=== PATIENT | female | born 1940 | race Caucasian/White ===

== ENCOUNTER 2016-11-12 08:25 | Inpatient (IN) | payer MEDICARE ==
[2016-11-12] MEDS ORDERED: metroNIDAZOLE IV 500 MG/100ML* 500 MG/100 ML BAG IVPB ONE (09:01)
[2016-11-12] MEDS ORDERED: NS 0.9% 1000 ML* 2,000 ML IV ONE (09:01)
[2016-11-12] MEDS ORDERED: Ciprofloxacin 400MG IVPREMIX(* 400 MG/200 ML BAG IVPB ONE (09:02)
--- NOTE | 2016-11-12 10:04 | RAD ---
HISTORY: Abdominal pain, syncope COMPARISONS: December 02, 2009 VIEWS:1: Single frontal portable view of the chest at 9:20 AM FINDINGS: LINES AND TUBES: None. CARDIOMEDIASTINAL SILHOUETTE: The cardiomediastinal silhouette is normal for portable technique. PLEURA: The costophrenic angles are sharp. No pleural abnormalities are noted. LUNG PARENCHYMA: The lungs are clear. ABDOMEN: The upper abdomen is clear. There is no subphrenic gas. BONES AND SOFT TISSUES: No bone or soft tissue abnormalities are noted. IMPRESSION: NO ACTIVE CARDIOPULMONARY DISEASE.
[2016-11-12 10:30] LABS: Hematocrit 41 % (35-47); Hemoglobin 13.9 g/dl (12.0-16.0); Mean Corpuscular HGB Conc 34 g/dl (31-36); Mean Corpuscular Hemoglobin 29 pg (27-31); Mean Corpuscular Volume 87 fL (80-97); Mean Platelet Volume 9 um3 (7.4-10.4); Red Blood Count 4.77 10^6/ul (4.0-5.4); Red Cell Distribution Width 14 % (10.5-15); White Blood Count 15.6 10^3/ul (3.5-10.8)
[2016-11-12 10:44] LABS: ALT 14 U/L (7-52); AST 18 U/L (13-39); Alkaline Phosphatase 61 U/L (34-104); Anion Gap 7 mmol/L (2-11); BUN/Creatinine Ratio 11.1 (8-20); Blood Urea Nitrogen 8 mg/dL (6-24); C Reactive Protein 99.41 mg/L (< 5.00); CO2 Carbon Dioxide 28 mmol/L (22-32); Calcium 9.3 mg/dL (8.6-10.3); Chloride 98 mmol/L (101-111); Creatine Kinase 57 U/L (10-223); EGFR African American 101.3 (>60); EGFR Non-African American 78.8 (>60); Globulin 2.8 g/dL (2-4); Glucose 119 mg/dL (70-100); Lipase < 10 U/L (11.0-82.0); Magnesium 2.1 mg/dL (1.9-2.7); Potassium 3.2 mmol/L (3.5-5.0); Sodium 133 mmol/L (133-145); Total Protein 6.8 g/dL (6.4-8.9)
[2016-11-12 10:44] LABS: Urine Bacteria Absent (Absent); Urine Bilirubin Negative (Negative); Urine Glucose Negative (Negative); Urine Nitrite Negative (Negative)
[2016-11-12 10:45] LABS: Troponin I 0.01 ng/mL (<0.04)
[2016-11-12] MEDS ORDERED: Ondansetron INJ* 2 MG/ML VIAL IV ONE (10:55)
[2016-11-12] MEDS ORDERED: Morphine INJ* 4 MG/ML 1 ML CARPUJECT IV ONE (10:55)
[2016-11-12] MEDS ORDERED: Iohexol 300* (CONTRAST) 10 ML SDV IV ONE (11:05)
--- NOTE | 2016-11-12 12:16 | RAD ---
CLINICAL HISTORY: Left lower quadrant pain, history of diverticulitis COMPARISON: February 23, 2016 TECHNIQUE: Multiple contiguous axial CT scans were obtained of the abdomen and pelvis after the administration of intravenous contrast. Coronal and sagittal multiplanar reformations are submitted for review. Oral contrast was administered. Delayed images were obtained through the abdomen FINDINGS: LUNG BASES: The lung bases are clear. LIVER: The liver is normal in shape, size, contour, and attenuation. BILE DUCTS: There is no intrahepatic or extrahepatic biliary dilatation. GALLBLADDER: Multiple gallstones are noted. There is no pericholecystic inflammatory change. . PANCREAS: The pancreas is normal, without mass or ductal dilatation. SPLEEN: Normal in size and appearance. UPPER GI TRACT: Evaluation of the gastrointestinal tract is limited by incomplete gastric distention. There is a moderate-sized hilar hernia. SMALL BOWEL AND MESENTERY: The small bowel is normal in contour, course, and caliber. There is no obstruction or dilatation. COLON: There is extensive diverticulosis of the sigmoid colon. There is mucosal thickening of the sigmoid colon with stranding of the pericolonic fat.. There is no loculated fluid collection to suggest abscess ADRENALS: Normal bilaterally. KIDNEYS: There are renal cysts bilaterally. There is moderate pelvocaliectasis on the left. This is similar to the previous examination BLADDER: The bladder is incompletely distended but is grossly normal. PELVIC ORGANS: Again noted is a cystic lesion of the right hemipelvis measuring simple fluid in attenuation. This is stable from 2016 examination. AORTA: The aorta is normal. IVC: Unremarkable LYMPH NODES: There is no lymphadenopathy by size criteria. ABDOMINAL WALL: There is no evidence for abdominal wall hernia. BONES AND SOFT TISSUES: Unremarkable OTHER: None IMPRESSION: 1. DIVERTICULITIS, WITHOUT LOCULATED FLUID COLLECTION TO SUGGEST ABSCESS. 2. STABLE LEFT-SIDED HYDRONEPHROSIS WITH MULTIPLE RENAL CYSTS. 3. CHOLELITHIASIS. 4. AGAIN NOTED IS A CYSTIC LESION OF THE RIGHT HEMIPELVIS. THIS IS STABLE FROM FEBRUARY 23, 2016. GIVEN THE SIZE AND PERSISTENCE, RECOMMEND CONSIDERATION OF GYNECOLOGIC CONSULTATION
[2016-11-12 12:19] LABS: TSH (Thyroid Stimulating Horm) 2.37 mcIU/mL (0.34-5.60)
--- NOTE | 2016-11-12 12:26 | ED ---
[facility], scribed for Manav Quiñonez MD on 11/12/16 at 0929 . Abdominal Pain/Female - HPI Summary HPI Summary: Patient is a 76 y/o female who presents to [facility] with sharp abd pain in the lower quadrants since 2 days. She rates her pain as a 7/10. She reports a subjective fever and loss of appetite, but denies CP, palpitations, hematochezia , or dysuria. She also reports pain is worsened by movement and that she has experienced decreased BM. She had two near syncope episodes and one syncope episode that lasted seconds this morning. Pt is on blood thinners and has a Hx of heart murmurs. PMHx is significant for diverticulitis and PSHx for tubal ligation. - History of Current Complaint Chief Complaint: EDAbdPain Stated Complaint: ABD PAIN Time Seen by Provider: 11/12/16 08:44 Hx Obtained From: Patient Onset/Duration: Gradual Onset, Lasting Days Pain Intensity: 6 Pain Scale Used: 0-10 Numeric Location: Discrete At: RLQ, Discrete At: LLQ Character: Sharp Aggravating Factor(s): Movement Alleviating Factor(s): Nothing Associated Signs and Symptoms: Positive: Fever, Decreased Appetite, Other: - No palpitations. No hematochezia. Syncope.. Negative: Chest Pain, Blood in Stool, Urinary Symptoms Allergies/Adverse Reactions: Allergies Allergy/AdvReac Type Severity Reaction Status Date / Time Amoxicillin Allergy Severe Shakes Verified 11/12/16 08:37 Clavulanic Acid Allergy Severe Headache Verified 11/12/16 08:37 [From Augmentin] Gentamicin Allergy Severe Eyes Verified 11/12/16 08:37 [From Gentamicin Ophthalmic] Itchy/Swollen/Red/Watery Sulfa Antibiotics Allergy Severe Rash Verified 11/12/16 08:37 PMH/Surg Hx/FS Hx/Imm Hx Endocrine/Hematology History: Denies: Hx Diabetes Cardiovascular History: Reports: Hx Hypertension - medication controlled Denies: Hx Pacemaker/ICD Respiratory History: Reports: Hx Asthma GI History: Reports: Hx Diverticulosis History: Denies: Hx Renal Disease Sensory History: Denies: Hx Hearing Aid Psychiatric History: Denies: Hx Panic Disorder - Surgical History Surgery Procedure, Year, and Place: TUBAL LIGATION 1970; Tonsillectomy age 6. CATARACTS, DENTAL Infectious Disease History: No Infectious Disease History: Denies: Traveled Outside the [place] in Last 30 Days - Family History Known Family History: Positive: Cardiac Disease - Father at 76 from cardiac dz. , Diabetes, Other - Father had PD. Family History: NON CONTRIBUTORY - Social History Alcohol Use: None Substance Use Type: Reports: None Smoking Status (MU): Never Smoked Tobacco Review of Systems Positive: Fever - Subjective. Cardiovascular: Other - No Palpitations. Negative: Chest Pain Gastrointestinal: Other - No hematochezia or dysuria. Positive: Other - Loss of appetite. Positive: Syncope - A few seconds. All Other Systems Reviewed And Are Negative: Yes Physical Exam Triage Information Reviewed: Yes Vital Signs On Initial Exam: Initial Vitals Temp Pulse Resp BP Pulse Ox 97.5 F 77 16 126/68 98 11/12/16 08:33 11/12/16 08:33 11/12/16 08:33 11/12/16 08:33 11/12/16 08:33 Vital Signs Reviewed: Yes Appearance: Positive: Well-Appearing, No Pain Distress - NAD. Skin: Positive: Warm, Skin Color Reflects Adequate Perfusion, Dry Head/Face: Positive: Normal Head/Face Inspection Eyes: Positive: EOMI, WIL ENT: Positive: Normal ENT inspection Neck: Positive: Supple, Nontender Respiratory/Lung Sounds: Positive: Clear to Auscultation, Breath Sounds Present Cardiovascular: Positive: RRR Abdomen Description: Positive: Soft, Other: - LLQ mild tenderness.. Negative: Nontender Bowel Sounds: Positive: Present, Hypoactive Musculoskeletal: Positive: Normal, Strength/ROM Intact Neurological: Positive: Normal, Sensory/Motor Intact, Alert, Oriented to Person Place, Time Psychiatric: Positive: Affect/Mood Appropriate - Tram Coma Scale Coma Scale Total: 15 Diagnostics - Vital Signs Vital Signs Temp Pulse Resp BP Pulse Ox 11/12/16 08:54 73 18 95 11/12/16 08:33 97.5 F 77 16 126/68 98 - Laboratory Lab Results: Lab Results 11/12/16 11/12/16 11/12/16 Range/Units 10:15 10:15 10:15 WBC 15.6 H (3.5-10.8) 10^3/ul RBC 4.77 (4.0-5.4) 10^6/ul Hgb 13.9 (12.0-16.0) g/dl Hct 41 (35-47) % MCV 87 (80-97) fL MCH 29 (27-31) pg MCHC 34 (31-36) g/dl RDW 14 (10.5-15) % Plt Count 245 (150-450) 10^3/ul MPV 9 (7.4-10.4) um3 Neut % (Auto) 81.7 (38-83) % Lymph % (Auto) 9.2 L (25-47) % [place] % (Auto) 8.2 (1-9) % Eos % (Auto) 0.1 (0-6) % Baso % (Auto) 0.8 (0-2) % Absolute Neuts (auto) 12.8 H (1.5-7.7) 10^3/ul Absolute Lymphs (auto) 1.4 (1.0-4.8) 10^3/ul Absolute Monos (auto) 1.3 H (0-0.8) 10^3/ul Absolute Eos (auto) 0 (0-0.6) 10^3/ul Absolute Basos (auto) 0.1 (0-0.2) 10^3/ul Absolute Nucleated RBC 0 10^3/ul Nucleated RBC % 0 INR (Anticoag Therapy) 0.91 (0.89-1.11) APTT 26.7 (26.0-36.3) seconds Sodium 133 (133-145) mmol/L Potassium 3.2 L (3.5-5.0) mmol/L Chloride 98 L (101-111) mmol/L Carbon Dioxide 28 (22-32) mmol/L Anion Gap 7 (2-11) mmol/L BUN 8 (6-24) mg/dL Creatinine 0.72 (0.51-0.95) mg/dL Est GFR ( Amer) 101.3 (>60) Est GFR (Non-Af Amer) 78.8 (>60) BUN/Creatinine Ratio 11.1 (8-20) Glucose 119 H (70-100) mg/dL Lactic Acid (0.5-2.0) mmol/L Calcium 9.3 (8.6-10.3) mg/dL Magnesium 2.1 (1.9-2.7) mg/dL Total Bilirubin 1.00 (0.2-1.0) mg/dL AST 18 (13-39) U/L ALT 14 (7-52) U/L Alkaline Phosphatase 61 (34-104) U/L Total Creatine Kinase 57 (10-223) U/L CK-MB (CK-2) 1.2 (0.6-6.3) ng/mL Troponin I 0.01 (<0.04) ng/mL C-Reactive Protein 99.41 H (< 5.00) mg/L Total Protein 6.8 (6.4-8.9) g/dL Albumin 4.0 (3.2-5.2) g/dL Globulin 2.8 (2-4) g/dL Albumin/Globulin Ratio 1.4 (1-3) Lipase < 10 L (11.0-82.0) U/L TSH 2.37 (0.34-5.60) mcIU/mL Urine Color Urine Appearance Urine pH (5-9) Ur Specific River (1.010-1.030) Urine Protein (Negative) Urine Ketones (Negative) Urine Blood (Negative) Urine Nitrate (Negative) Urine Bilirubin (Negative) Urine Urobilinogen (Negative) Ur Leukocyte Esterase (Negative) Urine WBC (Auto) (Absent) Urine RBC (Auto) (Absent) Ur Squamous Epith Cells (Absent) Urine Bacteria (Absent) Urine Glucose (Negative) 11/12/16 11/12/16 Range/Units 10:15 10:20 WBC (3.5-10.8) 10^3/ul RBC (4.0-5.4) 10^6/ul Hgb (12.0-16.0) g/dl Hct (35-47) % MCV (80-97) fL MCH (27-31) pg MCHC (31-36) g/dl RDW (10.5-15) % Plt Count (150-450) 10^3/ul MPV (7.4-10.4) um3 Neut % (Auto) (38-83) % Lymph % (Auto) (25-47) % [place] % (Auto) (1-9) % Eos % (Auto) (0-6) % Baso % (Auto) (0-2) % Absolute Neuts (auto) (1.5-7.7) 10^3/ul Absolute Lymphs (auto) (1.0-4.8) 10^3/ul Absolute Monos (auto) (0-0.8) 10^3/ul Absolute Eos (auto) (0-0.6) 10^3/ul Absolute Basos (auto) (0-0.2) 10^3/ul Absolute Nucleated RBC 10^3/ul Nucleated RBC % INR (Anticoag Therapy) (0.89-1.11) APTT (26.0-36.3) seconds Sodium (133-145) mmol/L Potassium (3.5-5.0) mmol/L Chloride (101-111) mmol/L Carbon Dioxide (22-32) mmol/L Anion Gap (2-11) mmol/L BUN (6-24) mg/dL Creatinine (0.51-0.95) mg/dL Est GFR ( Amer) (>60) Est GFR (Non-Af Amer) (>60) BUN/Creatinine Ratio (8-20) Glucose (70-100) mg/dL Lactic Acid 0.9 (0.5-2.0) mmol/L Calcium (8.6-10.3) mg/dL Magnesium (1.9-2.7) mg/dL Total Bilirubin (0.2-1.0) mg/dL AST (13-39) U/L ALT (7-52) U/L Alkaline Phosphatase (34-104) U/L Total Creatine Kinase (10-223) U/L CK-MB (CK-2) (0.6-6.3) ng/mL Troponin I (<0.04) ng/mL C-Reactive Protein (< 5.00) mg/L Total Protein (6.4-8.9) g/dL Albumin (3.2-5.2) g/dL Globulin (2-4) g/dL Albumin/Globulin Ratio (1-3) Lipase (11.0-82.0) U/L TSH (0.34-5.60) mcIU/mL Urine Color Yellow Urine Appearance Clear Urine pH 7.0 (5-9) Ur Specific River 1.006 L (1.010-1.030) Urine Protein Negative (Negative) Urine Ketones Trace H (Negative) Urine Blood 1+ H (Negative) Urine Nitrate Negative (Negative) Urine Bilirubin Negative (Negative) Urine Urobilinogen Negative (Negative) Ur Leukocyte Esterase Negative (Negative) Urine WBC (Auto) Absent (Absent) Urine RBC (Auto) 1+(3-5/hpf) H (Absent) Ur Squamous Epith Cells Present H (Absent) Urine Bacteria Absent (Absent) Urine Glucose Negative (Negative) Result Diagrams: 11/12/16 10:15 11/12/16 10:15 Lab Statement: Any lab studies that have been ordered have been reviewed, and results considered in the medical decision making process. - Radiology CXR Radiology Interpretation Completed By: Radiologist - IMPRESSION: NO ACTIVE CARDIOPULMONARY DISEASE. Abdominal Pain Fem Course/Dx - Course Course Of Treatment: ADMIT HOSPITALIST STABLE. - Diagnoses Provider Diagnoses: Diverticulitis, Syncope Discharge - Discharge Plan Condition: Stable Disposition: ADMITTED TO [facility] The documentation as recorded by the [facility] accurately reflects the service I personally performed and the decisions made by Khang modi William, MD.
[2016-11-12] MEDS ORDERED: Morphine INJ* 4 MG/ML 1 ML CARPUJECT IV PRN (13:31)
[2016-11-12] MEDS: metroNIDAZOLE IV 500 MG/100ML* 500 MG/100 ML BAG IVPB SCH ×2 (13:35→21:42)
--- NOTE | 2016-11-12 13:52 | ED ---
[facility], scribed for Manav Quiñonez MD on 11/12/16 at 1334 . Progress - Results/Orders Results/Orders: CT ABD/PELVIS IMPRESSION: 1. DIVERTICULITIS, WITHOUT LOCULATED FLUID COLLECTION TO SUGGEST ABSCESS. 2. STABLE LEFT-SIDED HYDRONEPHROSIS WITH MULTIPLE RENAL CYSTS. 3. CHOLELITHIASIS. 4. AGAIN NOTED IS A CYSTIC LESION OF THE RIGHT HEMIPELVIS. THIS IS STABLE FROM FEBRUARY 23, 2016. GIVEN THE SIZE AND PERSISTENCE, RECOMMEND CONSIDERATION OF GYNECOLOGIC CONSULTATION Course/Dx - Course Course Of Treatment: ADMIT HOSPITALIST STABLE. - Diagnoses Provider Diagnoses: Diverticulitis, Syncope The documentation as recorded by the [facility] accurately reflects the service I personally performed and the decisions made by , Manav Quiñonez MD.
[2016-11-12] MEDS ORDERED: Ciprofloxacin 400MG IVPREMIX(* 400 MG/200 ML BAG IVPB SCH (14:00)
[2016-11-12] MEDS: Heparin VIAL(*) 5000 UNITS/ML VIAL (FIVE THOUSAND) SUBCUT SCH ×2 (14:11→20:54)
[2016-11-12] MEDS: NS 0.9% 1000 ML* 1,000 ML IV SCH (14:12)
--- NOTE | 2016-11-12 16:57 | HP ---
HISTORY AND PHYSICAL: DATE OF ADMISSION: 11/12/16 PRIMARY CARE PHYSICIAN: Ilana Chaney MD THREAD SINGER: Mustapha Bain MD ATTENDING PHYSICIAN: DO Ayush Enamorado (dictation provided by Sugey Crump NP ) CHIEF COMPLAINT: Lower abdominal pain with fainting x2. HISTORY OF PRESENT ILLNESS: Ms. Garcias is a 76-year-old female with a past medical history of diverticulitis, asthma, and a fainting spell early last year who presents today at the hospital with concern for lower abdominal pain and fainting. Ms. Garcias states that she has been in her normal status of health with no acute health complaints up until . At that time, she felt some pain in her lower abdomen that she attributed to gas; however, by Monday at about noon, she "knew it was diverticulitis" based on her 4 previous episodes of diverticulitis. She took 3 Bentyl pills and rested; however, she slept very poorly and by approximately 5 a.m., she had decided that she would come to the emergency room for evaluation and called her friend to bring her. She rested for a couple of more hours and while up getting up and getting ready, she felt very faint and at one point, while sitting on her stool, putting on her socks, she did faint. She reported waking up on the floor. She denies any loss of bowel or bladder. She states she felt warm, but she had no fever. The pain is primarily in her lower abdomen and is consistent with her previous attacks of diverticulitis and does not radiate. She has had firm bowel movements. She has had no nausea, but very poor appetite. Ms. Garcias states that her last fainting spell was in January 2016. She reported that it was at a large alliance party at her home during which time it was very warm outside and there was some drinking of cocktails. The patient was seen by Neurology and Cardiology and no abnormalities were found to explain the syncopal episode. In the emergency room, Ms. Garcias had a white blood cell count, which was 15.6. She has a CRP of 99.41. CT of the abdomen and pelvis does confirm diverticulitis. She is afebrile. She shows the sinus rhythm on the art educator. Based on Ms. Garcias's presentation with concern for diverticulitis and fainting , hospital medicine was called regarding admission. PAST MEDICAL HISTORY: 1. Diverticulitis. 2. History of fainting, January 2016. 3. Hypertension. 4. Hematuria, being followed by Dr. Clarke with plan for CT urogram. 5. Overactive bladder. 6. Genital prolapse. 7. Atrophic vaginitis. 8. Irritable bowel syndrome. 9. Right ovarian cyst, followed by Gynecology. 10. Asthma. MEDICATIONS: 1. Probiotic daily. 2. Ammonium lactate to legs p.r.n. 3. Calcium carbonate plus cholecalciferol 1 tab p.o. daily. 4. Cholecalciferol 1000 units p.o. daily. 5. Clindamycin topically p.r.n. 6. Dicyclomine p.r.n. 7. Lomotil p.r.n. 8. Dulera 200/5 mcg 2 puffs inhaled b.i.d. 9. Fluconazole p.r.n. 10. Flonase 1 spray inhaled daily. 11. Gaviscon p.r.n. 12. Glucosamine/chondroitin 1 cap p.o. daily. 13. Levocetirizine 5 mg p.o. daily. 14. Multivitamin and mineral 1 cap p.o. daily. 15. Nitrofurantoin p.r.n. 16. Nystatin cream p.r.n. 17. Ondansetron 4 mg p.o. q.6 hours p.r.n. 18. Premarin vaginal cream 1 application topically p.r.n. 19. Probiotic product 1 cap p.o. daily. 20. Propylene glycol 1 drop both eyes p.r.n. 21. Amlodipine 5 mg p.o. daily. 22. Prednisone 20 mg p.o. daily p.r.n. 23. Aspirin 81 mg p.o. daily p.r.n. ALLERGIES: AMOXICILLIN, CLAVULANIC ACID, GENTAMICIN, and SULFA ANTIBIOTICS. FAMILY HISTORY: The patient reports that her mother of "old age" at the age of 86 and father had Parkinson's and heart disease and at age 76. REVIEW OF SYSTEMS: A 14-point review of systems was completed with Ms. Garcias and all those not mentioned above were negative. PHYSICAL EXAMINATION GENERAL: Ms. Garcias is sitting up in the bed. She is in no acute distress. She is calm and cooperative with my examination. VITAL SIGNS: Temperature 97.5, heart rate 75, respiratory rate 20, O2 saturations 98% on room air, and blood pressure 131/60. HEART: S1 and S2. No murmur, rubs, or gallop. Regular. LUNGS: Clear to auscultation bilaterally with no accessory muscle use and good aeration. ABDOMEN: Soft and nontender with bowel sounds positive x4. The patient has recently had morphine and does state she is resting comfortably. EXTREMITIES: No cyanosis or edema. SKIN: Intact. NEUROLOGIC: She is alert and oriented x3. She moves all extremities equally. There is no facial asymmetry or focal weakness. Extraocular movements are intact. DIAGNOSTIC STUDIES/LAB DATA: Sodium 133, potassium 3.2, chloride 98, serum bicarbonate 8, creatinine 0.72, glucose 119, lactic acid 0.9, and magnesium 2.1. Troponin 0.01. CRP 99.41. WBC 15.6, hemoglobin 13.9, hematocrit 41, and platelet count 245. INR 0.91. Urine shows 1+ blood, but no leukocyte esterase or nitrite. Abdomen and pelvis CT is as follows: "Diverticulitis without loculated fluid collection to suggest abscess. Stable left-sided hydronephrosis with multiple renal cysts. Cholelithiasis. Again noticed is a cystic lesion at the right hemipelvis, this is stable from 02/23/16 given the size and persistence. Recommend consideration of Gynecologic consultation." ASSESSMENT: Ms. Garcias is a 76-year-old female with past medical history of hypertension, asthma, diverticulitis, and fainting spell early last year without clear identified etiology who presents today to the hospital with concern for abdominal pain and fainting spell this morning, found to have diverticulitis. Our plans are for inpatient admission as I expect her length of stay to be greater than 2 days for the followin. Diverticulitis: Plan for metronidazole and ciprofloxacin intravenously until the patient can consistently take oral. She has a clear liquid diet. She will have pain medications p.r.n. She will have IV fluids and normal saline 100 mL per hour through the night until she is able to tolerate oral intake consistently. Plan to recheck CBC in the morning. 2. Syncope: The patient had a complete workup early last year when she had a syncopal episode. Plan to have the patient monitored on telemetry while here and to have a transthoracic echocardiogram tomorrow. Dr. Bain plans for her to have Holter monitoring placed and I think she will benefit from following up on that, nothing is identified during this hospitalization. Also plan to hold her amlodipine as I worry that perhaps her blood pressure is falling when she is still as both of her episodes have occurred while under stress. 3. Hypertension: Plan to hold amlodipine. We will monitor blood pressure. 4. Asthma: No evidence of exacerbation. She will have albuterol as needed. 5. DVT prophylaxis: Heparin subcu. 6. Disposition: To telemetry floor. TIME SPENT: Approximately 60 minutes was spent in the admission of this patient , more than half of the time was spent with her at the bedside reviewing the events leading up to and during this hospitalization, performing the physical examination, and reviewing my plan of care. SUGEY CRUMP NP CC: Dr. Chaney; Dr. Bain * [id number]/CPS #: [id number]
[2016-11-12] MEDS ORDERED: CMCS: Melatonin (NF) 3 MG TAB PO SCH (21:00)
[2016-11-12] MEDS: Ciprofloxacin 400MG IVPREMIX(* 400 MG/200 ML BAG IVPB SCH (22:42)
[2016-11-13] MEDS: NS 0.9% 1000 ML* 1,000 ML IV SCH (01:45)
[2016-11-13] MEDS: metroNIDAZOLE IV 500 MG/100ML* 500 MG/100 ML BAG IVPB SCH (05:19)
[2016-11-13] MEDS: Heparin VIAL(*) 5000 UNITS/ML VIAL (FIVE THOUSAND) SUBCUT SCH (05:19)
[2016-11-13 05:39] LABS: Hematocrit 34 % (35-47); Hemoglobin 11.7 g/dl (12.0-16.0); Mean Corpuscular HGB Conc 34 g/dl (31-36); Mean Corpuscular Hemoglobin 30 pg (27-31); Mean Corpuscular Volume 87 fL (80-97); Mean Platelet Volume 9 um3 (7.4-10.4); Red Blood Count 3.94 10^6/ul (4.0-5.4); Red Cell Distribution Width 14 % (10.5-15); White Blood Count 7.7 10^3/ul (3.5-10.8)
[2016-11-13 05:54] LABS: BUN/Creatinine Ratio 6.9 (8-20); Calcium 8.2 mg/dL (8.6-10.3); EGFR Non-African American 101.1 (>60); Potassium 3.2 mmol/L (3.5-5.0)
[2016-11-13] MEDS ORDERED: NS 0.9% 1000 ML* 1,000 ML IV SCH (08:28)
--- NOTE | 2016-11-13 08:34 | PN ---
Subjective Date of Service: 11/13/16 Interval History: . Patient reports she feels better and would like to go home. She has had no BM today, last BM was last evening. Abdominal pain is much better she continues to have some lower abdominal cramping and tenderness. No fevers or chills. Tolerated clear liquid diet. Objective Active Medications: Aspirin (Aspirin Ec Low Dose*) 81 mg PO DAILY [facility] Heparin Sodium (Porcine) (Heparin Vial(*)) 5,000 units SUBCUT Q8HR [facility] Last Admin: 11/13/16 05:19 Dose: 5,000 units Metronidazole/Sodium Chloride (Flagyl 500 Mg Ivpb*) 500 mg in 100 mls @ 100 mls /hr IVPB Q8H [facility] Last Admin: 11/13/16 05:19 Dose: 100 mls/hr Ciprofloxacin/Dextrose (Cipro 400 Mg Ivpremix(*)) 400 mg in 200 mls @ 200 mls/ hr IVPB 1100,2300 [facility] Last Admin: 11/12/16 22:42 Dose: 200 mls/hr Potassium Chloride (Potassium Chloride 20 Meq/100 Ml Ivpremix*) 20 meq in 100 mls @ 50 mls/hr IV Q2H [facility] Stop: 11/13/16 12:59 Sodium Chloride (Ns 0.9% 1000 Ml*) 1,000 mls @ 100 mls/hr IV PER RATE [facility] Melatonin (Melatonin (Nf)) 3 mg PO BEDTIME [facility] Last Admin: 11/12/16 20:54 Dose: 3 mg Morphine Sulfate (Morphine Inj (Syringe)*) 4 mg IV Q4H PRN PRN Reason: PAIN Vital Signs 11/12/16 11/12/16 11/12/16 11:41 13:15 13:37 Temperature 98 F 98.5 F Pulse Rate 91 74 Respiratory 20 16 20 Rate Blood Pressure 146/52 137/58 (mmHg) O2 Sat by Pulse 99 Oximetry 11/12/16 11/12/16 11/12/16 15:33 16:02 19:42 Temperature 98.0 F 98.9 F Pulse Rate 75 72 Respiratory 18 18 17 Rate Blood Pressure 145/66 123/53 (mmHg) O2 Sat by Pulse 98 97 Oximetry 11/12/16 11/12/16 11/13/16 20:00 23:44 00:29 Temperature 98.3 F 98.2 F Pulse Rate 65 70 Respiratory 16 16 16 Rate Blood Pressure 122/36 124/58 (mmHg) O2 Sat by Pulse 94 96 Oximetry 11/13/16 03:39 Temperature 97.8 F Pulse Rate 56 Respiratory 20 Rate Blood Pressure 104/68 (mmHg) O2 Sat by Pulse 94 Oximetry Oxygen Devices in Use Now: None Appearance: 76 yo female laying in bed in NAD. A+O x3 Eyes: No Scleral Icterus, PERRLA Ears/Nose/Mouth/Throat: NL Teeth, Lips, Gums, Mucous Membranes Moist Neck: NL Appearance and Movements; NL JVP Respiratory: Symmetrical Chest Expansion and Respiratory Effort, Clear to Auscultation Cardiovascular: NL Sounds; No Murmurs; No JVD, RRR, No Edema Abdominal: - - soft, nondistended, NL BS - mild tenderness to loer quad - no gaurding Lymphatic: No Cervical Adenopathy Extremities: No Edema, No Clubbing, Cyanosis Skin: No Rash or Ulcers, No Nodules or Sclerosis Neurological: Alert and Oriented x 3, NL Sensation, NL Gait, NL Muscle Strength and Tone Lines/Tubes/Other Access: Clean, Dry and Intact Peripheral IV Nutrition: Taking PO's Result Diagrams: 11/13/16 05:03 11/13/16 05:03 Additional Lab and Data: Lab Results 11/12/16 11/12/16 11/12/16 Range/Units 10:15 10:15 10:15 WBC 15.6 H (3.5-10.8) 10^3/ul RBC 4.77 (4.0-5.4) 10^6/ul Hgb 13.9 (12.0-16.0) g/dl Hct 41 (35-47) % MCV 87 (80-97) fL MCH 29 (27-31) pg MCHC 34 (31-36) g/dl RDW 14 (10.5-15) % Plt Count 245 (150-450) 10^3/ul MPV 9 (7.4-10.4) um3 Neut % (Auto) 81.7 (38-83) % Lymph % (Auto) 9.2 L (25-47) % Reagan % (Auto) 8.2 (1-9) % Eos % (Auto) 0.1 (0-6) % Baso % (Auto) 0.8 (0-2) % Absolute Neuts (auto) 12.8 H (1.5-7.7) 10^3/ul Absolute Lymphs (auto) 1.4 (1.0-4.8) 10^3/ul Absolute Monos (auto) 1.3 H (0-0.8) 10^3/ul Absolute Eos (auto) 0 (0-0.6) 10^3/ul Absolute Basos (auto) 0.1 (0-0.2) 10^3/ul Absolute Nucleated RBC 0 10^3/ul Nucleated RBC % 0 INR (Anticoag Therapy) 0.91 (0.89-1.11) APTT 26.7 (26.0-36.3) seconds Sodium 133 (133-145) mmol/L Potassium 3.2 L (3.5-5.0) mmol/L Chloride 98 L (101-111) mmol/L Carbon Dioxide 28 (22-32) mmol/L Anion Gap 7 (2-11) mmol/L BUN 8 (6-24) mg/dL Creatinine 0.72 (0.51-0.95) mg/dL Est GFR ( Amer) 101.3 (>60) Est GFR (Non-Af Amer) 78.8 (>60) BUN/Creatinine Ratio 11.1 (8-20) Glucose 119 H (70-100) mg/dL Lactic Acid (0.5-2.0) mmol/L Calcium 9.3 (8.6-10.3) mg/dL Magnesium 2.1 (1.9-2.7) mg/dL Total Bilirubin 1.00 (0.2-1.0) mg/dL AST 18 (13-39) U/L ALT 14 (7-52) U/L Alkaline Phosphatase 61 (34-104) U/L Total Creatine Kinase 57 (10-223) U/L CK-MB (CK-2) 1.2 (0.6-6.3) ng/mL Troponin I 0.01 (<0.04) ng/mL C-Reactive Protein 99.41 H (< 5.00) mg/L Total Protein 6.8 (6.4-8.9) g/dL Albumin 4.0 (3.2-5.2) g/dL Globulin 2.8 (2-4) g/dL Albumin/Globulin Ratio 1.4 (1-3) Lipase < 10 L (11.0-82.0) U/L TSH 2.37 (0.34-5.60) mcIU/mL Urine Color Urine Appearance Urine pH (5-9) Ur Specific [place] (1.010-1.030) Urine Protein (Negative) Urine Ketones (Negative) Urine Blood (Negative) Urine Nitrate (Negative) Urine Bilirubin (Negative) Urine Urobilinogen (Negative) Ur Leukocyte Esterase (Negative) Urine WBC (Auto) (Absent) Urine RBC (Auto) (Absent) Ur Squamous Epith Cells (Absent) Urine Bacteria (Absent) Urine Glucose (Negative) 11/12/16 11/12/16 Range/Units 10:15 10:20 WBC (3.5-10.8) 10^3/ul RBC (4.0-5.4) 10^6/ul Hgb (12.0-16.0) g/dl Hct (35-47) % MCV (80-97) fL MCH (27-31) pg MCHC (31-36) g/dl RDW (10.5-15) % Plt Count (150-450) 10^3/ul MPV (7.4-10.4) um3 Neut % (Auto) (38-83) % Lymph % (Auto) (25-47) % Reagan % (Auto) (1-9) % Eos % (Auto) (0-6) % Baso % (Auto) (0-2) % Absolute Neuts (auto) (1.5-7.7) 10^3/ul Absolute Lymphs (auto) (1.0-4.8) 10^3/ul Absolute Monos (auto) (0-0.8) 10^3/ul Absolute Eos (auto) (0-0.6) 10^3/ul Absolute Basos (auto) (0-0.2) 10^3/ul Absolute Nucleated RBC 10^3/ul Nucleated RBC % INR (Anticoag Therapy) (0.89-1.11) APTT (26.0-36.3) seconds Sodium (133-145) mmol/L Potassium (3.5-5.0) mmol/L Chloride (101-111) mmol/L Carbon Dioxide (22-32) mmol/L Anion Gap (2-11) mmol/L BUN (6-24) mg/dL Creatinine (0.51-0.95) mg/dL Est GFR ( Amer) (>60) Est GFR (Non-Af Amer) (>60) BUN/Creatinine Ratio (8-20) Glucose (70-100) mg/dL Lactic Acid 0.9 (0.5-2.0) mmol/L Calcium (8.6-10.3) mg/dL Magnesium (1.9-2.7) mg/dL Total Bilirubin (0.2-1.0) mg/dL AST (13-39) U/L ALT (7-52) U/L Alkaline Phosphatase (34-104) U/L Total Creatine Kinase (10-223) U/L CK-MB (CK-2) (0.6-6.3) ng/mL Troponin I (<0.04) ng/mL C-Reactive Protein (< 5.00) mg/L Total Protein (6.4-8.9) g/dL Albumin (3.2-5.2) g/dL Globulin (2-4) g/dL Albumin/Globulin Ratio (1-3) Lipase (11.0-82.0) U/L TSH (0.34-5.60) mcIU/mL Urine Color Yellow Urine Appearance Clear Urine pH 7.0 (5-9) Ur Specific [place] 1.006 L (1.010-1.030) Urine Protein Negative (Negative) Urine Ketones Trace H (Negative) Urine Blood 1+ H (Negative) Urine Nitrate Negative (Negative) Urine Bilirubin Negative (Negative) Urine Urobilinogen Negative (Negative) Ur Leukocyte Esterase Negative (Negative) Urine WBC (Auto) Absent (Absent) Urine RBC (Auto) 1+(3-5/hpf) H (Absent) Ur Squamous Epith Cells Present H (Absent) Urine Bacteria Absent (Absent) Urine Glucose Negative (Negative) Assess/Plan/Problems-Billing Assessment: 76 yo female with a PMH of HTN, asthma, diverticulitis and hx of syncope who presents to the emergency department on 11/12 with c/o of abdominal pain and "fainting spell" foun dto have diverticulitis on CT abd/pelvis - Patient Problems (1) Acute diverticulitis Comment: - Resolving on abx - CT abd/pelvis shoing diverticulitis in the sigmoid colon w/o abscess - continue cipro/falgyl - clear liquid diet, advancing as tolerates. (2) Electrolyte abnormality Comment: - hypokalemia - give replacement, check magnesium. (3) Syncope Comment: - no further episodes. No arryhtmias noted on tele. Pt has been worked up for syncope in the past. Plan for Holter monitor as outpatient (2nd time) 11/[address] Bain. Sounds like orthostasis or vasovagal episodes. - orthostatic VS negative (4) HTN (hypertension) (5) DVT prophylaxis Comment: HSQ (6) Full code status Status and Disposition: OBV. Plan for DC to home.
[2016-11-13 08:58] LABS: Magnesium 1.9 mg/dL (1.9-2.7)
[2016-11-13] MEDS ORDERED: Aspirin EC Low Dose* 81 MG TAB.EC PO SCH (09:00)
[2016-11-13] MEDS ORDERED: KCL 20 MEQ/100 ML IVPREMIX* 20 MEQ/100 ML BAG IV SCH (09:00)
--- NOTE | 2016-11-13 10:51 | ECHO ---
Patient: KAREEN SNELL [facility] Rec#: [id number] : 1940 Date: 11/13/2016 Age: 76y Height: 160 cm / 63.0 in Weight: 73 kg / 160.9 lbs Sex: F BSA: 1.76 Room#: [facility] Admit Date#: 11/12/2016 Type: Inpatient Referring: Sugey Crump NP Reading: Mirza Barry MD Buttonhole Maker: Keaton Richter RDCS Transthoracic Echocardiogram BP: 104/68 Rhythm: NSR Findings History: HTN,SYNCOPE Technical Comments: The study quality is good. Completed 1035 Left Ventricle: The left ventricular chamber size is normal. Global left ventricular wall motion and contractility are within normal limits. There is normal left ventricular systolic function. The estimated ejection fraction is 55-60%. Abnormal left ventricular diastolic filling is observed, consistent with impaired relaxation. Left Atrium: The left atrium is mildly dilated. Right Ventricle: The right ventricular cavity size is normal. The right ventricular global systolic function is normal. Right Atrium: The right atrium is mildly dilated. Aortic Valve: The aortic valve is trileaflet. There is no evidence of aortic regurgitation. There is no evidence of aortic stenosis. Mitral Valve: The mitral valve leaflets appear normal. There is a trace of mitral regurgitation. Tricuspid Valve: There is mild tricuspid regurgitation. The right ventricular systolic pressure is estimated at 28 mmHg. Pulmonic Valve: The pulmonic valve appears normal. There is no evidence of pulmonic regurgitation. There is no pulmonic stenosis. Pericardium: There is no pericardial effusion. Aorta: There is no dilatation of the ascending aorta. There is no dilatation of the aortic arch. There is no dilation of the aortic root. Pulmonary Artery: The main pulmonary artery is not well visualized. Venous: The inferior vena cava appears normal in size. There is a greater than 50% respiratory change in the inferior vena cava dimension. Conclusions Global left ventricular wall motion and contractility are within normal limits. There is normal left ventricular systolic function. The estimated ejection fraction is 55-60%. There is no evidence of aortic regurgitation. There is a trace of mitral regurgitation. There is mild tricuspid regurgitation. The right ventricular systolic pressure is estimated at 28 mmHg. There is no pericardial effusion. Measurements Name Value Normal Range RVIDd (AP) 2D 2.5 cm (0.9 - 2.6) RVDdMajor (2D) 2.8 cm (2.2 - 4.4) RAd ISD 4CH 4.8 cm (3.4 - 4.9) RA (A4C)W 3.4 cm (2.9 - 4.6) IVSd (2D) 0.7 cm (0.6 - 1) LVPWd (2D) 0.8 cm (0.6 - 1) LVIDd (2D) 3.7 cm (3.6 - 5.4) LVIDs (2D) 2.7 cm - LV FS (2D) 27 % (25 - 45) Aortic Annulus 2.2 cm (1.4 - 2.6) Ao root diameter (2D) 1.5 cm (2.1 - 3.5) Ascending Ao 2.3 cm (2.1 - 3.4) Aortic arch 3.1 cm (1.8 - 3.4) LA dimension (AP) 2D 3.4 cm (2.3 - 3.8) LAd ISD 4CH 4.8 cm (2.9 - 5.3) LA ISD 4CH W 3 cm (2.5 - 4.5) Name Value Normal Range LA ESV SP 4CH (A/L) 71 ml - LA ESV SP 2CH (A/L) 75 ml - LA ESV BP (A/L) 74 ml - LA ESV BP (A/L) index 42.36 ml/m2 - LA ESV SP 4CH (MOD) 65 ml - LA ESV SP 2CH (MOD) 68 ml - Name Value Normal Range MV E-wave Vmax 0.67 m/sec - MV deceleration time 245.34 msec - MV A-wave Vmax 0.89 m/sec - MV E:A ratio 0.76 ratio - Name Value Normal Range LVOT diameter 1.7 cm - LVOT Vmax 0.9 m/sec - Name Value Normal Range TR Vmax 2.5 m/sec - TR peak gradient 25 mmHg - RAP 3 mmHg - RVSP 28 mmHg - IVC diameter 1.8 cm - Name Value Normal Range PV Vmax 0.8 m/sec -
[2016-11-13 11:18] VITALS: BP 124/53
[2016-11-13] MEDS: Ciprofloxacin 400MG IVPREMIX(* 400 MG/200 ML BAG IVPB SCH (12:32)
[2016-11-13] MEDS ORDERED: Potassium Chlor TAB* 20 MEQ TAB.ER PO ONE (13:15)
--- NOTE | 2016-12-20 15:24 | DS ---
DATE OF ADMISSION: 11/12/2016. DATE OF DISCHARGE: 11/13/2016. PROVIDER: Cipriano Yip NP. ATTENDING PHYSICIAN: Dr. Brunner *(report dictated by Cipriano Yip NP). PRIMARY CARE PROVIDER: Dr. Chaney. PEDIATRIC DIETICIAN: Dr. Bain. PRIMARY DIAGNOSES: 1. Acute diverticulitis. 2. Electrolyte abnormality. 3. Syncope. SECONDARY DIAGNOSES: 1. Irritable bowel syndrome. 2. Asthma. 3. Right ovarian cyst followed by Gynecology. 4. Diverticulitis. 5. History of fainting January 2016. 6. Hypertension. 7. Hematuria being followed by Dr. Clarke with plan for CT urogram. 8. Overactive bladder. 9. Genital prolapse. 10. Atrophic vaginitis. DISCHARGE MEDICATIONS: 1. Probiotic daily. 2. Ammonium Lactate to legs prn. 3. Calcium carbonate plus vitamin D one tab p.o. daily. 4. Vitamin D 1000 units p.o. daily. 5. Clindamycin topical prn. 6. Dicyclomine prn. 7. Lomotil prn. 8. Dulera 200/5 mcg two puffs INH b.i.d. 9. Fluconazole prn. 10. Flonase one spray inhalation daily. 11. Gaviscon prn. 12. Glucosamine-Chondroitin one cap p.o. daily. 13. Levocetirizine 5 mg p.o. daily. 14. Multiple vitamin with mineral one cap p.o. daily. 15. Nitrofurantoin prn. 16. Nystatin cream prn. 17. Zofran 4 mg p.o. q.6 hours prn. 18. Premarin vaginal cream one application topical prn. 19. Probiotic one cap p.o. daily. 20. Propylene Glycol one drop both eyes prn. 21. Amlodipine 5 mg p.o. daily. 22. Prednisone 20 mg p.o. daily prn. 23. Aspirin 81 mg p.o. daily prn. HISTORY OF PRESENT ILLNESS AND HOSPITAL COURSE: Please see history and physical by Sugey Crump NP for full admission details. In summary, this is a 76 -year-old female with a past medical history of diverticulitis, asthma, and one prior history of fainting spell early last year who presents to the hospital on 11/12/2016 with concern for lower abdominal pain and fainting. The patient reports several days of lower abdominal pain that she initially attributed to gas; however, she "knew it was diverticulitis" based on four previous episodes of diverticulitis. She took three Bentyl pills and rested; however, she slept very poorly and this morning around 5:00 a.m. she decided she would come to the emergency department for further evaluation. Prior to coming in, she reports she had been intermittently awake throughout the night and decided to rest a couple more hours before getting up and coming to the emergency department. When she got up, she felt faint and while sitting on her stool and putting her socks on, she did faint and reported waking up on the floor. She denied any loss of bowel or bladder. She denied any trauma to her head. She denied any shortness of breath or chest pain. She did report she felt slightly dizzy prior to passing out. In the emergency department, the patient underwent an abdomen/pelvis CT which showed: "1. Diverticulitis, without loculated fluid collection to suggest abscess.2. Stable left-sided hydronephrosis with multiple renal cysts.3. Cholelithiasis. 4.Again noted is a cystic lesion of the right hemipelvis. This is stable from February 23, 2016. Given the size and persistence, recommend consideration of gynecologic consultation." The patient was started on Ciprofloxacin and Flagyl. The next morning, the patient reports she felt better and would like to go home. Her bowel movements had decreased in frequency and reported no bowel movement on the day of discharge. She reports her abdominal pain is much better, but she does continue to have some intermittent lower abdominal cramping and tenderness. She denies any fevers or chills. She has been tolerating a clear liquid diet. The patient was also noted to have electrolyte abnormality on admission with hypokalemia in which she was given replacement. In regards to the patient's syncopal episode, she was monitored on Telemetry in which no arrhythmias were noted and she had no further episodes. The patient has been worked up for syncope in the past. She reports that there is a plan for a Holter monitor as an outpatient which will be the second time she has worn a Holter monitor. This is scheduled for November [address] Bain. This sounds like orthostasis or a vasovagal episode secondary to acute diverticulitis. Orthostatic vital signs were negative. The patient did undergo a transthoracic echocardiogram on this admission which showed: "Global left ventricular wall motion contractility within normal limits. Normal left ventricular systolic function with an estimated ejection fraction of 55 to 60 percent. No evidence of aortic regurgitation. Trace mitral regurgitation. Mild tricuspid regurgitation. No pericardial effusion." On admission, the patient did present with a leukocytosis of 15.6 which normalized the next morning. Her CRP is noted to be 99 on admission. The patient's vital signs have remained hemodynamically stable throughout the hospitalization and she has remained afebrile. The patient is stable for discharge to home to continue p.o. antibiotics. DISCHARGE PLAN: The patient was instructed to follow-up with Dr. Chaney this week. The patient was instructed to advance her diet as tolerated. She was instructed if she has any worsening concerns or symptoms to return to the emergency department. She was instructed to check her potassium level this week with results sent to her PCP. TIME SPENT: Approximately 60 minutes were spent on this discharge. CIPRIANO YIP NP CC: Dr. Chaney* [id number]/[facility] #: [id number] ELSY
== END 2016-11-13 15:06 | disposition home or self-care (01) | DRG 392 ==
LOC: ED 08:25 → MEDTELE 11:30
PROVIDERS: ADMIT Hospitalist; ATTEND Hospitalist
DX: K57.32 Diverticulitis of large intestine without perforation or abscess without bleeding (principal); I10 Essential (primary) hypertension; R55 Syncope and collapse; J45.909 Unspecified asthma, uncomplicated; Z79.82 Long term (current) use of aspirin; Z79.52 Long term (current) use of systemic steroids; Z79.899 Other long term (current) drug therapy; Z88.1 Allergy status to other antibiotic agents; Z88.8 Allergy status to other drugs, medicaments and biological substances
CPT/HCPCS: 36415; 71010; 74177; 80048; 80053; 81003; 81015; 82550; 82553; 83605; 83690; 83735; 84443; 84484; 85025; 85610; 85730; 86140; 93005; 93306; A9270-GY; J0744; J1644; J2270; J2405; J3480; J3490; Q9967

== ENCOUNTER 2017-04-04 16:42 | Inpatient (IN) | payer MEDICARE ==
[2017-04-04] MEDS ORDERED: NS 0.9% 1000 ML* 1,000 ML IV ONE (17:50)
[2017-04-04] MEDS ORDERED: Potassium Chloride LIQUID* 20 MEQ PACKET PO ONE (17:50)
--- NOTE | 2017-04-04 18:22 | RAD ---
INDICATION: Chest pain COMPARISON: Most recent comparison chest x-rays dated November 12, 2016. TECHNIQUE: Single AP portable view of the chest was obtained. FINDINGS: Image quality is compromised due to the relative inferiority of a portable chest x-ray. There is been interval placement of a right subclavian vein Mediport with the tip terminating at the superior vena cava. The heart and mediastinum exhibit normal size and contour. The lungs are grossly clear. There is no evidence of a large pleural effusion. Visualized bones are normal for the patient's age. IMPRESSION: No radiographic evidence for acute cardiopulmonary abnormality on this portable chest x-ray.
[2017-04-04 18:53] LABS: Hematocrit 32 % (35-47); Hemoglobin 10.7 g/dl (12.0-16.0); Mean Corpuscular HGB Conc 34 g/dl (31-36); Mean Corpuscular Hemoglobin 30 pg (27-31); Mean Corpuscular Volume 90 fL (80-97); Mean Platelet Volume 8 um3 (7.4-10.4); Red Blood Count 3.56 10^6/ul (4.0-5.4); Red Cell Distribution Width 14 % (10.5-15); White Blood Count 42.1 10^3/ul (3.5-10.8)
[2017-04-04 18:59] LABS: Add Diff/Slide Review? Slide Review Added; Comments Flag Yes
[2017-04-04 19:08] LABS: Albumin 3.3 g/dL (3.2-5.2); BUN/Creatinine Ratio 18.3 (8-20); Calcium 8.6 mg/dL (8.6-10.3); EGFR African American 102.9 (>60); Globulin 2.2 g/dL (2-4); Magnesium 1.6 mg/dL (1.9-2.7); Total Bilirubin 0.4 mg/dL (0.2-1.0); Total Protein 5.5 g/dL (6.4-8.9)
[2017-04-04 19:09] LABS: Potassium 2.6 mmol/L (3.5-5.0)
[2017-04-04 19:22] LABS: Urine Bilirubin Negative (Negative); Urine Glucose Negative (Negative); Urine Nitrite Negative (Negative)
[2017-04-04 19:28] LABS: TSH (Thyroid Stimulating Horm) 3.06 mcIU/mL (0.34-5.60)
[2017-04-04 19:31] LABS: Troponin I 0.13 ng/mL (<0.04)
[2017-04-04 19:34] LABS: Urine Bacteria 1+ (Absent)
[2017-04-04] MEDS ORDERED: Ondansetron ODT TAB* 4 MG PO PRN (20:35)
[2017-04-04] MEDS ORDERED: Gaviscon CHEW TAB* 1 TAB PO PRN (20:44)
[2017-04-04] MEDS ORDERED: Diphenoxylat/Atrop 2.5-0.025M* 1 TAB PO PRN (20:45)
[2017-04-04] MEDS ORDERED: NS 0.9% 1000 ML* 1,000 ML IV SCH (20:45)
[2017-04-04] MEDS ORDERED: Acetaminophen TAB* 325 MG PO PRN (20:46)
[2017-04-04] MEDS ORDERED: Magnesium Sulf 4 GM/100 ML IV* 4,000 MG/100 ML BAG IVPB ONE (20:46)
[2017-04-04] MEDS: Heparin VIAL(*) 5000 UNITS/ML VIAL (FIVE THOUSAND) SUBCUT SCH (21:58)
[2017-04-05] MEDS: Ciprofloxacin 400MG IVPREMIX(* 400 MG/200 ML BAG IVPB SCH ×3 (00:18→22:19)
--- NOTE | 2017-04-05 00:19 | PN ---
Progress Note - Progress Note Date of Service: 04/05/17 Note: Called for elevated troponin. Patients EKG showed slight ST depression in inferior leads. Remains asymptomatic with no CP. Will continue to trend and follow up echo in am.
--- NOTE | 2017-04-05 00:57 | HP ---
CC: Dr. Chaney * [facility] MEDICINE HISTORY AND PHYSICAL: DATE OF ADMISSION: 04/04/17 PRIMARY CARE PHYSICIAN: Dr. Chaney. ATTENDING PHYSICIAN: Yamini Rivero MD* (dictation provided by Sugey Crump NP) CHIEF COMPLAINT: Weakness. HISTORY OF PRESENT ILLNESS: Ms. Garcias is a 76-year-old female with past medical history of recent diagnosis of breast cancer in November 2016, currently undergoing chemotherapy under the direction of [facility] and Dr. Rodriguez in [place] who presents today to the hospital with weakness. This candidate states that she discovered a lump in her breast back in November. She was immediately diagnosed with breast cancer and has started chemotherapy under the direction of Dr. Rodriguez at [facility] as mentioned above. Ms. Garcias states she has been on her second dose of cocktail of chemotherapy agents referred to as HERPC. With her chemotherapy, she has had initially constipation and then significant diarrhea. She also had poor oral intake as she has tender oral mucosa. She went to see Dr. Bain this morning for routine appointment. She follows with him with a history of murmur in the past and at the office she was noted to be weak and he tracey labs, which showed that her potassium was low at 2.6 as well as the fact that she had a troponin of 0.8 and therefore, he had her come to the emergency room for further evaluation. In the emergency room, Ms. Garcias had a second troponin which was 0.13. Her potassium level was 2.6. Her white blood cell count is quite elevated at 42.1. It is unclear whether or not this is related to her chemotherapy treatment, but is suspected to be so. The patient's family reports that they had been told recently that her white count was up and "this was a good thing." On further questioning, Ms. Gracias states that she has had symptoms of urinary tract infection on Monday with strong foul-smelling urine and dysuria. She started a course independently of nitrofurantoin capsules, which she had at home from her previous UTI. With this, she states that her symptoms had improved; however, when she left the urine samples today in the emergency room she noted that the urine again was foul smelling. She denies any abdominal pain , no nausea. Again, she has had the diarrhea as mentioned above. She initially denies chest pain or shortness of breath history. However, on further questioning, she states that she has had episodes where she felt some tightness across her right side underneath her ribs radiating around to her belly, only associated with eating. She denies fever. PAST MEDICAL HISTORY: 1. Diverticulitis. 2. Hypertension. 3. Overactive bladder. 4. History of genital prolapse. 5. Atrophic vaginitis. 6. History of asthma. 7. Allergies. 8. 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 MEDICATIONS: 1. Calcium carbonate with cholecalciferol 1 tab p.o. daily. 2. Cholecalciferol/vitamin D 1000 units p.o. daily. 3. Dicyclomine 10 mg as needed. 4. Lomotil as needed. 5. Gaviscon as needed. 6. Glucosamine/chondroitin 1 cap p.o. daily. 7. Levocetirizine 5 mg p.o. daily. 8. Multivitamin with mineral 1 tab p.o. daily. 9. Nitrofurantoin 100 mg p.o. b.i.d., started on Monday for her symptoms of UTI. 10. Nystatin/triamcinolone as needed. 11. Premarin vaginal cream as needed. 12. Probiotic product p.o. daily. 13. Propylene glycol both eyes as needed. 14. Zovirax ointment 5% as needed. 15. Aspirin 81 mg p.o. daily. 16. Ondansetron 4 mg p.o. q.6 h. p.r.n. nausea. ALLERGIES: AMOXICILLIN, CLAVULANIC ACID, GENTAMICIN, and SULFA ANTIBIOTICS. FAMILY HISTORY: The patient reports her mother of "old age" at the age of 86 and father had Parkinson's and heart disease and at age 76. REVIEW OF SYSTEMS: A 14-point review of systems was completed with Ms. Garcias and all those not mentioned above were negative. PHYSICAL EXAMINATION GENERAL: Ms. Garcias is sitting up in the bed. She is in the no acute distress. VITAL SIGNS: Temperature 98.6, heart rate 97, respiratory rate 20, O2 saturation 99% on room air, blood pressure 129/64. LUNGS: Clear to auscultation bilaterally with no accessory muscle use and good aeration. HEART: S1 and S2. No murmur, rub, or gallop and regular. ABDOMEN: Soft and nontender with bowel sounds positive x4. EXTREMITIES: No cyanosis or edema. SKIN: Intact. NEUROLOGIC: She is alert. She is oriented x3. She moves all extremities equally. There is no facial asymmetry or focal weakness. Extraocular movements are intact. DIAGNOSTIC STUDIES/LAB DATA: Sodium 128, potassium 2.6, chloride 92, serum bicarbonate 28, BUN 13, creatinine 0.71, glucose 105, lactic acid 0.8, magnesium 1.6. Troponin 0.13, BNP 335. WBC 42.1, hemoglobin 10.7, hematocrit 32, platelet count 283,000. Urine shows 2+ leukocyte esterase, 1+ bacteria. Chest x-ray shows no acute process. EKG shows sinus rhythm with the heart rate of 80s with no evidence of ischemia. ASSESSMENT: Ms. Garcias is a 76-year-old female with recent diagnosis of HER-2 positive breast cancer, currently on her second dose of chemotherapy with associated diarrhea and poor oral intake who presents to the hospital today from Dr. Bain's office out of concern for lab abnormalities, where she was found to have hypokalemia and an elevated troponin. Our plans are for observation in the hospital for the followin. Weakness: I questioned whether or not her weakness is related just generally to her feeling poorly after chemotherapy with diarrhea, etc. Plan to treat her hypokalemia and her urinary tract infection as per below. 2. Hypokalemia: The patient has had potassium repletion in the emergency room. We will recheck her labs tomorrow. 3. Hypomagnesemia: Again, the patient will be repleted with magnesium and we will check labs tomorrow. 4. Urinary tract infection: The patient states that she has been treating urinary tract infection with nitrofurantoin. Plan to start treatment for urinary tract infection with Cipro as her UA remains positive and will await urine cultures. 5. Elevated troponin. The patient reports some discomfort along her chest, but it only seems to be associated with eating and relieved with Gaviscon tabs. Our plan will be to monitor on telemetry unit and to have repeat troponins. Her EKG does not show any evidence of ischemia. I did question whether or not her chemotherapeutic agents perhaps cause cardiac toxicity. However, I am not exactly clear what she is taking from [facility]. I do plan to obtain those records tomorrow. I do note that echo from October 2016, shows no acute abnormality with intact ejection fraction. She states she had a stress test with Dr. Bain just this year and per her report, it was normal. 6. Leukocytosis: I questioned whether or not this was related to her chemotherapy. Plan to obtain records from [facility] tomorrow to verify that. 7. Hypertension: The patient reports that Dr. Bain told her to hold amlodipine going forward at the visit today and we will be holding that and monitoring blood pressure during this admission. 8. DVT prophylaxis with heparin subcu. 9. Code status: Full code. This was reviewed with the patient at the bedside where I did go over the MOLST form and the patient will be reviewing that to complete that with her family in the coming weeks. 10. Disposition to telemetry floor. TIME SPENT: Approximately 60 minutes were spent on the admission of this patient, more than half the time was spent with the patient at the bedside reviewing the events leading up to this hospitalization, performing the physical examination, and reviewing my plan of care. SUGEY CRUMP, LIZETH [id number]/CPS #: [id number] ELSY
[2017-04-05] MEDS: Heparin VIAL(*) 5000 UNITS/ML VIAL (FIVE THOUSAND) SUBCUT SCH ×3 (04:55→22:19)
[2017-04-05 05:05] LABS: Hematocrit 29 % (35-47); Hemoglobin 9.9 g/dl (12.0-16.0); Mean Corpuscular HGB Conc 34 g/dl (31-36); Mean Corpuscular Hemoglobin 30 pg (27-31); Mean Corpuscular Volume 88 fL (80-97); Mean Platelet Volume 8 um3 (7.4-10.4); Red Blood Count 3.31 10^6/ul (4.0-5.4); Red Cell Distribution Width 14 % (10.5-15); White Blood Count 36.5 10^3/ul (3.5-10.8)
[2017-04-05 05:07] LABS: Add Diff/Slide Review? Slide Review Added; Comments Flag Yes
[2017-04-05 05:20] LABS: BUN/Creatinine Ratio 15.2 (8-20); EGFR African American 169.9 (>60); EGFR Non-African American 132.1 (>60); Magnesium 2.2 mg/dL (1.9-2.7); Potassium 2.9 mmol/L (3.5-5.0)
[2017-04-05 05:24] LABS: Troponin I 0.36 ng/mL (<0.04)
--- NOTE | 2017-04-05 07:21 | ED ---
Rakel River Auryana, scribed for Arpit Webber MD on 04/04/17 at 1858 . Complex/Multi-Sys Presentation - HPI Summary HPI Summary: 76 year old female presents to the ED for weakness s/p chemotherapy on March 27 . She reports chest pain only while eating dinner. She denies any fever, diarrhea, edema, abdominal pain, or cough presently. PMHx is significant for diverticulitis, hypokalemia, and HER2 breast cancer, followed by Dr. Rodriguez in [place]. - History Of Current Complaint Chief Complaint: EDGeneral Time Seen by Provider: 04/04/17 17:39 Hx Obtained From: Patient Onset/Duration: Gradual Onset, Lasting Weeks Timing: Constant, Days Severity Currently: Moderate Severity Initially: Moderate Associated Signs And Symptoms: Positive: Weakness, Chest Pain - only while eating dinner. Negative: Cough, Edema, Diarrhea, Abdominal Pain, Fever Related History: Recent Illness - HER2 Breast Cancer- chemotherapy treatment - Allergies/Home Medications Allergies/Adverse Reactions: Allergies Allergy/AdvReac Type Severity Reaction Status Date / Time Amoxicillin Allergy Severe Shakes Verified 02/23/17 13:41 Clavulanic Acid Allergy Severe Headache Verified 02/23/17 13:41 [From Augmentin] Gentamicin Allergy Severe Eyes Verified 02/23/17 13:41 [From Gentamicin Ophthalmic] Itchy/Swollen/Red/Watery Sulfa Antibiotics Allergy Severe Rash Verified 02/23/17 13:41 PMH/Surg Hx/FS Hx/Imm Hx Endocrine/Hematology History: Reports: Hx Anemia Denies: Hx Diabetes Cardiovascular History: Reports: Hx Hypertension - medication controlled Denies: Hx Pacemaker/ICD Respiratory History: Reports: Hx Asthma, Hx Chronic Bronchitis, Hx Chronic Obstructive Pulmonary Disease (COPD) GI History: Reports: Hx Diverticulosis History: Denies: Hx Renal Disease Comment Only: Other Problems/Disorders - renal cysts Sensory History: Reports: Hx Cataracts - removed Denies: Hx Hearing Aid Opthamlomology History: Reports: Hx Cataracts - removed Psychiatric History: Denies: Hx Panic Disorder - Cancer History Cancer Type, Location and Year: HER2 Breast Cancer Date and Location of Last Treatment: Last Treatment March 27, 2017 - Surgical History Surgery Procedure, Year, and Place: TUBAL LIGATION 1970; Tonsillectomy age 6. CATARACTS, DENTAL Infectious Disease History: No Infectious Disease History: Denies: Traveled Outside the [place] in Last 30 Days - Family History Known Family History: Positive: Cardiac Disease - Father at 76 from cardiac dz. , Diabetes, Other - Father had PD. Family History: NON CONTRIBUTORY - Social History Alcohol Use: Rare Substance Use Type: Reports: None Smoking Status (MU): Former Smoker Type: Cigarettes Have You Smoked in the Last Year: No Review of Systems Positive: Fatigue. Negative: Fever Eyes: Negative ENT: Negative Positive: Chest Pain - Only while eating dinner Respiratory: Negative Negative: Cough Gastrointestinal: Negative Negative: Abdominal Pain, Diarrhea Genitourinary: Negative Musculoskeletal: Negative Negative: Edema Skin: Negative Neurological: Negative Psychological: Normal All Other Systems Reviewed And Are Negative: Yes Physical Exam - Summary Physical Exam Summary: VITAL SIGNS: Reviewed. GENERAL: Patient is a well-developed and nourished FEMALE who is lying comfortable in the stretcher. Patient is not in any acute respiratory distress. HEAD AND FACE: No signs of trauma. No ecchymosis, hematomas or skull depressions. No sinus tenderness. EYES: PERRLA, EOMI x 2, No injected conjunctiva, no nystagmus. EARS: Hearing grossly intact. Ear canals and tympanic membranes are within normal limits. MOUTH: Oropharynx within normal limits. NECK: Supple, trachea is midline, no adenopathy, no JVD, no carotid bruit, no c- spine tenderness, neck with full ROM. CHEST: Symmetric, no tenderness at palpation LUNGS: Clear to auscultation bilaterally. No wheezing or crackles. CVS: Regular rate and rhythm, S1 and S2 present, no murmurs or gallops appreciated. ABDOMEN: Soft, non-tender. No signs of distention. No rebound no guarding, and no masses palpated. Bowel sounds are normal. EXTREMITIES: FROM in all major joints, no edema, no cyanosis or clubbing. NEURO: Alert and oriented x 3. No acute neurological deficits. Speech is normal and follows commands. SKIN: Dry and warm. Triage Information Reviewed: Yes Vital Signs On Initial Exam: Initial Vitals Temp Pulse Resp BP Pulse Ox 98.6 F 110 19 125/65 97 04/04/17 16:50 04/04/17 16:50 04/04/17 16:50 04/04/17 16:50 04/04/17 16:50 Vital Signs Reviewed: Yes - [place] Coma Scale Coma Scale Total: 15 Diagnostics - Vital Signs Vital Signs Temp Pulse Resp BP Pulse Ox 04/04/17 17:30 92 18 126/55 93 04/04/17 17:22 98 16 93 04/04/17 17:19 130/64 04/04/17 16:53 98.6 F 110 19 125/65 97 04/04/17 16:50 98.6 F 110 19 125/65 97 - Laboratory Lab Results: Lab Results 04/04/17 04/04/17 04/04/17 Range/Units 18:32 18:32 18:32 WBC 42.1 H (3.5-10.8) 10^3/ul RBC 3.56 L (4.0-5.4) 10^6/ul Hgb 10.7 L (12.0-16.0) g/dl Hct 32 L (35-47) % MCV 90 (80-97) fL MCH 30 (27-31) pg MCHC 34 (31-36) g/dl RDW 14 (10.5-15) % Plt Count 283 (150-450) 10^3/ul MPV 8 (7.4-10.4) um3 Neut % (Auto) 82.3 (38-83) % Lymph % (Auto) 11.2 L (25-47) % Colbert % (Auto) 6.1 (1-9) % Eos % (Auto) 0.2 (0-6) % Baso % (Auto) 0.2 (0-2) % Absolute Neuts (auto) 34.6 H (1.5-7.7) 10^3/ul Absolute Lymphs (auto) 4.7 (1.0-4.8) 10^3/ul Absolute Monos (auto) 2.6 H (0-0.8) 10^3/ul Absolute Eos (auto) 0.1 (0-0.6) 10^3/ul Absolute Basos (auto) 0.1 (0-0.2) 10^3/ul Absolute Nucleated RBC 0.02 10^3/ul Nucleated RBC % 0 Sodium 128 L (133-145) mmol/L Potassium 2.6 L* (3.5-5.0) mmol/L Chloride 92 L (101-111) mmol/L Carbon Dioxide 28 (22-32) mmol/L Anion Gap 8 (2-11) mmol/L BUN 13 (6-24) mg/dL Creatinine 0.71 (0.51-0.95) mg/dL Est GFR ( Amer) 102.9 (>60) Est GFR (Non-Af Amer) 80.0 (>60) BUN/Creatinine Ratio 18.3 (8-20) Glucose 105 H (70-100) mg/dL Lactic Acid 0.8 (0.5-2.0) mmol/L Calcium 8.6 (8.6-10.3) mg/dL Magnesium 1.6 L (1.9-2.7) mg/dL Total Bilirubin 0.40 (0.2-1.0) mg/dL AST 24 (13-39) U/L ALT 15 (7-52) U/L Alkaline Phosphatase 128 H (34-104) U/L CK-MB (CK-2) 11.3 H (0.6-6.3) ng/mL Troponin I 0.13 H* (<0.04) ng/mL B-Natriuretic Peptide ( - 100) pg/mL Total Protein 5.5 L (6.4-8.9) g/dL Albumin 3.3 (3.2-5.2) g/dL Globulin 2.2 (2-4) g/dL Albumin/Globulin Ratio 1.5 (1-3) TSH 3.06 (0.34-5.60) mcIU/mL Urine Color Urine Appearance Urine pH (5-9) Ur Specific [place] (1.010-1.030) Urine Protein (Negative) Urine Ketones (Negative) Urine Blood (Negative) Urine Nitrate (Negative) Urine Bilirubin (Negative) Urine Urobilinogen (Negative) Ur Leukocyte Esterase (Negative) Urine WBC (Auto) (Absent) Urine RBC (Auto) (Absent) Ur Squamous Epith Cells (Absent) Urine Bacteria (Absent) Urine Glucose (Negative) 04/04/17 04/04/17 Range/Units 18:32 19:11 WBC (3.5-10.8) 10^3/ul RBC (4.0-5.4) 10^6/ul Hgb (12.0-16.0) g/dl Hct (35-47) % MCV (80-97) fL MCH (27-31) pg MCHC (31-36) g/dl RDW (10.5-15) % Plt Count (150-450) 10^3/ul MPV (7.4-10.4) um3 Neut % (Auto) (38-83) % Lymph % (Auto) (25-47) % Colbert % (Auto) (1-9) % Eos % (Auto) (0-6) % Baso % (Auto) (0-2) % Absolute Neuts (auto) (1.5-7.7) 10^3/ul Absolute Lymphs (auto) (1.0-4.8) 10^3/ul Absolute Monos (auto) (0-0.8) 10^3/ul Absolute Eos (auto) (0-0.6) 10^3/ul Absolute Basos (auto) (0-0.2) 10^3/ul Absolute Nucleated RBC 10^3/ul Nucleated RBC % Sodium (133-145) mmol/L Potassium (3.5-5.0) mmol/L Chloride (101-111) mmol/L Carbon Dioxide (22-32) mmol/L Anion Gap (2-11) mmol/L BUN (6-24) mg/dL Creatinine (0.51-0.95) mg/dL Est GFR ( Amer) (>60) Est GFR (Non-Af Amer) (>60) BUN/Creatinine Ratio (8-20) Glucose (70-100) mg/dL Lactic Acid (0.5-2.0) mmol/L Calcium (8.6-10.3) mg/dL Magnesium (1.9-2.7) mg/dL Total Bilirubin (0.2-1.0) mg/dL AST (13-39) U/L ALT (7-52) U/L Alkaline Phosphatase (34-104) U/L CK-MB (CK-2) (0.6-6.3) ng/mL Troponin I (<0.04) ng/mL B-Natriuretic Peptide 335 H ( - 100) pg/mL Total Protein (6.4-8.9) g/dL Albumin (3.2-5.2) g/dL Globulin (2-4) g/dL Albumin/Globulin Ratio (1-3) TSH (0.34-5.60) mcIU/mL Urine Color Yellow Urine Appearance Cloudy Urine pH 6.0 (5-9) Ur Specific [place] 1.010 (1.010-1.030) Urine Protein Negative (Negative) Urine Ketones 1+ H (Negative) Urine Blood 2+ H (Negative) Urine Nitrate Negative (Negative) Urine Bilirubin Negative (Negative) Urine Urobilinogen Negative (Negative) Ur Leukocyte Esterase 2+ H (Negative) Urine WBC (Auto) 1+(6-10/hpf) H (Absent) Urine RBC (Auto) 3+(>10/hpf) H (Absent) Ur Squamous Epith Cells Present H (Absent) Urine Bacteria 1+ H (Absent) Urine Glucose Negative (Negative) Result Diagrams: 04/05/17 04:56 04/05/17 04:56 Lab Statement: Any lab studies that have been ordered have been reviewed, and results considered in the medical decision making process. - Radiology CXR Xray Interpretation: No Acute Changes Radiology Interpretation Completed By: Radiologist - IMPRESSION: No radiographic evidence for acute cardiopulmonary abnormality on this portable chest x-ray. - EKG 17:36 EKG Interpretation: NSR at 87 bpm, T wave flattening compared to EKG 10/26/16, no ST elevation Complex Multi-Symp Course/Dx Assessment/Plan: 76 year old female presents to the ED for weakness s/p chemotherapy on March 27. She reports chest pain only while eating dinner. She denies any fever, diarrhea, edema, abdominal pain, or cough presently. PMHx is significant for diverticulitis, hypokalemia, and HER2 breast cancer, followed by Dr. Rodriguez in [place]. The patient was seen by Dr. Weller from cardiology in his office today. He noticed that her blood pressure was only 102 systolic. The patient was complaining of chest discomfort. He did blood work, and her troponin was 0.05. EKG was similar to his old EKG. Therefore, he did not think that the patient has acute coronary syndrome. The patient was having diarrhea after chemotherapy. Her potassium and magnesium were decreased and she was dehydrated so he decided to send the patient to the ED for further workup. At this point, she is waiting for blood test results. The patient is hemodynamically stable and will be signed out to Dr. Lance to follow with workup of the patient. She wa initially given IV fluids and Potasium PO. She is stable and has no complaits in the ED. - Diagnoses Differential Diagnoses/HQI/PQRI: Cardiac Ischemia, Urinary Tract Infection Provider Diagnoses: Dehydration, Hypokalemia, Chest pain r/o ACS Discharge - Discharge Plan Condition: Stable Disposition: OTHER Discharge Disposition Comment: signout from Dr. Webber to Dr. Lance at 19:00 pending further work up The documentation as recorded by the Rakel pool Auryana accurately reflects the service I personally performed and the decisions made by , Arpit Webber MD.
[2017-04-05] MEDS ORDERED: Potassium Chloride LIQUID* 20 MEQ PACKET PO SCH (09:00)
[2017-04-05] MEDS: Aspirin EC Low Dose* 81 MG TAB.EC PO SCH (09:24)
[2017-04-05] MEDS: KCL 20 MEQ/100 ML IVPREMIX* 20 MEQ/100 ML BAG IV SCH ×2 (10:41→15:11)
--- NOTE | 2017-04-05 11:22 | PN ---
Subjective Date of Service: 04/05/17 Interval History: Ms. Garcias states that she is feeling much better than yesterday. She denies any current complaint including chest pain, SOB, nausea, or abdominal pain. Objective Active Medications: Acetaminophen (Tylenol Tab*) 650 mg PO Q6H PRN Al Hydroxide/Mg Trisilicate (Gaviscon Chew Tab*) 1 tab.chew PO Q72H PRN Aspirin (Aspirin Ec Low Dose*) 81 mg PO DAILY LACY Diphenoxylate HCl/Atropine (Lomotil Tab*) 1 tab PO .SEE COMMENTS PRN Heparin Sodium (Porcine) (Heparin Vial(*)) 5,000 units SUBCUT Q8HR LACY Ciprofloxacin/Dextrose (Cipro 400 Mg Ivpremix(*)) 400 mg in 200 mls @ 200 mls/ hr IVPB Q12H LACY Sodium Chloride (Ns 0.9% 1000 Ml*) 1,000 mls @ 100 mls/hr IV PER RATE LACY Potassium Chloride (Potassium Chloride 20 Meq/100 Ml Ivpremix*) 20 meq in 100 mls @ 50 mls/hr IV Q2H LACY Ondansetron HCl (Zofran Odt Tab*) 4 mg PO Q6H PRN Vital Signs 04/04/17 04/04/17 04/04/17 21:00 21:03 21:04 Temperature 97.7 F Pulse Rate 97 98 102 Respiratory 23 18 17 Rate Blood Pressure 130/56 124/52 (mmHg) O2 Sat by Pulse 95 98 94 Oximetry 04/04/17 04/04/17 04/04/17 21:28 21:30 21:32 Temperature Pulse Rate 90 94 Respiratory 18 21 Rate Blood Pressure 142/60 142/60 (mmHg) O2 Sat by Pulse 95 Oximetry 04/04/17 04/04/17 04/05/17 23:41 23:49 04:34 Temperature 98.0 F 98.0 F Pulse Rate 85 76 Respiratory 20 20 Rate Blood Pressure 175/50 140/50 139/48 (mmHg) O2 Sat by Pulse 96 91 Oximetry 04/05/17 04/05/17 07:14 08:00 Temperature 97.6 F Pulse Rate 84 Respiratory 18 16 Rate Blood Pressure 124/42 (mmHg) O2 Sat by Pulse 96 Oximetry Oxygen Devices in Use Now: None Appearance: Female lying in bed in NAD Eyes: No Scleral Icterus Ears/Nose/Mouth/Throat: Mucous Membranes Moist Neck: Trachea Midline Respiratory: Symmetrical Chest Expansion and Respiratory Effort, Clear to Auscultation Cardiovascular: NL Sounds; No Murmurs; No JVD, No Edema Abdominal: NL Sounds; No Tenderness; No Distention Lymphatic: No Cervical Adenopathy Extremities: No Edema Skin: No Rash or Ulcers Neurological: Alert and Oriented x 3, NL Muscle Strength and Tone Nutrition: Taking PO's Result Diagrams: 04/05/17 04:56 04/05/17 04:56 Additional Lab and Data: Lab Results 04/04/17 04/04/17 04/04/17 Range/Units 18:32 18:32 18:32 WBC 42.1 H (3.5-10.8) 10^3/ul RBC 3.56 L (4.0-5.4) 10^6/ul Hgb 10.7 L (12.0-16.0) g/dl Hct 32 L (35-47) % MCV 90 (80-97) fL MCH 30 (27-31) pg MCHC 34 (31-36) g/dl RDW 14 (10.5-15) % Plt Count 283 (150-450) 10^3/ul MPV 8 (7.4-10.4) um3 Neut % (Auto) 82.3 (38-83) % Lymph % (Auto) 11.2 L (25-47) % [place] % (Auto) 6.1 (1-9) % Eos % (Auto) 0.2 (0-6) % Baso % (Auto) 0.2 (0-2) % Absolute Neuts (auto) 34.6 H (1.5-7.7) 10^3/ul Absolute Lymphs (auto) 4.7 (1.0-4.8) 10^3/ul Absolute Monos (auto) 2.6 H (0-0.8) 10^3/ul Absolute Eos (auto) 0.1 (0-0.6) 10^3/ul Absolute Basos (auto) 0.1 (0-0.2) 10^3/ul Absolute Nucleated RBC 0.02 10^3/ul Nucleated RBC % 0 Sodium 128 L (133-145) mmol/L Potassium 2.6 L* (3.5-5.0) mmol/L Chloride 92 L (101-111) mmol/L Carbon Dioxide 28 (22-32) mmol/L Anion Gap 8 (2-11) mmol/L BUN 13 (6-24) mg/dL Creatinine 0.71 (0.51-0.95) mg/dL Est GFR ( Amer) 102.9 (>60) Est GFR (Non-Af Amer) 80.0 (>60) BUN/Creatinine Ratio 18.3 (8-20) Glucose 105 H (70-100) mg/dL Lactic Acid 0.8 (0.5-2.0) mmol/L Calcium 8.6 (8.6-10.3) mg/dL Magnesium 1.6 L (1.9-2.7) mg/dL Total Bilirubin 0.40 (0.2-1.0) mg/dL AST 24 (13-39) U/L ALT 15 (7-52) U/L Alkaline Phosphatase 128 H (34-104) U/L CK-MB (CK-2) 11.3 H (0.6-6.3) ng/mL Troponin I 0.13 H* (<0.04) ng/mL B-Natriuretic Peptide ( - 100) pg/mL Total Protein 5.5 L (6.4-8.9) g/dL Albumin 3.3 (3.2-5.2) g/dL Globulin 2.2 (2-4) g/dL Albumin/Globulin Ratio 1.5 (1-3) TSH 3.06 (0.34-5.60) mcIU/mL Urine Color Urine Appearance Urine pH (5-9) Ur Specific [place] (1.010-1.030) Urine Protein (Negative) Urine Ketones (Negative) Urine Blood (Negative) Urine Nitrate (Negative) Urine Bilirubin (Negative) Urine Urobilinogen (Negative) Ur Leukocyte Esterase (Negative) Urine WBC (Auto) (Absent) Urine RBC (Auto) (Absent) Ur Squamous Epith Cells (Absent) Urine Bacteria (Absent) Urine Glucose (Negative) 04/04/17 04/04/17 Range/Units 18:32 19:11 WBC (3.5-10.8) 10^3/ul RBC (4.0-5.4) 10^6/ul Hgb (12.0-16.0) g/dl Hct (35-47) % MCV (80-97) fL MCH (27-31) pg MCHC (31-36) g/dl RDW (10.5-15) % Plt Count (150-450) 10^3/ul MPV (7.4-10.4) um3 Neut % (Auto) (38-83) % Lymph % (Auto) (25-47) % [place] % (Auto) (1-9) % Eos % (Auto) (0-6) % Baso % (Auto) (0-2) % Absolute Neuts (auto) (1.5-7.7) 10^3/ul Absolute Lymphs (auto) (1.0-4.8) 10^3/ul Absolute Monos (auto) (0-0.8) 10^3/ul Absolute Eos (auto) (0-0.6) 10^3/ul Absolute Basos (auto) (0-0.2) 10^3/ul Absolute Nucleated RBC 10^3/ul Nucleated RBC % Sodium (133-145) mmol/L Potassium (3.5-5.0) mmol/L Chloride (101-111) mmol/L Carbon Dioxide (22-32) mmol/L Anion Gap (2-11) mmol/L BUN (6-24) mg/dL Creatinine (0.51-0.95) mg/dL Est GFR ( Amer) (>60) Est GFR (Non-Af Amer) (>60) BUN/Creatinine Ratio (8-20) Glucose (70-100) mg/dL Lactic Acid (0.5-2.0) mmol/L Calcium (8.6-10.3) mg/dL Magnesium (1.9-2.7) mg/dL Total Bilirubin (0.2-1.0) mg/dL AST (13-39) U/L ALT (7-52) U/L Alkaline Phosphatase (34-104) U/L CK-MB (CK-2) (0.6-6.3) ng/mL Troponin I (<0.04) ng/mL B-Natriuretic Peptide 335 H ( - 100) pg/mL Total Protein (6.4-8.9) g/dL Albumin (3.2-5.2) g/dL Globulin (2-4) g/dL Albumin/Globulin Ratio (1-3) TSH (0.34-5.60) mcIU/mL Urine Color Yellow Urine Appearance Cloudy Urine pH 6.0 (5-9) Ur Specific [place] 1.010 (1.010-1.030) Urine Protein Negative (Negative) Urine Ketones 1+ H (Negative) Urine Blood 2+ H (Negative) Urine Nitrate Negative (Negative) Urine Bilirubin Negative (Negative) Urine Urobilinogen Negative (Negative) Ur Leukocyte Esterase 2+ H (Negative) Urine WBC (Auto) 1+(6-10/hpf) H (Absent) Urine RBC (Auto) 3+(>10/hpf) H (Absent) Ur Squamous Epith Cells Present H (Absent) Urine Bacteria 1+ H (Absent) Urine Glucose Negative (Negative) Assess/Plan/Problems-Billing Assessment: Ms. Garcias is a 76 yo F with a PMH of breast cancer currently undergoing chemotherapy who was admitted on 04/04/17 with weakness, UTI, elevated troponin and low potassium. - Patient Problems (1) Elevated troponin Comment: - Trop continues to rise. Question if chemotherapy is cardiotoxic however am concerned about underlying ischemia. Dr. Bain (her outpatient MD) saw her today in passing and does recommend stress testing prior to discharge. - Patient asymptomatic. - Echo essentially unchanged from 02/23/17. (2) UTI (urinary tract infection) Comment: - Patient reports dysuria and foul smelling urine for which she started nitrofurantoin at home. - UA positive on admission. - Continue cipro, monitor cultures. (3) Electrolyte abnormality Comment: - Hypokalemia - replete. (4) Leukocytosis Comment: - WBC 36 this AM, patient afebrile. - Suspect related to chemotherapy, requesting records from [facility]. - Blood cultures pending. UA positive, treating with cipro. Cxray negative. (5) Full code status (6) DVT prophylaxis Comment: - HSQ Status and Disposition: Inpatient with expected LOS > 2 days. Anticipate discharge to home when medically stable.
--- NOTE | 2017-04-05 13:13 | ECHO ---
Patient: KAREEN SNELL [facility], [place] Rec#: [id number] : 1940 Date: 04/05/2017 Age: 76y Height: 162.6 cm / 64.0 in Weight: 64.4 kg / 141.9 lbs Sex: F BSA: 1.7 Room#: 440 Admit Date#: 04/04/2017 Type: Inpatient Referring: Sugey Crump NP Reading: Mustapha Bain MD [employer] Manager: mEily Hernadez RN RDCS CC: Ilana Chaney MD Transthoracic Echocardiogram Indication: Elevated troponin levels, weakness BP: 139/48 HR: 87 Rhythm: NSR with PACs Findings History: HTN, breast cancer, chemotherapy Technical Comments: The study quality is fair. Completed at 1230. Left Ventricle: The left ventricular chamber size is normal. There is increased basal septal hypertrophy noted without evidence of an increased gradient across the left ventricular outflow tract. The septal knuckle measures 1.1cm. Global left ventricular wall motion and contractility are within normal limits. The left ventricle appears hyperdynamic. The estimated ejection fraction is greater than 65%. Abnormal left ventricular diastolic function is observed. Abnormal left ventricular diastolic filling is observed, consistent with impaired relaxation. Left Atrium: The left atrial chamber size is normal. Right Ventricle: The right ventricular chamber size and systolic function are within normal limits. Right Atrium: The right atrium is mildly dilated. Aortic Valve: The aortic valve is trileaflet. The aortic valve leaflets are mildly thickened. There is a trace of aortic regurgitation. There is no evidence of aortic stenosis. Mitral Valve: The mitral valve leaflets are mildly thickened. There is trace to mild mitral regurgitation. There is no evidence of mitral stenosis. Tricuspid Valve: The tricuspid valve leaflets are normal. There is mild to moderate tricuspid regurgitation. No pulmonary hypertension is noted. Pulmonic Valve: The pulmonic valve appears normal. There is a trace pulmonic regurgitation. There is no pulmonic stenosis. Pericardium: There is no significant pericardial effusion. A pericardial fat pad is visualized. Aorta: There is no dilatation of the ascending aorta. There is no dilatation of the aortic arch. The aortic root is normal in size. Pulmonary Artery: The main pulmonary artery appears normal. Venous: The inferior vena cava appears normal in size. There is a greater than 50% respiratory change in the inferior vena cava dimension. Conclusions There is increased basal septal hypertrophy noted without evidence of an increased gradient across the left ventricular outflow tract. The septal knuckle measures 1.1cm. The left ventricle appears hyperdynamic. The estimated ejection fraction is greater than 65%. Abnormal left ventricular diastolic function is observed. The aortic valve leaflets are mildly thickened. There is trace to mild mitral regurgitation. There is mild to moderate tricuspid regurgitation. There is a trace pulmonic regurgitation. Similar to 6.1.17 Measurements Name Value Normal Range RVDdMajor (2D) 3.4 cm (2.2 - 4.4) RAd ISD 4CH 5.2 cm (3.4 - 4.9) RA (A4C)W 3.7 cm (2.9 - 4.6) IVSd (2D) 0.9 cm (0.6 - 1) LVPWd (2D) 1 cm (0.6 - 1) LVIDd (2D) 3.7 cm (3.6 - 5.4) LVIDs (2D) 2.3 cm - LV FS (2D) 38 % (25 - 45) Aortic Annulus 1.9 cm (1.4 - 2.6) Ao root diameter (2D) 2.9 cm (2.1 - 3.5) Ascending Ao 2.5 cm (2.1 - 3.4) Aortic arch 2.3 cm (1.8 - 3.4) LA dimension (AP) 2D 3.2 cm (2.3 - 3.8) LAd ISD 4CH 4.7 cm (2.9 - 5.3) LA ISD 4CH W 3.7 cm (2.5 - 4.5) Name Value Normal Range LA ESV SP 4CH (A/L) 36 ml - LA ESV SP 2CH (A/L) 31 ml - LA ESV BP (A/L) 34 ml - LA ESV BP (A/L) index 20.2 ml/m2 - LA ESV SP 4CH (MOD) 33 ml - LA ESV SP 2CH (MOD) 29 ml - Name Value Normal Range MV E-wave Vmax 0.8 m/sec - MV deceleration time 278 msec - MV A-wave Vmax 1 m/sec - MV E:A ratio 0.78 ratio - LV septal e' Vmax 0.09 m/sec - LV lateral e' Vmax 0.08 m/sec - LV E:e' septal ratio 8.9 ratio - LV E:e' lateral ratio 10 ratio - Name Value Normal Range AV Vmax 1.5 m/sec - AV VTI 30.5 cm - AV peak gradient 8.9 mmHg - AV mean gradient 5.3 mmHg - LVOT Vmax 1.2 m/sec - LVOT VTI 25.5 cm - LVOT peak gradient 5.8 mmHg - LVOT mean gradient 3.8 mmHg - [place] Vmax 0.62 m/sec - Name Value Normal Range TR Vmax 2.7 m/sec - TR peak gradient 29 mmHg - RAP 3 mmHg - RVSP 32 mmHg - IVC diameter 1.8 cm - Name Value Normal Range PV Vmax 1.1 m/sec -
[2017-04-05] MEDS: Magic M W2 Ben/Maal/Nyst/Lido* 240 ML MOUTHWASH (alt formulation) SWISH SPIT SCH ×3 (14:12→22:19)
[2017-04-05 16:53] LABS: C Reactive Protein 24.2 mg/L (< 5.00)
[2017-04-06 05:10] LABS: Hematocrit 28 % (35-47); Hemoglobin 9.6 g/dl (12.0-16.0); Mean Corpuscular HGB Conc 35 g/dl (31-36); Mean Corpuscular Hemoglobin 31 pg (27-31); Mean Corpuscular Volume 89 fL (80-97); Mean Platelet Volume 8 um3 (7.4-10.4); Red Blood Count 3.11 10^6/ul (4.0-5.4); Red Cell Distribution Width 15 % (10.5-15); White Blood Count 29.3 10^3/ul (3.5-10.8)
[2017-04-06 05:11] LABS: Add Diff/Slide Review? Slide Review Added; Comments Flag Yes
[2017-04-06 05:39] LABS: Immature Granulocytes 21 % (0-9); Macrocytosis 1+; Microcytosis 1+; Neutrophil % 64 % (38-83)
[2017-04-06 05:40] LABS: Polychromasia 1+
[2017-04-06] MEDS: Heparin VIAL(*) 5000 UNITS/ML VIAL (FIVE THOUSAND) SUBCUT SCH ×2 (06:40→14:00)
--- NOTE | 2017-04-06 08:10 | PN ---
Subjective Date of Service: 04/06/17 Interval History: Ms. Garcias states that she is feeling quite well today. She denies chest pain , SOB, nausea, or abdominal pain. She is eager for discharge to home. Objective Active Medications: Acetaminophen (Tylenol Tab*) 650 mg PO Q6H PRN Al Hydroxide/Mg Trisilicate (Gaviscon Chew Tab*) 1 tab.chew PO Q72H PRN Aspirin (Aspirin Ec Low Dose*) 81 mg PO DAILY LACY Diphenoxylate HCl/Atropine (Lomotil Tab*) 1 tab PO .SEE COMMENTS PRN Heparin Sodium (Porcine) (Heparin Vial(*)) 5,000 units SUBCUT Q8HR LACY Ciprofloxacin/Dextrose (Cipro 400 Mg Ivpremix(*)) 400 mg in 200 mls @ 200 mls/ hr IVPB Q12H LACY Multi-Ingredient Mouthwash/Gargle (Magic M W2 Gonzalo/Maal/Nyst/Lido*) 5 ml SWISH SPIT QID LACY Ondansetron HCl (Zofran Odt Tab*) 4 mg PO Q6H PRN Vital Signs 04/05/17 04/05/17 04/05/17 15:37 19:37 20:00 Temperature 98.1 F 98.5 F Pulse Rate 92 86 Respiratory 16 16 16 Rate Blood Pressure 136/49 134/50 (mmHg) O2 Sat by Pulse 97 97 Oximetry 04/05/17 04/06/17 04/06/17 23:50 04:23 06:48 Temperature 98.5 F 98.2 F Pulse Rate 85 85 Respiratory 16 16 16 Rate Blood Pressure 143/60 130/56 (mmHg) O2 Sat by Pulse 97 97 Oximetry Oxygen Devices in Use Now: None Appearance: Female sitting up in bed in NAD Eyes: No Scleral Icterus Ears/Nose/Mouth/Throat: Mucous Membranes Moist Neck: Trachea Midline Respiratory: Symmetrical Chest Expansion and Respiratory Effort, Clear to Auscultation Cardiovascular: NL Sounds; No Murmurs; No JVD, No Edema Abdominal: NL Sounds; No Tenderness; No Distention Lymphatic: No Cervical Adenopathy Extremities: No Edema Skin: No Rash or Ulcers Neurological: Alert and Oriented x 3, NL Muscle Strength and Tone Nutrition: Taking PO's Result Diagrams: 04/06/17 04:46 04/06/17 09:45 Additional Lab and Data: Lab Results 04/04/17 04/04/17 04/04/17 Range/Units 18:32 18:32 18:32 WBC 42.1 H (3.5-10.8) 10^3/ul RBC 3.56 L (4.0-5.4) 10^6/ul Hgb 10.7 L (12.0-16.0) g/dl Hct 32 L (35-47) % MCV 90 (80-97) fL MCH 30 (27-31) pg MCHC 34 (31-36) g/dl RDW 14 (10.5-15) % Plt Count 283 (150-450) 10^3/ul MPV 8 (7.4-10.4) um3 Neut % (Auto) 82.3 (38-83) % Lymph % (Auto) 11.2 L (25-47) % [place] % (Auto) 6.1 (1-9) % Eos % (Auto) 0.2 (0-6) % Baso % (Auto) 0.2 (0-2) % Absolute Neuts (auto) 34.6 H (1.5-7.7) 10^3/ul Absolute Lymphs (auto) 4.7 (1.0-4.8) 10^3/ul Absolute Monos (auto) 2.6 H (0-0.8) 10^3/ul Absolute Eos (auto) 0.1 (0-0.6) 10^3/ul Absolute Basos (auto) 0.1 (0-0.2) 10^3/ul Absolute Nucleated RBC 0.02 10^3/ul Nucleated RBC % 0 Sodium 128 L (133-145) mmol/L Potassium 2.6 L* (3.5-5.0) mmol/L Chloride 92 L (101-111) mmol/L Carbon Dioxide 28 (22-32) mmol/L Anion Gap 8 (2-11) mmol/L BUN 13 (6-24) mg/dL Creatinine 0.71 (0.51-0.95) mg/dL Est GFR ( Amer) 102.9 (>60) Est GFR (Non-Af Amer) 80.0 (>60) BUN/Creatinine Ratio 18.3 (8-20) Glucose 105 H (70-100) mg/dL Lactic Acid 0.8 (0.5-2.0) mmol/L Calcium 8.6 (8.6-10.3) mg/dL Magnesium 1.6 L (1.9-2.7) mg/dL Total Bilirubin 0.40 (0.2-1.0) mg/dL AST 24 (13-39) U/L ALT 15 (7-52) U/L Alkaline Phosphatase 128 H (34-104) U/L CK-MB (CK-2) 11.3 H (0.6-6.3) ng/mL Troponin I 0.13 H* (<0.04) ng/mL B-Natriuretic Peptide ( - 100) pg/mL Total Protein 5.5 L (6.4-8.9) g/dL Albumin 3.3 (3.2-5.2) g/dL Globulin 2.2 (2-4) g/dL Albumin/Globulin Ratio 1.5 (1-3) TSH 3.06 (0.34-5.60) mcIU/mL Urine Color Urine Appearance Urine pH (5-9) Ur Specific [place] (1.010-1.030) Urine Protein (Negative) Urine Ketones (Negative) Urine Blood (Negative) Urine Nitrate (Negative) Urine Bilirubin (Negative) Urine Urobilinogen (Negative) Ur Leukocyte Esterase (Negative) Urine WBC (Auto) (Absent) Urine RBC (Auto) (Absent) Ur Squamous Epith Cells (Absent) Urine Bacteria (Absent) Urine Glucose (Negative) 04/04/17 04/04/17 Range/Units 18:32 19:11 WBC (3.5-10.8) 10^3/ul RBC (4.0-5.4) 10^6/ul Hgb (12.0-16.0) g/dl Hct (35-47) % MCV (80-97) fL MCH (27-31) pg MCHC (31-36) g/dl RDW (10.5-15) % Plt Count (150-450) 10^3/ul MPV (7.4-10.4) um3 Neut % (Auto) (38-83) % Lymph % (Auto) (25-47) % [place] % (Auto) (1-9) % Eos % (Auto) (0-6) % Baso % (Auto) (0-2) % Absolute Neuts (auto) (1.5-7.7) 10^3/ul Absolute Lymphs (auto) (1.0-4.8) 10^3/ul Absolute Monos (auto) (0-0.8) 10^3/ul Absolute Eos (auto) (0-0.6) 10^3/ul Absolute Basos (auto) (0-0.2) 10^3/ul Absolute Nucleated RBC 10^3/ul Nucleated RBC % Sodium (133-145) mmol/L Potassium (3.5-5.0) mmol/L Chloride (101-111) mmol/L Carbon Dioxide (22-32) mmol/L Anion Gap (2-11) mmol/L BUN (6-24) mg/dL Creatinine (0.51-0.95) mg/dL Est GFR ( Amer) (>60) Est GFR (Non-Af Amer) (>60) BUN/Creatinine Ratio (8-20) Glucose (70-100) mg/dL Lactic Acid (0.5-2.0) mmol/L Calcium (8.6-10.3) mg/dL Magnesium (1.9-2.7) mg/dL Total Bilirubin (0.2-1.0) mg/dL AST (13-39) U/L ALT (7-52) U/L Alkaline Phosphatase (34-104) U/L CK-MB (CK-2) (0.6-6.3) ng/mL Troponin I (<0.04) ng/mL B-Natriuretic Peptide 335 H ( - 100) pg/mL Total Protein (6.4-8.9) g/dL Albumin (3.2-5.2) g/dL Globulin (2-4) g/dL Albumin/Globulin Ratio (1-3) TSH (0.34-5.60) mcIU/mL Urine Color Yellow Urine Appearance Cloudy Urine pH 6.0 (5-9) Ur Specific [place] 1.010 (1.010-1.030) Urine Protein Negative (Negative) Urine Ketones 1+ H (Negative) Urine Blood 2+ H (Negative) Urine Nitrate Negative (Negative) Urine Bilirubin Negative (Negative) Urine Urobilinogen Negative (Negative) Ur Leukocyte Esterase 2+ H (Negative) Urine WBC (Auto) 1+(6-10/hpf) H (Absent) Urine RBC (Auto) 3+(>10/hpf) H (Absent) Ur Squamous Epith Cells Present H (Absent) Urine Bacteria 1+ H (Absent) Urine Glucose Negative (Negative) Assess/Plan/Problems-Billing Assessment: Ms. Garcias is a 76 yo F with a PMH of breast cancer currently undergoing chemotherapy who was admitted on 04/04/17 with weakness, UTI, elevated troponin and low potassium. - Patient Problems (1) Elevated troponin Comment: - Trop peaked at 0.36. Patient asymptomatic. - Question if chemotherapy is cardiotoxic however am concerned about underlying ischemia. Echo essentially unchanged from 02/23/17. - Dr. Bain (her outpatient MD) saw her today in passing and does recommend stress testing prior to discharge. Chem Nuc Med stress test performed today without evidence of reversible ischemia (low risk). Suspect demand ischemia. Recommend patient continue to follow closely with Dr. Bain. (2) UTI (urinary tract infection) Comment: - Patient reports dysuria and foul smelling urine for which she started nitrofurantoin at home. - UA with strep. - Continue cipro. Recommend continue premarin cream (if approved per oncology) and perhaps vit c supplementation to prevent further UTIs. (3) Electrolyte abnormality Comment: - Hypokalemia - replete. (4) Leukocytosis Comment: - WBC 29 this AM, patient afebrile. - Related to chemotherapy based on records from [facility]. - Blood cultures negative. UA positive, treating with cipro. Cxray negative. (5) Full code status (6) DVT prophylaxis Comment: - HSQ Status and Disposition: Inpatient with expected LOS > 2 days. Discharge to home.
[2017-04-06 08:37] VITALS: BP 143/53
[2017-04-06] MEDS: Ciprofloxacin 400MG IVPREMIX(* 400 MG/200 ML BAG IVPB SCH (09:03)
[2017-04-06] MEDS: Magic M W2 Ben/Maal/Nyst/Lido* 240 ML MOUTHWASH (alt formulation) SWISH SPIT SCH ×2 (09:11→14:04)
[2017-04-06 10:14] LABS: EGFR African American 183.6 (>60); EGFR Non-African American 142.8 (>60); Potassium 2.8 mmol/L (3.5-5.0)
[2017-04-06] MEDS ORDERED: Regadenoson* 0.4 MG/5 ML SYRINGE ONE (12:20)
[2017-04-06] MEDS: Aspirin EC Low Dose* 81 MG TAB.EC PO SCH (13:59)
--- NOTE | 2017-04-06 14:36 | RAD ---
HISTORY: Elevated troponin, weakness COMPARISONS: None TECHNIQUE: A 1 day stress/rest myocardial perfusion study was performed, with pharmacologic stress. The stress portion was monitored by Dr. Hanson. Gated SPECT imaging was performed, with CT-based attenuation correction DOSE: Stress: Technetium 99m tetrofosmin, 23.92 millicuries, injected at 12:28 PM on April 06, 2017 Rest: Technetium 99m tetrofosmin, 10.2 millicuries, injected at 9:25 AM on April 06, 2017 Pharmacologic agent: Lexiscan FINDINGS: CARDIAC MONITORING: No EKG changes of ischemia with stress EF: 87 % TID: 0.76 MOTION: Normal motion, with normal wall thickening. PERFUSION: There is an inferolateral perfusion defect that resolves with attenuation consistent with artifact. There is no definite fixed or reversible perfusion defect OTHER: There are small bilateral pleural effusions IMPRESSION: NO DEFINITE FIXED OR REVERSIBLE PERFUSION DEFECTS. SMALL BILATERAL PLEURAL EFFUSION. ASSESSMENT: LOW RISK. Based on imaging criteria from ACC/AHA 2002. Guideline Update for the Management of Patient's with Chronic Stable Angina, table 23. Noninvasive Risk Stratification.
--- NOTE | 2017-04-07 00:08 | DS ---
CC: Dr. Chaney * DISCHARGE SUMMARY: DATE OF ADMISSION: 04/04/17 DATE OF DISCHARGE: 04/06/17 PRIMARY CARE PHYSICIAN: Dr. Chaney. ATTENDING PHYSICIAN: Jamar Anderson MD * (dictation provided by Sugey Crump NP ) PRIMARY DIAGNOSES: 1. Urinary tract infection. 2. Weakness. 3. Elevated troponin with suspected demand ischemia. 4. Leukocytosis. SECONDARY DIAGNOSES: 1. History of breast cancer, currently undergoing chemotherapy under direction of Dr. Rodriguez in [place]. 2. Diverticulitis. 3. Hypertension. 4. Overactive bladder. 5. History of genital prolapse. 6. Atrophic vaginitis. 7. History of asthma. 8. Allergies. MEDICATIONS AT THE TIME OF DISCHARGE: 1. Cipro 500 mg p.o. b.i.d. x5 days. 2. Miracle Mouthwash 5 mL p.o. p.r.n. 3. Calcium carbonate with cholecalciferol 1 tab p.o. daily. 4. Cholecalciferol/vitamin D 1000 units p.o. daily. 5. Dicyclomine 10 mg as needed. 6. Lomotil p.r.n. 7. Gaviscon p.r.n. 8. Glucosamine/chondroitin 1 cap p.o. daily. 9. Levocetirizine 5 mg p.o. daily. 10. Multivitamin with mineral 1 tab p.o. daily. 11. Nystatin/triamcinolone cream as needed. 12. Premarin vaginal cream as needed. 13. Probiotic product p.o. daily. 14. Propylene glycol both eyes as needed. 15. Zovirax ointment 5% as needed. 16. Aspirin 81 mg p.o. daily. 17. Ondansetron 4 mg p.o. q.6 hours p.r.n. nausea. HOSPITAL COURSE: Ms. Garcias is a 76-year-old female with a past medical history of recent diagnosis of breast cancer, currently undergoing chemotherapy , who presented to the hospital on 04/04/17 with concern for weakness. Please see the dictated H and P from myself for complete details. In brief, the patient had gone to see Dr. Bain for routine appointment. At that time, she complained of weakness. He checked her labs and noted that she had a low potassium at 2.6 and elevated troponin of 0.08 and therefore, he had her evaluated in the emergency room. Ms. Garcias's initial troponin here was 0.13. She had an EKG, which showed no evidence of ischemia. She had a low potassium at 2.6. She also had leukocytosis with white blood cell count of 42.1. The remainder of her workup was negative including a chest x-ray, which showed no acute intrathoracic process. UA did, however, show signs of urinary tract infection, the patient reported that she had started nitrofurantoin a couple of days earlier for symptoms of dysuria and foul smelling urine. Ms. Garcias was admitted to the hospital for her suspected undertreated UTI. She was started on Cipro, ultimately this grew strep B and she is continued on that without incident. In terms of her leukocytosis, her white blood cell count peaked at 42.1, today it is 29.3. I did obtain records from Dr. Rodriguez's office in [place] and it was confirmed that her chemotherapeutic agents did cause leukocytosis. In terms of her elevated troponin, it peaked at 0.36. She remained asymptomatic during the hospitalization without chest pain or other equivalent. She had a transthoracic echocardiogram, which showed ejection fraction of 65% with no significant change from her prior echo from 02/23/17. Dr. Bain did recommend stress testing and she went on for a clinical nuclear stress test, which was read as low risk with no evidence of reversible ischemia. Ms. Garcias is doing much better today. She is feeling strong. She is eating well. She denies any complaints. I suspect that her elevated troponin was secondary to demand ischemia in the setting of recent chemotherapy and urinary tract infection. She is to complete a course of Cipro for her UTI. I also encouraged her that she should resume her Premarin cream and perhaps vitamin C supplementation due to her history of atrophic vaginitis, which likely contributed to her UTI. DISPOSITION: To home. DIET: Regular. ACTIVITY: As tolerated. FOLLOWUP PLANS: 1. Please follow up with Dr. Rodriguez per routine with scheduled appointments have been arranged. 2. Please follow up with Dr. hCaney in the next 1 to 2 weeks regarding this acute hospitalization. 3. Consider followup with [facility] regarding management of atrophic vaginitis and prevention of further UTIs. TIME SPENT: Approximately 60 minutes were spent on discharge of this patient; more than half the time spent with her at the bedside, reviewing the events leading up to this hospitalization, performing the physical examination, and reviewing my plan of care. SUGEY CRUMP NP [id number]/[facility] #: [id number] ELSY
== END 2017-04-06 17:23 | disposition home health service (06) | DRG 690 ==
LOC: ED 16:42 → MEDTELE 20:24 → OBSVTOIN 04-05 11:38
PROVIDERS: ADMIT Pediatrics; ATTEND Hospitalist
DX: N39.0 Urinary tract infection, site not specified (principal); I24.8 Other forms of acute ischemic heart disease; C50.919 Malignant neoplasm of unspecified site of unspecified female breast; K57.92 Diverticulitis of intestine, part unspecified, without perforation or abscess without bleeding; E83.42 Hypomagnesemia; J44.9 Chronic obstructive pulmonary disease, unspecified; R74.8 Abnormal levels of other serum enzymes; I10 Essential (primary) hypertension; N32.81 Overactive bladder; N95.2 Postmenopausal atrophic vaginitis; R53.1 Weakness; E87.6 Hypokalemia; B95.1 Streptococcus, group B, as the cause of diseases classified elsewhere; D72.829 Elevated white blood cell count, unspecified; T45.1X5A Adverse effect of antineoplastic and immunosuppressive drugs, initial encounter; Z88.0 Allergy status to penicillin; Z88.1 Allergy status to other antibiotic agents; Z88.2 Allergy status to sulfonamides; Z82.49 Family history of ischemic heart disease and other diseases of the circulatory system; Z92.21 Personal history of antineoplastic chemotherapy; Z82.0 Family history of epilepsy and other diseases of the nervous system; Z79.82 Long term (current) use of aspirin; Z98.42 Cataract extraction status, left eye; Z98.41 Cataract extraction status, right eye; Z98.51 Tubal ligation status; Z87.891 Personal history of nicotine dependence
CPT/HCPCS: 36415; 71010; 78452; 80048; 80053; 81003; 81015; 82553; 83605; 83735; 83880; 84443; 84484; 85025; 85060; 86140; 87040; 87077; 87086; 93005; 93017; 93306; A9270-GY; A9502; G0378; J0744; J1642; J1644; J2785; J3480

== ENCOUNTER 2017-04-24 11:29 | Inpatient (IN) | payer MEDICARE ==
[2017-04-24] MEDS ORDERED: NS 0.9% 1000 ML* 1,000 ML IV ONE (11:59)
[2017-04-24 12:00] LABS: Add Diff/Slide Review? Slide Review Added; Comments Flag Yes; Hematocrit 32 % (35-47); Mean Corpuscular HGB Conc 35 g/dl (31-36); Mean Corpuscular Hemoglobin 31 pg (27-31); Mean Corpuscular Volume 91 fL (80-97); Mean Platelet Volume 8 um3 (7.4-10.4); Red Blood Count 3.51 10^6/ul (4.0-5.4); Red Cell Distribution Width 16 % (10.5-15); White Blood Count 22.6 10^3/ul (3.5-10.8)
--- NOTE | 2017-04-24 12:17 | RAD ---
Indication: Weakness. Single frontal view of the chest performed at 1155 hours was reviewed. Comparison is made with previous exam dated April 04, 2017. No mediastinal shift is noted. Heart is of normal size and configuration. Lung fair appear clear. IMPRESSION: NO ACTIVE CARDIOPULMONARY DISEASE IS NOTED.
[2017-04-24 12:18] LABS: Albumin 3.2 g/dL (3.2-5.2); BUN/Creatinine Ratio 17.6 (8-20); EGFR African American 108.2 (>60); EGFR Non-African American 84.1 (>60); Globulin 2.3 g/dL (2-4); Potassium 2.9 mmol/L (3.5-5.0); Total Bilirubin 0.6 mg/dL (0.2-1.0); Total Protein 5.5 g/dL (6.4-8.9)
[2017-04-24 12:23] LABS: Troponin I 0.04 ng/mL (<0.04)
[2017-04-24 12:28] LABS: Immature Granulocytes 10 % (0-9); Metamyelocytes % 2 % (0-2); Myelocytes % 5 % (0-1); Neutrophil % 68 % (38-83)
[2017-04-24 12:35] LABS: RBC Morphology Normal (Normal)
[2017-04-24 13:24] LABS: Magnesium 1.4 mg/dL (1.9-2.7)
[2017-04-24] MEDS ORDERED: Dicyclomine CAP* 10 MG PO PRN (13:28)
[2017-04-24] MEDS ORDERED: Ondansetron ODT TAB* 4 MG PO PRN (13:28)
[2017-04-24] MEDS ORDERED: Nitrofurantoin Macrocrystals* 100 MG CAP PO PRN (13:28)
[2017-04-24] MEDS ORDERED: Potassium Chlor TAB* 20 MEQ TAB.ER PO ONE (13:32)
[2017-04-24] MEDS ORDERED: Magnesium Sulfate 2 GM IV* 2 GM/50 ML BAG IVPB ONE ×2 (13:32→13:37)
--- NOTE | 2017-04-24 13:34 | ED ---
Antonia River Edward, scribed for Elise Burns MD on 04/24/17 at 1153 . Complex/Multi-Sys Presentation - HPI Summary HPI Summary: 76 y/o female presents to ED c/o sudden onset weakness this morning. Pt's BP was found to be low this morning as well. Associated sx: SOB, chest pain described as cramps, constipation and diarrhea (following chemo). Pt was in the ER a few weeks ago. PMHx breast CA (last chemo session one week ago), heart murmur. Non smoker, no drug use. - History Of Current Complaint Chief Complaint: EDChestPainROMI Time Seen by Provider: 04/24/17 11:36 Hx Obtained From: Patient Onset/Duration: Sudden Onset Associated Signs And Symptoms: Positive: Weakness, SOB, Chest Pain, Diarrhea, Other - Constipation - Allergies/Home Medications Allergies/Adverse Reactions: Allergies Allergy/AdvReac Type Severity Reaction Status Date / Time Amoxicillin Allergy Severe Shakes Verified 02/23/17 13:41 Clavulanic Acid Allergy Severe Headache Verified 02/23/17 13:41 [From Augmentin] Gentamicin Allergy Severe Eyes Verified 02/23/17 13:41 [From Gentamicin Ophthalmic] Itchy/Swollen/Red/Watery Sulfa Antibiotics Allergy Severe Rash Verified 02/23/17 13:41 Home Medications: Home Medications Ascorbic Acid TAB* [Vitamin C TAB*] 500 mg PO DAILY 04/24/17 [History Confirmed 04/24/17] Aspirin EC Low Dose* [Ecotrin EC Low Dose 81 MG*] 81 mg PO DAILY 04/24/17 [ History Confirmed 04/24/17] Cholecalciferol TAB* [Vitamin D TAB*] 1,000 unit PO DAILY 04/24/17 [History Confirmed 04/24/17] Cholecalciferol TAB* [Vitamin D TAB*] 400 unit PO DAILY 04/24/17 [History Confirmed 04/24/17] Ferrous Sulfate [Iron] 90 mg PO DAILY 04/24/17 [History Confirmed 04/24/17] Potassium Chlor TAB* [Klor Con ER TAB*] 10 meq PO BID 04/24/17 [History Confirmed 04/24/17] Senna TAB* [Senokot TAB*] 1 tab PO DAILY 04/24/17 [History Confirmed 04/24/17] PMH/Surg Hx/FS Hx/Imm Hx Previously Healthy: No Endocrine/Hematology History: Reports: Hx Anemia Denies: Hx Diabetes Cardiovascular History: Reports: Hx Hypertension - medication controlled Denies: Hx Pacemaker/ICD Respiratory History: Reports: Hx Asthma, Hx Chronic Bronchitis, Hx Chronic Obstructive Pulmonary Disease (COPD) GI History: Reports: Hx Diverticulosis History: Denies: Hx Renal Disease Comment Only: Other Problems/Disorders - renal cysts Musculoskeletal History: Reports: Hx Arthritis Sensory History: Reports: Hx Cataracts - removed, Hx Contacts or Glasses Denies: Hx Hearing Aid Opthamlomology History: Reports: Hx Cataracts - removed, Hx Contacts or Glasses Psychiatric History: Denies: Hx Panic Disorder - Cancer History Cancer Type, 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 CATARACTS, DENTAL Infectious Disease History: Denies: Traveled Outside the [place] in Last 30 Days - Family History Known Family History: Positive: Cardiac Disease - Father at 76 from cardiac dz. , Diabetes, Other - Father had PD. Family History: NON CONTRIBUTORY - Social History Alcohol Use: Rare Substance Use Type: Reports: None Smoking Status (MU): Former Smoker Type: Cigarettes Have You Smoked in the Last Year: No Review of Systems Constitutional: Negative Eyes: Negative ENT: Negative Positive: Chest Pain, Other - Hypotension Positive: Shortness Of Breath Positive: Diarrhea, Other - Constipation Genitourinary: Negative Musculoskeletal: Negative Skin: Negative Positive: Weakness Psychological: Normal All Other Systems Reviewed And Are Negative: Yes Physical Exam Triage Information Reviewed: Yes Vital Signs On Initial Exam: Initial Vitals Pulse Resp BP Pulse Ox 95 18 123/77 98 04/24/17 11:31 04/24/17 11:31 04/24/17 11:31 04/24/17 11:31 Vital Signs Reviewed: Yes Appearance: Positive: No Pain Distress, Ill-Appearing - Chronically Skin: Positive: Warm, Skin Color Reflects Adequate Perfusion, Dry Eyes: Positive: EOMI, WIL ENT: Positive: Pharynx normal, TMs normal Neck: Positive: Supple, Nontender Respiratory/Lung Sounds: Positive: Clear to Auscultation, Breath Sounds Present. Negative: Rales, Rhonchi, Wheezes Cardiovascular: Positive: RRR, Other - no gallop. Negative: Murmur, Rub Abdomen Description: Positive: Nontender, Soft, Other: - no rebound. Negative: Distended, Guarding Bowel Sounds: Positive: Present Musculoskeletal: Positive: Strength/ROM Intact. Negative: Edema Left, Edema Right Neurological: Positive: Sensory/Motor Intact, Alert, Oriented to Person Place, Time, CN Intact II-III Psychiatric: Positive: Affect/Mood Appropriate Diagnostics - Vital Signs Vital Signs Pulse Resp BP Pulse Ox 04/24/17 11:31 95 18 123/77 98 - Laboratory Lab Results: Lab Results 04/24/17 04/24/17 04/24/17 Range/Units 11:45 11:45 11:45 WBC 22.6 H (3.5-10.8) 10^3/ul RBC 3.51 L (4.0-5.4) 10^6/ul Hgb 11.0 L (12.0-16.0) g/dl Hct 32 L (35-47) % MCV 91 (80-97) fL MCH 31 (27-31) pg MCHC 35 (31-36) g/dl RDW 16 H (10.5-15) % Plt Count 325 (150-450) 10^3/ul MPV 8 (7.4-10.4) um3 Immature Gran % (Auto) 10 H (0-9) % Neut % (Auto) 82.4 (38-83) % Lymph % (Auto) 10.1 L (25-47) % [place] % (Auto) 6.9 (1-9) % Eos % (Auto) 0.2 (0-6) % Baso % (Auto) 0.4 (0-2) % Absolute Neuts (auto) 18.6 H (1.5-7.7) 10^3/ul Absolute Lymphs (auto) 2.3 (1.0-4.8) 10^3/ul Absolute Monos (auto) 1.5 H (0-0.8) 10^3/ul Absolute Eos (auto) 0 (0-0.6) 10^3/ul Absolute Basos (auto) 0.1 (0-0.2) 10^3/ul Absolute Nucleated RBC 0.01 10^3/ul Neutrophils % 68 (38-83) % Band Neutrophils % 3 (0-8) % Lymphocytes % 11 L (25-47) % Monocytes % 11 (0-13) % Metamyelocytes % 2 (0-2) % Myelocytes % 5 H (0-1) % Nucleated RBC % 0 Normal RBC Morphology Normal (Normal) INR (Anticoag Therapy) 0.96 (0.89-1.11) APTT 22.0 L (26.0-36.3) seconds Sodium 127 L (133-145) mmol/L Potassium 2.9 L (3.5-5.0) mmol/L Chloride 90 L (101-111) mmol/L Carbon Dioxide 28 (22-32) mmol/L Anion Gap 9 (2-11) mmol/L BUN 12 (6-24) mg/dL Creatinine 0.68 (0.51-0.95) mg/dL Est GFR ( Amer) 108.2 (>60) Est GFR (Non-Af Amer) 84.1 (>60) BUN/Creatinine Ratio 17.6 (8-20) Glucose 202 H (70-100) mg/dL Lactic Acid (0.5-2.0) mmol/L Calcium 9.0 (8.6-10.3) mg/dL Magnesium 1.4 L (1.9-2.7) mg/dL Total Bilirubin 0.60 (0.2-1.0) mg/dL AST 19 (13-39) U/L ALT 13 (7-52) U/L Alkaline Phosphatase 101 (34-104) U/L Troponin I 0.04 H* (<0.04) ng/mL Total Protein 5.5 L (6.4-8.9) g/dL Albumin 3.2 (3.2-5.2) g/dL Globulin 2.3 (2-4) g/dL Albumin/Globulin Ratio 1.4 (1-3) Blood Type Antibody Screen 04/24/17 04/24/17 Range/Units 11:45 11:45 WBC (3.5-10.8) 10^3/ul RBC (4.0-5.4) 10^6/ul Hgb (12.0-16.0) g/dl Hct (35-47) % MCV (80-97) fL MCH (27-31) pg MCHC (31-36) g/dl RDW (10.5-15) % Plt Count (150-450) 10^3/ul MPV (7.4-10.4) um3 Immature Gran % (Auto) (0-9) % Neut % (Auto) (38-83) % Lymph % (Auto) (25-47) % [place] % (Auto) (1-9) % Eos % (Auto) (0-6) % Baso % (Auto) (0-2) % Absolute Neuts (auto) (1.5-7.7) 10^3/ul Absolute Lymphs (auto) (1.0-4.8) 10^3/ul Absolute Monos (auto) (0-0.8) 10^3/ul Absolute Eos (auto) (0-0.6) 10^3/ul Absolute Basos (auto) (0-0.2) 10^3/ul Absolute Nucleated RBC 10^3/ul Neutrophils % (38-83) % Band Neutrophils % (0-8) % Lymphocytes % (25-47) % Monocytes % (0-13) % Metamyelocytes % (0-2) % Myelocytes % (0-1) % Nucleated RBC % Normal RBC Morphology (Normal) INR (Anticoag Therapy) (0.89-1.11) APTT (26.0-36.3) seconds Sodium (133-145) mmol/L Potassium (3.5-5.0) mmol/L Chloride (101-111) mmol/L Carbon Dioxide (22-32) mmol/L Anion Gap (2-11) mmol/L BUN (6-24) mg/dL Creatinine (0.51-0.95) mg/dL Est GFR ( Amer) (>60) Est GFR (Non-Af Amer) (>60) BUN/Creatinine Ratio (8-20) Glucose (70-100) mg/dL Lactic Acid 1.9 (0.5-2.0) mmol/L Calcium (8.6-10.3) mg/dL Magnesium (1.9-2.7) mg/dL Total Bilirubin (0.2-1.0) mg/dL AST (13-39) U/L ALT (7-52) U/L Alkaline Phosphatase (34-104) U/L Troponin I (<0.04) ng/mL Total Protein (6.4-8.9) g/dL Albumin (3.2-5.2) g/dL Globulin (2-4) g/dL Albumin/Globulin Ratio (1-3) Blood Type AB Negative Antibody Screen Negative Result Diagrams: 04/24/17 11:45 04/24/17 11:45 Lab Statement: Any lab studies that have been ordered have been reviewed, and results considered in the medical decision making process. - Radiology CXR Xray Interpretation: No Acute Changes - NO ACTIVE CARDIOPULMONARY DISEASE IS NOTED. Radiology Interpretation Completed By: Radiologist - EKG 1 Cardiac Rate: NL EKG Rhythm: Sinus Rhythm - @ 88 bpm EKG Interpretation: 12:44 EKG Comparison: No Significant Change - 04/04/17 Complex Multi-Symp Course/Dx Course Of Treatment: 76 yo female s/p 3 rounds of chemo for breast ca and a recent admission sent by her pmd Dr. Kirkpatrick with low bp and several days of diarrhea s/p chemo here potassium and mag are low she has a chronic leukocytosis. She has been accepted for admission by Dr. Brunner - Diagnoses Provider Diagnoses: Diarrhea, Weakness, Breast cancer - Physician Notifications Discussed Care Of Patient With: Lupe Brunner Time Discussed With Above Provider: 13:00 Instructed by Provider To: MD Will See In ED Discharge - Discharge Plan Condition: Stable Disposition: ADMITTED TO [facility] Referrals: Ilana Chaney MD [Primary Care Provider] - The documentation as recorded by the Antonia pool Edward accurately reflects the service I personally performed and the decisions made by , Elise Burns MD.
[2017-04-24 14:53] LABS: Urine Bacteria Absent (Absent); Urine Bilirubin Negative (Negative); Urine Glucose Negative (Negative); Urine Nitrite Negative (Negative)
[2017-04-24] MEDS: Heparin VIAL(*) 5000 UNITS/ML VIAL (FIVE THOUSAND) SUBCUT SCH ×2 (16:28→21:37)
[2017-04-24] MEDS: NS 0.9% 1000 ML* 1,000 ML IV SCH (21:38)
--- NOTE | 2017-04-25 00:59 | HP ---
CC: Dr. Chaney * [facility] MEDICINE HISTORY AND PHYSICAL: DATE OF ADMISSION: 04/24/17 PRIMARY CARE PHYSICIAN: Dr. Chaney. ATTENDING PHYSICIAN: Lefty Dumont MD * (dictation provided by Sugey Crump NP) CHIEF COMPLAINT: Weakness. HISTORY OF PRESENT ILLNESS: Ms. Garcias is a 76-year-old female with a past medical history of recent admission to our hospital with discharge on 04/06/17 after a treatment for weakness, UTI, during which time she did have an elevated troponin and a stress test, which was read as low risk. Ms. Garcias has a history of recent diagnosis of breast cancer and is currently undergoing chemotherapy under the direction of Dr. Rodriguez in [place]. The patient states that she was feeling relatively well since her return home, but did go on for her 4th dose of chemotherapy last Monday. After chemotherapy, she had her typical constipation, which was followed by 3 days of diarrhea. She also had foul-smelling urine again and with suspicion for urinary tract infection. She did not have a urine sample sent to the lab, but was started on nitrofurantoin per Dr. Salazar. The patient states that she was feeling weak this morning when she woke up and went in to see Dr. Chaney for routine followup after her last hospitalization. While at the office there, she had a blood pressure running systolically in the high 80s and she appeared very weak and pale, and therefore she was sent to the emergency room for evaluation. When EMS assessed her, her blood pressure was over 100 and she was feeling somewhat better, but she was transported here for eval. In the emergency room, labs confirmed a persistent leukocytosis with a white blood cell count of 22.6 consistent with her recent chemotherapy. She has a slight anemia with a hemoglobin of 11, which is actually better than her previous admission. She has hyponatremia with a sodium of 127, which is consistent with a previous admission. Potassium is again low at 2.9. Magnesium is low at 1.4 and her troponin is mildly elevated at 0.04. Urinalysis is pending. PAST MEDICAL HISTORY: 1. Breast cancer, currently undergoing chemotherapy under the direction of Dr. Rodriguez in [place]. 2. Frequent urinary tract infections. 3. Hypertension. 4. Diverticulitis. 5. History of overactive bladder. 6. History of atrophic vaginitis with genital prolapse. 7. History of asthma. MEDICATIONS: 1. Calcium carbonate with cholecalciferol 1000 units 1 tab p.o. daily. 2. Lomotil 2.5/0.025 mg 1 tab p.o. b.i.d. p.r.n. 3. Ferrous sulfate 90 mg p.o. daily. 4. Glucosamine/chondroitin 1 cap p.o. daily. 5. Multivitamin with mineral 1 tab p.o. daily. 6. Potassium chloride 10 mEq p.o. b.i.d. 7. Probiotic product 1 tab p.o. daily. 8. Propylene glycol 1 drop both eyes daily p.r.n. 9. Ascorbic acid 500 mg p.o. daily. 10. Aspirin 81 mg p.o. daily. 11. Bentyl 10 mg p.o. t.i.d. p.r.n. 12. Nitrofurantoin 100 mg p.o. b.i.d. 13. Ondansetron 4 mg p.o. q.6 hours. 14. Senna 1 tab p.o. daily. FAMILY HISTORY: The patient reports her mother of old age at the age of 86. Father had Parkinson's and heart disease and at age 76. SOCIAL HISTORY: No prior alcohol, tobacco, or drug use. The patient lives with her . She states he will be the healthcare proxy. REVIEW OF SYSTEMS: A 14-point review of systems is completed with Ms. Garcias and all those not mentioned above were negative. PHYSICAL EXAMINATION GENERAL: Ms. Garcias is lying in bed. She is in no acute distress. VITAL SIGNS: Temperature 98.2, pulse rate 96, respiratory rate 18, O2 saturation 94% on room air, blood pressure 130/45. LUNGS: Clear to auscultation bilaterally with no accessory muscle use and good aeration. HEART: S1, S2. No murmur, rub, or gallop and regular. ABDOMEN: Soft, nontender with bowel sounds positive x4. EXTREMITIES: No cyanosis or edema. NEURO: She is alert, she is oriented x3. She moves all extremities equally. There is no facial asymmetry or focal weakness. Extraocular movements are intact. SKIN: Intact. LABORATORY DATA/DIAGNOSTIC STUDIES: Sodium 127, potassium 2.9, chloride 90, serum bicarbonate 28, BUN 12, creatinine 0.68, glucose 202. Lactic acid 1.9. Magnesium 1.4. Troponin 0.04. WBC 22.6, hemoglobin 11.0, hematocrit 32, platelet count 325. INR 0.96. Chest x-ray shows no active cardiopulmonary disease. EKG shows sinus rhythm with heart rate of about 85. No evidence of ischemia in comparison to previous EKG from 04/04/17. ASSESSMENT AND PLAN: Ms. Garcias is a 76-year-old female with a past medical history of recent diagnosis of breast cancer, currently undergoing chemotherapy as well as hypertension, diverticulitis, and frequent UTIs, who presents to the hospital today again after chemotherapy with concern for weakness, hypokalemia, hypomagnesemia, and suspected UTI. Our plans are for observation in the hospital for the followin. Weakness: I suspect this is related to her recent chemotherapy and significant diarrhea with electrolyte abnormalities. Plan to continue IV hydration. She can have Lomotil if her diarrhea returns. 2. UTI. The patient started nitrofurantoin at home. Based on her symptoms without positive urinalysis or culture, our plan is to check UA now and to adjust antibiotics as needed. 3. Electrolyte abnormalities. Plan to continue potassium and magnesium repletion and recheck all of her labs in the morning. 4. Hypertension. The patient is not currently on any outpatient medications. We will monitor her BP. 5. DVT prophylaxis, heparin subcu. 6. Code status is full code. TIME SPENT: Approximately 60 minutes were spent on the admission of this patient, more than half the time was spent with the patient at the bedside reviewing the events leading up to this hospitalization, performing the physical examination and reviewing the plan of care. SUGEY CRUMP, LIZETH [id number]/[facility] #: [id number] ELSY
[2017-04-25 05:05] LABS: BUN/Creatinine Ratio 59.5 (8-20); Calcium 7.5 mg/dL (8.6-10.3); EGFR African American 218.4 (>60); EGFR Non-African American 169.8 (>60); Magnesium 1.8 mg/dL (1.9-2.7); Potassium 3.2 mmol/L (3.5-5.0)
[2017-04-25] MEDS: Heparin VIAL(*) 5000 UNITS/ML VIAL (FIVE THOUSAND) SUBCUT SCH ×3 (05:17→22:34)
[2017-04-25] MEDS: NS 0.9% 1000 ML* 1,000 ML IV SCH ×3 (06:06→22:44)
[2017-04-25] MEDS: Cholecalciferol TAB* 1000 UNITS PO SCH (08:21)
[2017-04-25] MEDS: Ascorbic Acid TAB* 500 MG PO SCH (08:21)
[2017-04-25] MEDS: Senna TAB PO SCH ×2 (08:21→08:22)
[2017-04-25] MEDS ORDERED: Aspirin EC Low Dose* 81 MG TAB.EC PO SCH (09:00)
--- NOTE | 2017-04-25 14:22 | PN ---
Subjective Date of Service: 04/25/17 Interval History: Ms. Garcias states that she was feeling much better this morning but then had the return of diarrhea this afternoon and feels weaker. He denies chest pain, SOB, nausea, or abdominal pain. Objective Active Medications: Ascorbic Acid (Vitamin C Tab*) 500 mg PO DAILY [facility] Aspirin (Aspirin Ec Low Dose*) 81 mg PO DAILY [facility] Cholecalciferol (Vitamin D Tab*) 1,000 units PO DAILY [facility] Dicyclomine HCl (Bentyl Cap*) 10 mg PO TID PRN Heparin Sodium (Porcine) (Heparin Vial(*)) 5,000 units SUBCUT Q8HR [facility] Sodium Chloride (Ns 0.9% 1000 Ml*) 1,000 mls @ 125 mls/hr IV PER RATE [facility] Nitrofurantoin Macrocrystals (Macrodantin*) 100 mg PO BID PRN Ondansetron HCl (Zofran Odt Tab*) 4 mg PO Q6H PRN Senna (Senokot Tab*) 1 tab PO DAILY [facility] Vital Signs 04/24/17 04/24/17 04/24/17 14:25 14:30 15:09 Temperature 97.6 F Pulse Rate 119 112 Respiratory 18 25 14 Rate Blood Pressure 116/63 84/45 120/46 (mmHg) O2 Sat by Pulse 99 98 Oximetry 04/24/17 04/24/17 04/24/17 15:15 16:00 17:00 Temperature Pulse Rate Respiratory 16 18 17 Rate Blood Pressure (mmHg) O2 Sat by Pulse Oximetry 04/24/17 04/24/17 04/25/17 20:00 20:06 00:04 Temperature 98.0 F 98.1 F Pulse Rate 89 92 Respiratory 24 16 Rate Blood Pressure 123/39 136/47 (mmHg) O2 Sat by Pulse 98 99 97 Oximetry 04/25/17 04/25/17 04/25/17 03:57 07:37 08:00 Temperature 98.2 F 98.3 F Pulse Rate 90 100 Respiratory 16 20 16 Rate Blood Pressure 126/40 134/46 (mmHg) O2 Sat by Pulse 96 95 96 Oximetry Oxygen Devices in Use Now: None Appearance: Female lying in bed in NAD Eyes: No Scleral Icterus Ears/Nose/Mouth/Throat: Mucous Membranes Moist Neck: Trachea Midline Respiratory: Symmetrical Chest Expansion and Respiratory Effort, Clear to Auscultation Cardiovascular: NL Sounds; No Murmurs; No JVD, No Edema Abdominal: NL Sounds; No Tenderness; No Distention Lymphatic: No Cervical Adenopathy Extremities: No Edema Skin: No Rash or Ulcers Neurological: Alert and Oriented x 3, NL Muscle Strength and Tone Nutrition: Taking PO's Result Diagrams: 04/24/17 11:45 04/25/17 04:35 Additional Lab and Data: Lab Results 04/24/17 04/24/17 04/24/17 Range/Units 11:45 11:45 11:45 WBC 22.6 H (3.5-10.8) 10^3/ul RBC 3.51 L (4.0-5.4) 10^6/ul Hgb 11.0 L (12.0-16.0) g/dl Hct 32 L (35-47) % MCV 91 (80-97) fL MCH 31 (27-31) pg MCHC 35 (31-36) g/dl RDW 16 H (10.5-15) % Plt Count 325 (150-450) 10^3/ul MPV 8 (7.4-10.4) um3 Immature Gran % (Auto) 10 H (0-9) % Neut % (Auto) 82.4 (38-83) % Lymph % (Auto) 10.1 L (25-47) % [place] % (Auto) 6.9 (1-9) % Eos % (Auto) 0.2 (0-6) % Baso % (Auto) 0.4 (0-2) % Absolute Neuts (auto) 18.6 H (1.5-7.7) 10^3/ul Absolute Lymphs (auto) 2.3 (1.0-4.8) 10^3/ul Absolute Monos (auto) 1.5 H (0-0.8) 10^3/ul Absolute Eos (auto) 0 (0-0.6) 10^3/ul Absolute Basos (auto) 0.1 (0-0.2) 10^3/ul Absolute Nucleated RBC 0.01 10^3/ul Neutrophils % 68 (38-83) % Band Neutrophils % 3 (0-8) % Lymphocytes % 11 L (25-47) % Monocytes % 11 (0-13) % Metamyelocytes % 2 (0-2) % Myelocytes % 5 H (0-1) % Nucleated RBC % 0 Normal RBC Morphology Normal (Normal) INR (Anticoag Therapy) 0.96 (0.89-1.11) APTT 22.0 L (26.0-36.3) seconds Sodium 127 L (133-145) mmol/L Potassium 2.9 L (3.5-5.0) mmol/L Chloride 90 L (101-111) mmol/L Carbon Dioxide 28 (22-32) mmol/L Anion Gap 9 (2-11) mmol/L BUN 12 (6-24) mg/dL Creatinine 0.68 (0.51-0.95) mg/dL Est GFR ( Amer) 108.2 (>60) Est GFR (Non-Af Amer) 84.1 (>60) BUN/Creatinine Ratio 17.6 (8-20) Glucose 202 H (70-100) mg/dL Lactic Acid (0.5-2.0) mmol/L Calcium 9.0 (8.6-10.3) mg/dL Magnesium 1.4 L (1.9-2.7) mg/dL Total Bilirubin 0.60 (0.2-1.0) mg/dL AST 19 (13-39) U/L ALT 13 (7-52) U/L Alkaline Phosphatase 101 (34-104) U/L Troponin I 0.04 H* (<0.04) ng/mL Total Protein 5.5 L (6.4-8.9) g/dL Albumin 3.2 (3.2-5.2) g/dL Globulin 2.3 (2-4) g/dL Albumin/Globulin Ratio 1.4 (1-3) Blood Type Antibody Screen 04/24/17 04/24/17 Range/Units 11:45 11:45 WBC (3.5-10.8) 10^3/ul RBC (4.0-5.4) 10^6/ul Hgb (12.0-16.0) g/dl Hct (35-47) % MCV (80-97) fL MCH (27-31) pg MCHC (31-36) g/dl RDW (10.5-15) % Plt Count (150-450) 10^3/ul MPV (7.4-10.4) um3 Immature Gran % (Auto) (0-9) % Neut % (Auto) (38-83) % Lymph % (Auto) (25-47) % [place] % (Auto) (1-9) % Eos % (Auto) (0-6) % Baso % (Auto) (0-2) % Absolute Neuts (auto) (1.5-7.7) 10^3/ul Absolute Lymphs (auto) (1.0-4.8) 10^3/ul Absolute Monos (auto) (0-0.8) 10^3/ul Absolute Eos (auto) (0-0.6) 10^3/ul Absolute Basos (auto) (0-0.2) 10^3/ul Absolute Nucleated RBC 10^3/ul Neutrophils % (38-83) % Band Neutrophils % (0-8) % Lymphocytes % (25-47) % Monocytes % (0-13) % Metamyelocytes % (0-2) % Myelocytes % (0-1) % Nucleated RBC % Normal RBC Morphology (Normal) INR (Anticoag Therapy) (0.89-1.11) APTT (26.0-36.3) seconds Sodium (133-145) mmol/L Potassium (3.5-5.0) mmol/L Chloride (101-111) mmol/L Carbon Dioxide (22-32) mmol/L Anion Gap (2-11) mmol/L BUN (6-24) mg/dL Creatinine (0.51-0.95) mg/dL Est GFR ( Amer) (>60) Est GFR (Non-Af Amer) (>60) BUN/Creatinine Ratio (8-20) Glucose (70-100) mg/dL Lactic Acid 1.9 (0.5-2.0) mmol/L Calcium (8.6-10.3) mg/dL Magnesium (1.9-2.7) mg/dL Total Bilirubin (0.2-1.0) mg/dL AST (13-39) U/L ALT (7-52) U/L Alkaline Phosphatase (34-104) U/L Troponin I (<0.04) ng/mL Total Protein (6.4-8.9) g/dL Albumin (3.2-5.2) g/dL Globulin (2-4) g/dL Albumin/Globulin Ratio (1-3) Blood Type AB Negative Antibody Screen Negative Microbiology and Other Data: Microbiology 04/24/17 14:40 Urine Culture - Final Urine Strep Group B Normal [facility] Assess/Plan/Problems-Billing Assessment: Mr. Garcias is a 76 yo female with a PMH of breast cancer currently on chemotherapy who was admitted on 04/24/17 with weakness and electrolyte abnormalities in the setting of diarrhea after chemotherapy. - Patient Problems (1) Diarrhea Comment: - Diarrhea x 1 today. - Start immodium and continue IVF. (2) Electrolyte abnormality Comment: - Continue potassium supplementation. (3) UTI (urinary tract infection) Comment: - Patient again reports dysuria, incontinence and foul smelling urine for which she started nitrofurantoin at home. - UA with strep. - Complete course of nitrofurantoin. - Recommend continue premarin cream (if approved per oncology) and perhaps vit c supplementation to prevent further UTIs. (4) DVT prophylaxis Comment: - HSQ (5) Full code status Status and Disposition: Switch from OBV to inpatient with need for additional night in the hospital. Anticipate discharge to home when medically stable.
[2017-04-25] MEDS ORDERED: Potassium Chlor TAB* 20 MEQ TAB.ER PO ONE (14:23)
[2017-04-25] MEDS: Loperamide LIQ* 2 MG/10 ML UDC PO PRN (15:14)
[2017-04-26 05:26] LABS: BUN/Creatinine Ratio 47.2 (8-20); Calcium 6.9 mg/dL (8.6-10.3); EGFR African American 225.4 (>60); EGFR Non-African American 175.3 (>60); Potassium 2.8 mmol/L (3.5-5.0)
[2017-04-26] MEDS: Heparin VIAL(*) 5000 UNITS/ML VIAL (FIVE THOUSAND) SUBCUT SCH (05:40)
[2017-04-26] MEDS: Loperamide LIQ* 2 MG/10 ML UDC PO PRN (05:48)
[2017-04-26] MEDS: NS 0.9% 1000 ML* 1,000 ML IV SCH ×2 (05:48→20:33)
[2017-04-26 06:30] LABS: Hematocrit 16 % (35-47)
[2017-04-26 06:35] LABS: Comments Flag Yes
[2017-04-26 07:00] LABS: Hemoglobin 5.6 g/dl (12.0-16.0)
[2017-04-26 07:19] LABS: Hematocrit 16 % (35-47)
[2017-04-26 07:23] LABS: Comments Flag Yes
[2017-04-26 07:24] LABS: Hemoglobin 5.4 g/dl (12.0-16.0)
[2017-04-26] MEDS ORDERED: Pantoprazole IV* 40 MG IV ONE (07:43)
--- NOTE | 2017-04-26 07:43 | PN ---
Subjective Date of Service: 04/26/17 Interval History: Pt is feeling ok currently. This AM she vomited up some brown clumpy vomitus but it was red tinged, this episode of vomiting was followed by vomiting up a large blood clot. She denies any pain. She denies SOB or lightheadedness. Objective Active Medications: Ascorbic Acid (Vitamin C Tab*) 500 mg PO DAILY [facility] Last Admin: 04/25/17 08:21 Dose: 500 mg Cholecalciferol (Vitamin D Tab*) 1,000 units PO DAILY [facility] Last Admin: 04/25/17 08:21 Dose: 1,000 units Dicyclomine HCl (Bentyl Cap*) 10 mg PO TID PRN PRN Reason: PAIN - ABDOMINAL Sodium Chloride (Ns 0.9% 1000 Ml*) 1,000 mls @ 125 mls/hr IV PER RATE [facility] Last Admin: 04/26/17 05:48 Dose: 125 mls/hr Potassium Chloride (Potassium Chloride 20 Meq/100 Ml Ivpremix*) 20 meq in 100 mls @ 50 mls/hr IV Q2H [facility] Stop: 04/26/17 11:59 Loperamide HCl (Imodium Liq*) 2 mg PO .SEE ORDER PRN PRN Reason: DIARRHEA Last Admin: 04/26/17 05:48 Dose: 2 mg Nitrofurantoin Macrocrystals (Macrodantin*) 100 mg PO BID PRN PRN Reason: urine infections Ondansetron HCl (Zofran Odt Tab*) 4 mg PO Q6H PRN PRN Reason: NAUSEA/VOMITING Last Admin: 04/26/17 05:54 Dose: 4 mg Senna (Senokot Tab*) 1 tab PO DAILY [facility] Last Admin: 04/25/17 08:22 Dose: Not Given Vital Signs 04/25/17 04/25/17 04/25/17 07:37 08:00 14:22 Temperature 98.3 F 97.8 F Pulse Rate 100 100 Respiratory 20 16 18 Rate Blood Pressure 134/46 124/43 (mmHg) O2 Sat by Pulse 95 96 100 Oximetry 04/25/17 04/25/17 04/25/17 15:14 15:23 18:57 Temperature 98.3 F Pulse Rate 92 Respiratory 18 15 Rate Blood Pressure 132/57 (mmHg) O2 Sat by Pulse 99 96 Oximetry 04/25/17 04/26/17 04/26/17 23:36 03:46 05:48 Temperature 98.3 F 98.3 F Pulse Rate 93 91 Respiratory 20 16 16 Rate Blood Pressure 135/44 134/35 (mmHg) O2 Sat by Pulse 99 97 Oximetry 04/26/17 04/26/17 07:05 07:22 Temperature 97.7 F Pulse Rate 94 Respiratory 16 15 Rate Blood Pressure 129/37 (mmHg) O2 Sat by Pulse 97 98 Oximetry Oxygen Devices in Use Now: None Appearance: Elderly female sitting up in bed, NAD Eyes: No Scleral Icterus Ears/Nose/Mouth/Throat: Mucous Membranes Moist Respiratory: Symmetrical Chest Expansion and Respiratory Effort, Clear to Auscultation Cardiovascular: NL Sounds; No Murmurs; No JVD, RRR, No Edema Abdominal: NL Sounds; No Tenderness; No Distention Extremities: No Clubbing, Cyanosis Skin: No Rash or Ulcers, No Nodules or Sclerosis, - - pale Neurological: Alert and Oriented x 3 Result Diagrams: 04/26/17 07:02 04/26/17 04:51 Additional Lab and Data: Lab Results 04/24/17 04/24/17 04/24/17 Range/Units 11:45 11:45 11:45 WBC 22.6 H (3.5-10.8) 10^3/ul RBC 3.51 L (4.0-5.4) 10^6/ul Hgb 11.0 L (12.0-16.0) g/dl Hct 32 L (35-47) % MCV 91 (80-97) fL MCH 31 (27-31) pg MCHC 35 (31-36) g/dl RDW 16 H (10.5-15) % Plt Count 325 (150-450) 10^3/ul MPV 8 (7.4-10.4) um3 Immature Gran % (Auto) 10 H (0-9) % Neut % (Auto) 82.4 (38-83) % Lymph % (Auto) 10.1 L (25-47) % [place] % (Auto) 6.9 (1-9) % Eos % (Auto) 0.2 (0-6) % Baso % (Auto) 0.4 (0-2) % Absolute Neuts (auto) 18.6 H (1.5-7.7) 10^3/ul Absolute Lymphs (auto) 2.3 (1.0-4.8) 10^3/ul Absolute Monos (auto) 1.5 H (0-0.8) 10^3/ul Absolute Eos (auto) 0 (0-0.6) 10^3/ul Absolute Basos (auto) 0.1 (0-0.2) 10^3/ul Absolute Nucleated RBC 0.01 10^3/ul Neutrophils % 68 (38-83) % Band Neutrophils % 3 (0-8) % Lymphocytes % 11 L (25-47) % Monocytes % 11 (0-13) % Metamyelocytes % 2 (0-2) % Myelocytes % 5 H (0-1) % Nucleated RBC % 0 Normal RBC Morphology Normal (Normal) INR (Anticoag Therapy) 0.96 (0.89-1.11) APTT 22.0 L (26.0-36.3) seconds Sodium 127 L (133-145) mmol/L Potassium 2.9 L (3.5-5.0) mmol/L Chloride 90 L (101-111) mmol/L Carbon Dioxide 28 (22-32) mmol/L Anion Gap 9 (2-11) mmol/L BUN 12 (6-24) mg/dL Creatinine 0.68 (0.51-0.95) mg/dL Est GFR ( Amer) 108.2 (>60) Est GFR (Non-Af Amer) 84.1 (>60) BUN/Creatinine Ratio 17.6 (8-20) Glucose 202 H (70-100) mg/dL Lactic Acid (0.5-2.0) mmol/L Calcium 9.0 (8.6-10.3) mg/dL Magnesium 1.4 L (1.9-2.7) mg/dL Total Bilirubin 0.60 (0.2-1.0) mg/dL AST 19 (13-39) U/L ALT 13 (7-52) U/L Alkaline Phosphatase 101 (34-104) U/L Troponin I 0.04 H* (<0.04) ng/mL Total Protein 5.5 L (6.4-8.9) g/dL Albumin 3.2 (3.2-5.2) g/dL Globulin 2.3 (2-4) g/dL Albumin/Globulin Ratio 1.4 (1-3) Blood Type Antibody Screen 04/24/17 04/24/17 Range/Units 11:45 11:45 WBC (3.5-10.8) 10^3/ul RBC (4.0-5.4) 10^6/ul Hgb (12.0-16.0) g/dl Hct (35-47) % MCV (80-97) fL MCH (27-31) pg MCHC (31-36) g/dl RDW (10.5-15) % Plt Count (150-450) 10^3/ul MPV (7.4-10.4) um3 Immature Gran % (Auto) (0-9) % Neut % (Auto) (38-83) % Lymph % (Auto) (25-47) % [place] % (Auto) (1-9) % Eos % (Auto) (0-6) % Baso % (Auto) (0-2) % Absolute Neuts (auto) (1.5-7.7) 10^3/ul Absolute Lymphs (auto) (1.0-4.8) 10^3/ul Absolute Monos (auto) (0-0.8) 10^3/ul Absolute Eos (auto) (0-0.6) 10^3/ul Absolute Basos (auto) (0-0.2) 10^3/ul Absolute Nucleated RBC 10^3/ul Neutrophils % (38-83) % Band Neutrophils % (0-8) % Lymphocytes % (25-47) % Monocytes % (0-13) % Metamyelocytes % (0-2) % Myelocytes % (0-1) % Nucleated RBC % Normal RBC Morphology (Normal) INR (Anticoag Therapy) (0.89-1.11) APTT (26.0-36.3) seconds Sodium (133-145) mmol/L Potassium (3.5-5.0) mmol/L Chloride (101-111) mmol/L Carbon Dioxide (22-32) mmol/L Anion Gap (2-11) mmol/L BUN (6-24) mg/dL Creatinine (0.51-0.95) mg/dL Est GFR ( Amer) (>60) Est GFR (Non-Af Amer) (>60) BUN/Creatinine Ratio (8-20) Glucose (70-100) mg/dL Lactic Acid 1.9 (0.5-2.0) mmol/L Calcium (8.6-10.3) mg/dL Magnesium (1.9-2.7) mg/dL Total Bilirubin (0.2-1.0) mg/dL AST (13-39) U/L ALT (7-52) U/L Alkaline Phosphatase (34-104) U/L Troponin I (<0.04) ng/mL Total Protein (6.4-8.9) g/dL Albumin (3.2-5.2) g/dL Globulin (2-4) g/dL Albumin/Globulin Ratio (1-3) Blood Type AB Negative Antibody Screen Negative Microbiology and Other Data: Microbiology 04/24/17 14:40 Urine Culture - Final Urine Strep Group B Normal [facility] Assess/Plan/Problems-Billing Mr. Garcias is a 76 yo female with a PMHx of breast cancer currently on chemotherapy who was admitted on 04/24/17 with weakness and electrolyte abnormalities in the setting of diarrhea after chemotherapy. - Patient Problems (1) Upper GI bleed Current Visit: Yes Status: Acute Code(s): K92.2 - GASTROINTESTINAL HEMORRHAGE, UNSPECIFIED SNOMED Code(s): 06340420 Comment: THe patient appears to be having an upper GI bleed. She vomited up a large blood clot this AM and dropped her Hb to 5.4 from 11 on admission. The patient will be transfered to ICU and receive 2 units PRBC. I have called for GI consult. Start a protonix drip. The patient takes a baby ASA daily and states she takes aleve from time to time at home (she denies daily use). The patient told me that she was having black stools at home prior to her admission but she attributed this to eating 3 plums a day. (2) Acute blood loss anemia Current Visit: Yes Status: Acute Code(s): D62 - ACUTE POSTHEMORRHAGIC ANEMIA SNOMED Code(s): 037733301 Comment: H/H dropped significantly from admission secondary to presumed UGIB. Follow H/H and transfuse as needed. (3) Electrolyte abnormality Current Visit: Yes Status: Acute Code(s): E87.8 - OTH DISORDERS OF ELECTROLYTE AND FLUID BALANCE, NEC SNOMED Code(s): 595298679 Comment: Electrolytes remain out of range. Her electrolyte abnormalities were felt to be due to her diarrhea. Replace K and Mg as needed. (4) HTN (hypertension) Current Visit: Yes Status: Acute Code(s): I10 - ESSENTIAL (PRIMARY) HYPERTENSION SNOMED Code(s): 37410914 Comment: BP is holding despite the UGIB. Continue to monitor. She is not on any antihypertensives. (5) DVT prophylaxis Current Visit: Yes Status: Acute Code(s): VKC3035 - SNOMED Code(s): 488514570 Comment: SCDs only secondary to UGIB (6) Full code status Current Visit: Yes Status: Acute Code(s): Z78.9 - OTHER SPECIFIED HEALTH STATUS SNOMED Code(s): 151183767 Status and Disposition: Switch from OBV to inpatient with need for additional night in the hospital. Anticipate discharge to home when medically stable.
[2017-04-26] MEDS: KCL 20 MEQ/100 ML IVPREMIX* 20 MEQ/100 ML BAG IV SCH ×4 (09:15→23:20)
[2017-04-26] MEDS: Pantoprazole IV* 80 MG in NS 0.9% 250 ML* 250 ML IVPB SCH ×2 (09:23→20:33)
[2017-04-26] MEDS: Ascorbic Acid TAB* 500 MG PO SCH (10:50)
[2017-04-26] MEDS: Cholecalciferol TAB* 1000 UNITS PO SCH (10:50)
[2017-04-26] MEDS ORDERED: fentaNYL* 50 MCG/ML 2 ML VIAL (100 MCG VIAL) ONE (14:26)
[2017-04-26] MEDS ORDERED: Midazolam* 1 MG/ML 10 ML VIAL (10 MG) ONE (14:26)
[2017-04-26 19:49] LABS: Hematocrit 26 % (35-47); Hemoglobin 8.6 g/dl (12.0-16.0)
[2017-04-27] MEDS: NS 0.9% 1000 ML* 1,000 ML IV SCH (04:06)
[2017-04-27 05:47] LABS: Hematocrit 25 % (35-47); Hemoglobin 8.7 g/dl (12.0-16.0); Mean Corpuscular HGB Conc 35 g/dl (31-36); Mean Corpuscular Hemoglobin 31 pg (27-31); Mean Corpuscular Volume 89 fL (80-97); Mean Platelet Volume 7 um3 (7.4-10.4); Red Blood Count 2.79 10^6/ul (4.0-5.4); Red Cell Distribution Width 15 % (10.5-15); White Blood Count 21.2 10^3/ul (3.5-10.8)
[2017-04-27 06:04] LABS: BUN/Creatinine Ratio 14.6 (8-20); EGFR Non-African American 150.8 (>60); Potassium 3.2 mmol/L (3.5-5.0)
[2017-04-27] MEDS ORDERED: Magnesium Sulfate 2 GM IV* 2 GM/50 ML BAG IVPB ONE (07:02)
[2017-04-27] MEDS ORDERED: Potassium Chloride LIQUID* 20 MEQ PACKET PO ONE (07:02)
[2017-04-27] MEDS: Pantoprazole IV* 80 MG in NS 0.9% 250 ML* 250 ML IVPB SCH ×2 (07:32→18:21)
--- NOTE | 2017-04-27 07:36 | PN ---
Subjective Date of Service: 04/27/17 Interval History: Pt is feeling well. She denies any lightheadedness and SOB. She has no pain. Objective Active Medications: Ascorbic Acid (Vitamin C Tab*) 500 mg PO DAILY [facility] Last Admin: 04/26/17 10:50 Dose: 500 mg Cholecalciferol (Vitamin D Tab*) 1,000 units PO DAILY [facility] Last Admin: 04/26/17 10:50 Dose: 1,000 units Dicyclomine HCl (Bentyl Cap*) 10 mg PO TID PRN PRN Reason: PAIN - ABDOMINAL Sodium Chloride (Ns 0.9% 1000 Ml*) 1,000 mls @ 125 mls/hr IV PER RATE [facility] Last Admin: 04/27/17 04:06 Dose: 125 mls/hr Pantoprazole Sodium 80 mg/ (Sodium Chloride) 250 mls @ 25 mls/hr IVPB Q10H [facility] Last Admin: 04/26/17 20:33 Dose: 25 mls/hr Potassium Chloride (Potassium Chloride 20 Meq/100 Ml Ivpremix*) 20 meq in 100 mls @ 50 mls/hr IV Q2H [facility] Stop: 04/27/17 11:59 Magnesium Sulfate (Magnesium Sulfate 2 Gm Iv*) 2 gm in 50 mls @ 50 mls/hr IVPB ONCE ONE Stop: 04/27/17 08:01 Loperamide HCl (Imodium Liq*) 2 mg PO .SEE ORDER PRN PRN Reason: DIARRHEA Last Admin: 04/26/17 05:48 Dose: 2 mg Nitrofurantoin Macrocrystals (Macrodantin*) 100 mg PO BID PRN PRN Reason: urine infections Ondansetron HCl (Zofran Odt Tab*) 4 mg PO Q6H PRN PRN Reason: NAUSEA/VOMITING Last Admin: 04/26/17 05:54 Dose: 4 mg Vital Signs 04/26/17 04/26/17 04/26/17 08:03 08:06 08:15 Temperature 98.7 F Pulse Rate 94 94 Respiratory 23 21 Rate Blood Pressure 125/45 114/42 (mmHg) O2 Sat by Pulse 93 93 Oximetry 04/26/17 04/26/17 04/26/17 08:30 09:00 09:30 Temperature Pulse Rate 89 91 88 Respiratory 15 20 21 Rate Blood Pressure 114/42 118/43 104/54 (mmHg) O2 Sat by Pulse 96 98 97 Oximetry 04/26/17 04/26/17 04/26/17 10:00 10:28 10:30 Temperature Pulse Rate 93 92 93 Respiratory 19 20 23 Rate Blood Pressure 116/50 133/45 (mmHg) O2 Sat by Pulse 100 98 99 Oximetry 04/26/17 04/26/17 04/26/17 10:59 11:00 11:30 Temperature Pulse Rate 91 91 89 Respiratory 20 19 23 Rate Blood Pressure 119/41 116/44 125/39 (mmHg) O2 Sat by Pulse 99 100 99 Oximetry 04/26/17 04/26/17 04/26/17 12:00 12:30 13:00 Temperature Pulse Rate 89 90 Respiratory 21 23 25 Rate Blood Pressure 121/33 129/50 113/42 (mmHg) O2 Sat by Pulse 98 100 Oximetry 04/26/17 04/26/17 04/26/17 13:30 14:00 14:09 Temperature Pulse Rate 89 88 87 Respiratory 23 23 23 Rate Blood Pressure 129/39 126/46 126/46 (mmHg) O2 Sat by Pulse 98 99 100 Oximetry 04/26/17 04/26/17 04/26/17 14:30 14:46 14:50 Temperature Pulse Rate 90 89 94 Respiratory 20 26 20 Rate Blood Pressure 112/69 125/49 121/47 (mmHg) O2 Sat by Pulse 99 98 96 Oximetry 04/26/17 04/26/17 04/26/17 14:55 15:00 15:05 Temperature Pulse Rate 90 89 103 Respiratory 24 27 33 Rate Blood Pressure 116/48 154/75 171/43 (mmHg) O2 Sat by Pulse 98 95 97 Oximetry 04/26/17 04/26/17 04/26/17 15:07 15:10 15:13 Temperature Pulse Rate 102 93 90 Respiratory 22 24 25 Rate Blood Pressure 134/45 115/44 123/91 (mmHg) O2 Sat by Pulse 97 96 93 Oximetry 04/26/17 04/26/17 04/26/17 15:15 15:20 15:25 Temperature Pulse Rate 87 87 88 Respiratory 25 22 26 Rate Blood Pressure 123/48 89/71 (mmHg) O2 Sat by Pulse 93 94 96 Oximetry 04/26/17 04/26/17 04/26/17 15:27 15:30 15:35 Temperature Pulse Rate 88 88 84 Respiratory 23 24 19 Rate Blood Pressure 108/35 107/46 108/47 (mmHg) O2 Sat by Pulse 95 96 96 Oximetry 04/26/17 04/26/17 04/26/17 15:40 15:45 15:50 Temperature Pulse Rate 85 85 94 Respiratory 18 18 27 Rate Blood Pressure 103/47 104/34 107/36 (mmHg) O2 Sat by Pulse 95 95 97 Oximetry 04/26/17 04/26/17 04/26/17 15:55 16:00 16:02 Temperature Pulse Rate 88 89 92 Respiratory 20 27 21 Rate Blood Pressure 102/40 74/58 (mmHg) O2 Sat by Pulse 97 99 100 Oximetry 04/26/17 04/26/17 04/26/17 16:03 17:00 18:00 Temperature Pulse Rate 90 93 88 Respiratory 23 27 25 Rate Blood Pressure 122/46 134/39 (mmHg) O2 Sat by Pulse 99 98 97 Oximetry 04/26/17 04/26/17 04/26/17 18:04 18:39 19:00 Temperature Pulse Rate 88 89 84 Respiratory 23 25 25 Rate Blood Pressure 131/41 120/35 117/42 (mmHg) O2 Sat by Pulse 98 99 97 Oximetry 04/26/17 04/26/17 04/26/17 19:43 20:00 21:00 Temperature 99.1 F Pulse Rate 80 84 Respiratory 20 23 Rate Blood Pressure 89/67 (mmHg) O2 Sat by Pulse 99 97 Oximetry 04/26/17 04/26/17 04/26/17 21:51 22:00 23:00 Temperature Pulse Rate 80 81 83 Respiratory 22 21 21 Rate Blood Pressure 121/53 124/52 139/56 (mmHg) O2 Sat by Pulse 97 98 99 Oximetry 04/26/17 04/27/17 04/27/17 23:25 00:00 00:01 Temperature Pulse Rate 82 83 82 Respiratory 25 20 22 Rate Blood Pressure 123/51 (mmHg) O2 Sat by Pulse 97 98 99 Oximetry 04/27/17 04/27/17 04/27/17 00:28 00:52 01:00 Temperature 99.5 F Pulse Rate 74 74 Respiratory 16 16 Rate Blood Pressure 123/51 105/46 (mmHg) O2 Sat by Pulse 96 95 Oximetry 04/27/17 04/27/17 04/27/17 02:00 03:00 04:00 Temperature 98.5 F Pulse Rate 80 74 74 Respiratory 25 19 16 Rate Blood Pressure 109/52 118/53 107/42 (mmHg) O2 Sat by Pulse 97 96 94 Oximetry 04/27/17 04/27/17 05:00 06:00 Temperature Pulse Rate 73 80 Respiratory 17 17 Rate Blood Pressure 107/46 129/50 (mmHg) O2 Sat by Pulse 95 98 Oximetry Oxygen Devices in Use Now: None Appearance: Elderly female sitting up in bed, NAD Eyes: No Scleral Icterus Ears/Nose/Mouth/Throat: Mucous Membranes Moist Respiratory: Symmetrical Chest Expansion and Respiratory Effort, Clear to Auscultation Cardiovascular: NL Sounds; No Murmurs; No JVD, RRR, No Edema Abdominal: NL Sounds; No Tenderness; No Distention Extremities: No Clubbing, Cyanosis Skin: No Rash or Ulcers, No Nodules or Sclerosis Neurological: Alert and Oriented x 3 Result Diagrams: 04/27/17 05:30 04/27/17 05:30 Additional Lab and Data: Lab Results 04/24/17 04/24/17 04/24/17 Range/Units 11:45 11:45 11:45 WBC 22.6 H (3.5-10.8) 10^3/ul RBC 3.51 L (4.0-5.4) 10^6/ul Hgb 11.0 L (12.0-16.0) g/dl Hct 32 L (35-47) % MCV 91 (80-97) fL MCH 31 (27-31) pg MCHC 35 (31-36) g/dl RDW 16 H (10.5-15) % Plt Count 325 (150-450) 10^3/ul MPV 8 (7.4-10.4) um3 Immature Gran % (Auto) 10 H (0-9) % Neut % (Auto) 82.4 (38-83) % Lymph % (Auto) 10.1 L (25-47) % [place] % (Auto) 6.9 (1-9) % Eos % (Auto) 0.2 (0-6) % Baso % (Auto) 0.4 (0-2) % Absolute Neuts (auto) 18.6 H (1.5-7.7) 10^3/ul Absolute Lymphs (auto) 2.3 (1.0-4.8) 10^3/ul Absolute Monos (auto) 1.5 H (0-0.8) 10^3/ul Absolute Eos (auto) 0 (0-0.6) 10^3/ul Absolute Basos (auto) 0.1 (0-0.2) 10^3/ul Absolute Nucleated RBC 0.01 10^3/ul Neutrophils % 68 (38-83) % Band Neutrophils % 3 (0-8) % Lymphocytes % 11 L (25-47) % Monocytes % 11 (0-13) % Metamyelocytes % 2 (0-2) % Myelocytes % 5 H (0-1) % Nucleated RBC % 0 Normal RBC Morphology Normal (Normal) INR (Anticoag Therapy) 0.96 (0.89-1.11) APTT 22.0 L (26.0-36.3) seconds Sodium 127 L (133-145) mmol/L Potassium 2.9 L (3.5-5.0) mmol/L Chloride 90 L (101-111) mmol/L Carbon Dioxide 28 (22-32) mmol/L Anion Gap 9 (2-11) mmol/L BUN 12 (6-24) mg/dL Creatinine 0.68 (0.51-0.95) mg/dL Est GFR ( Amer) 108.2 (>60) Est GFR (Non-Af Amer) 84.1 (>60) BUN/Creatinine Ratio 17.6 (8-20) Glucose 202 H (70-100) mg/dL Lactic Acid (0.5-2.0) mmol/L Calcium 9.0 (8.6-10.3) mg/dL Magnesium 1.4 L (1.9-2.7) mg/dL Total Bilirubin 0.60 (0.2-1.0) mg/dL AST 19 (13-39) U/L ALT 13 (7-52) U/L Alkaline Phosphatase 101 (34-104) U/L Troponin I 0.04 H* (<0.04) ng/mL Total Protein 5.5 L (6.4-8.9) g/dL Albumin 3.2 (3.2-5.2) g/dL Globulin 2.3 (2-4) g/dL Albumin/Globulin Ratio 1.4 (1-3) Blood Type Antibody Screen 07/31/17 07/31/17 Range/Units 11:45 11:45 WBC (3.5-10.8) 10^3/ul RBC (4.0-5.4) 10^6/ul Hgb (12.0-16.0) g/dl Hct (35-47) % MCV (80-97) fL MCH (27-31) pg MCHC (31-36) g/dl RDW (10.5-15) % Plt Count (150-450) 10^3/ul MPV (7.4-10.4) um3 Immature Gran % (Auto) (0-9) % Neut % (Auto) (38-83) % Lymph % (Auto) (25-47) % [place] % (Auto) (1-9) % Eos % (Auto) (0-6) % Baso % (Auto) (0-2) % Absolute Neuts (auto) (1.5-7.7) 10^3/ul Absolute Lymphs (auto) (1.0-4.8) 10^3/ul Absolute Monos (auto) (0-0.8) 10^3/ul Absolute Eos (auto) (0-0.6) 10^3/ul Absolute Basos (auto) (0-0.2) 10^3/ul Absolute Nucleated RBC 10^3/ul Neutrophils % (38-83) % Band Neutrophils % (0-8) % Lymphocytes % (25-47) % Monocytes % (0-13) % Metamyelocytes % (0-2) % Myelocytes % (0-1) % Nucleated RBC % Normal RBC Morphology (Normal) INR (Anticoag Therapy) (0.89-1.11) APTT (26.0-36.3) seconds Sodium (133-145) mmol/L Potassium (3.5-5.0) mmol/L Chloride (101-111) mmol/L Carbon Dioxide (22-32) mmol/L Anion Gap (2-11) mmol/L BUN (6-24) mg/dL Creatinine (0.51-0.95) mg/dL Est GFR ( Amer) (>60) Est GFR (Non-Af Amer) (>60) BUN/Creatinine Ratio (8-20) Glucose (70-100) mg/dL Lactic Acid 1.9 (0.5-2.0) mmol/L Calcium (8.6-10.3) mg/dL Magnesium (1.9-2.7) mg/dL Total Bilirubin (0.2-1.0) mg/dL AST (13-39) U/L ALT (7-52) U/L Alkaline Phosphatase (34-104) U/L Troponin I (<0.04) ng/mL Total Protein (6.4-8.9) g/dL Albumin (3.2-5.2) g/dL Globulin (2-4) g/dL Albumin/Globulin Ratio (1-3) Blood Type AB Negative Antibody Screen Negative Microbiology and Other Data: Microbiology 04/24/17 14:40 Urine Culture - Final Urine Strep Group B Normal Yanira Assess/Plan/Problems-Billing Mr. Garcias is a 76 yo female with a PMHx of breast cancer currently on chemotherapy who was admitted on 04/24/17 with weakness and electrolyte abnormalities in the setting of diarrhea after chemotherapy. - Patient Problems (1) Upper GI bleed Current Visit: Yes Status: Acute Code(s): K92.2 - GASTROINTESTINAL HEMORRHAGE, UNSPECIFIED SNOMED Code(s): 28312275 Comment: The patient was found to have severe erosive esophagitis on EGD. Additionally she was found to have a small duodenal ulcer. Will continue IV protonix for now. Start a soft diet and montior H/H. H/H improved with 2 units PRBC. Hold ASA and aleve. Transfer back to medical and likely home tomorrow. (2) Acute blood loss anemia Current Visit: Yes Status: Acute Code(s): D62 - ACUTE POSTHEMORRHAGIC ANEMIA SNOMED Code(s): 650745206 Comment: H/H improved after 2 units PRBC. (3) Electrolyte abnormality Current Visit: Yes Status: Acute Code(s): E87.8 - OTH DISORDERS OF ELECTROLYTE AND FLUID BALANCE, NEC SNOMED Code(s): 367786532 Comment: Potassium remains low. Will aggressively replete again today. Will recheck tomorrow AM. (4) HTN (hypertension) Current Visit: Yes Status: Acute Code(s): I10 - ESSENTIAL (PRIMARY) HYPERTENSION SNOMED Code(s): 51737743 Comment: BP is under good control not on any medications. (5) DVT prophylaxis Current Visit: Yes Status: Acute Code(s): DQS7196 - SNOMED Code(s): 913061270 Comment: SCDs only secondary to UGIB (6) Full code status Current Visit: Yes Status: Acute Code(s): Z78.9 - OTHER SPECIFIED HEALTH STATUS SNOMED Code(s): 565197381 Status and Disposition: Switch from OBV to inpatient with need for additional night in the hospital. Anticipate discharge to home when medically stable.
--- NOTE | 2017-04-27 07:46 | PRO ---
CC: Dr. Chaney * DATE OF PROCEDURE: 04/26/17 - ROOM #ICU-02 PROCEDURE: Upper endoscopy with CLOtest biopsy. MEDICINES USED: Versed 3.5 mg IV. NARRATIVE: This is a 76-year-old woman currently being treated with chemotherapy for breast cancer. She has been admitted to the hospital for weakness and last night had an episode of hematemesis. She had a drop in her hemoglobin requiring transfusions. Upper endoscopy is therefore being carried out. DESCRIPTION OF PROCEDURE: After the procedure was discussed with the patient, risks and benefits were outlined, written consent was obtained. The patient was placed in the left lateral decubitus position and conscious sedation was administered. A video diagnostic gastroscope was inserted orally and passed easily into the esophagus. The esophagus, stomach, and duodenum through the second to third portion were well visualized. The patient tolerated the procedure well and there were no immediate complications. FINDINGS: Upper endoscopy was carried out as described above. The proximal esophagus was normal. However, the mid to distal aspect of the esophagus was notable for severe erosive esophagitis. There were some deep linear erosions extending up from the GE junction with areas of recent hemorrhage but no active hemorrhage. There was no stricture. The stomach was entered and upon retroflexion, there was a hiatal hernia identified. The gastric mucosa was otherwise unremarkable. There was no ulceration or inflammatory change and there was no blood in the stomach. The duodenal bulb was entered and there was a small perhaps 5 to 6 mm superficial ulceration of the duodenal bulb. It had a clean white base. The remainder of the duodenum second to third portion were normal. A CLOtest biopsy was obtained from the antrum. CONCLUSION: Severe erosive esophagitis, likely the etiology for her bleeding, but no bleeding currently. Additionally, small duodenal ulcer, CLOtest biopsy obtained. RECOMMENDATION: The patient should improve on PPI therapy and I would likely continue that manager of recruiting. CLOtest biopsy will be followed up on. [id number]/[facility] #: [id number] [facility]
[2017-04-27] MEDS: KCL 20 MEQ/100 ML IVPREMIX* 20 MEQ/100 ML BAG IV SCH ×2 (08:15→12:12)
[2017-04-27] MEDS: Cholecalciferol TAB* 1000 UNITS PO SCH (08:32)
[2017-04-27] MEDS: Ascorbic Acid TAB* 500 MG PO SCH (08:32)
[2017-04-28] MEDS: Pantoprazole IV* 80 MG in NS 0.9% 250 ML* 250 ML IVPB SCH (04:57)
[2017-04-28 05:57] LABS: Hematocrit 25 % (35-47); Hemoglobin 8.6 g/dl (12.0-16.0); Mean Corpuscular HGB Conc 34 g/dl (31-36); Mean Corpuscular Hemoglobin 31 pg (27-31); Mean Corpuscular Volume 91 fL (80-97); Mean Platelet Volume 7 um3 (7.4-10.4); Red Blood Count 2.77 10^6/ul (4.0-5.4); Red Cell Distribution Width 15 % (10.5-15); White Blood Count 11.7 10^3/ul (3.5-10.8)
[2017-04-28 06:08] LABS: BUN/Creatinine Ratio 7.7 (8-20); Calcium 7.5 mg/dL (8.6-10.3); EGFR African American 205.5 (>60); EGFR Non-African American 159.8 (>60); Magnesium 1.4 mg/dL (1.9-2.7); Potassium 3.1 mmol/L (3.5-5.0)
[2017-04-28] MEDS: Ascorbic Acid TAB* 500 MG PO SCH (07:31)
[2017-04-28] MEDS: Cholecalciferol TAB* 1000 UNITS PO SCH (07:31)
[2017-04-28] MEDS: Potassium Chloride LIQUID* 20 MEQ PACKET PO SCH (10:31)
--- NOTE | 2017-04-28 11:43 | PN ---
Subjective Date of Service: 04/28/17 Interval History: Pt is feeling well. She is not having any diarrhea. No SOB or lightheadedness. Objective Active Medications: Ascorbic Acid (Vitamin C Tab*) 500 mg PO DAILY [facility] Last Admin: 04/28/17 07:31 Dose: 500 mg Cholecalciferol (Vitamin D Tab*) 1,000 units PO DAILY [facility] Last Admin: 04/28/17 07:31 Dose: 1,000 units Dicyclomine HCl (Bentyl Cap*) 10 mg PO TID PRN PRN Reason: PAIN - ABDOMINAL Pantoprazole Sodium 80 mg/ (Sodium Chloride) 250 mls @ 25 mls/hr IVPB Q10H [facility] Last Admin: 04/28/17 04:57 Dose: 25 mls/hr Potassium Chloride (Potassium Chloride 20 Meq/100 Ml Ivpremix*) 20 meq in 100 mls @ 50 mls/hr IV Q2H [facility] Stop: 04/28/17 13:59 Loperamide HCl (Imodium Liq*) 2 mg PO .SEE ORDER PRN PRN Reason: DIARRHEA Last Admin: 04/26/17 05:48 Dose: 2 mg Nitrofurantoin Macrocrystals (Macrodantin*) 100 mg PO BID PRN PRN Reason: urine infections Ondansetron HCl (Zofran Odt Tab*) 4 mg PO Q6H PRN PRN Reason: NAUSEA/VOMITING Last Admin: 04/26/17 05:54 Dose: 4 mg Potassium Chloride (Klor-Con Liquid*) 40 meq PO DAILY [facility] Last Admin: 04/28/17 10:31 Dose: 40 meq Vital Signs 04/27/17 04/27/17 04/27/17 11:53 15:33 15:59 Temperature 98.2 F 98.3 F Pulse Rate 87 82 Respiratory 18 16 23 Rate Blood Pressure 125/44 147/41 (mmHg) O2 Sat by Pulse 100 99 Oximetry 04/27/17 04/27/17 04/27/17 20:00 20:05 23:41 Temperature 98.4 F 98.4 F Pulse Rate 86 84 Respiratory 22 25 16 Rate Blood Pressure 138/62 133/48 (mmHg) O2 Sat by Pulse 97 96 94 Oximetry 04/28/17 04/28/17 04/28/17 04:10 07:34 07:54 Temperature 98.4 F 98.1 F Pulse Rate 77 81 Respiratory 16 18 18 Rate Blood Pressure 123/62 147/64 (mmHg) O2 Sat by Pulse 97 97 99 Oximetry Oxygen Devices in Use Now: None Appearance: Elderly female sitting up in bed, NAD Eyes: No Scleral Icterus Ears/Nose/Mouth/Throat: Mucous Membranes Moist Respiratory: Symmetrical Chest Expansion and Respiratory Effort, Clear to Auscultation Cardiovascular: NL Sounds; No Murmurs; No JVD, RRR, No Edema Abdominal: NL Sounds; No Tenderness; No Distention Extremities: No Clubbing, Cyanosis Skin: No Rash or Ulcers, No Nodules or Sclerosis Neurological: Alert and Oriented x 3 Result Diagrams: 04/28/17 05:00 04/28/17 05:00 Additional Lab and Data: Lab Results 04/24/17 04/24/17 04/24/17 Range/Units 11:45 11:45 11:45 WBC 22.6 H (3.5-10.8) 10^3/ul RBC 3.51 L (4.0-5.4) 10^6/ul Hgb 11.0 L (12.0-16.0) g/dl Hct 32 L (35-47) % MCV 91 (80-97) fL MCH 31 (27-31) pg MCHC 35 (31-36) g/dl RDW 16 H (10.5-15) % Plt Count 325 (150-450) 10^3/ul MPV 8 (7.4-10.4) um3 Immature Gran % (Auto) 10 H (0-9) % Neut % (Auto) 82.4 (38-83) % Lymph % (Auto) 10.1 L (25-47) % [place] % (Auto) 6.9 (1-9) % Eos % (Auto) 0.2 (0-6) % Baso % (Auto) 0.4 (0-2) % Absolute Neuts (auto) 18.6 H (1.5-7.7) 10^3/ul Absolute Lymphs (auto) 2.3 (1.0-4.8) 10^3/ul Absolute Monos (auto) 1.5 H (0-0.8) 10^3/ul Absolute Eos (auto) 0 (0-0.6) 10^3/ul Absolute Basos (auto) 0.1 (0-0.2) 10^3/ul Absolute Nucleated RBC 0.01 10^3/ul Neutrophils % 68 (38-83) % Band Neutrophils % 3 (0-8) % Lymphocytes % 11 L (25-47) % Monocytes % 11 (0-13) % Metamyelocytes % 2 (0-2) % Myelocytes % 5 H (0-1) % Nucleated RBC % 0 Normal RBC Morphology Normal (Normal) INR (Anticoag Therapy) 0.96 (0.89-1.11) APTT 22.0 L (26.0-36.3) seconds Sodium 127 L (133-145) mmol/L Potassium 2.9 L (3.5-5.0) mmol/L Chloride 90 L (101-111) mmol/L Carbon Dioxide 28 (22-32) mmol/L Anion Gap 9 (2-11) mmol/L BUN 12 (6-24) mg/dL Creatinine 0.68 (0.51-0.95) mg/dL Est GFR ( Amer) 108.2 (>60) Est GFR (Non-Af Amer) 84.1 (>60) BUN/Creatinine Ratio 17.6 (8-20) Glucose 202 H (70-100) mg/dL Lactic Acid (0.5-2.0) mmol/L Calcium 9.0 (8.6-10.3) mg/dL Magnesium 1.4 L (1.9-2.7) mg/dL Total Bilirubin 0.60 (0.2-1.0) mg/dL AST 19 (13-39) U/L ALT 13 (7-52) U/L Alkaline Phosphatase 101 (34-104) U/L Troponin I 0.04 H* (<0.04) ng/mL Total Protein 5.5 L (6.4-8.9) g/dL Albumin 3.2 (3.2-5.2) g/dL Globulin 2.3 (2-4) g/dL Albumin/Globulin Ratio 1.4 (1-3) Blood Type Antibody Screen 04/24/17 04/24/17 Range/Units 11:45 11:45 WBC (3.5-10.8) 10^3/ul RBC (4.0-5.4) 10^6/ul Hgb (12.0-16.0) g/dl Hct (35-47) % MCV (80-97) fL MCH (27-31) pg MCHC (31-36) g/dl RDW (10.5-15) % Plt Count (150-450) 10^3/ul MPV (7.4-10.4) um3 Immature Gran % (Auto) (0-9) % Neut % (Auto) (38-83) % Lymph % (Auto) (25-47) % [place] % (Auto) (1-9) % Eos % (Auto) (0-6) % Baso % (Auto) (0-2) % Absolute Neuts (auto) (1.5-7.7) 10^3/ul Absolute Lymphs (auto) (1.0-4.8) 10^3/ul Absolute Monos (auto) (0-0.8) 10^3/ul Absolute Eos (auto) (0-0.6) 10^3/ul Absolute Basos (auto) (0-0.2) 10^3/ul Absolute Nucleated RBC 10^3/ul Neutrophils % (38-83) % Band Neutrophils % (0-8) % Lymphocytes % (25-47) % Monocytes % (0-13) % Metamyelocytes % (0-2) % Myelocytes % (0-1) % Nucleated RBC % Normal RBC Morphology (Normal) INR (Anticoag Therapy) (0.89-1.11) APTT (26.0-36.3) seconds Sodium (133-145) mmol/L Potassium (3.5-5.0) mmol/L Chloride (101-111) mmol/L Carbon Dioxide (22-32) mmol/L Anion Gap (2-11) mmol/L BUN (6-24) mg/dL Creatinine (0.51-0.95) mg/dL Est GFR ( Amer) (>60) Est GFR (Non-Af Amer) (>60) BUN/Creatinine Ratio (8-20) Glucose (70-100) mg/dL Lactic Acid 1.9 (0.5-2.0) mmol/L Calcium (8.6-10.3) mg/dL Magnesium (1.9-2.7) mg/dL Total Bilirubin (0.2-1.0) mg/dL AST (13-39) U/L ALT (7-52) U/L Alkaline Phosphatase (34-104) U/L Troponin I (<0.04) ng/mL Total Protein (6.4-8.9) g/dL Albumin (3.2-5.2) g/dL Globulin (2-4) g/dL Albumin/Globulin Ratio (1-3) Blood Type AB Negative Antibody Screen Negative Microbiology and Other Data: Microbiology 04/24/17 14:40 Urine Culture - Final Urine Strep Group B Normal Yanira Assess/Plan/Problems-Billing Mr. Garcias is a 76 yo female with a PMHx of breast cancer currently on chemotherapy who was admitted on 04/24/17 with weakness and electrolyte abnormalities in the setting of diarrhea after chemotherapy. - Patient Problems (1) Upper GI bleed Current Visit: Yes Status: Acute Code(s): K92.2 - GASTROINTESTINAL HEMORRHAGE, UNSPECIFIED SNOMED Code(s): 60819369 Comment: The patient was found to have severe erosive esophagitis on EGD. Additionally she was found to have a small duodenal ulcer. Change from IV protonix to oral omeprazole BID. Hold ASA for the next 2 weeks then resume. No further aleve. (2) Acute blood loss anemia Current Visit: Yes Status: Acute Code(s): D62 - ACUTE POSTHEMORRHAGIC ANEMIA SNOMED Code(s): 003457174 Comment: H/H improved and stable after 2 units PRBC. (3) Electrolyte abnormality Current Visit: Yes Status: Acute Code(s): E87.8 - OTH DISORDERS OF ELECTROLYTE AND FLUID BALANCE, NEC SNOMED Code(s): 381664111 Comment: Potassium and magnesium remain low. Will aggressively replete again today. Will recheck at 1800 and again tomorrow AM. She will likely need oral supplementation continuously. (4) HTN (hypertension) Current Visit: Yes Status: Acute Code(s): I10 - ESSENTIAL (PRIMARY) HYPERTENSION SNOMED Code(s): 14132782 Comment: BP is under good control not on any medications. (5) DVT prophylaxis Current Visit: Yes Status: Acute Code(s): XID4333 - SNOMED Code(s): 443253494 Comment: SCDs only secondary to UGIB (6) Full code status Current Visit: Yes Status: Acute Code(s): Z78.9 - OTHER SPECIFIED HEALTH STATUS SNOMED Code(s): 341457222 Status and Disposition: Switch from OBV to inpatient with need for additional night in the hospital. Anticipate discharge to home when medically stable.
[2017-04-28] MEDS: KCL 20 MEQ/100 ML IVPREMIX* 20 MEQ/100 ML BAG IV SCH ×2 (13:15→15:42)
[2017-04-28 19:53] LABS: Potassium 3.8 mmol/L (3.5-5.0)
[2017-04-28 20:28] LABS: Magnesium 1.8 mg/dL (1.9-2.7)
[2017-04-28] MEDS: Omeprazole CAP* 20 MG PO SCH (23:18)
[2017-04-29 06:58] LABS: BUN/Creatinine Ratio 9.3 (8-20); Calcium 7.9 mg/dL (8.6-10.3); EGFR African American 183.6 (>60); EGFR Non-African American 142.8 (>60); Magnesium 1.6 mg/dL (1.9-2.7); Potassium 3.3 mmol/L (3.5-5.0)
[2017-04-29] MEDS: Omeprazole CAP* 20 MG PO SCH (09:29)
[2017-04-29] MEDS: Potassium Chloride LIQUID* 20 MEQ PACKET PO SCH (09:29)
[2017-04-29] MEDS: Cholecalciferol TAB* 1000 UNITS PO SCH (09:29)
[2017-04-29] MEDS: Ascorbic Acid TAB* 500 MG PO SCH (09:30)
[2017-04-29 11:57] VITALS: BP 140/56
--- NOTE | 2017-04-29 13:18 | PN ---
Subjective Date of Service: 04/29/17 Interval History: Ms. Gacrias states that she is feeling quite well and is eager for discharge to home. Objective Active Medications: Ascorbic Acid (Vitamin C Tab*) 500 mg PO DAILY [facility] Cholecalciferol (Vitamin D Tab*) 1,000 units PO DAILY [facility] Dicyclomine HCl (Bentyl Cap*) 10 mg PO TID PRN Heparin Sodium (Porcine) (Heparin Flush Port (Ivad)) 5 ml FLUSH DAILY [facility] Loperamide HCl (Imodium Liq*) 2 mg PO .SEE ORDER PRN Nitrofurantoin Macrocrystals (Macrodantin*) 100 mg PO BID PRN Omeprazole (Prilosec Cap*) 20 mg PO BID [facility] Ondansetron HCl (Zofran Odt Tab*) 4 mg PO Q6H PRN Potassium Chloride (Klor-Con Liquid*) 40 meq PO DAILY [facility] Vital Signs 04/28/17 04/28/17 04/28/17 15:41 19:42 19:51 Temperature 98.1 F 97.8 F Pulse Rate 86 82 Respiratory 22 21 14 Rate Blood Pressure 121/56 134/60 (mmHg) O2 Sat by Pulse 96 97 Oximetry 04/28/17 04/29/17 04/29/17 23:30 03:45 08:00 Temperature 98.2 F 98.2 F Pulse Rate 81 75 Respiratory 20 16 20 Rate Blood Pressure 133/60 121/64 (mmHg) O2 Sat by Pulse 95 98 97 Oximetry 04/29/17 04/29/17 08:10 11:45 Temperature 97.8 F 98.0 F Pulse Rate 90 90 Respiratory 16 16 Rate Blood Pressure 129/54 140/56 (mmHg) O2 Sat by Pulse 97 97 Oximetry Oxygen Devices in Use Now: None Appearance: Female lying in bed in NAD Eyes: No Scleral Icterus Ears/Nose/Mouth/Throat: Mucous Membranes Moist Neck: Trachea Midline Respiratory: Symmetrical Chest Expansion and Respiratory Effort, Clear to Auscultation Cardiovascular: NL Sounds; No Murmurs; No JVD, No Edema Abdominal: NL Sounds; No Tenderness; No Distention Lymphatic: No Cervical Adenopathy Extremities: No Edema Skin: No Rash or Ulcers Neurological: Alert and Oriented x 3, NL Muscle Strength and Tone Nutrition: Taking PO's Result Diagrams: 04/28/17 05:00 04/29/17 06:35 Additional Lab and Data: Lab Results 04/24/17 04/24/17 04/24/17 Range/Units 11:45 11:45 11:45 WBC 22.6 H (3.5-10.8) 10^3/ul RBC 3.51 L (4.0-5.4) 10^6/ul Hgb 11.0 L (12.0-16.0) g/dl Hct 32 L (35-47) % MCV 91 (80-97) fL MCH 31 (27-31) pg MCHC 35 (31-36) g/dl RDW 16 H (10.5-15) % Plt Count 325 (150-450) 10^3/ul MPV 8 (7.4-10.4) um3 Immature Gran % (Auto) 10 H (0-9) % Neut % (Auto) 82.4 (38-83) % Lymph % (Auto) 10.1 L (25-47) % [place] % (Auto) 6.9 (1-9) % Eos % (Auto) 0.2 (0-6) % Baso % (Auto) 0.4 (0-2) % Absolute Neuts (auto) 18.6 H (1.5-7.7) 10^3/ul Absolute Lymphs (auto) 2.3 (1.0-4.8) 10^3/ul Absolute Monos (auto) 1.5 H (0-0.8) 10^3/ul Absolute Eos (auto) 0 (0-0.6) 10^3/ul Absolute Basos (auto) 0.1 (0-0.2) 10^3/ul Absolute Nucleated RBC 0.01 10^3/ul Neutrophils % 68 (38-83) % Band Neutrophils % 3 (0-8) % Lymphocytes % 11 L (25-47) % Monocytes % 11 (0-13) % Metamyelocytes % 2 (0-2) % Myelocytes % 5 H (0-1) % Nucleated RBC % 0 Normal RBC Morphology Normal (Normal) INR (Anticoag Therapy) 0.96 (0.89-1.11) APTT 22.0 L (26.0-36.3) seconds Sodium 127 L (133-145) mmol/L Potassium 2.9 L (3.5-5.0) mmol/L Chloride 90 L (101-111) mmol/L Carbon Dioxide 28 (22-32) mmol/L Anion Gap 9 (2-11) mmol/L BUN 12 (6-24) mg/dL Creatinine 0.68 (0.51-0.95) mg/dL Est GFR ( Amer) 108.2 (>60) Est GFR (Non-Af Amer) 84.1 (>60) BUN/Creatinine Ratio 17.6 (8-20) Glucose 202 H (70-100) mg/dL Lactic Acid (0.5-2.0) mmol/L Calcium 9.0 (8.6-10.3) mg/dL Magnesium 1.4 L (1.9-2.7) mg/dL Total Bilirubin 0.60 (0.2-1.0) mg/dL AST 19 (13-39) U/L ALT 13 (7-52) U/L Alkaline Phosphatase 101 (34-104) U/L Troponin I 0.04 H* (<0.04) ng/mL Total Protein 5.5 L (6.4-8.9) g/dL Albumin 3.2 (3.2-5.2) g/dL Globulin 2.3 (2-4) g/dL Albumin/Globulin Ratio 1.4 (1-3) Blood Type Antibody Screen 04/24/17 04/24/17 Range/Units 11:45 11:45 WBC (3.5-10.8) 10^3/ul RBC (4.0-5.4) 10^6/ul Hgb (12.0-16.0) g/dl Hct (35-47) % MCV (80-97) fL MCH (27-31) pg MCHC (31-36) g/dl RDW (10.5-15) % Plt Count (150-450) 10^3/ul MPV (7.4-10.4) um3 Immature Gran % (Auto) (0-9) % Neut % (Auto) (38-83) % Lymph % (Auto) (25-47) % [place] % (Auto) (1-9) % Eos % (Auto) (0-6) % Baso % (Auto) (0-2) % Absolute Neuts (auto) (1.5-7.7) 10^3/ul Absolute Lymphs (auto) (1.0-4.8) 10^3/ul Absolute Monos (auto) (0-0.8) 10^3/ul Absolute Eos (auto) (0-0.6) 10^3/ul Absolute Basos (auto) (0-0.2) 10^3/ul Absolute Nucleated RBC 10^3/ul Neutrophils % (38-83) % Band Neutrophils % (0-8) % Lymphocytes % (25-47) % Monocytes % (0-13) % Metamyelocytes % (0-2) % Myelocytes % (0-1) % Nucleated RBC % Normal RBC Morphology (Normal) INR (Anticoag Therapy) (0.89-1.11) APTT (26.0-36.3) seconds Sodium (133-145) mmol/L Potassium (3.5-5.0) mmol/L Chloride (101-111) mmol/L Carbon Dioxide (22-32) mmol/L Anion Gap (2-11) mmol/L BUN (6-24) mg/dL Creatinine (0.51-0.95) mg/dL Est GFR ( Amer) (>60) Est GFR (Non-Af Amer) (>60) BUN/Creatinine Ratio (8-20) Glucose (70-100) mg/dL Lactic Acid 1.9 (0.5-2.0) mmol/L Calcium (8.6-10.3) mg/dL Magnesium (1.9-2.7) mg/dL Total Bilirubin (0.2-1.0) mg/dL AST (13-39) U/L ALT (7-52) U/L Alkaline Phosphatase (34-104) U/L Troponin I (<0.04) ng/mL Total Protein (6.4-8.9) g/dL Albumin (3.2-5.2) g/dL Globulin (2-4) g/dL Albumin/Globulin Ratio (1-3) Blood Type AB Negative Antibody Screen Negative Microbiology and Other Data: Microbiology 04/24/17 14:40 Urine Culture - Final Urine Strep Group B Normal Yanira Assess/Plan/Problems-Billing Mr. Garcias is a 76 yo female with a PMHx of breast cancer currently on chemotherapy who was admitted on 04/24/17 with weakness and electrolyte abnormalities in the setting of diarrhea after chemotherapy who subsequently had an upper GI bleed secondary to erosive esophagitis. - Patient Problems (1) Upper GI bleed Comment: - Hgb has remained stable after 2 units PRBC. - The patient was found to have severe erosive esophagitis on EGD. Additionally she was found to have a small duodenal ulcer. - Continue oral omeprazole BID. Hold ASA for the next 2 weeks then resume. No further aleve. (2) Acute blood loss anemia Comment: - Resolved. (3) Diarrhea Comment: - Resolved. (4) Electrolyte abnormality Comment: - Continue oral supplementation of potassium and magnesium. - Plan for follow up labs early next week. (5) UTI (urinary tract infection) Comment: - Completed course of nitrofurantoin. (6) DVT prophylaxis Comment: - SCDs only secondary to UGIB (7) Full code status Status and Disposition: Discharge to home.
--- NOTE | 2017-04-29 22:39 | DS ---
CC: Dr. Chaney * [facility] MEDICINE DISCHARGE SUMMARY: DATE OF ADMISSION: 04/24/17 DATE OF DISCHARGE: 04/29/17 PRIMARY CARE PHYSICIAN: Dr. Chaney. ATTENDING PHYSICIAN: Monique Ram MD * (dictation provided by Sugey Crump NP ) PRIMARY DIAGNOSES: 1. Upper GI bleed. 2. Weakness. 3. Urinary tract infection. SECONDARY DIAGNOSES: 1. Breast cancer, currently undergoing chemotherapy under the direction of Dr. Rodriguez at [place]. 2. Frequent urinary tract infections. 3. Hypertension. 4. Diverticulitis. 5. History of overactive bladder. 6. History of atrophic vaginitis with genital prolapse. 7. History of asthma. MEDICATIONS AT THE TIME OF DISCHARGE: 1. Hold aspirin x2 weeks. 2. Discontinue Aleve or other NSAIDs. 3. Calcium carbonate with cholecalciferol 1000 units p.o. daily. 4. Lomotil 2.5/0.025 mg 1 tab p.o. b.i.d. p.r.n. 5. Ferrous sulfate 90 mg p.o. daily. 6. Glucosamine/chondroitin 1 cap p.o. daily. 7. Multivitamin with mineral 1 tab p.o. daily. 8. Potassium chloride 40 mEq p.o. daily. 9. Probiotic product 1 tab p.o. daily. 10. Propylene glycol 1 drop both eyes daily p.r.n. 11. Ascorbic acid 500 mg p.o. daily. 12. Bentyl 10 mg p.o. t.i.d. p.r.n. 13. Nitrofurantoin 100 mg p.o. b.i.d. 14. Ondansetron 4 mg p.o. q.6 hours. 15. Senna 1 tab p.o. daily. HOSPITAL COURSE: Mr. Garcias is a 76-year-old female with a recent diagnosis of breast cancer, on chemotherapy, who presented to the hospital on 04/24/17 with concern for weakness and low blood pressure at her primary care physician' s office. Please see the dictated H and P from myself for complete details. In brief, the patient is currently undergoing chemotherapy. She had been admitted to the hospital on 04/04/17 through 04/06/17 for similar complaints of weakness with the urinary tract infection. At her primary care physician's office on the day of admission, she had a blood pressure into the 80s and she looked pale and for that reason, she was sent to the ED. Here her blood pressure was stable , but she did have hypokalemia with a potassium of 2.9, hyponatremia with a sodium of 127, hypomagnesemia at 1.4 and elevated troponin at 0.04. She also reported that she had similar symptoms of dysuria and foul smelling urine and had started nitrofurantoin at home. Ms. Garcias was admitted to the hospital. Her urinalysis only showed 1+ leukocyte esterase, but the Strep group B was positive. She did complete a course of nitrofurantoin. On 04/25/17, the patient was feeling well, but remained somewhat weak and diarrhea and therefore plans were made for her to continue to be observed in the hospital overnight. On 04/26/17, she vomited x1 and had a large clot noted. Labs were rechecked and at that time, her hemoglobin had fallen from 11 on arrival to 5.6. She was seen in consultation by Dr. Ray from Gastroenterology, who performed an upper endoscopy, which found severe erosive esophagitis and a small duodenal ulcer. He recommended continuing on a PPI therapy, which we have done. The patient also received 2 units of packed red blood cells. Ms. Garcias is doing well today since her infusion of red blood cells. She has remained stable with a hemoglobin of 8.6 and hematocrit of 26. She has had no further diarrhea. She has had no further vomiting. She is tolerating oral intake well. She is ambulating in the room independently. Ms. Garcias is medically stable for discharge to home. She will be completing at least a 2-week course of omeprazole b.i.d. She will be asked to hold aspirin for two weeks and NSAIDs indefinitely. DISPOSITION: Home. DIET: Regular. ACTIVITY: As tolerated. FOLLOWUP PLANS: Please follow up with Dr. Chaney on Monday or Monday for labs to continue to monitor potassium with increased potassium supplementation. TIME SPENT: Approximately 60 minutes were spent on the discharge of this patient, more than half of the time was spent with the patient at the bedside reviewing the events leading up to this hospitalization, performing the physical examination, and reviewing my plan of care. SUGEY CRUMP NP [id number]/[facility] #: [id number] ELSY
== END 2017-04-29 16:00 | disposition home or self-care (01) | DRG 381 ==
LOC: ED 11:29 → MEDTELE 13:27 → ICU 04-26 07:29 → OBSVTOIN 04-26 07:47 → MED 04-27 10:46
PROVIDERS: ADMIT Internal Medicine; ATTEND Internal Medicine
PROC: 0DB68ZX Excision of Stomach, Via Natural or Artificial Opening Endoscopic, Diagnostic (ICD-10-PCS; principal; 2017-04-26)
PROC: 30233N1 Transfusion of Nonautologous Red Blood Cells into Peripheral Vein, Percutaneous Approach (ICD-10-PCS; 2017-04-26)
DX: K22.11 Ulcer of esophagus with bleeding (principal); D62 Acute posthemorrhagic anemia; K52.1 Toxic gastroenteritis and colitis; K26.9 Duodenal ulcer, unspecified as acute or chronic, without hemorrhage or perforation; E87.1 Hypo-osmolality and hyponatremia; E83.42 Hypomagnesemia; N39.0 Urinary tract infection, site not specified; C50.919 Malignant neoplasm of unspecified site of unspecified female breast; K44.9 Diaphragmatic hernia without obstruction or gangrene; E87.6 Hypokalemia; I10 Essential (primary) hypertension; T45.1X5A Adverse effect of antineoplastic and immunosuppressive drugs, initial encounter; Y92.009 Unspecified place in unspecified non-institutional (private) residence as the place of occurrence of the external cause; X58.XXXA Exposure to other specified factors, initial encounter; K57.90 Diverticulosis of intestine, part unspecified, without perforation or abscess without bleeding; N32.81 Overactive bladder; Z79.82 Long term (current) use of aspirin; Z79.899 Other long term (current) drug therapy; Z82.49 Family history of ischemic heart disease and other diseases of the circulatory system; Z87.440 Personal history of urinary (tract) infections
CPT/HCPCS: 36415; 71010; 80048; 80051; 80053; 81003; 81015; 83605; 83735; 84484; 85014; 85018; 85025; 85027; 85610; 85730; 86850; 86900; 86901; 86922; 87077; 87086; 87641; 93005; 99156; A9270-GY; G0378; J1642; J1644; J2250; J3010; J3475; J3480; P9040

== ENCOUNTER 2017-12-13 09:04 | Inpatient (IN) | payer MEDICARE ==
--- NOTE | 2017-12-13 10:12 | RAD ---
Indication: Altered mental status. Found on floor. History of lung carcinoma with brain metastasis. Chronic obstructive pulmonary disease. Cardiac disease. Comparison: April 24, 2017 chest radiograph and February 23, 2017 CT. Technique: Upright AP 0955 Report: Aside from unchanged bilateral apical pleural-parenchymal scarring the lungs and pleural spaces are clear. Negative for pneumothorax. Tip of RIGHT chest port at level of superior vena cava RIGHT atrial junction. Negative for cardiomegaly. Unremarkable central pulmonary vasculature. Unchanged moderate retrocardiac hiatal hernia. LEFT axillary surgical clips. IMPRESSION: No evidence for acute intrathoracic disease.
[2017-12-13 10:24] LABS: ABS Basophils 0 10^3/ul (0-0.2); ABS Eosinophils 0 10^3/ul (0-0.6); ABS Lymphocytes 0.5 10^3/ul (1.0-4.8); ABS Monocytes 0.3 10^3/ul (0-0.8); ABS Neutrophils 5.2 10^3/ul (1.5-7.7); ABS Nucleated RBC 0 10^3/ul; Eosinophil % 0.1 % (0-6); Hematocrit 40 % (35-47); Hemoglobin 14.3 g/dl (12.0-16.0); Lymphocyte % 8.7 % (25-47); Mean Corpuscular HGB Conc 36 g/dl (31-36); Mean Corpuscular Hemoglobin 31 pg (27-31); Mean Corpuscular Volume 87 fL (80-97); Mean Platelet Volume 6 um3 (7.4-10.4); Nucleated Red Blood Cells % 0.1; Platelet Count 158 10^3/ul (150-450); Red Blood Count 4.61 10^6/ul (4.0-5.4); Red Cell Distribution Width 13 % (10.5-15); White Blood Count 5.9 10^3/ul (3.5-10.8)
[2017-12-13 10:30] LABS: INR 0.82 (0.77-1.02)
--- NOTE | 2017-12-13 10:43 | RAD ---
INDICATION: Altered mental status. COMPARISON: Comparison is made with an outside MRI of the brain from November 07, 2017. TECHNIQUE: Contiguous axial sections of the brain were obtained from the skull base to the vertex without contrast. FINDINGS: There is a focal area of vasogenic edema present in the posterior left parietal lobe with mild local mass effect and compression of adjacent sulci. No midline shift is present. There is less mass effect than present on the prior MRI study. That MRI exam demonstrated multiple enhancing nodules present bilaterally within the cerebrum most consistent with metastatic disease. There is also a smaller area of edema within the left cerebellar hemisphere. No mass effect is present. There is no evidence for hemorrhage. No significant focal osseous abnormality is seen. The visualized portion of the paranasal sinuses and mastoid air cells appear clear. IMPRESSION: THERE IS A SMALL AREA OF EDEMA IN THE LEFT CEREBELLAR HEMISPHERE AND A LARGER AREA OF EDEMA IN THE POSTERIOR LEFT PARIETAL LOBE WITH MILD LOCAL MASS EFFECT WHICH HAS IMPROVED FROM THE PRIOR STUDY.
[2017-12-13 10:44] LABS: EGFR Non-African American 114.3 (>60)
[2017-12-13] MEDS ORDERED: Magnesium Sulfate 2 GM IV* 2 GM/50 ML BAG IVPB ONE (12:50)
[2017-12-13] MEDS ORDERED: NS 0.9% 500 ML* 500 ML IV ONE (12:50)
[2017-12-13] MEDS ORDERED: Ondansetron INJ* 2 MG/ML VIAL IV PRN (12:50)
[2017-12-13] MEDS ORDERED: Potassium Chlor TAB* 20 MEQ TAB.ER PO ONE (12:50)
[2017-12-13] MEDS ORDERED: Albuterol 2.5 MG/3 ML NEB.SOL* (0.083%) INH PRN (12:56)
[2017-12-13] MEDS ORDERED: NS 0.9% 1000 ML* 1,000 ML IV SCH (13:00)
[2017-12-13 14:59] LABS: Urine Appearance Cloudy; Urine Blood 2+ (Negative); Urine Color Yellow; Urine Ketones Negative (Negative); Urine Protein Negative (Negative); Urine Specific Gravity 1.013 (1.010-1.030); Urine Urobilinogen Negative (Negative)
[2017-12-13 16:54] LABS: EGFR Non-African American 169.3 (>60)
[2017-12-13] MEDS ORDERED: Sodium Chloride 3% HYPERTONIC* 500 ML IVPB ONE (17:28)
[2017-12-13] MEDS ORDERED: levETIRAcetam 500 MG IVPREMIX* 500 MG/100 ML BAG IV SCH (18:00)
[2017-12-13] MEDS ORDERED: levETIRAcetam IV* 500 MG in NS 0.9% 100 ML* 100 ML IVPB SCH (18:00)
[2017-12-13] MEDS ORDERED: Fluconazole 100 MG TAB* TAB PO ONE (18:20)
[2017-12-13] MEDS ORDERED: levETIRAcetam IV* 250 MG in NS 0.9% 100 ML* 100 ML IVPB ONE (18:30)
[2017-12-13] MEDS ORDERED: metroNIDAZOLE IV 500 MG/100ML* 500 MG/100 ML BAG IVPB SCH (19:00)
[2017-12-13] MEDS ORDERED: Cefepime 2 GM in Dextrose(*) 2 GM/50 ML BAG IV SCH (19:00)
[2017-12-13] MEDS ORDERED: KCL 20 MEQ/100 ML IVPREMIX* 20 MEQ/100 ML BAG IV SCH (19:00)
[2017-12-13] MEDS ORDERED: Potassium Chloride IV* 60 MEQ in NS 0.9% 500 ML* 500 ML IVPB ONE (19:00)
--- NOTE | 2017-12-13 19:01 | ED ---
Iain River Julia, scribed for Romeo Miles MD on 12/13/17 at 0940 . Altered Mental Status - HPI Summary HPI Summary: This patient is a 77 year old F BIBA to [facility] s/p fall on bathroom floor at home. Patient is aware of her fall, but denies any pain. Patient receives information well. She states the year as 1898 and the president as Legal. EMS states she was found on her bathroom floor, and they are unaware of who called. Patient lives alone. The patient's daughter, Jessa, was contacted via telephone ([phone]). She states that her mother was oriented over the weekend (12/09/2017 - 12/10/2017) on the phone. She states her mother had [place] Kn[place] treatment for brain METS three weeks ago at [facility]. - History Of Current Complaint Chief Complaint: EDAltMentalStatus Stated Complaint: FALL Time Seen by Provider: 12/13/17 09:17 Hx Obtained From: Patient, EMS Hx From Patient Unobtainable Due To: Altered Mental Status Onset/Duration: Unknown Character: Responsiveness Aggravating Factor(s): Unknown Associated Signs And Symptoms: Positive: Negative - Allergies/Home Medications Allergies/Adverse Reactions: Allergies Allergy/AdvReac Type Severity Reaction Status Date / Time amoxicillin Allergy Shakes Verified 12/13/17 09:49 clavulanic acid Allergy Headache Verified 12/13/17 09:50 gentamicin Allergy Eyes Verified 12/13/17 09:50 Itchy/Swollen/Red/Watery Sulfa (Sulfonamide Allergy Rash Verified 12/13/17 09:51 Antibiotics) Home Medications: Home Medications Albuterol HFA INHALER* [Ventolin HFA Inhaler*] 1 puff INH Q6H PRN 12/13/17 [ History Confirmed 12/13/17] Albuterol Sulfate 1.25 mg INH TID PRN 12/13/17 [History Confirmed 12/13/17] Anastrozole (NF) [Arimidex (NF)] 1 mg PO DAILY 12/13/17 [History Confirmed 12/13] Ascorbic Acid TAB* [Vitamin C TAB*] 500 mg PO DAILY 12/13/17 [History Confirmed 12/13/17] Glen/D3/Mag11/Zinc/Distribution Clerk/Kian/Bor [Caltrate 600+D Plus Tablet] 1 each PO DAILY [History Confirmed 12/13/17] Cholecalciferol (Vitamin D3) [Vitamin D3] 2,000 unit PO EVERY OTHER DAY [History Confirmed 12/13/17] Cranberry/B.coagulan/C/Calcium [Highly Concentrated Cranb] 1 tab PO DAILY [History Confirmed 12/13/17] Dexamethasone TAB* [Decadron TAB*] 4 mg PO BID 12/13/17 [History Confirmed 12/13] Ferrous Sulfate TAB* 325 mg PO DAILY 12/13/17 [History Confirmed 12/13/17] Fluticasone NASAL SPRAY 50MCG* [Flonase NASAL SPRAY 50MCG*] 2 spray BOTH NARES DAILY PRN 12/13/17 [History Confirmed 12/13/17] Glucosa Beth 2Kcl/Chondroitin Beth [Glucosamine Chondroitin Caplet] 1 each PO DAILY 12/13/17 [History Confirmed 12/13/17] Lactobacillus Acidophilus [Probiotic] 1 cap PO DAILY 12/13/17 [History Confirmed 12/13/17] Omeprazole CAP* [Prilosec CAP* 20 MG] 20 mg PO DAILY 12/13/17 [History Confirmed 12/13/17] Potassium Chlor TAB* [Potassium Chlor TAB 20 MEQ*] 20 meq PO DAILY 12/13/17 [ History Confirmed 12/13/17] Trolamine Salicylate/Aloe Vera [Aspercreme/Aloe] 10 % TOPICAL DAILY PRN [History Confirmed 12/13/17] amLODIPine TAB* [Norvasc 5 mg TAB*] 2.5 mg PO DAILY 12/13/17 [History Confirmed 12/13/17] PMH/Surg Hx/FS Hx/Imm Hx Endocrine/Hematology History: Reports: Hx Anemia Denies: Hx Diabetes Cardiovascular History: Reports: Hx Hypertension - medication controlled Denies: Hx Pacemaker/ICD Respiratory History: Reports: Hx Asthma, Hx Chronic Bronchitis, Hx Chronic Obstructive Pulmonary Disease (COPD) GI History: Reports: Hx Diverticulosis, Hx Irritable Bowel History: Reports: Other Problems/Disorders - renal cysts Denies: Hx Renal Disease Musculoskeletal History: Reports: Hx Arthritis Sensory History: Reports: Hx Cataracts - Hx, bilateral removal Denies: Hx Contacts or Glasses, Hx Hearing Aid Opthamlomology History: Reports: Hx Cataracts - Hx, bilateral removal Denies: Hx Contacts or Glasses Neurological History: Reports: Hx Migraine - Per patient, no migraines in last 5 years Psychiatric History: Denies: Hx Panic Disorder - Cancer History Cancer Type, 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 CATARACTS, DENTAL Infectious Disease History: No Infectious Disease History: Denies: Hx of Known/Suspected MRSA, Traveled Outside the [place] in Last 30 Days - Family History Known Family History: Positive: Cardiac Disease - Father at 76 from cardiac dz. , Diabetes, Other - Father had PD. - Social History Lives: Alone Alcohol Use: Rare Alcohol Amount: 2 times per year Substance Use Type: Reports: None Smoking Status (MU): Former Smoker Type: Cigarettes Have You Smoked in the Last Year: No Review of Systems Constitutional: Negative Negative: Myalgia All Other Systems Reviewed And Are Negative: Yes Physical Exam - Summary Physical Exam Summary: Appearance: The patient is well-nourished in no acute distress and in no acute pain. Skin: The skin is warm and dry and skin color reflects adequate perfusion. HEENT: The head is normocephalic and atraumatic. The pupils are equal and reactive. The conjunctivae are clear and without drainage. Nares are patent and without drainage. Mouth reveals moist mucous membranes and the throat is without erythema and exudate. The external ears are intact. The ear canals are patent and without drainage. The tympanic membranes are intact. Neck: the neck is supple with full range of motion and non-tender. There are no carotid bruits. There is no neck vein distension. Respiratory: Chest is non-tender. Lungs are clear to auscultation and breath sounds are symmetrical and equal. Cardiovascular: Heart is regular rate and rhythm. There is no murmur or rub auscultated. There is no peripheral edema and pulses are symmetrical and equal. Abdomen: The abdomen is soft and non-tender. There are normal bowel sounds heard in all four quadrants and there is no organomegaly palpated. Musculoskeletal: There is no back tenderness noted. Extremities are non-tender with full range of motion. There is good capillary refill. There is no peripheral edema or calf tenderness elicited. Neurological: Patient is alert and oriented to person, place and time. The patient has symmetrical motor strength in all four extremities. Cranial nerves are grossly intact. Deep tendon reflexes are symmetrical and equal in all four extremities. Patient speaks with word salad. No focal neurological deficits. Psychiatric: The patient has an appropriate affect and does not exhibit any anxiety or depression. Triage Information Reviewed: Yes Vital Signs On Initial Exam: Initial Vitals Temp Pulse Resp BP Pulse Ox 97.8 F 95 18 156/71 95 12/13/17 09:10 12/13/17 09:10 12/13/17 09:10 12/13/17 09:10 12/13/17 09:10 Vital Signs Reviewed: Yes Diagnostics - Vital Signs Vital Signs Temp Pulse Resp BP Pulse Ox 12/13/17 09:16 97 96 12/13/17 09:15 156/71 12/13/17 09:10 97.8 F 95 18 156/71 95 - Laboratory Lab Results: Lab Results 12/13/17 12/13/17 12/13/17 Range/Units 10:04 10:04 10:04 WBC 5.9 (3.5-10.8) 10^3/ul RBC 4.61 (4.0-5.4) 10^6/ul Hgb 14.3 (12.0-16.0) g/dl Hct 40 (35-47) % MCV 87 (80-97) fL MCH 31 (27-31) pg MCHC 36 (31-36) g/dl RDW 13 (10.5-15) % Plt Count 158 (150-450) 10^3/ul MPV 6 L (7.4-10.4) um3 Neut % (Auto) 86.6 H (38-83) % Lymph % (Auto) 8.7 L (25-47) % [place] % (Auto) 4.4 (0-7) % Eos % (Auto) 0.1 (0-6) % Baso % (Auto) 0.2 (0-2) % Absolute Neuts (auto) 5.2 (1.5-7.7) 10^3/ul Absolute Lymphs (auto) 0.5 L (1.0-4.8) 10^3/ul Absolute Monos (auto) 0.3 (0-0.8) 10^3/ul Absolute Eos (auto) 0 (0-0.6) 10^3/ul Absolute Basos (auto) 0 (0-0.2) 10^3/ul Absolute Nucleated RBC 0 10^3/ul Nucleated RBC % 0.1 INR (Anticoag Therapy) 0.82 (0.77-1.02) Sodium 119 L* (133-145) mmol/L Potassium 3.4 L (3.5-5.0) mmol/L Chloride 78 L (101-111) mmol/L Carbon Dioxide 31 (22-32) mmol/L Anion Gap 10 (2-11) mmol/L BUN 18 (6-24) mg/dL Creatinine 0.52 (0.51-0.95) mg/dL Est GFR ( Amer) 147.1 (>60) Est GFR (Non-Af Amer) 114.3 (>60) BUN/Creatinine Ratio 34.6 H (8-20) Glucose 96 (70-100) mg/dL Lactic Acid (0.5-2.0) mmol/L Calcium 9.0 (8.6-10.3) mg/dL Magnesium 1.8 L (1.9-2.7) mg/dL Total Bilirubin 1.10 H (0.2-1.0) mg/dL AST 29 (13-39) U/L ALT 41 (7-52) U/L Alkaline Phosphatase 45 (34-104) U/L Ammonia (16-53) mol/L Total Creatine Kinase 198 (10-223) U/L Troponin I 0.03 (<0.04) ng/mL Total Protein 6.2 L (6.4-8.9) g/dL Albumin 3.7 (3.2-5.2) g/dL Globulin 2.5 (2-4) g/dL Albumin/Globulin Ratio 1.5 (1-3) TSH 0.36 (0.34-5.60) mcIU/mL Cortisol 34.38 mcg/dL Salicylates < 2.50 (<30) mg/dL Acetaminophen < 15 mcg/mL Serum Alcohol < 10 (<10) mg/dL 12/13/17 12/13/17 Range/Units 10:04 10:04 WBC (3.5-10.8) 10^3/ul RBC (4.0-5.4) 10^6/ul Hgb (12.0-16.0) g/dl Hct (35-47) % MCV (80-97) fL MCH (27-31) pg MCHC (31-36) g/dl RDW (10.5-15) % Plt Count (150-450) 10^3/ul MPV (7.4-10.4) um3 Neut % (Auto) (38-83) % Lymph % (Auto) (25-47) % [place] % (Auto) (0-7) % Eos % (Auto) (0-6) % Baso % (Auto) (0-2) % Absolute Neuts (auto) (1.5-7.7) 10^3/ul Absolute Lymphs (auto) (1.0-4.8) 10^3/ul Absolute Monos (auto) (0-0.8) 10^3/ul Absolute Eos (auto) (0-0.6) 10^3/ul Absolute Basos (auto) (0-0.2) 10^3/ul Absolute Nucleated RBC 10^3/ul Nucleated RBC % INR (Anticoag Therapy) (0.77-1.02) Sodium (133-145) mmol/L Potassium (3.5-5.0) mmol/L Chloride (101-111) mmol/L Carbon Dioxide (22-32) mmol/L Anion Gap (2-11) mmol/L BUN (6-24) mg/dL Creatinine (0.51-0.95) mg/dL Est GFR ( Amer) (>60) Est GFR (Non-Af Amer) (>60) BUN/Creatinine Ratio (8-20) Glucose (70-100) mg/dL Lactic Acid 2.4 H* (0.5-2.0) mmol/L Calcium (8.6-10.3) mg/dL Magnesium (1.9-2.7) mg/dL Total Bilirubin (0.2-1.0) mg/dL AST (13-39) U/L ALT (7-52) U/L Alkaline Phosphatase (34-104) U/L Ammonia 28 (16-53) mol/L Total Creatine Kinase (10-223) U/L Troponin I (<0.04) ng/mL Total Protein (6.4-8.9) g/dL Albumin (3.2-5.2) g/dL Globulin (2-4) g/dL Albumin/Globulin Ratio (1-3) TSH (0.34-5.60) mcIU/mL Cortisol mcg/dL Salicylates (<30) mg/dL Acetaminophen mcg/mL Serum Alcohol (<10) mg/dL Result Diagrams: 12/13/17 10:04 12/13/17 17:10 Lab Statement: Any lab studies that have been ordered have been reviewed, and results considered in the medical decision making process. - Radiology CXR Radiology Interpretation Completed By: Radiologist - No evidence for acute intrathoracic disease. ED physician has reviewed this report. - CT Brain CT CT Interpretation Completed By: Radiologist - THERE IS A SMALL AREA OF EDEMA IN THE LEFT CEREBELLAR HEMISPHERE AND A LARGER AREA OF EDEMA IN THE POSTERIOR LEFT PARIETAL LOBE WITH MILD LOCAL MASS EFFECT WHICH HAS IMPROVED FROM THE PRIOR STUDY. ED Physician has reivewed this report. - EKG 0949 Cardiac Rate: NL - at 87 BPM EKG Rhythm: Atrial Flutter EKG Interpretation: PSVC with possible atrial fibrillation Re-Evaluation - Re-Evaluation 1 Comment: Results discussed with patient. Patient will be admitted. Altered Mental Statu Course/Dx - Course Course Of Treatment: Ms. Garcias was found by her neighbor (who checks on her a lot) on the floor where she had magalie for an unknown amount of time. She was not able to give any history as she basically had a word salad. She was found to be quite hyponatremic and is being admitted to the hospitalist service. - Diagnoses Provider Diagnoses: severe hyponatremia, Altered mental status - Provider Notifications Discussed Care Of Patient With: Leda Andrews Time Discussed With Above Provider: 12:30 Instructed by Provider To: Admit As Inpatient - Critical Care Time Critical Care Time: 30-74 min Discharge - Sign-Out/Discharge Documenting (check all that apply): Discharge - Discharge Plan Condition: Stable Disposition: ADMITTED TO [facility] - Billing Disposition and Condition Condition: STABLE Disposition: [facility]P-[facility] The documentation as recorded by the Iain pool Julia accurately reflects the service I personally performed and the decisions made by me, Romeo Miles MD.
[2017-12-13 22:02] LABS: EGFR Non-African American 138.7 (>60)
[2017-12-13] MEDS: Dexamethasone TAB* 4 MG PO SCH (22:14)
[2017-12-13] MEDS: Acetaminophen TAB* 325 MG PO PRN (22:14)
[2017-12-13] MEDS ORDERED: Alteplase (CATHFLO)* 2 MG VIAL IV ONE (23:00)
--- NOTE | 2017-12-14 00:10 | HP ---
CC: Dr. Chaney; Dr. Rodriguez, [facility] in [place]. * HISTORY AND PHYSICAL: DATE OF ADMISSION: 12/13/17 PRIMARY CARE PROVIDER: Dr. Chaney. ONCOLOGIST: Dr. Rodriguez. ATTENDING PHYSICIAN WHILE IN THE HOSPITAL: Leda Andrews MD * (DICTATED BY JORJE CARROLL NP) CHIEF COMPLAINT: Altered mental status. HISTORY OF PRESENT ILLNESS: Ms. Garcias is a 77-year-old female patient who comes into the emergency department today. She recently was over at [facility] yesterday for a Herceptin treatment. She underwent the procedure yesterday. She has had this infusion before, this was not the first time. Typically after the infusions, according to the friend who goes with her, she does at times is fatigued afterwards. They went in the morning yesterday around 6 in the morning. There had been no recent complaints of vomiting, diarrhea or confusion. No fevers or chills, cold symptoms. In fact, I called the [facility] and spoke to them and they did not see anything out of the ordinary. The patient was complaining of having some puffiness around her eyes. They thought this was secondary to the Decadron she had been on. The patient was sent home. She was dropped off at around noontime at home, and the next thing this morning, the friend came over to see how she was doing, and she was on the floor, and it is unclear when she went on the floor. The patient said she remembers going to the floor. She does not remember how it happened. She did not know how long she was there. When we tried to the talk the patient, she is nonsensical at times. She is confused to the year. She knows that she is in the hospital, knows herself, but she is really unable to tell you what happened yesterday, and at times she does have almost like a word salad. She, according to the friend who helps care for her, there has been no changes in medications of late. There has been no reported fevers and he has not noticed any vomiting or diarrhea. He states that she has been drinking water and taking fluids and eating. There has not been any changes in this. They came in to the ED today, they were concerned because of the fall, the altered mental status. It was noted that her sodium was 119. She had multiple electrolyte abnormalities and we were asked to evaluate for admission. PAST MEDICAL HISTORY: 1. She has a history of breast cancer with brain metastases. 2. She has a history of UTI. 3. Hypertension. 4. Diverticulitis. 5. Overactive bladder. 6. Atrophic vaginitis. 7. Asthma. PAST SURGICAL HISTORY: Denied. HOME MEDICATIONS: According to the list provided by the PCP was: 1. Decadron 4 mg p.o. b.i.d. 2. Arimidex 1 mg p.o. daily. 3. Albuterol 1.25 mg inhaled t.i.d. as needed. 4. Ventolin 1 puff inhaled every 6 hours as needed. 5. Vitamin D3 2000 units p.o. every other day. 6. Vitamin C 500 mg p.o. daily. 7. Potassium 20 mEq p.o. daily. 8. Omeprazole 20 mg daily. 9. Glucosamine/chondroitin 1 capsule daily. 10. Ferrous sulfate 325 mg daily. 11. Cranberry 1 tablet p.o. daily. 12. Aloe Vera 10% topically daily as needed. 13. Caltrate 1 tablet p.o. daily. 14. Lactobacillus 1 capsule p.o. daily. 15. Amlodipine 2.5 mg daily. 16. Flonase 2 sprays both nares daily as needed. ALLERGIES TO MEDICATIONS: Include AUGMENTIN, GENTAMICIN AND SULFA DRUGS. FAMILY HISTORY: The mother at the age of 86 from presumably old age according to the friend, and the father had a history of Parkinson's. SOCIAL HISTORY: She is a former smoker. She does not drink alcohol. Surrogate decision maker is her friend Valentino and her son. REVIEW OF SYSTEMS: Again, unable to be obtained from the patient, but according to the family and the friend, there has been no noted fevers, vomiting or diarrhea recently. Again, review of 14-systems attempted but limited due to the patient's altered mental status. PHYSICAL EXAMINATION GENERAL: At this time, Ms. Garcias is a 77-year-old female patient. She is sitting on the ED stretcher. She does not appear to be in any acute distress. She is awake and she is alert to self and place, but confused with time. VITAL SIGNS: Blood pressure 153/60 with a pulse of 96, respirations were 18, O2 sat was 96% , temperature 97.8. HEENT: Head is atraumatic. Eyes: EOMs are intact. Sclerae anicteric. Throat : Oral mucosa appears to be dry. No oropharyngeal erythema. NECK: Supple. HEART: Sounds S1, S2. She is tachycardic, rate around 100. EXTREMITIES: Pulses were 2+ throughout. She is moving all 4 extremities. She did have 5/5 strength. She had ecchymosis noted to her ankles into her knees, but again no pain with range of motion was elicited at this point to the knees, to the hips, to the ankles and to the elbow and shoulders. There is no pain with range of motion throughout her joints. No pain palpated along the spine either. NEUROLOGIC: She is again awake to herself only. She is confused to time. She knows she is in the hospital. Her speech was clear, but at times it is nonsensical. She had no gross focal neurological deficits. No facial drooping. [id number] intact bilaterally. She did have 5/5 strength to her extremities. Again, no gross focal deficits. SKIN: Is intact with exception she has diffuse ecchymosis particularly to her ankles and her knees. DIAGNOSTIC STUDIES/LABORATORY DATA: Her labs today are WBC of 5.9, RBC of 4.61 , hemoglobin of 14.3, hematocrit of 40. We looked back, her baseline hemoglobin right around 11 to 12. Her platelet count was 158. The INR was 0.82. Her sodium is 119, again 2 weeks ago was 131. Potassium was 3.4, chloride is 78, bicarb 31, BUN 18, creatinine 0.52, glucose 96, lactic 2.4, calcium 9.0, mag 1.8. Total bili 1.1, AST 29, ALT 41, alk phos 45. Ammonia 28 , CK 198. Troponin 0.03. TSH of 0.36. Toxicology was negative thus far. She did have a brain CT today, impression: There is a small area of edema in the left cerebral hemisphere and a large area of edema in the posterior left parietal lobe with some mild local mass effect which has improved from prior study. She had a chest x-ray obtained today, impression: No evidence for acute intrathoracic disease. There was an EKG obtained today. There is artifact on here. To me, it looks like a normal sinus rhythm, rate of 87. No ST elevations or T-wave inversions. Reviewing back to previous EKG, that does appear to be similar. Old medical records were reviewed. ASSESSMENT AND PLAN: Ms. Gracias is a 77-year-old female patient. She has again extensive history of breast cancer, metastatic disease, coming in to the ED today with complaints of altered mental status. We were asked to evaluate for admission. She will be admitted under inpatient status for: 1. Altered mental status. Again, I suspect this is probably secondary to the hyponatremia. I do note that this is a significant change for her and I suspect it is probably from dehydration. She may have a component of syndrome of inappropriate diuretic hormone, but my plan is to give her 500 cc bolus, normal saline at 125 an hour, check the BMPs every 4 hours and follow this. Should she trend down, then I would certainly consider giving her 3% saline. I am also going to get an EEG to make sure there is no underlying seizure activity that could be contributing to the altered mental status. If there is, I will get neurosurgery and Neurology involved, but at this point, with electrolyte abnormality, I think this is enough to explain her altered mental status. We have to figure out the etiology of hyponatremia, thus the urine osmo and urine sodium have been sent, cortisol level as well and TSH was already normal. I will put her in the ICU for close observation and we will continue to monitor. 2. History of breast cancer with metastatic disease to the brain. We will continue her Decadron and her Arimidex. She can follow with Dr. Rodriguez. 3. History of urinary tract infection. I am waiting for her urine as this also can be contributing. 4. Hypokalemia. We are replacing this with potassium p.o. 5. Hypomagnesemia . We are going to give her IV mag. 6. Hypertension. I will continue her meds as prescribed. 7. History of overactive bladder. Continue supportive care. 8. Asthma. P.r.n. nebs have been ordered. 9. DVT prophylaxis: Because of the metastases in the brain, SCDs have been ordered. 10. Code status: Full code. 11. Fluid, electrolytes and nutrition: She can have a regular diet. TIME SPENT: Time spent on the admission was approximately 60 minutes, greater than half the time spent [id number] with the patient obtaining my history and physical, other half of the time spent going over the plan of care with the patient and implementing the plan of care. I did discuss the plan of care with my attending, Dr. Andrews. She is in agreement. JORJE CARROLL, LIZETH [id number]/CPS #: [id number] ELSY
[2017-12-14 03:01] LABS: EGFR Non-African American 131.7 (>60)
[2017-12-14 05:46] LABS: ABS Basophils 0 10^3/ul (0-0.2); ABS Eosinophils 0 10^3/ul (0-0.6); ABS Lymphocytes 0.3 10^3/ul (1.0-4.8); ABS Monocytes 0.2 10^3/ul (0-0.8); ABS Neutrophils 4.4 10^3/ul (1.5-7.7); ABS Nucleated RBC 0 10^3/ul; Eosinophil % 0 % (0-6); Hematocrit 36 % (35-47); Hemoglobin 12.7 g/dl (12.0-16.0); Lymphocyte % 5.3 % (25-47); Mean Corpuscular HGB Conc 36 g/dl (31-36); Mean Corpuscular Hemoglobin 31 pg (27-31); Mean Corpuscular Volume 87 fL (80-97); Mean Platelet Volume 6.4 um3 (7.4-10.4); Nucleated Red Blood Cells % 0; Platelet Count 124 10^3/ul (150-450); Red Blood Count 4.11 10^6/ul (4.0-5.4); Red Cell Distribution Width 13 % (10.5-15); White Blood Count 4.9 10^3/ul (3.5-10.8)
[2017-12-14 05:51] LABS: INR 0.91 (0.77-1.02)
[2017-12-14 06:04] LABS: EGFR Non-African American 131.7 (>60)
[2017-12-14] MEDS: metroNIDAZOLE IV 500 MG/100ML* 500 MG/100 ML BAG IVPB SCH ×2 (06:05→20:11)
[2017-12-14] MEDS: Omeprazole CAP* 20 MG PO SCH (07:21)
[2017-12-14] MEDS: Cefepime 2 GM in Dextrose(*) 2 GM/50 ML BAG IV SCH ×2 (07:46→21:23)
[2017-12-14] MEDS ORDERED: levETIRAcetam 500 MG IVPREMIX* 500 MG/100 ML BAG IV SCH (08:00)
[2017-12-14] MEDS ORDERED: levETIRAcetam IV* 250 MG in NS 0.9% 100 ML* 100 ML IVPB SCH (09:00)
[2017-12-14] MEDS ORDERED: LORazepam INJ* 2 MG/ML 1 ML VIAL IV PUSH ONE (09:56)
--- NOTE | 2017-12-14 10:03 | PN ---
Subjective Date of Service: 12/14/17 Interval History: on continuous video eeg. feels good this morning, she knows her name and that she is in the hospital, but says she is here for "stomach problems that were on television." she has no pain, says she is hungry. Objective Active Medications: Acetaminophen (Tylenol Tab*) 650 mg PO Q4H PRN PRN Reason: FEVER/PAIN Last Admin: 12/13/17 22:14 Dose: 650 mg Albuterol (Ventolin 2.5 Mg/3 Ml Neb.Yusra*) 1.25 mg INH TID PRN PRN Reason: SHORTNESS OF BREATH Amlodipine Besylate (Norvasc Tab*) 2.5 mg PO DAILY [facility] Anastrozole (Arimidex (Nf)) 1 mg PO DAILY [facility] Dexamethasone (Decadron Tab*) 4 mg PO BID [facility] Last Admin: 12/13/17 22:14 Dose: 4 mg Ferrous Sulfate (Ferrous Sulfate Tab*) 325 mg PO DAILY [facility] Sodium Chloride (Hypertonic) (Hypertonic Sod Chloride 3%*) 500 mls @ 30 mls/hr IVPB ONCE ONE; Per Protocol PRN Reason: Protocol Stop: 12/14/17 10:07 Last Admin: 12/13/17 18:25 Dose: 30 mls/hr Levetiracetam (Keppra Iv Premix*) 500 mg in 100 mls @ 400 mls/hr IV Q12H [facility] Last Admin: 12/14/17 08:15 Dose: 400 mls/hr Metronidazole/Sodium Chloride (Flagyl 500 Mg Ivpb*) 500 mg in 100 mls @ 100 mls /hr IVPB 0600,1400,2200 [facility] Last Admin: 12/14/17 06:05 Dose: 100 mls/hr Cefepime HCl (Maxipime 2 Gm In Dextrose Duplex (*)) 2 gm in 50 mls @ 100 mls/ hr IV 0800,2000 [facility] Last Admin: 12/14/17 07:46 Dose: 100 mls/hr Levetiracetam 1,000 mg/ Sodium (Chloride) 110 mls @ 440 mls/hr IVPB ONCE ONE Stop: 12/14/17 10:44 Omeprazole (Prilosec Cap*) 20 mg PO DAILY@0730 [facility] Last Admin: 12/14/17 07:21 Dose: 20 mg Potassium Chloride (Klor Con Er Tab*) 20 meq PO DAILY [facility] Vital Signs - 8 hr 12/14/17 12/14/17 12/14/17 02:00 02:30 03:00 Temperature Pulse Rate Respiratory 19 20 19 Rate Blood Pressure 132/63 140/62 (mmHg) O2 Sat by Pulse 97 90 96 Oximetry 12/14/17 12/14/17 12/14/17 03:30 03:51 04:00 Temperature Pulse Rate Respiratory 21 15 19 Rate Blood Pressure 128/67 (mmHg) O2 Sat by Pulse 96 96 Oximetry 12/14/17 12/14/17 12/14/17 04:22 04:30 05:00 Temperature 97.3 F Pulse Rate Respiratory 17 25 Rate Blood Pressure 137/61 (mmHg) O2 Sat by Pulse 93 94 Oximetry 12/14/17 12/14/17 12/14/17 05:30 06:00 06:30 Temperature Pulse Rate 83 Respiratory 20 19 24 Rate Blood Pressure 140/70 (mmHg) O2 Sat by Pulse 94 93 95 Oximetry 12/14/17 12/14/17 12/14/17 07:00 07:30 07:38 Temperature Pulse Rate 91 86 Respiratory 24 20 22 Rate Blood Pressure 143/77 (mmHg) O2 Sat by Pulse 95 94 Oximetry 12/14/17 12/14/17 12/14/17 08:00 08:30 09:00 Temperature Pulse Rate 92 92 98 Respiratory 23 34 21 Rate Blood Pressure 144/66 151/74 (mmHg) O2 Sat by Pulse 93 94 94 Oximetry 12/14/17 09:30 Temperature Pulse Rate 85 Respiratory 19 Rate Blood Pressure (mmHg) O2 Sat by Pulse 95 Oximetry Oxygen Devices in Use Now: None Appearance: alert, falls asleep frequently through my exam but awakens to voice and follows commands appropriately, no distress, oriented to person and place Eyes: No Scleral Icterus, PERRLA Ears/Nose/Mouth/Throat: NL Teeth, Lips, Gums, - - face symmetric, no nystagmus Neck: NL Appearance and Movements; NL JVP, Trachea Midline Respiratory: Symmetrical Chest Expansion and Respiratory Effort, Clear to Auscultation Cardiovascular: NL Sounds; No Murmurs; No JVD, RRR, No Edema, - - right chest wall port Abdominal: NL Sounds; No Tenderness; No Distention, No Hepatosplenomegaly Lymphatic: No Cervical Adenopathy, No Axillary Adenopathy Extremities: No Edema, No Clubbing, Cyanosis Skin: No Rash or Ulcers Neurological: NL Muscle Strength and Tone, - - able to tell me her son and daughter's names appropriately and where they live, but follows correct statements with inappropriate statements. strength 01/27 Result Diagrams: 12/14/17 05:35 12/14/17 05:35 Additional Lab and Data: Lab Results 12/13/17 12/13/17 12/13/17 Range/Units 10:04 10:04 10:04 WBC 5.9 (3.5-10.8) 10^3/ul RBC 4.61 (4.0-5.4) 10^6/ul Hgb 14.3 (12.0-16.0) g/dl Hct 40 (35-47) % MCV 87 (80-97) fL MCH 31 (27-31) pg MCHC 36 (31-36) g/dl RDW 13 (10.5-15) % Plt Count 158 (150-450) 10^3/ul MPV 6 L (7.4-10.4) um3 Neut % (Auto) 86.6 H (38-83) % Lymph % (Auto) 8.7 L (25-47) % Grady % (Auto) 4.4 (0-7) % Eos % (Auto) 0.1 (0-6) % Baso % (Auto) 0.2 (0-2) % Absolute Neuts (auto) 5.2 (1.5-7.7) 10^3/ul Absolute Lymphs (auto) 0.5 L (1.0-4.8) 10^3/ul Absolute Monos (auto) 0.3 (0-0.8) 10^3/ul Absolute Eos (auto) 0 (0-0.6) 10^3/ul Absolute Basos (auto) 0 (0-0.2) 10^3/ul Absolute Nucleated RBC 0 10^3/ul Nucleated RBC % 0.1 INR (Anticoag Therapy) 0.82 (0.77-1.02) Sodium 119 L* (133-145) mmol/L Potassium 3.4 L (3.5-5.0) mmol/L Chloride 78 L (101-111) mmol/L Carbon Dioxide 31 (22-32) mmol/L Anion Gap 10 (2-11) mmol/L BUN 18 (6-24) mg/dL Creatinine 0.52 (0.51-0.95) mg/dL Est GFR ( Amer) 147.1 (>60) Est GFR (Non-Af Amer) 114.3 (>60) BUN/Creatinine Ratio 34.6 H (8-20) Glucose 96 (70-100) mg/dL Lactic Acid (0.5-2.0) mmol/L Calcium 9.0 (8.6-10.3) mg/dL Magnesium 1.8 L (1.9-2.7) mg/dL Total Bilirubin 1.10 H (0.2-1.0) mg/dL AST 29 (13-39) U/L ALT 41 (7-52) U/L Alkaline Phosphatase 45 (34-104) U/L Ammonia (16-53) mol/L Total Creatine Kinase 198 (10-223) U/L Troponin I 0.03 (<0.04) ng/mL Total Protein 6.2 L (6.4-8.9) g/dL Albumin 3.7 (3.2-5.2) g/dL Globulin 2.5 (2-4) g/dL Albumin/Globulin Ratio 1.5 (1-3) TSH 0.36 (0.34-5.60) mcIU/mL Cortisol 34.38 mcg/dL Salicylates < 2.50 (<30) mg/dL Acetaminophen < 15 mcg/mL Serum Alcohol < 10 (<10) mg/dL 12/13/17 12/13/17 Range/Units 10:04 10:04 WBC (3.5-10.8) 10^3/ul RBC (4.0-5.4) 10^6/ul Hgb (12.0-16.0) g/dl Hct (35-47) % MCV (80-97) fL MCH (27-31) pg MCHC (31-36) g/dl RDW (10.5-15) % Plt Count (150-450) 10^3/ul MPV (7.4-10.4) um3 Neut % (Auto) (38-83) % Lymph % (Auto) (25-47) % Grady % (Auto) (0-7) % Eos % (Auto) (0-6) % Baso % (Auto) (0-2) % Absolute Neuts (auto) (1.5-7.7) 10^3/ul Absolute Lymphs (auto) (1.0-4.8) 10^3/ul Absolute Monos (auto) (0-0.8) 10^3/ul Absolute Eos (auto) (0-0.6) 10^3/ul Absolute Basos (auto) (0-0.2) 10^3/ul Absolute Nucleated RBC 10^3/ul Nucleated RBC % INR (Anticoag Therapy) (0.77-1.02) Sodium (133-145) mmol/L Potassium (3.5-5.0) mmol/L Chloride (101-111) mmol/L Carbon Dioxide (22-32) mmol/L Anion Gap (2-11) mmol/L BUN (6-24) mg/dL Creatinine (0.51-0.95) mg/dL Est GFR ( Amer) (>60) Est GFR (Non-Af Amer) (>60) BUN/Creatinine Ratio (8-20) Glucose (70-100) mg/dL Lactic Acid 2.4 H* (0.5-2.0) mmol/L Calcium (8.6-10.3) mg/dL Magnesium (1.9-2.7) mg/dL Total Bilirubin (0.2-1.0) mg/dL AST (13-39) U/L ALT (7-52) U/L Alkaline Phosphatase (34-104) U/L Ammonia 28 (16-53) mol/L Total Creatine Kinase (10-223) U/L Troponin I (<0.04) ng/mL Total Protein (6.4-8.9) g/dL Albumin (3.2-5.2) g/dL Globulin (2-4) g/dL Albumin/Globulin Ratio (1-3) TSH (0.34-5.60) mcIU/mL Cortisol mcg/dL Salicylates (<30) mg/dL Acetaminophen mcg/mL Serum Alcohol (<10) mg/dL Microbiology and Other Data: Microbiology 12/14/17 07:30 Legionella Urinary Antigen - Final Urine Negative Legionella Antigen Streptococcus pneumoniae Ag Screen - Final Negative S. 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 - Patient Problems (1) Delirium Current Visit: Yes Status: Acute Code(s): R41.0 - DISORIENTATION, UNSPECIFIED SNOMED Code(s): 3784618 Comment: multifactorial--possible seizures, hyponatremia, and UTI, treating each as below. she is immunosuppressed, so meningitis remains on the differential, but she has no nuchal rigidity or fevers, and these three other etiologies that are confirmed that are likely contributing to her altered mentation. (2) Seizure Current Visit: Yes Status: Acute Code(s): R56.9 - UNSPECIFIED CONVULSIONS SNOMED Code(s): 96302051 Comment: neurology reports possible seizure activity on video eeg, so ativan 2mg IV now and keppra 1000mg now in addition to the 500mg she received this morning. provoked by known brain mets. (3) Hyponatremia Current Visit: Yes Status: Acute Code(s): E87.1 - HYPO-OSMOLALITY AND HYPONATREMIA SNOMED Code(s): 63295400 Comment: responding well to 3% NS into her port has increased 5mmol/L in 12 hours; goal is <10mmol/L in 24 hours, so this is an appropriate correction. check BMPs q4 to be sure not overcorrecting (4) UTI (urinary tract infection) Current Visit: No Status: Acute Comment: cefepime begun yesterday, presumably due to her immunocompromised status (5) Breast cancer Current Visit: Yes Status: Acute Code(s): C50.919 - MALIGNANT NEOPLASM OF UNSP SITE OF UNSPECIFIED FEMALE BREAST SNOMED Code(s): 983346344 Comment: continue anastrazole and decadron
[2017-12-14] MEDS: Ferrous Sulfate TAB* 325 MG PO SCH ×2 (10:14→10:45)
[2017-12-14] MEDS: amLODIPine TAB* 5 MG PO SCH ×2 (10:15→10:45)
[2017-12-14] MEDS: Potassium Chlor TAB* 20 MEQ TAB.ER PO SCH ×2 (10:15→10:45)
[2017-12-14] MEDS: Dexamethasone TAB* 4 MG PO SCH ×3 (10:16→21:23)
--- NOTE | 2017-12-14 10:20 | EEG ---
SENIOR CARE VIDEO/EEG MONITORING - Monitoring Monitoring Start Date: 12/13/17 Current Monitoring Session: 12/13/17 at 19:29 to 12/14/17 at 09:39 EEG Clinical Indication: Nicky Garcias is a 77 year old woman who has a history of breast cancer with metastases to the brain. She came in today via EMS after being found on the floor in her bathroom. PT did get a chemo treatment for her breast cancer yesterday and was reportedly at her baseline. She was apparently confused afterwards. A routine EEG demonstrated frequent, periodic epileptiform discharges in the left occipital lobe and long-term EEG monitoring was requested in order to evaluate for subclinical seizures. Introduction: INTRODUCTION: The EEG was monitored from 21 scalp electrodes. Nineteen electrodes consisted of the standard parasagittal, temporal and midline leads of the International 10 -20 system. In addition, special electrodes T1 and T2 were placed. EEG data were recorded on an [employer] system with simultaneous MPEG-4 digital video recording of patient behavior. EEG recording was in a monopolar montage with all electrodes referenced to FCz. Significant behavioral events were signaled by an event button, or putative electrical seizure events were detected by a computer program. All EEG data were reviewed in their entirety on a monitor with reconstruction of montages and adjustments of sensitivity and filtering. Simultaneous patient behavior was viewed on an adjacent monitor and correlated with the EEG. - Medications Active Medications: Acetaminophen (Tylenol Tab*) 650 mg PO Q4H PRN PRN Reason: FEVER/PAIN Last Admin: 12/13/17 22:14 Dose: 650 mg Albuterol (Ventolin 2.5 Mg/3 Ml Neb.Yusra*) 1.25 mg INH TID PRN PRN Reason: SHORTNESS OF BREATH Amlodipine Besylate (Norvasc Tab*) 2.5 mg PO DAILY [facility] Anastrozole (Arimidex (Nf)) 1 mg PO DAILY [facility] Dexamethasone (Decadron Tab*) 4 mg PO BID [facility] Last Admin: 12/13/17 22:14 Dose: 4 mg Ferrous Sulfate (Ferrous Sulfate Tab*) 325 mg PO DAILY [facility] Levetiracetam (Keppra Iv Premix*) 500 mg in 100 mls @ 400 mls/hr IV Q12H [facility] Last Admin: 12/14/17 08:15 Dose: 400 mls/hr Metronidazole/Sodium Chloride (Flagyl 500 Mg Ivpb*) 500 mg in 100 mls @ 100 mls /hr IVPB 0600,1400,2200 [facility] Last Admin: 12/14/17 06:05 Dose: 100 mls/hr Cefepime HCl (Maxipime 2 Gm In Dextrose Duplex (*)) 2 gm in 50 mls @ 100 mls/ hr IV 0800,2000 [facility] Last Admin: 12/14/17 07:46 Dose: 100 mls/hr Omeprazole (Prilosec Cap*) 20 mg PO DAILY@0730 [facility] Last Admin: 12/14/17 07:21 Dose: 20 mg Potassium Chloride (Klor Con Er Tab*) 20 meq PO DAILY [facility] She received a total of 750mg IV levetiracetam around 1800 on 12/13 - Description Background: The EEG was characterized by an interhemispheric asymmetry. Neither hemisphere was completely normal, but there was a greater degree of pathology over the left hemisphere. The left hemisphere demonstrated reduced organization intermittently with poorly defined anterior-posterior voltage and frequency gradients. No clear posterior rhythm was observed. Instead, the left occipital region was characterized by frequent, periodic epileptiform discharges as further described below. There was also excessive polymorphic slowing in the left hemisphere, which was greatest in the left posterior quadrant. Over the right hemisphere, the waking background showed appropriate organization with defined anterior-posterior voltage and frequency gradients. There was a posterior dominant rhythm of about 8 Hertz over the right hemisphere. Anteriorly, lower voltage and faster frequency rhythms were observed. There was also some excess polymorphic slowing affecting the right hemisphere, and in particular the right posterior quadrant, but this was less pronounced than the left hemispheric slowing. The sleep background was appropriately organized with well-developed spindles and vertex waves indicative of stage 2 sleep. These sleep transients showed appropriate morphology and were bilaterally synchronous and symmetrical. Development of diffuse delta range frequencies with dropout of stage 2 architecture accompanied transition to slow wave sleep. REM sleep was not observed. There were frequent arousals from sleep, which sometimes were spontaneous but at other times were associated with ictal patterns, as described below. Intericatal Epileptiform Activity: There are frequent, moderate voltage, spike, polyspike and slow wave discharges in the left occipital region. These primarily affect electrode O1 with a field to O2. Discharges frequently occur between 0.5 and 1 Hz, and can sometimes be seen to occur in doublets. At times, discharge frequency would briefly increase to approximately 3 Hz without clear development into an ictal pattern (e.g. 22: 06:09 on 12/13) while at other times more definitive ictal patterns were noted, as described below. Ictal Activity: Beginning around 02:55 on 12/14, repeated subclinical seizures were noted, mostly while the patient was asleep but during the morning hours these began to occur during waking as well. The previously mentioned occipital discharges were noted to increase in frequency to 3 to 4 Hz with rhythmic theta activity associated, followed by emergence of rhythmic beta activity (13 HZ) in the left central temporal regions. This activity would last between 10 and 20 seconds, then abruptly terminate, frequently followed by an arousal from sleep. These patterns were initially noted two to three times per hour, then increased in frequency to every 10 to 20 minutes by approximately 0500. At the most frequent , two brief events were noted 6 minutes apart (09:29 and 09:35). There was no clinical correlate to these events. - Impression Impression: This is an abnormal long-term monitoring session. There are frequent, periodic discharges in the left occipital region and associated subclinical seizures arising from this region. The right hemisphere retains a greater degree of organization and a slow posterior dominant rhythm. These findings are consistent with a mild, diffuse encephalopathy with superimposed increased epileptic potential in the left occipital region and associated ongoing intermittent seizure activity which is subclinical in nature. These results were communicated to Dr Ed Mueller.
[2017-12-14] MEDS ORDERED: levETIRAcetam IV* 1,000 MG in NS 0.9% 100 ML* 100 ML IVPB ONE (10:30)
[2017-12-14] MEDS: CMCS:Anastrozole (NF) 1 MG TAB PO SCH (10:44)
[2017-12-14 11:04] LABS: EGFR Non-African American 169.3 (>60)
[2017-12-14] MEDS ORDERED: KCL 20 MEQ/100 ML IVPREMIX* 20 MEQ/100 ML BAG IV SCH (12:00)
[2017-12-14] MEDS ORDERED: Gadoteridol* (CONTRAST) 279.3 MG/ML 10 ML IV ONE (12:02)
[2017-12-14] MEDS ORDERED: Potassium Chloride IV* 60 MEQ in NS 0.9% 500 ML* 500 ML IVPB ONE (13:00)
--- NOTE | 2017-12-14 13:37 | RAD ---
HISTORY: Breast cancer with brain metastases, seizure COMPARISONS: CT dated December 13, 2017, MRI dated November 07, 2017 TECHNIQUE: The following sequences were obtained of the head: Sagittal T1-weighted images, axial T2-weighted images, axial FLAIR images, axial susceptibility weighted images, axial T1-weighted images. Additionally, axial diffusion-weighted images were obtained with calculated apparent diffusion coefficients. Additionally, sagittal, coronal, and axial T1-weighted images were obtained after contrast enhancement with a gadolinium-based intravenous contrast agent. FINDINGS: HEMORRHAGE/INFARCT: There is no hemorrhage or acute infarct. MASSES/SHIFT: There are multiple enhancing lesions of the cerebral hemispheres and left cerebellum. These are further described below. There is persistent subfalcine shift to the right, stable. The basal cisterns are preserved. EXTRA-AXIAL SPACES/MENINGES: There is an enhancing lesion along the left posterior falx that may be extra-axial, further described below. SULCI AND VENTRICLES: The sulci and ventricles are normal in size and position for the patient's stated age. CEREBRUM: Again noted are multiple enhancing lesions of the left cerebral hemisphere, an enhancing lesion of the right temporal lobe posteriorly. These have diffusely decreased in size when compared to the November 07, 2009 examination. The dominant lesion is noted along the posterior falx on the left and may be extra-axial, currently measuring 1.7 x 0.6 x 1.3 cm in size, decreased from 1.5 x 2.4 x 2.3 cm in size and there is persistent but decreasing associated vasogenic edema. There is been interval development of nonenhancing elevated T2/FLAIR signal within the left mesial temporal lobe. BRAINSTEM: There is elevated T2/FLAIR signal within the pontine white matter, without enhancement. This is stable. CEREBELLUM: Again noted is an enhancing lesion of the left cerebellar hemisphere. This has decreased in size, currently measuring 2 x 1.2 x 0.6 cm, decreased from 2.6 cm in maximum dimension on the previous examination. There is persistent but decreasing vasogenic edema within the left cerebellar hemisphere. The cerebellar tonsils are normal in size and position. SELLA: The sella is normal. PINEAL: The pineal region is clear. CP ANGLE/TEMPORAL BONES: The labyrinthine structures are grossly normal. VESSELS: Normal flow-voids are noted within the visualized vertebral vasculature. DIFFUSION ABNORMALITIES: There are no diffusion abnormalities. PARANASAL SINUSES/MASTOIDS: The paranasal sinuses are clear. ORBITS: The orbits are unremarkable. BONES AND SOFT TISSUE: No bone or soft tissue abnormalities are noted. OTHER: None IMPRESSION: 1. AGAIN NOTED ARE MULTIPLE ENHANCING LESIONS OF THE LEFT CEREBRAL HEMISPHERE, WITH ENHANCING LESIONS OF THE LEFT CEREBELLAR HEMISPHERE AND RIGHT POSTERIOR TEMPORAL LOBE, WITH ASSOCIATED VASOGENIC EDEMA. 2. THESE HAVE DIFFUSELY DECREASED IN SIZE WHEN COMPARED TO THE NOVEMBER 07, 2017 EXAMINATION. THE DOMINANT LESION ALONG THE LEFT POSTERIOR FALX, WHICH MAY BE EXTRA-AXIAL, MEASURES 1.7 CM IN MAXIMUM DIMENSION, COMPARED TO 2.4 CM ON THE PREVIOUS EXAMINATION. 3. THERE IS PERSISTENT MILD SUBFALCINE SHIFT TO THE RIGHT. 4. THERE HAS BEEN INTERVAL DEVELOPMENT OF ELEVATED T2/FLAIR SIGNAL WITHIN THE LEFT MESIAL TEMPORAL LOBE, WITHOUT ENHANCEMENT. THIS MAY REFLECT POST ICTAL EDEMA GIVEN THE HISTORY OF SEIZURE. THE DIFFERENTIAL INCLUDES MEDIAL TEMPORAL ENCEPHALITIS, THOUGH THIS IS CONSIDERED LESS LIKELY IN THE ABSENCE OF THE APPROPRIATE CLINICAL PRESENTATION..
[2017-12-14] MEDS ORDERED: Potassium Chlor TAB* 20 MEQ TAB.ER PO SCH (14:38)
--- NOTE | 2017-12-14 14:40 | PN ---
FOLLOWUP NOTE: DATE OF SERVICE: 12/13/17 HISTORY OF PRESENT ILLNESS: Nicky Garcias is a 77-year-old woman admitted and seen by Dr. 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 Concern was raised over EEG findings. This was reviewed directly and there were some occipital discharges noted and I questioned regularity, reviewed this with Dr. Chinchilla. CT of the brain did show left cerebellar and occipital edema which has felt better than the last MRI comparison in October 2017. It was reported that she was found on the floor confused today and there were some issues with speaking yesterday. On today's visit, continued confusion was noted. On examination, her blood pressure was 151/69. Her pulse is 120, respiratory rate 13, saturation was 97%. Her temperature was 99.7, had been up as high as 101.5. She had a regular cardiac rhythm. Her lungs were clear to auscultation. Peripheral edema is noted, but she had bruises noted on her legs and knees and was unable to tell me why these had occurred. She got confused in explaining her oncology care and was tangential in her explanations. She was aware she was at [facility]. She could not remember when her EEG was performed ; it was just performed this afternoon. She did not know anything about bruising on her legs. She had full extraocular movements with no nystagmus. Full fair to confrontation. Her facial expression was symmetric. There was no dysarthria. She had no pronator drift. She gave good resistance in her arms , in her legs, and denied any asymmetries to light touch. CBC showed a normal white count, hemoglobin, hematocrit, and platelets with 86.6 % neutrophils. Her metabolic profile originally showed a sodium of 119, went down to 117. Her potassium was originally 3.4, went down to 2.7. She had an elevated BUN and creatinine ratio. Her GFR was within normal limits. Her lactate originally was 2.4. Her calcium was low at 7.4, magnesium level 1.8, total bilirubin was high at 1.1 with normal AST, ALT, alk phos. Her CK was normal at 198. TSH was within normal limits. Her CT of the brain did show edema in the left occipital and cerebellar region and this film was reviewed directly and compared to previous MRI. Please see report for details. She also had a chest x-ray which showed no acute intrathoracic disease. Her urinalysis did show +2 blood, + 2 esterase, 3+ white blood cells, 3+ red blood cells, negative nitrite. 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 Differential diagnosis does include electrolyte changes and this is being treated. One cannot exclude seizures and I am concerned about the occipital discharges. I reviewed this with Dr. Chinchilla and she agreed that these findings were concerning. We will plan continuous monitoring tonight. She is getting Keppra 750 mg tonight and then 500 mg IV q.12 hours. Her GFR is within normal limits. Her CT of the brain does show edema and it was thought to be better than her MRI , although it is hard to compare modalities. I have suggested proceeding with MRI of the brain with and without contrast tomorrow. In review of her vitals, her temperature has gone up today to 101.5. She is at risk for aspiration. Chest x-ray from earlier did not show evidence of aspiration. There are some urinary changes. She is immunosuppressed on dexamethasone. I will discuss this with the hospitalist team, so further treatment can be provided as indicated. TIME SPENT: Over half an hour was spent in direct patient care and additional time in coordinating care. [id number]/[facility] #: [id number] MTDD
[2017-12-14] MEDS ORDERED: levETIRAcetam IV* 750 MG in NS 0.9% 100 ML* 100 ML IVPB SCH (15:00)
--- NOTE | 2017-12-14 16:12 | CONS ---
CONSULTATION NOTE: DATE OF CONSULT: 12/14/17 PATIENT OF: Ishmael Garcia NP; Dr. Chaney; Dr. Rodriguez at [facility] in [place]. HISTORY: This is a 77-year-old woman I am asked to evaluate for altered mental status. 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 History is through her and her neighbor who lives across the street who sees her on a daily basis. She went to her oncologist yesterday in [place] and a friend who went with her is not the neighbor, who has told the neighbor that she was acting confused and different than she was with some possible mild speech problems but nothing was noted at her appointment and she went for her Herceptin treatment, which was one in a series. She was acting off apparently even before she got the infusion. She was sent back to home and Ishmael Garcia had called the oncologist who said that he noticed nothing different about her yesterday, but apparently according to the friend, second hand, there was something different. In any event, she was found in the morning by the side of her bed and she had not slept in the bed in terms of the sheets were not disturbed and she did not know how long she was on the floor and she still has no recollection of this. There has been no fever, vomiting, headache. No numbness or weakness. Her friend notes that she was a little better before that afternoon and earlier in the day, but without substantial changes. PAST MEDICAL HISTORY: Includes that she has a history of breast cancer with brain mets, history of UTI, hypertension, diverticulitis, overactive bladder, atrophic vaginitis, asthma. PAST SURGICAL HISTORY: There has been no list of surgical history. MEDICATIONS AT HOME: Include: 1. Decadron 4 mg b.i.d. 2. Arimidex 1 mg daily. 3. Albuterol 25 mg t.i.d. p.r.n. 4. Ventolin 1 puff q. 6 hours as needed. 5. Vitamin D 2000 units every other day. 6. Vitamin C 500 mg daily. 7. Potassium 20 mEq daily. 8. Omeprazole 20 mg daily. 9. Glucosamine/chondroitin 1 capsule daily. 10. Ferrous sulfate 325 daily. 11. Cranberry 1 tablet daily. 12. Aloe Vera 10% topically as needed. 13. Caltrate 1 tab daily. 14. Amlodipine 2.5 daily. 15. Flonase 2 sprays both nares daily as needed. 16. Chemotherapy. ALLERGIES: She is allergic to AUGMENTIN, GENTAMICIN and SULFA DRUGS. FAMILY HISTORY: Mother at 86 presumably from old age according to the friend. Father had a history of Parkinson's. SOCIAL HISTORY: She is a former smoker. She does not drink or use drugs. Her decision maker is the friend, Valentino, who I had spoke to. REVIEW OF SYSTEMS: Review of 12 systems is limited by patient's history. PHYSICAL EXAM: Temperature 97.3, pulse 90, respirations 25, blood pressure 156/ 77. She is alert. She knew her name. She knew her children's names and where they live. She did not know her address. She knew the year. She did not, when I saw her, have any nonsensical speech and could name objects immediately. Cranial nerves II through XII were intact. Red reflex was present bilaterally. I got a glimpse of her right disk which appeared sharp. Motor Exam: She moves all extremities with power. She had, to large objects, no clear field cut. She had intact sensation to touch on either side of her body including the double simultaneous stimulation. She had no pronator drift. Reflexes were 1 with equivocal toes. Chest: Clear. Cardiovascular: Regular rate and rhythm. Abdomen: Soft with positive bowel sounds. DIAGNOSTIC STUDIES/LAB DATA: Sodium is 117, potassium 2.8, chloride 81, bicarb 28, BUN 11, creatinine 0.44, glucose 81, calcium 7.7. Normal liver function tests. Ammonia 28, alk phos 45, CPK 198, TSH 0.38, cortisol 34.8. White count is 4.9, hematocrit 36, platelets 124. Normal INR. Negative tox screen, negative alcohol. UA had 2+ blood, leuk esterase 2+, bacteria absent, 3 + red cells, 3+ white cells. Influenza A and B were negative. Her chest x-ray was negative. Her CT scan I reviewed and agree that there is left cerebellar edema and a larger area of left posterior parietal occipital edema with mild mass effect. According to the son, on prior MRI scan, there had been 5 separate tumors. There was an MRI scan in February 2016 which did not show this. Her EEG was done which showed both slowing and occipital sharp discharge, although the slowing had a field to it the sharp discharge did not have an apparent field to my eye and I was concerned both about frequent electrical discharges versus occipital electrode artifact. I went back to the EEG that was still running at that time, so I went to the ICU and the industrial engineering technician pushed on the electrode and there was an immediate change with disappearance of the sharp activity immediately after pressing on the electrode, there was then a period of muscle artifact. Nicky Gomes is a complicated case. It seems like her mental status changes began before her treatment yesterday. It may in part be due to a combination of her brain tumors and her hyponatremia. It is possible that this could be a small stroke and depending on her course, discussed with Ishmael Garcia obtaining an MRI scan today. It is possible that her symptoms could be due to seizures. Her EEG was abnormal but , there were artifacts as well. I have recommended to Ishmael Garcia beginning Keppra last night was [address] her on maintenance. Dr. Turner reviewed the EEG last night with Dr. Chinchilla who thought that the discharges might be real and the patient has been placed on video EEG and the dose of Keppra was increased from a maintenance of 250 in the morning, 500 at night and 500 twice a day. [id number]/[facility] #: [id number] MTDD
--- NOTE | 2017-12-14 16:43 | PN ---
Hospitalist Progress Note Date of Service: 12/14/17 Valentino Pagan is Ms. Garcias's healthcare proxy. I spoke with him at length about her case and his goals for her. He says that when the brain mets were found (about a month ago), her oncologist Dr. Rodriguez painted a "gloomy picture" and Valentino questioned the utility of chemotherapy and gamma knife at that time, and he questions it even more now. He understands that there is not a cure for this stage of breast cancer, however this is quite a new realization since the metastatic disease was just discovered a month ago, and he admits that he (and Nicky Gomes, and her children) is still coming to terms with this. Ultimately, his goal for her is to get through this hospitalization and continue to treat the infection(s), the hyponatremia, the seizures, and plan to discuss goals of care with Dr. Rodriguez so that the focus may be shifted from treatment to comfort. I also discussed the possibility of a lumbar puncture to rule out/in encephalitis or meningitis contributing to her symptoms, and he says he would not want an LP for her, but agrees with treating herpes encephalitis empirically.
[2017-12-14] MEDS: Acyclovir IV(*) 500 MG in NS 0.9% 100 ML* 100 ML IVPB SCH ×2 (18:24→23:29)
[2017-12-14 20:36] LABS: EGFR Non-African American 142.4 (>60)
--- NOTE | 2017-12-14 21:51 | PN ---
Progress Note - Progress Note Date of Service: 12/14/17 Note: Patient waking up but did not pass bedside swallow. Will change Decadron to IV and hold PO for now.
[2017-12-14] MEDS ORDERED: Dexamethasone IV* 4 MG in NS 0.9% 50 ML* 50 ML IVPB SCH (22:00)
[2017-12-14] MEDS: Dexamethasone IV* 4 MG/ML 1 ML (4 MG) IV SLOW PU SCH (23:29)
--- NOTE | 2017-12-15 02:56 | PN ---
ADDENDUM NOW INCLUDED ON THIS REPORT PROGRESS NOTE: DATE OF SERVICE: 12/14/17 PATIENT OF: Dr. Medley. HISTORY: This 77-year-old woman who continues to be observed for her confusion. She says she feels better than yesterday, but remains confused. MEDICATIONS: Include: 1. Her Ventolin. 2. Norvasc. 3. Arimidex. 4. Cefepime. 5. Decadron 4 mg twice a day. 6. Keppra. PHYSICAL EXAMINATION: Temperature 97.3, pulse 108, respiratory rate 14, blood pressure 108/78. She is alert, she knows , she knows her name. She knows she is at the hospital, but thought it was different than [facility], but she knew that she was in [place]. When asked about president, she gave random names. She spoke in short sentences. She could name objects when asked with relatively better consistency than yesterday. Cranial nerves II through XII are intact. Motor exam revealed normal tone and strength bilaterally. Chest clear. Cardiovascular: Regular rate and rhythm. Abdomen: Soft. I reviewed her MRI scan, which has not been read yet, but it showed a left cerebellar tumor, a right parietal small enhancing lesion as well and a couple of enhancing lesions in her left posterior parietal lobe, her right occipital lobe and one in the occipital white matter with associated edema, but no midline shift. There was no apparent stroke to my eye. No diffuse enhancement. Her video EEG showed frequent left occipital discharges, sometimes with changes consistent with subclinical seizures. Labs include white count of 4.9, hematocrit of 36, platelets of 124, normal INR. Sodium is up to 124 today. Her UA shows evidence of possible urinary tract infection. We discussed with Dr. Medley who was speaking to the family that she has multiple reasons for her encephalopathy including her hyponatremia, her urinary tract infection, her tumor with edema and seizures. Given the fact she is having some subclinical seizures, we have given her some Ativan and then increased her Keppra with a load. She is being re-hooked to her video EEG monitoring after her MRI scan was completed. I discussed with Dr. Medley also that it is unlikely that she has subacute meningoencephalitis. She has multiple other reasons for her mental status changes and she is not clinically worsening and has no fever or white count; however, she is going to discuss these issues with the family to again reassess how aggressive they want to be in terms of evaluating and treating her. Thank you for sharing her case. ADDENDUM: I reviewed the films after Dr. Rodriguez had read showing some left temporal possible edema. I discussed with Dr. Medley again the issue of possible encephalitis. There is no enhancement of meninges, but this is possible. We discussed getting a better sense from the people who are making medical decisions for her now that she is confused how far they want to go. We could conceivably treat with acyclovir, empirically for a 10 to 15-day course. There does not appear to be noncommunicating hydrocephalus, though would be possible, although some risk to do with spinal tap if cleared by Radiology. It is possible that we could be missing other encephalitis if we just treat empirically for herpes. I also discussed with Dr. Medley getting a better sense from the medical care providers how aggressive overall they want her treatment to be if she has developed respiratory symptoms acutely from seizures or treatment of seizures, would they want it treated with intubated, how far do they want the possible encephalitis workup to go. She is going to be contacting the family early afternoon after I spoke to her about three quarters of an hour ago. [id number]/[facility] #: [id number] A- [id number]/[facility] #: [id number] ELSY
--- NOTE | 2017-12-15 03:13 | EEG ---
ELECTROENCEPHALOGRAPHY: DATE OF STUDY: 12/13/17 - ROOM #ICU-03 DATE OF DICTATION: 12/14/17 PATIENT OF: Ishmael Garcia NP CLINICAL PROBLEM: This is a 77-year-old woman with a history of brain mets from breast cancer, being evaluated for possible seizures with altered mental status. MEDICINES: Include: 1. Magnesium. 2. Klor-Con. 3. Decadron. 4. Prilosec. 5. Norvasc. 6. Zofran 7. Ferrous sulfate. 8. Ventolin. . REPORT: With the patient awake, background cerebral activity consists of moderate amplitude posterior dominant 9 to 10 Hz rhythm. There is slowing in her left posterior occipital region throughout this tracing, less so on her right side. There are frequent sharp waves periodic in her left occipital area, less so on her right. There is no phased reversal towards the end of the tracing. The electrodes are pushed and it may decrease. There is still prominent muscle movement artifact, but there may be a decrease in these with sharp activity. This finding occurs as frequently as once every second or so. The patient never falls asleep. CLINICAL IMPRESSION: This EEG is abnormal because of the slowing in the occipital lobe worse on the left than the right. The occipital sharp activity could be either electrographic discharges or artifact. There is no phase reversal in the occipital leads. The pressing on the electrodes towards the end of the tracing seemed to change the frequency, but there is prominent muscle movement artifact during this time. [id number]/[facility] #: [id number] MTDD
--- NOTE | 2017-12-15 03:30 | PN ---
PROGRESS NOTE: ADDENDUM: I reviewed the films after Dr. Rodriguez had read showing some left temporal possible edema. I discussed with Dr. Medley again the issue of possible encephalitis. There is no enhancement of meninges, but this is possible. We discussed getting a better sense from the people who are making medical decisions for her now that she is confused how far they want to go. We could conceivably treat with acyclovir, empirically for a 10 to 15-day course. There does not appear to be noncommunicating hydrocephalus, though would be possible, although some risk to do with spinal tap if cleared by Radiology. It is possible that we could be missing other encephalitis if we just treat empirically for herpes. I also discussed with Dr. Medley getting a better sense from the medical care providers how aggressive overall they want her treatment to be if she has developed respiratory symptoms acutely from seizures or treatment of seizures, would they want it treated with intubated, how far do they want the possible encephalitis workup to go. She is going to be contacting the family early afternoon after I spoke to her about three quarters of an hour ago. [id number]/[facility] #: [id number] ELSY
[2017-12-15] MEDS ORDERED: metroNIDAZOLE IV 500 MG/100ML* 500 MG/100 ML BAG IVPB SCH (04:00)
[2017-12-15 06:39] LABS: Hematocrit 34 % (35-47); Hemoglobin 12.2 g/dl (12.0-16.0); Mean Corpuscular HGB Conc 36 g/dl (31-36); Mean Corpuscular Hemoglobin 31 pg (27-31); Mean Corpuscular Volume 87 fL (80-97); Mean Platelet Volume 6.1 um3 (7.4-10.4); Platelet Count 126 10^3/ul (150-450); Red Blood Count 3.91 10^6/ul (4.0-5.4); Red Cell Distribution Width 13 % (10.5-15); White Blood Count 4.5 10^3/ul (3.5-10.8)
[2017-12-15 06:57] LABS: EGFR Non-African American 138.7 (>60)
[2017-12-15 07:13] LABS: ABS Basophils 0 10^3/ul (0-0.2); ABS Eosinophils 0 10^3/ul (0-0.6); ABS Lymphocytes 0.3 10^3/ul (1.0-4.8); ABS Monocytes 0.2 10^3/ul (0-0.8); ABS Nucleated RBC 0 10^3/ul; Eosinophil % 0.1 % (0-6); Lymphocyte % 6.2 % (25-47); Nucleated Red Blood Cells % 0.2
[2017-12-15] MEDS: Acyclovir IV(*) 500 MG in NS 0.9% 100 ML* 100 ML IVPB SCH ×3 (07:41→23:56)
[2017-12-15] MEDS: Cefepime 2 GM in Dextrose(*) 2 GM/50 ML BAG IV SCH ×2 (07:41→20:20)
[2017-12-15] MEDS ORDERED: Sodium Chloride 3% HYPERTONIC* 500 ML IVPB ONE ×2 (08:12)
[2017-12-15] MEDS ORDERED: Potassium Phosphate IV* 15 MMOLE in NS 0.9% 250 ML* 250 ML IVPB ONE (08:15)
[2017-12-15] MEDS: Dexamethasone IV* 4 MG/ML 1 ML (4 MG) IV SLOW PU SCH ×2 (08:57→21:04)
[2017-12-15] MEDS ORDERED: Potassium Chloride IV* 60 MEQ in NS 0.9% 500 ML* 500 ML IVPB ONE (09:00)
[2017-12-15] MEDS ORDERED: levETIRAcetam 500 MG IVPREMIX* 500 MG/100 ML BAG IVPB SCH ×2 (09:00)
[2017-12-15] MEDS ORDERED: KCL 20 MEQ/100 ML IVPREMIX* 20 MEQ/100 ML BAG IV SCH (09:00)
--- NOTE | 2017-12-15 11:31 | PN ---
Subjective Date of Service: 12/15/17 Interval History: woke up overnight, and she alerts to voice this morning. she knows she is in the hospital, is able to tell me her name, but does not recall Valentino's name or her children's names. she is able to tell me that her son lives in [place]. she denies any pain, headache, neck pain, neck stiffness. Objective Active Medications: Acetaminophen (Tylenol Tab*) 650 mg PO Q4H PRN PRN Reason: FEVER/PAIN Last Admin: 12/13/17 22:14 Dose: 650 mg Albuterol (Ventolin 2.5 Mg/3 Ml Neb.Yusra*) 1.25 mg INH TID PRN PRN Reason: SHORTNESS OF BREATH Amlodipine Besylate (Norvasc Tab*) 2.5 mg PO DAILY [facility] Last Admin: 12/14/17 10:45 Dose: Not Given Anastrozole (Arimidex (Nf)) 1 mg PO DAILY [facility] Last Admin: 12/14/17 10:44 Dose: Not Given Dexamethasone Sodium Phosphate (Decadron Iv*) 4 mg IV SLOW PU BID [facility] Last Admin: 12/15/17 08:57 Dose: 4 mg Ferrous Sulfate (Ferrous Sulfate Tab*) 325 mg PO DAILY [facility] Last Admin: 12/14/17 10:45 Dose: Not Given Cefepime HCl (Maxipime 2 Gm In Dextrose Duplex (*)) 2 gm in 50 mls @ 100 mls/ hr IV 0800,1999 [facility] Last Admin: 12/15/17 07:41 Dose: 100 mls/hr Acyclovir Sodium 500 mg/ (Sodium Chloride) 110 mls @ 0 mls/hr IVPB Q8H [facility] PRN Reason: As Directed Last Admin: 12/15/17 07:41 Dose: 100 mls/hr Sodium Chloride (Hypertonic) (Hypertonic Sod Chloride 3%*) 500 mls @ 30 mls/hr IVPB ONCE ONE; Per Protocol PRN Reason: Protocol Stop: 12/16/17 00:51 Last Admin: 12/15/17 08:57 Dose: 30 mls/hr Potassium Phosphate 15 mmole/ (Sodium Chloride) 255 mls @ 42 mls/hr IVPB ONCE ONE Stop: 12/15/17 14:19 Last Admin: 12/15/17 08:57 Dose: 42 mls/hr Potassium Chloride 60 meq/ (Sodium Chloride) 530 mls @ 88.333 mls/hr IVPB ONCE ONE Stop: 12/15/17 14:59 Last Admin: 12/15/17 08:56 Dose: 88.333 mls/hr Omeprazole (Prilosec Cap*) 20 mg PO DAILY@0730 [facility] Last Admin: 12/14/17 07:21 Dose: 20 mg Potassium Chloride (Klor Con Er Tab*) 40 meq PO DAILY [facility] Vital Signs - 8 hr 12/15/17 12/15/17 12/15/17 03:30 03:49 04:00 Temperature 99.9 F Pulse Rate 106 107 Respiratory 19 16 Rate Blood Pressure 133/71 (mmHg) O2 Sat by Pulse 93 93 Oximetry 12/15/17 12/15/17 12/15/17 04:30 05:00 05:30 Temperature Pulse Rate 90 92 89 Respiratory 27 18 18 Rate Blood Pressure 148/79 (mmHg) O2 Sat by Pulse 94 95 94 Oximetry 12/15/17 12/15/17 12/15/17 06:00 06:30 07:00 Temperature Pulse Rate 104 95 92 Respiratory 21 20 18 Rate Blood Pressure 140/77 129/81 (mmHg) O2 Sat by Pulse 95 94 95 Oximetry 12/15/17 12/15/17 12/15/17 07:28 07:30 08:00 Temperature 98.4 F Pulse Rate 104 89 Respiratory 17 16 Rate Blood Pressure 143/72 (mmHg) O2 Sat by Pulse 94 94 Oximetry 12/15/17 12/15/17 12/15/17 08:30 09:00 09:01 Temperature Pulse Rate 106 107 113 Respiratory 21 20 26 Rate Blood Pressure 151/73 (mmHg) O2 Sat by Pulse 93 96 95 Oximetry 12/15/17 12/15/17 12/15/17 09:31 10:00 10:30 Temperature Pulse Rate 85 96 Respiratory 18 24 13 Rate Blood Pressure 133/77 (mmHg) O2 Sat by Pulse 96 95 Oximetry 12/15/17 12/15/17 11:00 11:01 Temperature Pulse Rate 100 90 Respiratory 18 16 Rate Blood Pressure 159/90 (mmHg) O2 Sat by Pulse 95 95 Oximetry Oxygen Devices in Use Now: None Appearance: drowsy, alerts to voice, oriented to person, answers questions inappropriately, follows simple commands Eyes: No Scleral Icterus, PERRLA Ears/Nose/Mouth/Throat: NL Teeth, Lips, Gums Neck: NL Appearance and Movements; NL JVP, - - no nuchal rigidity Respiratory: Symmetrical Chest Expansion and Respiratory Effort, Clear to Auscultation Cardiovascular: - - tachycardic Abdominal: NL Sounds; No Tenderness; No Distention, No Hepatosplenomegaly Lymphatic: No Cervical Adenopathy Extremities: No Edema Skin: No Rash or Ulcers Neurological: - - strength 5/5 upper extremities, she moves her ankles and toes but does not follow my command to lift or hold her legs but falls asleep Result Diagrams: 12/15/17 06:26 12/15/17 06:26 Additional Lab and Data: Lab Results 12/13/17 12/13/17 12/13/17 Range/Units 10:04 10:04 10:04 WBC 5.9 (3.5-10.8) 10^3/ul RBC 4.61 (4.0-5.4) 10^6/ul Hgb 14.3 (12.0-16.0) g/dl Hct 40 (35-47) % MCV 87 (80-97) fL MCH 31 (27-31) pg MCHC 36 (31-36) g/dl RDW 13 (10.5-15) % Plt Count 158 (150-450) 10^3/ul MPV 6 L (7.4-10.4) um3 Neut % (Auto) 86.6 H (38-83) % Lymph % (Auto) 8.7 L (25-47) % Rincon % (Auto) 4.4 (0-7) % Eos % (Auto) 0.1 (0-6) % Baso % (Auto) 0.2 (0-2) % Absolute Neuts (auto) 5.2 (1.5-7.7) 10^3/ul Absolute Lymphs (auto) 0.5 L (1.0-4.8) 10^3/ul Absolute Monos (auto) 0.3 (0-0.8) 10^3/ul Absolute Eos (auto) 0 (0-0.6) 10^3/ul Absolute Basos (auto) 0 (0-0.2) 10^3/ul Absolute Nucleated RBC 0 10^3/ul Nucleated RBC % 0.1 INR (Anticoag Therapy) 0.82 (0.77-1.02) Sodium 119 L* (133-145) mmol/L Potassium 3.4 L (3.5-5.0) mmol/L Chloride 78 L (101-111) mmol/L Carbon Dioxide 31 (22-32) mmol/L Anion Gap 10 (2-11) mmol/L BUN 18 (6-24) mg/dL Creatinine 0.52 (0.51-0.95) mg/dL Est GFR ( Amer) 147.1 (>60) Est GFR (Non-Af Amer) 114.3 (>60) BUN/Creatinine Ratio 34.6 H (8-20) Glucose 96 (70-100) mg/dL Lactic Acid (0.5-2.0) mmol/L Calcium 9.0 (8.6-10.3) mg/dL Magnesium 1.8 L (1.9-2.7) mg/dL Total Bilirubin 1.10 H (0.2-1.0) mg/dL AST 29 (13-39) U/L ALT 41 (7-52) U/L Alkaline Phosphatase 45 (34-104) U/L Ammonia (16-53) mol/L Total Creatine Kinase 198 (10-223) U/L Troponin I 0.03 (<0.04) ng/mL Total Protein 6.2 L (6.4-8.9) g/dL Albumin 3.7 (3.2-5.2) g/dL Globulin 2.5 (2-4) g/dL Albumin/Globulin Ratio 1.5 (1-3) TSH 0.36 (0.34-5.60) mcIU/mL Cortisol 34.38 mcg/dL Salicylates < 2.50 (<30) mg/dL Acetaminophen < 15 mcg/mL Serum Alcohol < 10 (<10) mg/dL 12/13/17 12/13/17 Range/Units 10:04 10:04 WBC (3.5-10.8) 10^3/ul RBC (4.0-5.4) 10^6/ul Hgb (12.0-16.0) g/dl Hct (35-47) % MCV (80-97) fL MCH (27-31) pg MCHC (31-36) g/dl RDW (10.5-15) % Plt Count (150-450) 10^3/ul MPV (7.4-10.4) um3 Neut % (Auto) (38-83) % Lymph % (Auto) (25-47) % Rincon % (Auto) (0-7) % Eos % (Auto) (0-6) % Baso % (Auto) (0-2) % Absolute Neuts (auto) (1.5-7.7) 10^3/ul Absolute Lymphs (auto) (1.0-4.8) 10^3/ul Absolute Monos (auto) (0-0.8) 10^3/ul Absolute Eos (auto) (0-0.6) 10^3/ul Absolute Basos (auto) (0-0.2) 10^3/ul Absolute Nucleated RBC 10^3/ul Nucleated RBC % INR (Anticoag Therapy) (0.77-1.02) Sodium (133-145) mmol/L Potassium (3.5-5.0) mmol/L Chloride (101-111) mmol/L Carbon Dioxide (22-32) mmol/L Anion Gap (2-11) mmol/L BUN (6-24) mg/dL Creatinine (0.51-0.95) mg/dL Est GFR ( Amer) (>60) Est GFR (Non-Af Amer) (>60) BUN/Creatinine Ratio (8-20) Glucose (70-100) mg/dL Lactic Acid 2.4 H* (0.5-2.0) mmol/L Calcium (8.6-10.3) mg/dL Magnesium (1.9-2.7) mg/dL Total Bilirubin (0.2-1.0) mg/dL AST (13-39) U/L ALT (7-52) U/L Alkaline Phosphatase (34-104) U/L Ammonia 28 (16-53) mol/L Total Creatine Kinase (10-223) U/L Troponin I (<0.04) ng/mL Total Protein (6.4-8.9) g/dL Albumin (3.2-5.2) g/dL Globulin (2-4) g/dL Albumin/Globulin Ratio (1-3) TSH (0.34-5.60) mcIU/mL Cortisol mcg/dL Salicylates (<30) mg/dL Acetaminophen mcg/mL Serum Alcohol (<10) mg/dL Microbiology and Other Data: Microbiology 12/14/17 07:30 Legionella Urinary Antigen - Final Urine Negative Legionella Antigen Streptococcus pneumoniae Ag Screen - Final Negative S. 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 - Patient Problems (1) Delirium Current Visit: Yes Status: Acute Code(s): R41.0 - DISORIENTATION, UNSPECIFIED SNOMED Code(s): 1545834 Comment: hypo-active since receiving ativan/keppra to suppress seizures yesterday, but the presenting altered mental status may have been multifactorial , and it is difficult to say what contributed most strongly to her decompensation prior to admission. we are treating her for hyponatremia, uti, encephalitis (empirically), and subclinical seizures at this time. she is more awake this morning, but still sleepy and inappropriate. (2) Seizure Current Visit: Yes Status: Acute Code(s): R56.9 - UNSPECIFIED CONVULSIONS SNOMED Code(s): 04136420 Comment: subclinical, seen on video eeg. reported by neurology to have been suppressed yesterday after ativan 2mg and keppra 1500mg in the morning; she received 500mg in the evening. am dose is on hold this morning due to drowsiness. we will need to attempt to find a dose that suppresses the seizures but allows her to be awake to communicate with her family if possible. provoked due to brain masses. (3) Hyponatremia Current Visit: Yes Status: Acute Code(s): E87.1 - HYPO-OSMOLALITY AND HYPONATREMIA SNOMED Code(s): 42216883 Comment: responded well to 3% saline yesterday; however it ran out yesterday , hence the unchanged sodium this morning. resume at 30 cc/hr today via port. (4) UTI (urinary tract infection) Current Visit: No Status: Acute Comment: e. coli resistant to cipro. cefepime day 3. (5) Breast cancer Current Visit: Yes Status: Acute Code(s): C50.919 - MALIGNANT NEOPLASM OF UNSP SITE OF UNSPECIFIED FEMALE BREAST SNOMED Code(s): 376727698 Comment: continue anastrazole and decadron I discussed her case with Dr. Rodriguez, who suggests continuing with chemotherapy. Plan to have a conference call with Dr. Rodriguez and Valentino today.
[2017-12-15] MEDS: CMCS:Anastrozole (NF) 1 MG TAB PO SCH (16:20)
--- NOTE | 2017-12-15 16:34 | PN ---
Hospitalist Progress Note Date of Service: 12/15/17 Dr. Mueller and I had a conference call with Valentino and Dr. Rodriguez this morning afternoon around 12:45. Dr. Rodriguez says that Ms. Garcias does not have active cancer outside of her brain. He suggests talking with Rad Onc. Dr. Mueller and I discussed the possibility of Nicky Gomes not recovering from this situation , and that if she recovers, she may not return to her baseline mental status. Valentino understands this, and expresses that his ultimate goal for Nicky Gomes is that she is happy in the time she has left and that she is awake and able to talk with him and her family. He wants us to continue to treat her seizures, her UTI, and her hyponatremia and to continue this conversation as we see whether she becomes more interactive and appropriate over the next few days. I also discussed the case with Dr. Garrett, who reviewed her MRI and agrees with our current management.
[2017-12-15] MEDS: levETIRAcetam IV* 250 MG in NS 0.9% 100 ML* 100 ML IVPB SCH (18:33)
[2017-12-15] MEDS ORDERED: Sodium Chloride 3% HYPERTONIC* 500 ML IVPB SCH (19:35)
[2017-12-15] MEDS: Sodium Chloride 3% HYPERTONIC* 500 ML IVPB ONE (20:20)
[2017-12-15] MEDS: Pantoprazole IV* 40 MG IV SCH (21:04)
--- NOTE | 2017-12-15 22:23 | PN ---
NEUROLOGICAL FOLLOWUP NOTE: DATE OF SERVICE: 12/15/17 HISTORY: She is a 77-year-old woman with mental status changes. I spoke to Valentino, who is the medical decision maker, last night in detail and we discussed her situation with him. With the discussion as below: She remains confused and sedated on her anticonvulsants, but has no complaints. She is communicative. Her Keppra dose is being held this morning for sedation. MEDICATIONS: She remains on: 1. Acyclovir q.8 hours. 2. Norvasc 2.5 mg daily. 3. Arimidex 1 mg daily. 4. Cefixime 2 g b.i.d. 5. Decadron 4 mg IV b.i.d. 6. Omeprazole. 7. Her hypertonic saline solution. PHYSICAL EXAMINATION: Temperature 98.4, pulse 113, respirator rate 18, blood pressure 129/81. She is resting but arouses easily. She knows her name, is confused about her age and place. She knew that Valentino was her friend but could not recall his name. Cranial nerves II through XII were intact. Motor exam revealed normal tone. She moved all extremities with power. Chest: Clear. Cardiovascular: Regular rate and rhythm. Abdomen: Soft with positive bowel sounds. LABORATORY DATA: Include white count of 4.5, hematocrit 34, platelets 126. INR 0.91. Chemistries: Sodium 125 with potassium of 3.2, chloride 94, creatinine 0.44, glucose 139, calcium 7.8, magnesium 1.9. IMPRESSION AND PLAN: I discussed at length with Valentino and Dr. Medley yesterday and repeated this conversation with Dr. Medley today. Nicky Gomes has multiple reasons for her confusion including her hyponatremia, some of which that are easy to treat including her hyponatremia and her low sodium. The subclinical seizures that she has had are also contributing and these may be difficult to treat because the underlying brain tumors given her significant anticonvulsant medication now and her pattern of EEG is still showing frequent discharges but not subclinical seizures and we are going to let her lighten and see how she does clinically. The underlying process may likely in the near future cause significant worsening neurological function and with an overall grim prognosis, Dr. Medley is trying to reach her oncologist to get a better sense of the prognosis from an oncological point of view, then have a joint conversation with Valentino and the oncologist. We discussed that the seizures in this setting may well likely be difficult to control. We have also independently discussed with Valentino and Dr. Medley that it is possible that there could be an encephalitis that is triggering these seizures. The spinal tap would be somewhat problematic given the brain tumors but in any event, Valentino does not want to proceed down this path and will be having discussion with Dr. Medley and the oncologist in terms of how aggressive to be at this point. I discussed with Dr. Medley that we will continue doing a video EEG until this discussion, on being taken place sometime within the next hour or so , and then we will proceed from there. We are empirically covering for herpes with acyclovir as we sort out the overall aggressiveness in care plan for Nicky Gomes. [id number]/[facility] #: [id number] MTDSrikanth
--- NOTE | 2017-12-15 23:57 | EEG ---
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 She came in via EMS after being found on the floor in her bathroom. PT did get a chemo treatment for her breast cancer the day prior to admission and was reportedly at her baseline. She was apparently confused afterwards. A routine EEG demonstrated frequent, periodic epileptiform discharges in the left occipital lobe and long-term EEG monitoring was requested in order to evaluate for subclinical seizures. Introduction: INTRODUCTION: The EEG was monitored from 21 scalp electrodes. Nineteen electrodes consisted of the standard parasagittal, temporal and midline leads of the International 10 -20 system. In addition, special electrodes T1 and T2 were placed. EEG data were recorded on an [employer] system with simultaneous MPEG-4 digital video recording of patient behavior. EEG recording was in a monopolar montage with all electrodes referenced to FCz. Significant behavioral events were signaled by an event button, or putative electrical seizure events were detected by a computer program. All EEG data were reviewed in their entirety on a monitor with reconstruction of montages and adjustments of sensitivity and filtering. Simultaneous patient behavior was viewed on an adjacent monitor and correlated with the EEG. - Medications Active Medications: Acetaminophen (Tylenol Tab*) 650 mg PO Q4H PRN PRN Reason: FEVER/PAIN Last Admin: 12/13/17 22:14 Dose: 650 mg Albuterol (Ventolin 2.5 Mg/3 Ml Neb.Yusra*) 1.25 mg INH TID PRN PRN Reason: SHORTNESS OF BREATH Anastrozole (Arimidex (Nf)) 1 mg PO DAILY [facility] Last Admin: 12/15/17 16:20 Dose: Not Given Dexamethasone Sodium Phosphate (Decadron Iv*) 4 mg IV SLOW PU TID [facility] Last Admin: 12/15/17 21:04 Dose: 4 mg Heparin Sodium (Porcine) (Heparin Flush Picc/Ml/Cvc(*)) 1 - 3 ml FLUSH 0600, 1800 [facility] PRN Reason: Protocol Last Admin: 12/15/17 17:36 Dose: Not Given Cefepime HCl (Maxipime 2 Gm In Dextrose Duplex (*)) 2 gm in 50 mls @ 100 mls/ hr IV 0800,2000 [facility] Last Admin: 12/15/17 20:20 Dose: 100 mls/hr Acyclovir Sodium 500 mg/ (Sodium Chloride) 110 mls @ 0 mls/hr IVPB Q8H [facility] PRN Reason: As Directed Last Admin: 12/15/17 16:26 Dose: 100 mls/hr Potassium Chloride 20 meq/ (Sodium Chloride) 110 mls @ 55 mls/hr IVPB DAILY [facility] Stop: 12/17/17 10:59 Sodium Chloride (Hypertonic) (Hypertonic Sod Chloride 3%*) 500 mls @ 20 mls/hr IVPB ONCE ONE; Per Protocol PRN Reason: Protocol Stop: 12/16/17 16:09 Last Admin: 12/15/17 20:20 Dose: Not Given Levetiracetam 250 mg/ Sodium (Chloride) 102.5 mls @ 440 mls/hr IVPB Q12H [facility] Last Admin: 12/15/17 18:33 Dose: 440 mls/hr Sodium Chloride (Hypertonic) (Hypertonic Sod Chloride 3%*) 500 mls @ 20 mls/hr IVPB Q24H [facility]; Per Protocol PRN Reason: Protocol Last Admin: 12/15/17 21:04 Dose: Not Given Pantoprazole Sodium (Protonix Iv*) 40 mg IV BID [facility] Last Admin: 12/15/17 21:04 Dose: 40 mg - Description Background: The EEG was characterized by an interhemispheric asymmetry. Neither hemisphere was normal, but there was a greater degree of pathology over the left hemisphere. The background was characterized by loss of the usual anterior to posterior voltage and frequency gradients. The background was characterized by mixed frequency, polymorphic slowing in the delta and theta ranges with superimposed beta activity centrally, the latter being consistent with medication effect. There was no defined posterior dominant rhythm. The left hemisphere continued to be punctuated by frequent epileptiform discharges in the left occipital region, as further described below, with associated polymorphic slowing underlying this region. In addition, there was frequent, higher voltage, delta slowing in the left temporal region maximal at T1 and F7. The sleep background was appropriately organized with well-developed spindles indicative of stage 2 sleep. These sleep transients showed appropriate morphology and were bilaterally synchronous and symmetrical. Deeper stages of sleep were not observed. There were frequent arousals from sleep. Intericatal Epileptiform Activity: There are frequent, moderate voltage, spike, polyspike and slow wave discharges in the left occipital region. These primarily affect electrode O1 with a field to O2. Discharges decreased in frequency during the course of this recording to once every 2 to 3 seconds overnight. Toward the morning hours, these further decreased in frequency and sometimes were low voltage and poorly formed sharp waves. They occurred 2 to 3 times per page on average, sometimes just once per page. Ictal Activity: The patient continued to have brief, subclinical seizures at the beginning of the recording. The previously mentioned occipital discharges were noted to increase in frequency to 3 to 4 Hz with rhythmic theta activity associated, followed by emergence of rhythmic beta activity (13 HZ) in the left central and temporal regions. This activity would last between 10 and 20 seconds, then abruptly terminate. There was no clinical correlate. The last possible seizure occurred at 10:36am on 12/14. Lorazepam was given at 10:13am, which diminished these patterns. The patient was then unhooked for MRI scan, and received additional levetiracetam, and no further ictal patterns were noted during the monitoring session. - Impression Impression: This is an abnormal long-term monitoring session. There are frequent discharges in the left occipital region and associated subclinical seizures arising from this region at the beginning of the study, which terminated as the recording progressed. The background is otherwise characterized by loss of the usual anterior to posterior voltage and frequency gradients with mixed frequency slowing without evident posterior dominant rhythm. There is also frequent delta slowing in the left temporal region. These findings are consistent with increased epileptic potential in the left occipital region and associated ongoing intermittent seizure activity which is subclinical in nature and resolved in the morning on 12/14. This is superimposed on a moderate, non-specific diffuse encephalopathy with excessive neuronal dysfunction in the left temporal region.
[2017-12-16] MEDS: levETIRAcetam IV* 250 MG in NS 0.9% 100 ML* 100 ML IVPB SCH ×2 (05:33→17:29)
[2017-12-16 05:43] LABS: Hematocrit 30 % (35-47); Hemoglobin 10.9 g/dl (12.0-16.0); Mean Corpuscular HGB Conc 37 g/dl (31-36); Mean Corpuscular Hemoglobin 32 pg (27-31); Mean Corpuscular Volume 87 fL (80-97); Mean Platelet Volume 6.2 um3 (7.4-10.4); Platelet Count 120 10^3/ul (150-450); Red Blood Count 3.43 10^6/ul (4.0-5.4); Red Cell Distribution Width 13 % (10.5-15); White Blood Count 4.4 10^3/ul (3.5-10.8)
[2017-12-16 05:59] LABS: EGFR Non-African American 135.1 (>60)
[2017-12-16 06:37] LABS: ABS Basophils 0 10^3/ul (0-0.2); ABS Eosinophils 0 10^3/ul (0-0.6); ABS Lymphocytes 0.4 10^3/ul (1.0-4.8); ABS Monocytes 0.2 10^3/ul (0-0.8); ABS Neutrophils 3.8 10^3/ul (1.5-7.7); ABS Nucleated RBC 0 10^3/ul; Eosinophil % 0 % (0-6); Lymphocyte % 8.1 % (25-47); Nucleated Red Blood Cells % 0
[2017-12-16] MEDS: Acyclovir IV(*) 500 MG in NS 0.9% 100 ML* 100 ML IVPB SCH ×2 (07:46→16:18)
[2017-12-16] MEDS: Cefepime 2 GM in Dextrose(*) 2 GM/50 ML BAG IV SCH ×2 (07:47→20:35)
[2017-12-16] MEDS: Sodium Chloride 3% HYPERTONIC* 500 ML IVPB ONE (07:52)
[2017-12-16] MEDS: CMCS:Anastrozole (NF) 1 MG TAB PO SCH (08:37)
[2017-12-16] MEDS: Dexamethasone IV* 4 MG/ML 1 ML (4 MG) IV SLOW PU SCH ×3 (08:37→21:09)
[2017-12-16] MEDS: Pantoprazole IV* 40 MG IV SCH ×2 (08:38→21:09)
[2017-12-16] MEDS ORDERED: KCL 20 MEQ/100 ML IVPREMIX* 20 MEQ/100 ML BAG IV SCH (09:00)
[2017-12-16] MEDS ORDERED: Potassium Chloride IV* 20 MEQ in NS 0.9% 100 ML* 100 ML IVPB SCH (09:00)
--- NOTE | 2017-12-16 09:23 | PN ---
Subjective Date of Service: 12/16/17 Interval History: no overnight events. she is more awake today, says she has no pain or nausea, no headaches, overall feels "pretty good." she says she is not sure how she got here from [place] though. she expresses interest when I explain that her family is on their way today. Objective Active Medications: Acetaminophen (Tylenol Tab*) 650 mg PO Q4H PRN PRN Reason: FEVER/PAIN Last Admin: 12/13/17 22:14 Dose: 650 mg Albuterol (Ventolin 2.5 Mg/3 Ml Neb.Yusra*) 1.25 mg INH TID PRN PRN Reason: SHORTNESS OF BREATH Anastrozole (Arimidex (Nf)) 1 mg PO DAILY [facility] Last Admin: 12/16/17 08:37 Dose: 1 mg Dexamethasone Sodium Phosphate (Decadron Iv*) 4 mg IV SLOW PU TID [facility] Last Admin: 12/16/17 08:37 Dose: 4 mg Heparin Sodium (Porcine) (Heparin Flush Picc/Ml/Cvc(*)) 1 - 3 ml FLUSH 0600, 1800 [facility] PRN Reason: Protocol Last Admin: 12/16/17 05:34 Dose: Not Given Cefepime HCl (Maxipime 2 Gm In Dextrose Duplex (*)) 2 gm in 50 mls @ 100 mls/ hr IV 0800,2000 [facility] Last Admin: 12/16/17 07:47 Dose: 100 mls/hr Acyclovir Sodium 500 mg/ (Sodium Chloride) 110 mls @ 0 mls/hr IVPB Q8H [facility] PRN Reason: As Directed Last Admin: 12/16/17 07:46 Dose: 100 mls/hr Potassium Chloride 20 meq/ (Sodium Chloride) 110 mls @ 55 mls/hr IVPB DAILY [facility] Stop: 12/17/17 10:59 Last Admin: 12/16/17 08:38 Dose: 55 mls/hr Sodium Chloride (Hypertonic) (Hypertonic Sod Chloride 3%*) 500 mls @ 20 mls/hr IVPB ONCE ONE; Per Protocol PRN Reason: Protocol Stop: 12/16/17 16:09 Last Admin: 12/16/17 07:52 Dose: 20 mls/hr Levetiracetam 250 mg/ Sodium (Chloride) 102.5 mls @ 440 mls/hr IVPB Q12H [facility] Last Admin: 12/16/17 05:33 Dose: 440 mls/hr Sodium Chloride (Hypertonic) (Hypertonic Sod Chloride 3%*) 500 mls @ 20 mls/hr IVPB Q24H [facility]; Per Protocol PRN Reason: Protocol Last Admin: 12/15/17 21:04 Dose: Not Given Pantoprazole Sodium (Protonix Iv*) 40 mg IV BID [facility] Last Admin: 12/16/17 08:38 Dose: 40 mg Vital Signs - 8 hr 12/16/17 12/16/17 12/16/17 01:30 02:00 02:30 Temperature Pulse Rate 86 93 91 Respiratory 14 14 13 Rate Blood Pressure 145/70 (mmHg) O2 Sat by Pulse 93 94 94 Oximetry 12/16/17 12/16/17 12/16/17 03:00 03:28 03:30 Temperature 98.3 F Pulse Rate 114 88 Respiratory 15 16 Rate Blood Pressure 148/79 (mmHg) O2 Sat by Pulse 94 94 Oximetry 12/16/17 12/16/17 12/16/17 04:00 04:30 05:00 Temperature Pulse Rate 82 83 82 Respiratory 16 14 14 Rate Blood Pressure 133/72 150/73 (mmHg) O2 Sat by Pulse 94 93 95 Oximetry 12/16/17 12/16/17 12/16/17 05:30 06:00 06:30 Temperature Pulse Rate 92 91 77 Respiratory 16 16 16 Rate Blood Pressure 163/70 (mmHg) O2 Sat by Pulse 95 93 94 Oximetry 12/16/17 12/16/17 12/16/17 07:00 07:30 07:55 Temperature 98.6 F Pulse Rate 89 76 Respiratory 21 15 Rate Blood Pressure 159/81 (mmHg) O2 Sat by Pulse 94 96 Oximetry 12/16/17 08:00 Temperature Pulse Rate 80 Respiratory 18 Rate Blood Pressure 157/70 (mmHg) O2 Sat by Pulse 95 Oximetry Oxygen Devices in Use Now: None Appearance: alerts to voice, no distress Eyes: No Scleral Icterus, PERRLA Ears/Nose/Mouth/Throat: NL Teeth, Lips, Gums, - - dry mucosa Neck: NL Appearance and Movements; NL JVP, Trachea Midline Respiratory: Symmetrical Chest Expansion and Respiratory Effort, Clear to Auscultation Cardiovascular: RRR, No Edema Abdominal: NL Sounds; No Tenderness; No Distention, No Hepatosplenomegaly Lymphatic: No Cervical Adenopathy Extremities: No Edema Skin: No Rash or Ulcers, - - echymoses b/l knees and ankles Neurological: - - oriented to person and that she is in a hospital, but cannot recall the state and city, nor the year. follows simple commands, not complex commands Result Diagrams: 12/16/17 05:30 12/16/17 05:30 Additional Lab and Data: Lab Results 12/13/17 12/13/17 12/13/17 Range/Units 10:04 10:04 10:04 WBC 5.9 (3.5-10.8) 10^3/ul RBC 4.61 (4.0-5.4) 10^6/ul Hgb 14.3 (12.0-16.0) g/dl Hct 40 (35-47) % MCV 87 (80-97) fL MCH 31 (27-31) pg MCHC 36 (31-36) g/dl RDW 13 (10.5-15) % Plt Count 158 (150-450) 10^3/ul MPV 6 L (7.4-10.4) um3 Neut % (Auto) 86.6 H (38-83) % Lymph % (Auto) 8.7 L (25-47) % [place] % (Auto) 4.4 (0-7) % Eos % (Auto) 0.1 (0-6) % Baso % (Auto) 0.2 (0-2) % Absolute Neuts (auto) 5.2 (1.5-7.7) 10^3/ul Absolute Lymphs (auto) 0.5 L (1.0-4.8) 10^3/ul Absolute Monos (auto) 0.3 (0-0.8) 10^3/ul Absolute Eos (auto) 0 (0-0.6) 10^3/ul Absolute Basos (auto) 0 (0-0.2) 10^3/ul Absolute Nucleated RBC 0 10^3/ul Nucleated RBC % 0.1 INR (Anticoag Therapy) 0.82 (0.77-1.02) Sodium 119 L* (133-145) mmol/L Potassium 3.4 L (3.5-5.0) mmol/L Chloride 78 L (101-111) mmol/L Carbon Dioxide 31 (22-32) mmol/L Anion Gap 10 (2-11) mmol/L BUN 18 (6-24) mg/dL Creatinine 0.52 (0.51-0.95) mg/dL Est GFR ( Amer) 147.1 (>60) Est GFR (Non-Af Amer) 114.3 (>60) BUN/Creatinine Ratio 34.6 H (8-20) Glucose 96 (70-100) mg/dL Lactic Acid (0.5-2.0) mmol/L Calcium 9.0 (8.6-10.3) mg/dL Magnesium 1.8 L (1.9-2.7) mg/dL Total Bilirubin 1.10 H (0.2-1.0) mg/dL AST 29 (13-39) U/L ALT 41 (7-52) U/L Alkaline Phosphatase 45 (34-104) U/L Ammonia (16-53) mol/L Total Creatine Kinase 198 (10-223) U/L Troponin I 0.03 (<0.04) ng/mL Total Protein 6.2 L (6.4-8.9) g/dL Albumin 3.7 (3.2-5.2) g/dL Globulin 2.5 (2-4) g/dL Albumin/Globulin Ratio 1.5 (1-3) TSH 0.36 (0.34-5.60) mcIU/mL Cortisol 34.38 mcg/dL Salicylates < 2.50 (<30) mg/dL Acetaminophen < 15 mcg/mL Serum Alcohol < 10 (<10) mg/dL 12/13/17 12/13/17 Range/Units 10:04 10:04 WBC (3.5-10.8) 10^3/ul RBC (4.0-5.4) 10^6/ul Hgb (12.0-16.0) g/dl Hct (35-47) % MCV (80-97) fL MCH (27-31) pg MCHC (31-36) g/dl RDW (10.5-15) % Plt Count (150-450) 10^3/ul MPV (7.4-10.4) um3 Neut % (Auto) (38-83) % Lymph % (Auto) (25-47) % [place] % (Auto) (0-7) % Eos % (Auto) (0-6) % Baso % (Auto) (0-2) % Absolute Neuts (auto) (1.5-7.7) 10^3/ul Absolute Lymphs (auto) (1.0-4.8) 10^3/ul Absolute Monos (auto) (0-0.8) 10^3/ul Absolute Eos (auto) (0-0.6) 10^3/ul Absolute Basos (auto) (0-0.2) 10^3/ul Absolute Nucleated RBC 10^3/ul Nucleated RBC % INR (Anticoag Therapy) (0.77-1.02) Sodium (133-145) mmol/L Potassium (3.5-5.0) mmol/L Chloride (101-111) mmol/L Carbon Dioxide (22-32) mmol/L Anion Gap (2-11) mmol/L BUN (6-24) mg/dL Creatinine (0.51-0.95) mg/dL Est GFR ( Amer) (>60) Est GFR (Non-Af Amer) (>60) BUN/Creatinine Ratio (8-20) Glucose (70-100) mg/dL Lactic Acid 2.4 H* (0.5-2.0) mmol/L Calcium (8.6-10.3) mg/dL Magnesium (1.9-2.7) mg/dL Total Bilirubin (0.2-1.0) mg/dL AST (13-39) U/L ALT (7-52) U/L Alkaline Phosphatase (34-104) U/L Ammonia 28 (16-53) mol/L Total Creatine Kinase (10-223) U/L Troponin I (<0.04) ng/mL Total Protein (6.4-8.9) g/dL Albumin (3.2-5.2) g/dL Globulin (2-4) g/dL Albumin/Globulin Ratio (1-3) TSH (0.34-5.60) mcIU/mL Cortisol mcg/dL Salicylates (<30) mg/dL Acetaminophen mcg/mL Serum Alcohol (<10) mg/dL Microbiology and Other Data: Microbiology 12/14/17 07:30 Legionella Urinary Antigen - Final Urine Negative Legionella Antigen Streptococcus pneumoniae Ag Screen - Final Negative S. 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 - Patient Problems (1) Seizure Current Visit: Yes Status: Acute Code(s): R56.9 - UNSPECIFIED CONVULSIONS SNOMED Code(s): 49277081 Comment: subclinical and frequent as reported from video eeg provoked from 5 brain masses with vasogenic edema--decadron increased yesterday on 12/14, we gave ativan 2mg and keppra 1500mg to suppress seizure activity, which was effective. now de-escalated to keppra 250mg Q12 to allow her to wake up video eeg discontinued yesterday; plan for intermittent eegs to re-evaluate efficacy of keppra (2) Hyponatremia Current Visit: Yes Status: Acute Code(s): E87.1 - HYPO-OSMOLALITY AND HYPONATREMIA SNOMED Code(s): 72915710 Comment: improving nicely with 3% saline at 20cc/hour repeat bmp at noon (3) UTI (urinary tract infection) Current Visit: No Status: Acute Comment: e. coli resistant to cipro. cefepime day 4. (4) Breast cancer Current Visit: Yes Status: Acute Code(s): C50.919 - MALIGNANT NEOPLASM OF UNSP SITE OF UNSPECIFIED FEMALE BREAST SNOMED Code(s): 381167696 Comment: conference call with Dr. Rodriguez ([facility]) yesterday and he reports that cancer is otherwise controlled outside of the brain continue anastrazole s/p herceptin on 12/12
[2017-12-16 11:43] LABS: EGFR Non-African American 131.7 (>60)
[2017-12-16] MEDS ORDERED: Sodium Chloride 3% HYPERTONIC* 500 ML IVPB ONE (11:56)
[2017-12-16 17:04] LABS: EGFR Non-African American 131.7 (>60)
[2017-12-16] MEDS: NS 0.9% 1000 ML* 1,000 ML IV SCH (18:25)
[2017-12-17] MEDS: Acyclovir IV(*) 500 MG in NS 0.9% 100 ML* 100 ML IVPB SCH ×3 (00:54→16:26)
[2017-12-17] MEDS: NS 0.9% 1000 ML* 1,000 ML IV SCH ×2 (01:02→07:57)
--- NOTE | 2017-12-17 03:53 | PN ---
NEUROLOGY FOLLOWUP: DATE OF FOLLOWUP: 12/16/17. LOCATION: The patient is in the ICU. HISTORY: No acute overnight events. The patient's friend, Valentino and daughter , Marianne are at the bedside and say that she is slightly improved. She was able to wake up enough to eat a bit last night. She has been intermittently awake today, but still certainly not at her baseline and quite confused. Valentino tells me that she was able to state her correct age earlier today. They recounted that she has had radiation therapy with Dr. Garrett and then was recommended for gamma knife surgery to one of her brain metastasis, which was done about a month ago. Valentino had questions as to whether the Herceptin dose that she received just prior to the onset of her confusion at home could have been related to her current presentation. IN-HOSPITAL MEDICATIONS: 1. Acetaminophen 650 q.4 p.r.n. 2. Albuterol as needed. 3. Anastrozole 1 mg daily. 4. Cefepime 2 g daily. 5. Dexamethasone 4 mg IV 3 times daily. 6. Levetiracetam 250 mg q.12 hours. 7. Pantoprazole 40 mg b.i.d. 8. Acyclovir 500 mg q.8 hours. 9. Hypertonic saline 30 mL per hour. PHYSICAL EXAMINATION: Vital Signs: Temperature 98.8, blood pressure 151/70, heart rate 77, oxygen saturation is 93% to 95% on room air. On general examination, she is sleeping quietly in her hospital bed. She awoke briefly when I entered the room and introduced myself, but then drifted back off to sleep while I spoke with her daughter and her friend. She was able to wake up to voice and participate in aspects of the exam, but would drift off to sleep again quickly if not continuously stimulated. She has bruising over both of her knees and on her right upper arm. Her heart is in a regular rate and rhythm. Her lungs were clear anteriorly to auscultation and she was able to cooperate with deep breathing. Pulses are palpated bilaterally radially. On neurologic exam, her speech was somewhat dysarthric and difficult to understand and also quiet. She was not able to state the month or the current year. She stated her age to be 70. She was able to state her date of accurately. She was able to name a pen and a thumb. Her gaze is midline and versions are full without nystagmus. Pupils are equal, round, and reactive from 4 to 2 mm bilaterally. Facial musculature is full and symmetric. Facial sensation is intact to light touch. Palate elevate symmetrically and the tongue is midline. On motor examination, she has normal bulk and tone in the upper and lower extremities. Her upper extremities are both antigravity, though she may have some focal weakness in the left arm, though this also may have been because of her diminished mental status. She did not fully elevate either leg off the bed, but is able to move her feet and wiggle her toes equally bilaterally. Sensation is intact to noxious stimulation in the upper and lower extremities. Coordination testing was not performed. Gait could not be tested. DIAGNOSTIC STUDIES/LAB DATA: Her CBC today shows hematocrit of 30 which is down from 40 three days ago and hemoglobin of 10.9 down from 14.3 three days ago. Platelets are 120 down from 158 three days ago. She had marked hyponatremia on her initial admission of 117 and this has improved to 131 with treatment with hypertonic saline. Her urine culture grew Pseudomonas aeruginosa 1 to 10,000 colonies and negative for Legionella or Strep pneumo antigen. Blood cultures are negative to date. I reviewed her brain MRI yesterday, which demonstrates multiple enhancing lesions of the left cerebral hemisphere, cerebellum as well as an enhancing lesion of the right temporal lobe posteriorly. There is also a lesion in the left occipital lobe in the area of origination of her seizures. There has also been interval development of nonenhancing elevated T2/FLAIR signal in the left mesial temporal lobe and this is comparing to an MRI scan about a month ago. IMPRESSION AND PLAN: Nicky Garcias is a 77-year-old woman with breast cancer, metastatic to the brain, who came into the hospital confused, also with hyponatremia and was found to be in subclinical focal status arising from the left occipital lobe. She has been treated with benzodiazepines and levetiracetam, but then became significantly obtunded and as such her dose of levetiracetam has been progressively decreased now at 250 twice daily. She is beginning to wake up more, but remains confused. Her MRI scan showed interval development of some increased FLAIR signal in the left mesial temporal lobe and she is on acyclovir to cover for possible herpes encephalitis, but spinal tap has not been done because dayton Avelar, who is the patient's medical decision maker, did not want to be so aggressive. Her dose of Decadron has also been increased. At this point, I plan to check a repeat EEG tomorrow to try and determine whether the occipital discharges are stable or if they seemed to be increasing in frequency as they did when she was in subclinical status. For now, we will continue the lower dose levetiracetam 250 mg twice daily. I spoke with Dr. Medley about her marked hyponatremia as well and a clear etiology for this has not been apparent. We should consider a paraneoplastic syndrome within the differential and could send a serum paraneoplastic panel as well as CSF paraneoplastic panel if the patient and her medical decision makers wanted to consent to this. The new FLAIR abnormality in the left mesial temporal lobe could be secondary to an encephalitis process and if a lumbar puncture is not done then we will need to complete a course of acyclovir. Thanks for the consultation. I will follow the patient along with you. [id number]/[facility] #: [id number] MTDD
[2017-12-17] MEDS: levETIRAcetam IV* 250 MG in NS 0.9% 100 ML* 100 ML IVPB SCH (05:34)
[2017-12-17 05:54] LABS: Hematocrit 26 % (35-47); Hemoglobin 9.3 g/dl (12.0-16.0); Mean Corpuscular HGB Conc 36 g/dl (31-36); Mean Corpuscular Hemoglobin 31 pg (27-31); Mean Corpuscular Volume 87 fL (80-97); Mean Platelet Volume 6.3 um3 (7.4-10.4); Platelet Count 116 10^3/ul (150-450); Red Blood Count 3.01 10^6/ul (4.0-5.4); Red Cell Distribution Width 13 % (10.5-15); White Blood Count 4.5 10^3/ul (3.5-10.8)
[2017-12-17 06:04] LABS: EGFR Non-African American 154.8 (>60)
[2017-12-17 06:24] LABS: ABS Basophils 0 10^3/ul (0-0.2); ABS Eosinophils 0 10^3/ul (0-0.6); ABS Lymphocytes 0.5 10^3/ul (1.0-4.8); ABS Monocytes 0.3 10^3/ul (0-0.8); ABS Neutrophils 3.7 10^3/ul (1.5-7.7); ABS Nucleated RBC 0 10^3/ul; Eosinophil % 0 % (0-6); Lymphocyte % 11.1 % (25-47); Nucleated Red Blood Cells % 0.1
[2017-12-17] MEDS ORDERED: Magnesium Oxide TAB* 400 MG PO ONE (06:48)
--- NOTE | 2017-12-17 07:55 | PN ---
Subjective Date of Service: 12/17/17 Interval History: no overnight events. she awakens to voice. she says she feels "pretty good" but does not know where she is. when asked why she is in the hospital, she says "W." she denies pain. Social History: Unchanged from Admission Past Medical History: Unchanged from Admission Objective Active Medications: Acetaminophen (Tylenol Tab*) 650 mg PO Q4H PRN PRN Reason: FEVER/PAIN Last Admin: 12/13/17 22:14 Dose: 650 mg Albuterol (Ventolin 2.5 Mg/3 Ml Neb.Yusra*) 1.25 mg INH TID PRN PRN Reason: SHORTNESS OF BREATH Anastrozole (Arimidex (Nf)) 1 mg PO DAILY [facility] Last Admin: 12/16/17 08:37 Dose: 1 mg Dexamethasone (Decadron Tab*) 4 mg PO TID [facility] Heparin Sodium (Porcine) (Heparin Flush Picc/Ml/Cvc(*)) 1 - 3 ml FLUSH 0600, 1800 [facility] PRN Reason: Protocol Last Admin: 12/17/17 05:34 Dose: Not Given Cefepime HCl (Maxipime 2 Gm In Dextrose Duplex (*)) 2 gm in 50 mls @ 100 mls/ hr IV 0800,2000 [facility] Last Admin: 12/16/17 20:35 Dose: 100 mls/hr Acyclovir Sodium 500 mg/ (Sodium Chloride) 110 mls @ 110 mls/hr IVPB Q8H [facility] Last Admin: 12/17/17 00:54 Dose: 110 mls/hr Levetiracetam 250 mg/ Sodium (Chloride) 102.5 mls @ 440 mls/hr IVPB Q12H [facility] Last Admin: 12/17/17 05:34 Dose: 440 mls/hr Sodium Chloride (Ns 0.9% 1000 Ml*) 1,000 mls @ 150 mls/hr IV PER RATE [facility] Last Admin: 12/17/17 01:02 Dose: 150 mls/hr Levetiracetam (Keppra Tab*) 250 mg PO BID [facility] Omeprazole (Prilosec Cap*) 20 mg PO BID [facility] Potassium Chloride (Klor-Con Liquid*) 40 meq PO BID [facility] Vital Signs - 8 hr 12/17/17 12/17/17 12/17/17 00:00 00:01 00:30 Temperature 98.5 F Pulse Rate 70 84 70 Respiratory 12 18 13 Rate Blood Pressure 149/77 (mmHg) O2 Sat by Pulse 94 94 93 Oximetry 12/17/17 12/17/17 12/17/17 01:00 01:30 02:00 Temperature Pulse Rate 77 77 86 Respiratory 14 14 18 Rate Blood Pressure 141/74 153/68 (mmHg) O2 Sat by Pulse 94 93 93 Oximetry 12/17/17 12/17/17 12/17/17 02:30 03:00 03:30 Temperature Pulse Rate 86 70 69 Respiratory 13 12 11 Rate Blood Pressure 134/62 (mmHg) O2 Sat by Pulse 93 94 94 Oximetry 12/17/17 12/17/17 12/17/17 04:00 04:30 05:00 Temperature 98.7 F Pulse Rate 68 72 70 Respiratory 12 12 15 Rate Blood Pressure 143/62 145/66 (mmHg) O2 Sat by Pulse 94 94 95 Oximetry 12/17/17 12/17/17 12/17/17 05:30 06:00 06:30 Temperature Pulse Rate 81 64 70 Respiratory 15 15 21 Rate Blood Pressure 160/65 (mmHg) O2 Sat by Pulse 97 96 95 Oximetry 12/17/17 12/17/17 12/17/17 07:00 07:25 07:32 Temperature 99.4 F Pulse Rate 75 Respiratory 18 23 Rate Blood Pressure (mmHg) O2 Sat by Pulse 96 Oximetry Oxygen Devices in Use Now: None Appearance: alerts to voice, falls asleep throughout my exam, follow simple commands Eyes: No Scleral Icterus Ears/Nose/Mouth/Throat: NL Teeth, Lips, Gums, Clear Oropharnyx Neck: NL Appearance and Movements; NL JVP, Trachea Midline Respiratory: Symmetrical Chest Expansion and Respiratory Effort, Clear to Auscultation Cardiovascular: NL Sounds; No Murmurs; No JVD, RRR Abdominal: NL Sounds; No Tenderness; No Distention, No Hepatosplenomegaly Lymphatic: No Cervical Adenopathy Extremities: No Edema Skin: No Rash or Ulcers Neurological: - - oriented to person only, answers questions inappropriately, does not cooperate with lower extremity strength exam but moves feet and withdraws to pain. upper extremity strength 5/5. Result Diagrams: 12/17/17 05:32 12/17/17 05:32 Additional Lab and Data: Lab Results 12/13/17 12/13/17 12/13/17 Range/Units 10:04 10:04 10:04 WBC 5.9 (3.5-10.8) 10^3/ul RBC 4.61 (4.0-5.4) 10^6/ul Hgb 14.3 (12.0-16.0) g/dl Hct 40 (35-47) % MCV 87 (80-97) fL MCH 31 (27-31) pg MCHC 36 (31-36) g/dl RDW 13 (10.5-15) % Plt Count 158 (150-450) 10^3/ul MPV 6 L (7.4-10.4) um3 Neut % (Auto) 86.6 H (38-83) % Lymph % (Auto) 8.7 L (25-47) % [place] % (Auto) 4.4 (0-7) % Eos % (Auto) 0.1 (0-6) % Baso % (Auto) 0.2 (0-2) % Absolute Neuts (auto) 5.2 (1.5-7.7) 10^3/ul Absolute Lymphs (auto) 0.5 L (1.0-4.8) 10^3/ul Absolute Monos (auto) 0.3 (0-0.8) 10^3/ul Absolute Eos (auto) 0 (0-0.6) 10^3/ul Absolute Basos (auto) 0 (0-0.2) 10^3/ul Absolute Nucleated RBC 0 10^3/ul Nucleated RBC % 0.1 INR (Anticoag Therapy) 0.82 (0.77-1.02) Sodium 119 L* (133-145) mmol/L Potassium 3.4 L (3.5-5.0) mmol/L Chloride 78 L (101-111) mmol/L Carbon Dioxide 31 (22-32) mmol/L Anion Gap 10 (2-11) mmol/L BUN 18 (6-24) mg/dL Creatinine 0.52 (0.51-0.95) mg/dL Est GFR ( Amer) 147.1 (>60) Est GFR (Non-Af Amer) 114.3 (>60) BUN/Creatinine Ratio 34.6 H (8-20) Glucose 96 (70-100) mg/dL Lactic Acid (0.5-2.0) mmol/L Calcium 9.0 (8.6-10.3) mg/dL Magnesium 1.8 L (1.9-2.7) mg/dL Total Bilirubin 1.10 H (0.2-1.0) mg/dL AST 29 (13-39) U/L ALT 41 (7-52) U/L Alkaline Phosphatase 45 (34-104) U/L Ammonia (16-53) mol/L Total Creatine Kinase 198 (10-223) U/L Troponin I 0.03 (<0.04) ng/mL Total Protein 6.2 L (6.4-8.9) g/dL Albumin 3.7 (3.2-5.2) g/dL Globulin 2.5 (2-4) g/dL Albumin/Globulin Ratio 1.5 (1-3) TSH 0.36 (0.34-5.60) mcIU/mL Cortisol 34.38 mcg/dL Salicylates < 2.50 (<30) mg/dL Acetaminophen < 15 mcg/mL Serum Alcohol < 10 (<10) mg/dL 12/13/17 12/13/17 Range/Units 10:04 10:04 WBC (3.5-10.8) 10^3/ul RBC (4.0-5.4) 10^6/ul Hgb (12.0-16.0) g/dl Hct (35-47) % MCV (80-97) fL MCH (27-31) pg MCHC (31-36) g/dl RDW (10.5-15) % Plt Count (150-450) 10^3/ul MPV (7.4-10.4) um3 Neut % (Auto) (38-83) % Lymph % (Auto) (25-47) % [place] % (Auto) (0-7) % Eos % (Auto) (0-6) % Baso % (Auto) (0-2) % Absolute Neuts (auto) (1.5-7.7) 10^3/ul Absolute Lymphs (auto) (1.0-4.8) 10^3/ul Absolute Monos (auto) (0-0.8) 10^3/ul Absolute Eos (auto) (0-0.6) 10^3/ul Absolute Basos (auto) (0-0.2) 10^3/ul Absolute Nucleated RBC 10^3/ul Nucleated RBC % INR (Anticoag Therapy) (0.77-1.02) Sodium (133-145) mmol/L Potassium (3.5-5.0) mmol/L Chloride (101-111) mmol/L Carbon Dioxide (22-32) mmol/L Anion Gap (2-11) mmol/L BUN (6-24) mg/dL Creatinine (0.51-0.95) mg/dL Est GFR ( Amer) (>60) Est GFR (Non-Af Amer) (>60) BUN/Creatinine Ratio (8-20) Glucose (70-100) mg/dL Lactic Acid 2.4 H* (0.5-2.0) mmol/L Calcium (8.6-10.3) mg/dL Magnesium (1.9-2.7) mg/dL Total Bilirubin (0.2-1.0) mg/dL AST (13-39) U/L ALT (7-52) U/L Alkaline Phosphatase (34-104) U/L Ammonia 28 (16-53) mol/L Total Creatine Kinase (10-223) U/L Troponin I (<0.04) ng/mL Total Protein (6.4-8.9) g/dL Albumin (3.2-5.2) g/dL Globulin (2-4) g/dL Albumin/Globulin Ratio (1-3) TSH (0.34-5.60) mcIU/mL Cortisol mcg/dL Salicylates (<30) mg/dL Acetaminophen mcg/mL Serum Alcohol (<10) mg/dL Microbiology and Other Data: Microbiology 12/14/17 07:30 Legionella Urinary Antigen - Final Urine Negative Legionella Antigen Streptococcus pneumoniae Ag Screen - Final Negative S. 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 - Patient Problems (1) Encephalopathy acute Current Visit: Yes Status: Acute Code(s): G93.40 - ENCEPHALOPATHY, UNSPECIFIED SNOMED Code(s): 96186840 Comment: not improving with treatment of hyponatremia, uti, seizures, and possible encephalitis mental status may lag after improvement given underlying structural abnormalities in her brain due to metastatic disease (2) Seizure Current Visit: Yes Status: Acute Code(s): R56.9 - UNSPECIFIED CONVULSIONS SNOMED Code(s): 36133454 Comment: subclinical and frequent as reported from video eeg video eeg discontinued and anti-epileptics continued but at decreased dose ( keppra 250mg bid) to allow her to wake up plan for repeat eeg today to see if keppra lower dose is controlling seizures (3) Hyponatremia Current Visit: Yes Status: Acute Code(s): E87.1 - HYPO-OSMOLALITY AND HYPONATREMIA SNOMED Code(s): 47278711 Comment: switched to NS from 3% yesterday improved to 132 from 119 at admission check paraneoplastic ab panel serum osm 247, urine osm 531, urine na 113 may suggest siadh tsh and random cortisol normal; will check am cortisol to confirm normal (4) UTI (urinary tract infection) Current Visit: No Status: Acute Comment: e. coli resistant to cipro. cefepime day 5. (5) Breast cancer Current Visit: Yes Status: Acute Code(s): C50.919 - MALIGNANT NEOPLASM OF UNSP SITE OF UNSPECIFIED FEMALE BREAST SNOMED Code(s): 437404324 Comment: conference call with Dr. Rodriguez ([facility]) 12/15 and he reports that cancer is otherwise controlled outside of the brain continue anastrazole s/p herceptin on 12/12
[2017-12-17] MEDS ORDERED: Polyethylene Glycol 3350* 17 GM PACKET PO PRN (08:00)
[2017-12-17] MEDS ORDERED: NS 0.9% 1000 ML* 1,000 ML IV SCH (08:02)
[2017-12-17] MEDS: Cefepime 2 GM in Dextrose(*) 2 GM/50 ML BAG IV SCH ×2 (08:25→19:50)
[2017-12-17] MEDS: CMCS:Anastrozole (NF) 1 MG TAB PO SCH (08:33)
[2017-12-17] MEDS: Potassium Chloride LIQUID* 20 MEQ PACKET PO SCH ×2 (08:33→20:48)
[2017-12-17] MEDS: Omeprazole CAP* 20 MG PO SCH ×2 (08:33→16:26)
[2017-12-17] MEDS: Dexamethasone TAB* 4 MG PO SCH ×3 (08:33→20:48)
[2017-12-17] MEDS ORDERED: NS 0.9% IVPB SCH (09:00)
[2017-12-17] MEDS ORDERED: POTASSIUM CHLORIDE IVPB SCH (09:00)
[2017-12-17] MEDS: levETIRAcetam LIQ* 500 MG/5 ML UDC PO SCH ×2 (09:14→20:48)
[2017-12-18] MEDS: Acyclovir IV(*) 500 MG in NS 0.9% 100 ML* 100 ML IVPB SCH ×3 (00:06→16:05)
--- NOTE | 2017-12-18 00:24 | EEG ---
ELECTROENCEPHALOGRAPHY: DATE OF STUDY: 12/17/17 LOCATION: The patient is an inpatient. ORDERING PHYSICIAN: Mariann Chinchilla MD CLINICAL PROBLEM: This is a 77-year-old woman with history of metastatic breast cancer to the brain who was noted to have subclinical seizures on long- term monitoring several days ago. She had been found confused and down on the floor in her home and was brought to the hospital. She is on Keppra at a low dose secondary to excessive sedation and repeat EEG is requested to evaluate for epileptiform abnormalities or subclinical seizures. MEDICATIONS: The list is incomplete, but includes: 1. Acyclovir. 2. Levetiracetam. REPORT: The background demonstrated diminished organization in terms of anterior to posterior voltage and frequency gradients. The background was characterized by diffuse polymorphic slowing which of mixed frequency in the delta and theta ranges. In addition, there were intermittent high voltage 1 to 2 Hz delta wave forms, which were more diffusely represented and had a triphasic morphology to them. The posterior rhythm was irregular, slow, and not well sustained in the range of 6 Hz. At times, the patient appeared to drowse during the study with some centrally predominant vertex activity and spindle-like activity, but no sustained transition into a sleep state. There continued to be some periods of more focal slowing in the left parieto- occipital region with some associated sharp features, but no definitive discharges. Throughout the recording, there were no definitive epileptiform discharges. CLINICAL IMPRESSION: This is an abnormal waking and drowsy EEG due to the presence of diffuse background slowing, which is often more pronounced in the left parieto- occipital region as well as a slow posterior rhythm and occasional higher voltage delta slowing, which is diffuse in nature. These findings are suggestive of a mild to moderate, nonspecific, diffuse encephalopathy which affects the left parieto-occipital region to a greater degree. There are some continued sharp waveforms in the left occipital region, but these are not definitively epileptiform in nature. There are no seizures noted during the study. [id number]/[facility] #: [id number] [facility]
[2017-12-18] MEDS ORDERED: Furosemide IV* 10 MG/ML 2 ML VIAL (20 MG) IV ONE (01:00)
--- NOTE | 2017-12-18 02:05 | PN ---
NEUROLOGY FOLLOWUP: DATE OF FOLLOWUP: 12/17/17 HISTORY: No acute overnight events. She underwent a repeat EEG this morning, which showed improvement in the previously noted discharges, but there is a significant degree of slowing noted. She remains on lower dose levetiracetam 250 mg twice daily. Her hypertonic saline has been discontinued and her sodium remains low, but improved to 132. I had an extensive discussion with the patient's two children and her neighbor, Valentino, today about the differential diagnosis for her hyponatremia, continued encephalopathy and seizures and different options for moving forward. MEDICATIONS: 1. Tylenol 650 q.4 p.r.n. 2. Acyclovir 500 mg 3 times daily. 3. Arimidex 1 mg daily. 4. Cefepime 2 g twice daily. 5. Dexamethasone 4 mg 3 times daily. 6. Heparin flushes. 7. Levetiracetam 250 mg twice daily. 8. Omeprazole 20 mg twice daily. 9. MiraLAX as needed. 10. Klor-Con 40 mEq twice daily. 11. Normal saline at 200 mL per hour. PHYSICAL EXAMINATION: Vital Signs: Temperature 97.8, blood pressure 144/63, heart rate 83, oxygen saturation 98% on room air. On general examination, she is sitting upright in her bed and sometimes appears to be resting with her eyes closed, but overall today is much more alert than the was yesterday. The redness over her right upper arm is stable. Her heart is in a regular rate and rhythm. Her lungs were clear bilaterally. On neurologic examination, she is able to state that she was in [employer], but named a college when asked to what location she was in. When asked her age, she stated 70 plus some and when asked how many, she stated 7, which would equal her appropriate age. She had some evidence of perseveration when presented with the stroke cards in that she first describes the cookie theft picture, which takes place in a kitchen, and then when presented with objects to name on the opposite side, she stated kitchen several times. She also had some paraphasic errors and what sounded like neologisms when describing the cookie theft picture. She was able to name common frequency objects on the stroke cards. She was able to read from the stroke cards with just a few errors. There was no dysarthria. On cranial nerve testing, her eye movements appear full and conjugate, but she had some difficulty tracking. Her visual fair are difficult to test, but appear full as far as I can tell. Her facial musculature appears symmetric. The palate elevate symmetrically and the tongue is midline. The hearing is intact to voice. On motor testing, she has some approximately grade 4 weakness in her shoulder forward flexion bilaterally. She also has a bit of weakness in her biceps bilaterally, but triceps and handgrip appear to be full. When asked to move her leg, she states that she cannot lift her legs off the bed. She is able to flex and extend her feet and wiggle her toes fully bilaterally. When her legs are passively moved, she expresses pain initially in the popliteal fossa, but then says the leg hurts throughout. She senses noxious stimulation briskly in all 4 extremities. Her reflexes are 2+ in brachioradialis bilaterally, 3+ at the left knee with some crossed adduction, difficult to elicit at the right knee. There is no ankle clonus. Her toes did not appear to be upgoing, but she is very ticklish. REVIEW OF SYSTEMS: She denies any neck pain or back pain. DIAGNOSTIC STUDIES/LAB DATA: Her CBC shows hematocrit of 26 from 30 yesterday and hemoglobin of 9.3 from 10.9 yesterday. Her platelets are 116 today from 120 yesterday. Sodium this morning was 132, then when the hypertonic saline was stopped sodium at 230 just prior to my evaluation, came back at 130. EEG performed this morning as described above. IMPRESSION AND PLAN: A 77-year-old woman with breast cancer, metastatic to the brain, treated with Herceptin who was admitted after being found down at home and was subsequently found to be having subclinical seizures arising from the left occipital lobe. After treatment with benzodiazepines and levetiracetam, the seizure activity appears to have ceased, but she continues to have difficulties with encephalopathy and some apparent aphasia as well. However, she does appear to be improving on a daily basis. She continues on levetiracetam 250 mg twice daily. Of issue also is her hyponatremia, which has been responsive to 3% hypertonic saline, but now that this was discontinued, it has fallen again. I see that Dr. Medley has sent a paraneoplastic panel on her serum, which I agree with. I discussed paraneoplastic syndromes with the family today and expressed that often testing both serum and CSF is more sensitive and specific, but on her admission, a decision was made not to proceed with lumbar puncture, which to the son's recollection was secondary to concerns for possible herniation secondary to her metastatic disease. I discussed treatment with them, which includes treatment of the underlying cancer, which she is receiving, but also can include immunotherapy, typically starting with high dose steroids. If we elected to proceed with this, Decadron would be stopped and she would go on to high-dose Solu-Medrol. I discussed with them as well that the paraneoplastic panel can take 7 to 14 days to return. At this point, given her clinical improvement over the last couple of days, we have elected to continue to monitor her clinically rather than empirically treating with steroids at this point. Her son recalls that when her dexamethasone dose was higher as an outpatient, she was agitated and having difficulty sleeping. She also may have some lower extremity weakness, though she also has some pain in her legs. I would consider MRI of her cervical and thoracic spine if this were to continue to evaluate for any evidence of metastatic disease, which could be influencing her leg strength. Tomorrow, I will plan to discuss with Dr. Garrett what areas were targeted with the gamma knife and we will review her MRI scan with the radiologist if he is available. I will follow up on her as well tomorrow. TIME SPENT: A total of more than 25 minutes was spent in evaluation, counseling and education regarding the differential diagnosis and treatment options. [id number]/[facility] #: [id number] MTDSrikanth
[2017-12-18 05:50] LABS: Hematocrit 28 % (35-47); Mean Corpuscular HGB Conc 36 g/dl (31-36); Mean Corpuscular Hemoglobin 31 pg (27-31); Mean Corpuscular Volume 87 fL (80-97); Mean Platelet Volume 6.3 um3 (7.4-10.4); Platelet Count 129 10^3/ul (150-450); Red Blood Count 3.19 10^6/ul (4.0-5.4); Red Cell Distribution Width 13 % (10.5-15); White Blood Count 5.6 10^3/ul (3.5-10.8)
[2017-12-18 06:05] LABS: EGFR Non-African American 138.7 (>60)
[2017-12-18 06:46] LABS: ABS Basophils 0 10^3/ul (0-0.2); ABS Eosinophils 0 10^3/ul (0-0.6); ABS Lymphocytes 0.6 10^3/ul (1.0-4.8); ABS Monocytes 0.3 10^3/ul (0-0.8); ABS Neutrophils 4.6 10^3/ul (1.5-7.7); ABS Nucleated RBC 0 10^3/ul; Eosinophil % 0 % (0-6); Lymphocyte % 10.9 % (25-47); Nucleated Red Blood Cells % 0
--- NOTE | 2017-12-18 07:11 | PN ---
Subjective Date of Service: 12/18/17 Interval History: EEG yesterday did not show seizures, but was abnormal and showed diffuse slowing. she awakens to voice this morning and is able to tell me she feels "pretty good" but does not know where we are, answers most questions with "okay " but her son and daughter enter the room while I am here and she recognizes them and identifies them immediately. Social History: Unchanged from Admission Past Medical History: Unchanged from Admission Objective Active Medications: Acetaminophen (Tylenol Tab*) 650 mg PO Q4H PRN PRN Reason: FEVER/PAIN Last Admin: 12/13/17 22:14 Dose: 650 mg Albuterol (Ventolin 2.5 Mg/3 Ml Neb.Yusra*) 1.25 mg INH TID PRN PRN Reason: SHORTNESS OF BREATH Anastrozole (Arimidex (Nf)) 1 mg PO DAILY [facility] Last Admin: 12/17/17 08:33 Dose: 1 mg Dexamethasone (Decadron Tab*) 4 mg PO TID [facility] Last Admin: 12/17/17 20:48 Dose: 4 mg Heparin Sodium (Porcine) (Heparin Flush Port (Ivad)) 5 ml FLUSH DAILY PRN; Protocol PRN Reason: NEEDED Cefepime HCl (Maxipime 2 Gm In Dextrose Duplex (*)) 2 gm in 50 mls @ 100 mls/ hr IV 0800,2000 [facility] Last Admin: 12/17/17 19:50 Dose: 100 mls/hr Acyclovir Sodium 500 mg/ (Sodium Chloride) 110 mls @ 110 mls/hr IVPB Q8H [facility] Last Admin: 12/18/17 00:06 Dose: 110 mls/hr Levetiracetam (Keppra Liq*) 250 mg PO BID [facility] Last Admin: 12/17/17 20:48 Dose: 250 mg Omeprazole (Prilosec Cap*) 20 mg PO BID@0730,1630 [facility] Last Admin: 12/17/17 16:26 Dose: 20 mg Polyethylene Glycol/Electrolytes (Miralax*) 17 gm PO DAILY PRN PRN Reason: CONSTIPATION Potassium Chloride (Klor-Con Liquid*) 40 meq PO BID [facility] Last Admin: 12/17/17 20:48 Dose: 40 meq Vital Signs - 8 hr 12/17/17 12/17/17 12/18/17 23:30 23:43 00:00 Temperature 98 F Pulse Rate 69 72 Respiratory 16 18 Rate Blood Pressure (mmHg) O2 Sat by Pulse 96 96 Oximetry 12/18/17 12/18/17 12/18/17 00:01 00:30 01:00 Temperature Pulse Rate 73 66 80 Respiratory 20 15 23 Rate Blood Pressure 148/80 163/62 (mmHg) O2 Sat by Pulse 96 95 95 Oximetry 12/18/17 12/18/17 12/18/17 01:30 02:00 02:30 Temperature Pulse Rate 83 73 68 Respiratory 17 19 15 Rate Blood Pressure 130/69 (mmHg) O2 Sat by Pulse 95 95 94 Oximetry 12/18/17 12/18/17 12/18/17 03:00 03:01 03:30 Temperature Pulse Rate 76 72 65 Respiratory 19 21 16 Rate Blood Pressure 165/86 (mmHg) O2 Sat by Pulse 95 96 95 Oximetry 12/18/17 12/18/17 12/18/17 04:00 04:01 04:30 Temperature 97.6 F Pulse Rate 59 64 54 Respiratory 12 16 15 Rate Blood Pressure 154/75 (mmHg) O2 Sat by Pulse 95 96 96 Oximetry 12/18/17 12/18/17 12/18/17 05:00 05:01 05:30 Temperature Pulse Rate 58 62 60 Respiratory 12 18 18 Rate Blood Pressure 134/79 (mmHg) O2 Sat by Pulse 96 96 96 Oximetry 12/18/17 06:00 Temperature Pulse Rate 69 Respiratory 17 Rate Blood Pressure 144/61 (mmHg) O2 Sat by Pulse 96 Oximetry Oxygen Devices in Use Now: None Appearance: alerts to voice, nontoxic, falls asleep a few times through my exam Eyes: No Scleral Icterus Ears/Nose/Mouth/Throat: NL Teeth, Lips, Gums, Mucous Membranes Moist Neck: NL Appearance and Movements; NL JVP Respiratory: Symmetrical Chest Expansion and Respiratory Effort, Clear to Auscultation Cardiovascular: NL Sounds; No Murmurs; No JVD, RRR, - - port right chest wall Abdominal: NL Sounds; No Tenderness; No Distention, No Hepatosplenomegaly Lymphatic: No Cervical Adenopathy Extremities: No Edema Skin: No Rash or Ulcers Neurological: - - oriented to person only, follows simple commands but cannot follow complex commands. moves all 4 extremities, upper extremity strength 5/5 , does not flex hips but moves ankles, okay passive range of motion. Result Diagrams: 12/18/17 05:30 12/18/17 05:30 Additional Lab and Data: Lab Results 12/13/17 12/13/17 12/13/17 Range/Units 10:04 10:04 10:04 WBC 5.9 (3.5-10.8) 10^3/ul RBC 4.61 (4.0-5.4) 10^6/ul Hgb 14.3 (12.0-16.0) g/dl Hct 40 (35-47) % MCV 87 (80-97) fL MCH 31 (27-31) pg MCHC 36 (31-36) g/dl RDW 13 (10.5-15) % Plt Count 158 (150-450) 10^3/ul MPV 6 L (7.4-10.4) um3 Neut % (Auto) 86.6 H (38-83) % Lymph % (Auto) 8.7 L (25-47) % [place] % (Auto) 4.4 (0-7) % Eos % (Auto) 0.1 (0-6) % Baso % (Auto) 0.2 (0-2) % Absolute Neuts (auto) 5.2 (1.5-7.7) 10^3/ul Absolute Lymphs (auto) 0.5 L (1.0-4.8) 10^3/ul Absolute Monos (auto) 0.3 (0-0.8) 10^3/ul Absolute Eos (auto) 0 (0-0.6) 10^3/ul Absolute Basos (auto) 0 (0-0.2) 10^3/ul Absolute Nucleated RBC 0 10^3/ul Nucleated RBC % 0.1 INR (Anticoag Therapy) 0.82 (0.77-1.02) Sodium 119 L* (133-145) mmol/L Potassium 3.4 L (3.5-5.0) mmol/L Chloride 78 L (101-111) mmol/L Carbon Dioxide 31 (22-32) mmol/L Anion Gap 10 (2-11) mmol/L BUN 18 (6-24) mg/dL Creatinine 0.52 (0.51-0.95) mg/dL Est GFR ( Amer) 147.1 (>60) Est GFR (Non-Af Amer) 114.3 (>60) BUN/Creatinine Ratio 34.6 H (8-20) Glucose 96 (70-100) mg/dL Lactic Acid (0.5-2.0) mmol/L Calcium 9.0 (8.6-10.3) mg/dL Magnesium 1.8 L (1.9-2.7) mg/dL Total Bilirubin 1.10 H (0.2-1.0) mg/dL AST 29 (13-39) U/L ALT 41 (7-52) U/L Alkaline Phosphatase 45 (34-104) U/L Ammonia (16-53) mol/L Total Creatine Kinase 198 (10-223) U/L Troponin I 0.03 (<0.04) ng/mL Total Protein 6.2 L (6.4-8.9) g/dL Albumin 3.7 (3.2-5.2) g/dL Globulin 2.5 (2-4) g/dL Albumin/Globulin Ratio 1.5 (1-3) TSH 0.36 (0.34-5.60) mcIU/mL Cortisol 34.38 mcg/dL Salicylates < 2.50 (<30) mg/dL Acetaminophen < 15 mcg/mL Serum Alcohol < 10 (<10) mg/dL 12/13/17 12/13/17 Range/Units 10:04 10:04 WBC (3.5-10.8) 10^3/ul RBC (4.0-5.4) 10^6/ul Hgb (12.0-16.0) g/dl Hct (35-47) % MCV (80-97) fL MCH (27-31) pg MCHC (31-36) g/dl RDW (10.5-15) % Plt Count (150-450) 10^3/ul MPV (7.4-10.4) um3 Neut % (Auto) (38-83) % Lymph % (Auto) (25-47) % [place] % (Auto) (0-7) % Eos % (Auto) (0-6) % Baso % (Auto) (0-2) % Absolute Neuts (auto) (1.5-7.7) 10^3/ul Absolute Lymphs (auto) (1.0-4.8) 10^3/ul Absolute Monos (auto) (0-0.8) 10^3/ul Absolute Eos (auto) (0-0.6) 10^3/ul Absolute Basos (auto) (0-0.2) 10^3/ul Absolute Nucleated RBC 10^3/ul Nucleated RBC % INR (Anticoag Therapy) (0.77-1.02) Sodium (133-145) mmol/L Potassium (3.5-5.0) mmol/L Chloride (101-111) mmol/L Carbon Dioxide (22-32) mmol/L Anion Gap (2-11) mmol/L BUN (6-24) mg/dL Creatinine (0.51-0.95) mg/dL Est GFR ( Amer) (>60) Est GFR (Non-Af Amer) (>60) BUN/Creatinine Ratio (8-20) Glucose (70-100) mg/dL Lactic Acid 2.4 H* (0.5-2.0) mmol/L Calcium (8.6-10.3) mg/dL Magnesium (1.9-2.7) mg/dL Total Bilirubin (0.2-1.0) mg/dL AST (13-39) U/L ALT (7-52) U/L Alkaline Phosphatase (34-104) U/L Ammonia 28 (16-53) mol/L Total Creatine Kinase (10-223) U/L Troponin I (<0.04) ng/mL Total Protein (6.4-8.9) g/dL Albumin (3.2-5.2) g/dL Globulin (2-4) g/dL Albumin/Globulin Ratio (1-3) TSH (0.34-5.60) mcIU/mL Cortisol mcg/dL Salicylates (<30) mg/dL Acetaminophen mcg/mL Serum Alcohol (<10) mg/dL Microbiology and Other Data: Microbiology 12/14/17 07:30 Legionella Urinary Antigen - Final Urine Negative Legionella Antigen Streptococcus pneumoniae Ag Screen - Final Negative S. 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 Found to have subclinical seizures, UTI, hyponatremia. - Patient Problems (1) Encephalopathy acute Current Visit: Yes Status: Acute Code(s): G93.40 - ENCEPHALOPATHY, UNSPECIFIED SNOMED Code(s): 45692753 Comment: mild improvement each day with treatment of hyponatremia, uti, seizures, and possible encephalitis, but she remains far from her baseline. she also has marked vasogenic edema which is likely contributing I've discussed her prognosis at length with her healthcare proxy, Valentino, including the possibility that she may not recover from this neurologically. He understands and wants to prioritize her having quality time with him and her family. Still, her mental status improvement may lag after the underlying abnormalities are treated (2) Seizure Current Visit: Yes Status: Acute Code(s): R56.9 - UNSPECIFIED CONVULSIONS SNOMED Code(s): 73488218 Comment: repeat eeg yesterday did not show any seizure activity on keppra 250mg q12 at admission, she underwent video eeg which showed frequent subclinical seizures. she was loaded with keppra 1000mg and ativan 2mg, which was very sedating. at this point, the 250mg q12 seems to be controlling seizures and allowing her to wake up. (3) Hyponatremia Current Visit: Yes Status: Acute Code(s): E87.1 - HYPO-OSMOLALITY AND HYPONATREMIA SNOMED Code(s): 74523447 Comment: etiology is unclear, now falling again off 3% saline. resume NS today. check paraneoplastic ab panel serum osm 247, urine osm 531, urine na 113 may suggest siadh low am cortisol is nondiagnostic in the setting of decadron treatment (4) UTI (urinary tract infection) Current Visit: No Status: Acute Comment: e. coli resistant to cipro. cefepime day 6. stop tomorrow. (5) Breast cancer Current Visit: Yes Status: Acute Code(s): C50.919 - MALIGNANT NEOPLASM OF UNSP SITE OF UNSPECIFIED FEMALE BREAST SNOMED Code(s): 586312825 Comment: conference call with Dr. Rodriguez ([facility]) 12/15 and he reports that cancer is otherwise controlled outside of the brain case discussed with Dr. Garrett as well; no current role for radiation acutely continue anastrazole s/p herceptin on 12/12 Status and Disposition: OOB today
[2017-12-18] MEDS: NS 0.9% 1000 ML* 1,000 ML IV SCH ×2 (07:46→15:04)
[2017-12-18] MEDS: Cefepime 2 GM in Dextrose(*) 2 GM/50 ML BAG IV SCH ×2 (07:51→20:08)
[2017-12-18] MEDS: Omeprazole CAP* 20 MG PO SCH ×2 (07:51→17:18)
[2017-12-18] MEDS: Potassium Chloride LIQUID* 20 MEQ PACKET PO SCH ×2 (07:51→20:05)
[2017-12-18] MEDS: Dexamethasone TAB* 4 MG PO SCH ×3 (07:57→20:09)
[2017-12-18] MEDS: levETIRAcetam LIQ* 500 MG/5 ML UDC PO SCH ×2 (12:35→20:09)
[2017-12-18] MEDS: CMCS:Anastrozole (NF) 1 MG TAB PO SCH (12:35)
[2017-12-18 15:14] LABS: EGFR Non-African American 109.5 (>60)
[2017-12-18] MEDS: Sodium Chloride TAB* 1 GM PO SCH ×2 (17:40→20:19)
[2017-12-19] MEDS: Acyclovir IV(*) 500 MG in NS 0.9% 100 ML* 100 ML IVPB SCH ×3 (01:49→17:24)
--- NOTE | 2017-12-19 03:47 | PN ---
NEUROLOGY PROGRESS NOTE: DATE OF FOLLOWUP: 12/18/17 HISTORY: No acute overnight events. Mrs. Garcias is improved today compared to yesterday. Her daughter states that she was awake when she entered the room around 8 a.m. this morning and was quite coherent, talking about bank accounts. She did drift off to sleep about an hour and half prior to my arrival and was napping pretty soundly when I came in, but then was able to wake up and participate in the exam relatively easily. She denies any significant pain today. In speaking with her nurse, she is requiring significant assistance to move from the bed to the chair and her nurse recalls that the day of her admission, she was standing on her own at the side of the bed. MEDICATIONS: Include: 1. Acyclovir 500 mg q.8 hours, which was started on 12/14/17. 2. Arimidex 1 mg daily. 3. Cefepime 2 g twice daily. 4. Decadron 4 mg 3 times daily. 5. Levetiracetam 250 mg twice daily. 6. Prilosec 20 mg twice daily. 7. Normal saline at 175 mL per hour. PHYSICAL EXAMINATION: Vital Signs: Temperature 97.7, blood pressure 145/63, heart rate 88, oxygen saturation 98% on room air. On general examination, she is in no acute distress. She appears much more alert and able to participate today than she did yesterday. She has swelling over her right upper arm as well as ecchymosis and some bruising over her left upper arm as well. Bruising on her knees is improving. She has some very fine intermittent twitching of the left side of her face. On neurologic examination, she stated that she was in [facility]. She stated that the date was 05/17/80. She was able to explain the cookie theft picture and name objects on the stroke cards much more easily than yesterday, but still was not able to come up with more low frequency items. She was able to read the phrases on the stroke card more easily with only a few errors as well. On cranial nerve exam, her versions are full without any nystagmus. Her face is symmetric and full strength. The upper extremities are antigravity and were not formally retested today. She is seated in the chair at her bedside and is not able to fully lift either leg off the chair. She is able to lock both knees, but her strength in her knee extensors is about a grade 4+ and the knee flexors are about 4. The ankle dorsiflexors are 4+. Her reflexes in the upper extremities were difficult to elicit today and in the knees, I was not able to elicit any reflex in the right knee, but the left knee was trace to 1+ and absent ankle jerks with downgoing toes. She does not have any sensory deficits. She denies any neck or back pain. DATA: Her hematocrit is 28 from 26 yesterday with a hemoglobin of 10 and platelets of 129. Her sodium is down to 127 at 2:50 p.m. An attempt was made to fluid restrict of IV fluids and her sodium had dropped further and so normal saline was restarted this morning. IMPRESSION AND PLAN: A 77-year-old woman with breast cancer metastatic to the brain, treated with Herceptin, admitted after being found down at home and subsequently found to be having subclinical seizures arising from the left occipital lobe. She now remains on levetiracetam 250 mg twice daily. Her mental status continues to improve on a day-to-day basis. She continues to have hyponatremia. She also appears to have lower extremity weakness, which is new from her admission. While some of this could be related to her mental status and effort related and some of it also could be secondary to deconditioning, other considerations would be meningeal spread or metastasis to leptomeninges or the dura or her spinal cord itself, though I note that she does not have any pain. Another possibility could be a critical illness polyneuropathy or myopathy. I think we should begin having PT see her and we could consider further workup of this, which could include imaging and/or nerve conduction studies going forward. I did discuss with Dr. Garrett this afternoon that all five metastatic lesions in her brain were treated with gamma-knife and we discussed that the area of FLAIR abnormality in her left temporal lobe is highly unlikely to be secondary to any side effects from gamma-knife. As such, the differentials for that lesion would include postictal edema secondary to seizures, infectious or autoimmune encephalitis and probably less likely metastasis related to her breast cancer. 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 [id number]/CPS #: [id number] ELSY
[2017-12-19 05:16] LABS: Hematocrit 29 % (35-47); Hemoglobin 10.3 g/dl (12.0-16.0); Mean Corpuscular HGB Conc 36 g/dl (31-36); Mean Corpuscular Hemoglobin 31 pg (27-31); Mean Corpuscular Volume 87 fL (80-97); Mean Platelet Volume 6.2 um3 (7.4-10.4); Platelet Count 140 10^3/ul (150-450); Red Blood Count 3.35 10^6/ul (4.0-5.4); Red Cell Distribution Width 13 % (10.5-15); White Blood Count 6.2 10^3/ul (3.5-10.8)
[2017-12-19 05:32] LABS: EGFR Non-African American 146.3 (>60)
[2017-12-19 05:50] LABS: ABS Basophils 0 10^3/ul (0-0.2); ABS Eosinophils 0 10^3/ul (0-0.6); ABS Lymphocytes 0.7 10^3/ul (1.0-4.8); ABS Monocytes 0.3 10^3/ul (0-0.8); ABS Neutrophils 5.1 10^3/ul (1.5-7.7); ABS Nucleated RBC 0 10^3/ul; Eosinophil % 0 % (0-6); Lymphocyte % 11.8 % (25-47); Nucleated Red Blood Cells % 0.1
[2017-12-19] MEDS: Cefepime 2 GM in Dextrose(*) 2 GM/50 ML BAG IV SCH (08:23)
[2017-12-19] MEDS: Potassium Chloride LIQUID* 20 MEQ PACKET PO SCH ×2 (08:54→22:19)
[2017-12-19] MEDS: Omeprazole CAP* 20 MG PO SCH ×3 (08:56→17:24)
[2017-12-19] MEDS: Dexamethasone TAB* 4 MG PO SCH ×3 (08:56→22:18)
[2017-12-19] MEDS: levETIRAcetam LIQ* 500 MG/5 ML UDC PO SCH ×2 (08:56→22:18)
[2017-12-19] MEDS: Sodium Chloride TAB* 1 GM PO SCH ×3 (08:57→22:19)
[2017-12-19] MEDS: CMCS:Anastrozole (NF) 1 MG TAB PO SCH (09:00)
[2017-12-19] MEDS: amLODIPine TAB* 5 MG PO SCH (12:16)
[2017-12-19] MEDS: Ferrous Sulfate TAB* 325 MG PO SCH (12:16)
[2017-12-19] MEDS ORDERED: Magnesium Sulf 4 GM/100 ML IV* 4,000 MG/100 ML BAG IVPB ONE (15:30)
[2017-12-19] MEDS: Docusate CAP* 100 MG PO PRN (17:24)
[2017-12-19] MEDS ORDERED: Gadoteridol* (CONTRAST) 279.3 MG/ML 10 ML IV ONE (18:08)
--- NOTE | 2017-12-19 21:56 | RAD ---
INDICATION: Worsening bilateral leg weakness in a woman with a history of breast cancer. 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 After the administration of 13 mL of ProHance sagittal and axial images were acquired. FINDINGS: The spinal cord terminates at the L1 level. There are no intrinsic abnormalities of the visualized cord. The lower thoracic and lumbar vertebrae are normally aligned. Vertebral body height is adequately maintained and bony signal is within normal limits. On the sagittal view images the intervertebral discs maintain appropriate T2 signal and adequate maintenance of height. Adjacent to the T11 nerve roots there are well-circumscribed T2 bright foci (axial image 14) each measuring about 6 mm that exhibits a small degree of enhancement when comparing the pre and post axial images (image 14 of 40). Multiple T2 bright renal cysts are incidentally noted. Axial view images: Less otherwise specified below there is no significant central canal stenosis or neural foraminal stenosis. T12-L1:There is no significant central canal or neural foraminal stenoses. L1-L2: There is no significant central canal or neural foraminal stenoses. L2-L3: There is no significant central canal or neural foraminal stenoses. L3-L4: There is no significant central canal or neural foraminal stenoses. L4-L5: There is no significant central canal or neural foraminal stenoses. L5-S1: There is no significant central canal or neural foraminal stenoses. IMPRESSION: 1. There is no significant intervertebral disc disease resulting in significant central canal or neural foraminal stenosis. 2. Enhancing 6 mm foci are noted at the T11 nerve roots exhibiting a small amount of enhancement. These are not characteristic of metastatic foci. Nerve sheath lesions could be considered.
[2017-12-19] MEDS: Senna TAB PO PRN (22:25)
--- NOTE | 2017-12-19 22:32 | PN ---
Subjective Date of Service: 12/19/17 Interval History: . saw patient at bedside discussed case with son, who is leaving for [place] omorrow but will return by Monday. Went over major aspects of this case: seizures, hyponatremia and overall situation of metastatic breast cancer with [employer]-active disease We concluded she WILL need a local oncologist and I will place a consult tomorrow 12/20/17. At this time, patient is comfortable and it seems her hyponatremia and seizures are controlled. . Social History: Unchanged from Admission Past Medical History: Unchanged from Admission Objective Active Medications: . Acetaminophen (Tylenol Tab*) 650 mg PO Q4H PRN PRN Reason: FEVER/PAIN Last Admin: 12/13/17 22:14 Dose: 650 mg Albuterol (Ventolin 2.5 Mg/3 Ml Neb.Yusra*) 1.25 mg INH TID PRN PRN Reason: SHORTNESS OF BREATH Anastrozole (Arimidex (Nf)) 1 mg PO DAILY [facility] Last Admin: 12/19/17 09:00 Dose: 1 mg Dexamethasone (Decadron Tab*) 4 mg PO TID [facility] Last Admin: 12/19/17 22:18 Dose: 4 mg Docusate Sodium (Colace Cap*) 100 mg PO BID PRN PRN Reason: CONSTIPATION Last Admin: 12/19/17 17:24 Dose: 100 mg Heparin Sodium (Porcine) (Heparin Flush Port (Ivad)) 5 ml FLUSH DAILY PRN; Protocol PRN Reason: NEEDED Cefepime HCl (Maxipime 2 Gm In Dextrose Duplex (*)) 2 gm in 50 mls @ 100 mls/ hr IV 0800,2000 [facility] Last Admin: 12/19/17 08:23 Dose: 100 mls/hr Acyclovir Sodium 500 mg/ (Sodium Chloride) 110 mls @ 110 mls/hr IVPB Q8H [facility] Last Admin: 12/19/17 17:24 Dose: 110 mls/hr Levetiracetam (Keppra Liq*) 250 mg PO BID [facility] Last Admin: 12/19/17 22:18 Dose: 250 mg Omeprazole (Prilosec Cap*) 20 mg PO BID@0730,1630 [facility] Last Admin: 12/19/17 17:24 Dose: 20 mg Polyethylene Glycol/Electrolytes (Miralax*) 17 gm PO DAILY PRN PRN Reason: CONSTIPATION Potassium Chloride (Klor-Con Liquid*) 40 meq PO BID [facility] Last Admin: 12/19/17 22:19 Dose: 40 meq Senna (Senokot Tab*) 2 tab PO BEDTIME PRN PRN Reason: CONSTIPATION Last Admin: 12/19/17 22:25 Dose: 2 tab Sodium Chloride (Sodium Chloride Tab*) 1 gm PO TID [facility] Last Admin: 12/19/17 22:19 Dose: 1 gm . Oxygen Devices in Use Now: None Appearance: elderly, frail woman, NAD now Eyes: No Scleral Icterus Ears/Nose/Mouth/Throat: Clear Oropharnyx Neck: NL Appearance and Movements; NL JVP Respiratory: Symmetrical Chest Expansion and Respiratory Effort Cardiovascular: NL Sounds; No Murmurs; No JVD Abdominal: NL Sounds; No Tenderness; No Distention Lymphatic: No Cervical Adenopathy Extremities: No Edema Skin: No Rash or Ulcers Neurological: Alert and Oriented x 3 - a bit confused at times. tangential. perseverates. Lines/Tubes/Other Access: Clean, Dry and Intact Peripheral IV Nutrition: Taking PO's Result Diagrams: 12/19/17 05:04 12/19/17 05:04 Additional Lab and Data: Lab Results 12/13/17 12/13/17 12/13/17 Range/Units 10:04 10:04 10:04 WBC 5.9 (3.5-10.8) 10^3/ul RBC 4.61 (4.0-5.4) 10^6/ul Hgb 14.3 (12.0-16.0) g/dl Hct 40 (35-47) % MCV 87 (80-97) fL MCH 31 (27-31) pg MCHC 36 (31-36) g/dl RDW 13 (10.5-15) % Plt Count 158 (150-450) 10^3/ul MPV 6 L (7.4-10.4) um3 Neut % (Auto) 86.6 H (38-83) % Lymph % (Auto) 8.7 L (25-47) % [place] % (Auto) 4.4 (0-7) % Eos % (Auto) 0.1 (0-6) % Baso % (Auto) 0.2 (0-2) % Absolute Neuts (auto) 5.2 (1.5-7.7) 10^3/ul Absolute Lymphs (auto) 0.5 L (1.0-4.8) 10^3/ul Absolute Monos (auto) 0.3 (0-0.8) 10^3/ul Absolute Eos (auto) 0 (0-0.6) 10^3/ul Absolute Basos (auto) 0 (0-0.2) 10^3/ul Absolute Nucleated RBC 0 10^3/ul Nucleated RBC % 0.1 INR (Anticoag Therapy) 0.82 (0.77-1.02) Sodium 119 L* (133-145) mmol/L Potassium 3.4 L (3.5-5.0) mmol/L Chloride 78 L (101-111) mmol/L Carbon Dioxide 31 (22-32) mmol/L Anion Gap 10 (2-11) mmol/L BUN 18 (6-24) mg/dL Creatinine 0.52 (0.51-0.95) mg/dL Est GFR ( Amer) 147.1 (>60) Est GFR (Non-Af Amer) 114.3 (>60) BUN/Creatinine Ratio 34.6 H (8-20) Glucose 96 (70-100) mg/dL Lactic Acid (0.5-2.0) mmol/L Calcium 9.0 (8.6-10.3) mg/dL Magnesium 1.8 L (1.9-2.7) mg/dL Total Bilirubin 1.10 H (0.2-1.0) mg/dL AST 29 (13-39) U/L ALT 41 (7-52) U/L Alkaline Phosphatase 45 (34-104) U/L Ammonia (16-53) mol/L Total Creatine Kinase 198 (10-223) U/L Troponin I 0.03 (<0.04) ng/mL Total Protein 6.2 L (6.4-8.9) g/dL Albumin 3.7 (3.2-5.2) g/dL Globulin 2.5 (2-4) g/dL Albumin/Globulin Ratio 1.5 (1-3) TSH 0.36 (0.34-5.60) mcIU/mL Cortisol 34.38 mcg/dL Salicylates < 2.50 (<30) mg/dL Acetaminophen < 15 mcg/mL Serum Alcohol < 10 (<10) mg/dL 12/13/17 12/13/17 Range/Units 10:04 10:04 WBC (3.5-10.8) 10^3/ul RBC (4.0-5.4) 10^6/ul Hgb (12.0-16.0) g/dl Hct (35-47) % MCV (80-97) fL MCH (27-31) pg MCHC (31-36) g/dl RDW (10.5-15) % Plt Count (150-450) 10^3/ul MPV (7.4-10.4) um3 Neut % (Auto) (38-83) % Lymph % (Auto) (25-47) % [place] % (Auto) (0-7) % Eos % (Auto) (0-6) % Baso % (Auto) (0-2) % Absolute Neuts (auto) (1.5-7.7) 10^3/ul Absolute Lymphs (auto) (1.0-4.8) 10^3/ul Absolute Monos (auto) (0-0.8) 10^3/ul Absolute Eos (auto) (0-0.6) 10^3/ul Absolute Basos (auto) (0-0.2) 10^3/ul Absolute Nucleated RBC 10^3/ul Nucleated RBC % INR (Anticoag Therapy) (0.77-1.02) Sodium (133-145) mmol/L Potassium (3.5-5.0) mmol/L Chloride (101-111) mmol/L Carbon Dioxide (22-32) mmol/L Anion Gap (2-11) mmol/L BUN (6-24) mg/dL Creatinine (0.51-0.95) mg/dL Est GFR ( Amer) (>60) Est GFR (Non-Af Amer) (>60) BUN/Creatinine Ratio (8-20) Glucose (70-100) mg/dL Lactic Acid 2.4 H* (0.5-2.0) mmol/L Calcium (8.6-10.3) mg/dL Magnesium (1.9-2.7) mg/dL Total Bilirubin (0.2-1.0) mg/dL AST (13-39) U/L ALT (7-52) U/L Alkaline Phosphatase (34-104) U/L Ammonia 28 (16-53) mol/L Total Creatine Kinase (10-223) U/L Troponin I (<0.04) ng/mL Total Protein (6.4-8.9) g/dL Albumin (3.2-5.2) g/dL Globulin (2-4) g/dL Albumin/Globulin Ratio (1-3) TSH (0.34-5.60) mcIU/mL Cortisol mcg/dL Salicylates (<30) mg/dL Acetaminophen mcg/mL Serum Alcohol (<10) mg/dL Microbiology and Other Data: Microbiology 12/14/17 07:30 Legionella Urinary Antigen - Final Urine Negative Legionella Antigen Streptococcus pneumoniae Ag Screen - Final Negative S. pneumo Antigen 12/13/17 13:30 Nasal Screen MRSA (PCR)(ESTELITA) - Final Nasal Mrsa Not Detected 12/13/17 13:30 Influenza Types A,B Antigen (ESTELITA) - Final Nasal Specimen received for Influenza A/B Molecular testing Assess/Plan/Problems-Billing . 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 Found to have subclinical seizures, UTI, hyponatremia. - Patient Problems (1) Encephalopathy acute Current Visit: Yes Status: Acute Code(s): G93.40 - ENCEPHALOPATHY, UNSPECIFIED SNOMED Code(s): 50954558 Comment: mild improvement each day with treatment of hyponatremia, uti, seizures, and possible encephalitis, but she remains far from her baseline. she also has marked vasogenic edema which is likely contributing I've discussed her prognosis at length with her healthcare proxy, Valentino, including the possibility that she may not recover from this neurologically. He understands and wants to prioritize her having quality time with him and her family. 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 - She was loaded with keppra 1000mg and ativan 2 mg, which was very sedating. - Currently, Keppra 250mg q12 seems to be controlling seizures without too much sedation (4) UTI (urinary tract infection) Current Visit: No Status: Acute Comment: - E. Coli resistant to Cipro - Finished cefepime course (5) Breast cancer Current Visit: Yes Status: Acute Code(s): C50.919 - MALIGNANT NEOPLASM OF UNSP SITE OF UNSPECIFIED FEMALE BREAST Comment: - conference call with Dr. Rodriguez ([facility] [facility]) on 12/15 and he reports that cancer is otherwise controlled outside of the brain - case was discussed with Dr. Garrett as well; no current role for radiation acutely - continue anastrazole - s/p herceptin on 12/12 Status and Disposition: OOB with PT INPATIENT CASE
[2017-12-20] MEDS: Cefepime 2 GM in Dextrose(*) 2 GM/50 ML BAG IV SCH (00:10)
[2017-12-20] MEDS: Acyclovir IV(*) 500 MG in NS 0.9% 100 ML* 100 ML IVPB SCH ×3 (00:44→17:23)
--- NOTE | 2017-12-20 07:35 | RAD ---
Edited for charges. HISTORY: Breast cancer, metastatic to the brain, worsening bilateral leg weakness COMPARISONS: None TECHNIQUE: The following sequences were obtained of the cervical and upper thoracic spine, through T9: Sagittal and axial T1- and T2-weighted images, coronal T2-weighted images,. Additionally, axial and sagittal T1 weighted images were obtained after contrast enhancement with a gadolinium-based intravenous contrast agent.. FINDINGS: BRAIN AND SPINAL CORD: The visualized spinal cord is normal in caliber, position , and signal intensity. The visualized portion of the brain is unremarkable. The cerebellar tonsils are normal in position. ALIGNMENT: The alignment is normal. VERTEBRAL BODIES: There is multilevel anterolateral marginal osteophyte formation. The vertebral bodies are preserved in height. On sagittal image 7 and axial image 15 , there is a 1 cm lesion in the periphery of T1 on the right. The imaging characteristics are suggestive of atypical hemangioma. JOINTS: There is osteoarthritis of the costovertebral articulations. MUSCULATURE: Unremarkable INTERVERTEBRAL DISCS: There is diffuse loss of intervertebral disc height and T2 signal throughout the spine. AXIAL IMAGES: On axial images, there is severe left-sided neural foraminal narrowing at C3-C4 , C4-C5, and C5-C6 and to lesser extent at C6-C7. Perineural root sleeve cysts are noted. SOFT TISSUES: The visualized soft tissues of the neck are unremarkable. OTHER: There is no abnormal enhancement. IMPRESSION: 1. DEGENERATIVE DISC DISEASE AND OSTEOARTHRITIS OF THE CERVICAL AND UPPER THORACIC SPINE. 2. THERE IS MULTILEVEL NEURAL FORAMINAL NARROWING ALONG THE UPPER CERVICAL SPINE, GREATER ON THE LEFT THAN ON THE RIGHT. THERE IS NO SIGNIFICANT CENTRAL CANAL STENOSIS. 3. 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 THERE IS NO EVIDENCE OF EPIDURAL EXTENSION OF TUMOR. . MTDD
[2017-12-20 08:00] LABS: EGFR Non-African American 142.4 (>60)
[2017-12-20] MEDS ORDERED: NS 0.9% 100 ML* 100 ML ONE (09:45)
[2017-12-20] MEDS: CMCS:Anastrozole (NF) 1 MG TAB PO SCH (09:54)
[2017-12-20] MEDS: levETIRAcetam LIQ* 500 MG/5 ML UDC PO SCH ×2 (09:55→21:21)
[2017-12-20] MEDS: Sodium Chloride TAB* 1 GM PO SCH ×3 (09:56→21:21)
[2017-12-20] MEDS: Dexamethasone TAB* 4 MG PO SCH ×3 (09:56→21:21)
[2017-12-20] MEDS: Omeprazole CAP* 20 MG PO SCH ×2 (11:32→17:23)
[2017-12-20] MEDS: Potassium Chloride LIQUID* 20 MEQ PACKET PO SCH ×2 (11:33→21:21)
--- NOTE | 2017-12-20 12:28 | PN ---
NEUROLOGY PROGRESS NOTE: DATE OF FOLLOWUP: 12/19/17 HISTORY: No acute overnight events. Her son was at the bedside this evening when I visited. He reported that she had a really good morning and mentally was close to normal, but since lunch time she has been dwindling and now has been talking a lot about a 4-day test that he is not sure what she is referring to. She sounds quite perseverative this evening. She again denies any pain including in her neck or back. She worked with physical therapy today, but states she is quite weak and needed a lot of help. She was able to get to a standing position, but apparently then needed assistance to get back into bed and was not able to walk. MEDICATIONS: Include: 1. Acyclovir 500 mg q.8 h. 2. Arimidex 1 mg daily. 3. Cefepime 2 g q.12 h. 4. Dexamethasone 4 mg 3 times daily. 5. Keppra 250 mg twice daily. PHYSICAL EXAMINATION: Vital Signs: Temperature is 97.8, blood pressure 131/66 , heart rate 85, oxygen saturation 98% on room air. On general examination, she is lying in her hospital bed in no acute distress. Her heart is in a regular rate and rhythm. Her lungs are clear to auscultation anteriorly. The ecchymoses and swelling in her upper extremities appear improved today. On neurologic exam, she is aware she is in the hospital. She stated the date was 3 days before passover and when prompted further for the date, she stated it was 12/23/17. She is able to state her date of and full name. She was able to name more objects on the stroke cards, but again was not able to come up with the word hammock. Her speech is clear. Versions are full without nystagmus. Negron are full to confrontation. Facial sensation and musculature is both symmetric. On focused exam of her lower extremities, she is not able to lift either leg up off the bed while lying flat. She had some difficulty cooperating with more formal strength testing in her distal lower extremities, but her ankle dorsiflexion is at least grade 3+, closer to 4. Her reflexes are 2+ in the upper extremities and hyporeflexic in the lower extremities except for a trace to 1+ knee jerk on the left. Her toes are mute to downgoing. LABORATORY DATA: Her sodium is 129 today. Her hemoglobin is 10.3 and hematocrit stable at 29 with slightly improved platelet count of 140,000. IMPRESSION: This is a 77-year-old woman with a history of breast cancer with metastatic lesions to the brain, status post gamma knife surgery who has been receiving Herceptin and presented last week with partial status epilepticus arising from the left posterior quadrant. Her mental status has been improving on a daily basis, but there is consideration for a paraneoplastic syndrome underlying her hyponatremia as well as her acute onset seizures. Serum paraneoplastic panel is pending. Since her mental status has been recovering, it has become evident that she also has new lower extremity weakness. Differential for this would include metastatic spread of her cancer to the spinal cord or dura or vertebrae. Perhaps against this possibility is the fact that she does not have any pain or upper motor neuron signs. In addition, other considerations would be critical illness myopathy or polyneuropathy. Deconditioning and her mental status affecting effort are also possibilities. I would like to obtain MRI scan of her spine in order to further evaluate for the possibility of any metastatic lesions. We will likely also proceed with nerve conduction studies and EMG for further evaluation as well. She has been evaluated by Physical Therapy and I appreciate their input as well. [id number]/[facility] #: [id number] ELSY
--- NOTE | 2017-12-20 16:05 | PN ---
Subjective Date of Service: 12/20/17 Interval History: No pain. C/O weakness of legs. Appetite fair. Social History: Unchanged from Admission Past Medical History: Unchanged from Admission Objective Active Medications: Acetaminophen (Tylenol Tab*) 650 mg PO Q4H PRN PRN Reason: FEVER/PAIN Last Admin: 12/13/17 22:14 Dose: 650 mg Albuterol (Ventolin 2.5 Mg/3 Ml Neb.Yusra*) 1.25 mg INH TID PRN PRN Reason: SHORTNESS OF BREATH Anastrozole (Arimidex (Nf)) 1 mg PO DAILY [facility] Last Admin: 12/20/17 09:54 Dose: 1 mg Dexamethasone (Decadron Tab*) 4 mg PO TID [facility] Last Admin: 12/20/17 14:21 Dose: 4 mg Docusate Sodium (Colace Cap*) 100 mg PO BID PRN PRN Reason: CONSTIPATION Last Admin: 12/19/17 17:24 Dose: 100 mg Heparin Sodium (Porcine) (Heparin Flush Port (Ivad)) 5 ml FLUSH DAILY PRN; Protocol PRN Reason: NEEDED Last Admin: 12/20/17 02:11 Dose: 5 ml Acyclovir Sodium 500 mg/ (Sodium Chloride) 110 mls @ 110 mls/hr IVPB Q8H [facility] Last Admin: 12/20/17 09:54 Dose: 110 mls/hr Levetiracetam (Keppra Liq*) 250 mg PO BID [facility] Last Admin: 12/20/17 09:55 Dose: 250 mg Omeprazole (Prilosec Cap*) 20 mg PO BID@0730,1630 [facility] Last Admin: 12/20/17 11:32 Dose: 20 mg Polyethylene Glycol/Electrolytes (Miralax*) 17 gm PO DAILY PRN PRN Reason: CONSTIPATION Potassium Chloride (Klor-Con Liquid*) 40 meq PO BID [facility] Last Admin: 12/20/17 11:33 Dose: 40 meq Senna (Senokot Tab*) 2 tab PO BEDTIME PRN PRN Reason: CONSTIPATION Last Admin: 12/19/17 22:25 Dose: 2 tab Sodium Chloride (Sodium Chloride Tab*) 1 gm PO TID [facility] Last Admin: 12/20/17 14:21 Dose: 1 gm Vital Signs - 8 hr 12/20/17 12/20/17 08:00 11:42 Temperature 97.7 F Pulse Rate 95 Respiratory 16 15 Rate Blood Pressure 132/73 (mmHg) O2 Sat by Pulse 100 Oximetry Oxygen Devices in Use Now: None Appearance: Alert, partly up in bed. In fair spirits. Looks comfortable. Eyes: No Scleral Icterus Respiratory: Symmetrical Chest Expansion and Respiratory Effort, Clear to Auscultation, Clear to Percussion Cardiovascular: NL Sounds; No Murmurs; No JVD, RRR, No Edema Extremities: No Edema, No Clubbing, Cyanosis, - Skin: No Rash or Ulcers, No Nodules or Sclerosis, - Neurological: Alert and Oriented x 3, NL Sensation Result Diagrams: 12/21/17 05:06 12/21/17 05:06 Additional Lab and Data: Lab Results 12/13/17 12/13/17 12/13/17 Range/Units 10:04 10:04 10:04 WBC 5.9 (3.5-10.8) 10^3/ul RBC 4.61 (4.0-5.4) 10^6/ul Hgb 14.3 (12.0-16.0) g/dl Hct 40 (35-47) % MCV 87 (80-97) fL MCH 31 (27-31) pg MCHC 36 (31-36) g/dl RDW 13 (10.5-15) % Plt Count 158 (150-450) 10^3/ul MPV 6 L (7.4-10.4) um3 Neut % (Auto) 86.6 H (38-83) % Lymph % (Auto) 8.7 L (25-47) % [place] % (Auto) 4.4 (0-7) % Eos % (Auto) 0.1 (0-6) % Baso % (Auto) 0.2 (0-2) % Absolute Neuts (auto) 5.2 (1.5-7.7) 10^3/ul Absolute Lymphs (auto) 0.5 L (1.0-4.8) 10^3/ul Absolute Monos (auto) 0.3 (0-0.8) 10^3/ul Absolute Eos (auto) 0 (0-0.6) 10^3/ul Absolute Basos (auto) 0 (0-0.2) 10^3/ul Absolute Nucleated RBC 0 10^3/ul Nucleated RBC % 0.1 INR (Anticoag Therapy) 0.82 (0.77-1.02) Sodium 119 L* (133-145) mmol/L Potassium 3.4 L (3.5-5.0) mmol/L Chloride 78 L (101-111) mmol/L Carbon Dioxide 31 (22-32) mmol/L Anion Gap 10 (2-11) mmol/L BUN 18 (6-24) mg/dL Creatinine 0.52 (0.51-0.95) mg/dL Est GFR ( Amer) 147.1 (>60) Est GFR (Non-Af Amer) 114.3 (>60) BUN/Creatinine Ratio 34.6 H (8-20) Glucose 96 (70-100) mg/dL Lactic Acid (0.5-2.0) mmol/L Calcium 9.0 (8.6-10.3) mg/dL Magnesium 1.8 L (1.9-2.7) mg/dL Total Bilirubin 1.10 H (0.2-1.0) mg/dL AST 29 (13-39) U/L ALT 41 (7-52) U/L Alkaline Phosphatase 45 (34-104) U/L Ammonia (16-53) mol/L Total Creatine Kinase 198 (10-223) U/L Troponin I 0.03 (<0.04) ng/mL Total Protein 6.2 L (6.4-8.9) g/dL Albumin 3.7 (3.2-5.2) g/dL Globulin 2.5 (2-4) g/dL Albumin/Globulin Ratio 1.5 (1-3) TSH 0.36 (0.34-5.60) mcIU/mL Cortisol 34.38 mcg/dL Salicylates < 2.50 (<30) mg/dL Acetaminophen < 15 mcg/mL Serum Alcohol < 10 (<10) mg/dL 12/13/17 12/13/17 Range/Units 10:04 10:04 WBC (3.5-10.8) 10^3/ul RBC (4.0-5.4) 10^6/ul Hgb (12.0-16.0) g/dl Hct (35-47) % MCV (80-97) fL MCH (27-31) pg MCHC (31-36) g/dl RDW (10.5-15) % Plt Count (150-450) 10^3/ul MPV (7.4-10.4) um3 Neut % (Auto) (38-83) % Lymph % (Auto) (25-47) % [place] % (Auto) (0-7) % Eos % (Auto) (0-6) % Baso % (Auto) (0-2) % Absolute Neuts (auto) (1.5-7.7) 10^3/ul Absolute Lymphs (auto) (1.0-4.8) 10^3/ul Absolute Monos (auto) (0-0.8) 10^3/ul Absolute Eos (auto) (0-0.6) 10^3/ul Absolute Basos (auto) (0-0.2) 10^3/ul Absolute Nucleated RBC 10^3/ul Nucleated RBC % INR (Anticoag Therapy) (0.77-1.02) Sodium (133-145) mmol/L Potassium (3.5-5.0) mmol/L Chloride (101-111) mmol/L Carbon Dioxide (22-32) mmol/L Anion Gap (2-11) mmol/L BUN (6-24) mg/dL Creatinine (0.51-0.95) mg/dL Est GFR ( Amer) (>60) Est GFR (Non-Af Amer) (>60) BUN/Creatinine Ratio (8-20) Glucose (70-100) mg/dL Lactic Acid 2.4 H* (0.5-2.0) mmol/L Calcium (8.6-10.3) mg/dL Magnesium (1.9-2.7) mg/dL Total Bilirubin (0.2-1.0) mg/dL AST (13-39) U/L ALT (7-52) U/L Alkaline Phosphatase (34-104) U/L Ammonia 28 (16-53) mol/L Total Creatine Kinase (10-223) U/L Troponin I (<0.04) ng/mL Total Protein (6.4-8.9) g/dL Albumin (3.2-5.2) g/dL Globulin (2-4) g/dL Albumin/Globulin Ratio (1-3) TSH (0.34-5.60) mcIU/mL Cortisol mcg/dL Salicylates (<30) mg/dL Acetaminophen mcg/mL Serum Alcohol (<10) mg/dL Microbiology and Other Data: Microbiology 12/14/17 07:30 Legionella Urinary Antigen - Final Urine Negative Legionella Antigen Streptococcus pneumoniae Ag Screen - Final Negative S. pneumo Antigen 12/13/17 13:30 Nasal Screen MRSA (PCR)(ESTELITA) - Final Nasal Mrsa Not Detected 12/13/17 13:30 Influenza Types A,B Antigen (ESTELITA) - Final Nasal Specimen received for Influenza A/B Molecular testing Assess/Plan/Problems-Billing . 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 Found to have subclinical seizures, UTI, hyponatremia. - Patient Problems (1) Hyponatremia Current Visit: Yes Status: Acute Priority: High Code(s): E87.1 - HYPO- OSMOLALITY AND HYPONATREMIA SNOMED Code(s): 96517484 Comment: Improved. 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 she also has marked vasogenic edema which is likely contributing. Complete 10 days acyclovir, last 2 doses 12/24. (3) Seizure Current Visit: Yes Status: Acute Priority: High Code(s): R56.9 - UNSPECIFIED CONVULSIONS SNOMED Code(s): 93800061 Comment: - Repeat EEG on 12/17 did not show any seizure activity on keppra 250 mg q12 - At admission, she underwent video eeg which showed frequent subclinical seizures. - She was loaded with keppra 1000mg and ativan 2 mg, which was very sedating. - Currently, Keppra 250mg q12 seems to be controlling seizures without too much sedation Status and Disposition: OOB with PT INPATIENT CASE
[2017-12-20] MEDS: Docusate CAP* 100 MG PO PRN (21:20)
[2017-12-20] MEDS: Senna TAB PO PRN (21:20)
[2017-12-21] MEDS: Acyclovir IV(*) 500 MG in NS 0.9% 100 ML* 100 ML IVPB SCH ×4 (01:56→17:40)
[2017-12-21 05:43] LABS: Hematocrit 32 % (35-47); Hemoglobin 11.4 g/dl (12.0-16.0); Mean Corpuscular HGB Conc 36 g/dl (31-36); Mean Corpuscular Hemoglobin 31 pg (27-31); Mean Corpuscular Volume 87 fL (80-97); Mean Platelet Volume 6.4 um3 (7.4-10.4); Platelet Count 153 10^3/ul (150-450); Red Blood Count 3.65 10^6/ul (4.0-5.4); Red Cell Distribution Width 13 % (10.5-15); White Blood Count 10.2 10^3/ul (3.5-10.8)
[2017-12-21 06:12] LABS: EGFR Non-African American 154.8 (>60)
[2017-12-21 06:35] LABS: ABS Basophils 0 10^3/ul (0-0.2); ABS Eosinophils 0 10^3/ul (0-0.6); ABS Monocytes 0.4 10^3/ul (0-0.8); ABS Neutrophils 8.8 10^3/ul (1.5-7.7); ABS Nucleated RBC 0 10^3/ul; Eosinophil % 0 % (0-6); Lymphocyte % 9.5 % (25-47); Nucleated Red Blood Cells % 0.1
[2017-12-21] MEDS: CMCS:Anastrozole (NF) 1 MG TAB PO SCH (08:28)
[2017-12-21] MEDS: Dexamethasone TAB* 4 MG PO SCH ×3 (08:28→21:34)
[2017-12-21] MEDS: Omeprazole CAP* 20 MG PO SCH ×2 (08:28→16:33)
[2017-12-21] MEDS: levETIRAcetam LIQ* 500 MG/5 ML UDC PO SCH ×2 (08:29→21:34)
[2017-12-21] MEDS: Sodium Chloride TAB* 1 GM PO SCH ×3 (08:29→21:34)
[2017-12-21] MEDS: Potassium Chloride LIQUID* 20 MEQ PACKET PO SCH ×2 (08:30→22:28)
--- NOTE | 2017-12-21 14:55 | PN ---
Subjective Date of Service: 12/21/17 Interval History: No c/o. Social History: Unchanged from Admission Past Medical History: Unchanged from Admission Objective Active Medications: Acetaminophen (Tylenol Tab*) 650 mg PO Q4H PRN PRN Reason: FEVER/PAIN Last Admin: 12/13/17 22:14 Dose: 650 mg Albuterol (Ventolin 2.5 Mg/3 Ml Neb.Yusra*) 1.25 mg INH TID PRN PRN Reason: SHORTNESS OF BREATH Anastrozole (Arimidex (Nf)) 1 mg PO DAILY [facility] Last Admin: 12/21/17 08:28 Dose: 1 mg Dexamethasone (Decadron Tab*) 4 mg PO TID [facility] Last Admin: 12/21/17 14:15 Dose: 4 mg Docusate Sodium (Colace Cap*) 100 mg PO BID PRN PRN Reason: CONSTIPATION Last Admin: 12/20/17 21:20 Dose: 100 mg Heparin Sodium (Porcine) (Heparin Flush Port (Ivad)) 5 ml FLUSH DAILY PRN; Protocol PRN Reason: NEEDED Last Admin: 12/20/17 02:11 Dose: 5 ml Acyclovir Sodium 500 mg/ (Sodium Chloride) 110 mls @ 110 mls/hr IVPB 0130,0930, 1730 [facility] Last Admin: 12/21/17 10:52 Dose: 110 mls/hr Levetiracetam (Keppra Liq*) 250 mg PO BID [facility] Last Admin: 12/21/17 08:29 Dose: 250 mg Omeprazole (Prilosec Cap*) 20 mg PO BID@0730,1630 [facility] Last Admin: 12/21/17 08:28 Dose: 20 mg Polyethylene Glycol/Electrolytes (Miralax*) 17 gm PO DAILY PRN PRN Reason: CONSTIPATION Last Admin: 12/20/17 21:18 Dose: 17 gm Potassium Chloride (Klor-Con Liquid*) 40 meq PO BID [facility] Last Admin: 12/21/17 08:30 Dose: 40 meq Senna (Senokot Tab*) 2 tab PO BEDTIME PRN PRN Reason: CONSTIPATION Last Admin: 12/20/17 21:20 Dose: 2 tab Sodium Chloride (Sodium Chloride Tab*) 1 gm PO TID [facility] Last Admin: 12/21/17 14:15 Dose: 1 gm Vital Signs - 8 hr 12/21/17 08:00 Respiratory 16 Rate Oxygen Devices in Use Now: None Appearance: Alert, partly up in bed. In good spirits. Looks comfortable. Eyes: No Scleral Icterus Neck: NL Appearance and Movements; NL JVP, No Thyroid Enlargement, Masses Respiratory: Symmetrical Chest Expansion and Respiratory Effort, Clear to Auscultation, Clear to Percussion Cardiovascular: NL Sounds; No Murmurs; No JVD, RRR, No Edema Extremities: No Edema, No Clubbing, Cyanosis, - Skin: No Rash or Ulcers, No Nodules or Sclerosis, - Neurological: Alert and Oriented x 3, NL Sensation - Hand youth manager 3-4/5 BL. No tremor. Some difficulty with word-finding/memory. Result Diagrams: 12/21/17 05:06 12/21/17 05:06 Additional Lab and Data: Lab Results 12/13/17 12/13/17 12/13/17 Range/Units 10:04 10:04 10:04 WBC 5.9 (3.5-10.8) 10^3/ul RBC 4.61 (4.0-5.4) 10^6/ul Hgb 14.3 (12.0-16.0) g/dl Hct 40 (35-47) % MCV 87 (80-97) fL MCH 31 (27-31) pg MCHC 36 (31-36) g/dl RDW 13 (10.5-15) % Plt Count 158 (150-450) 10^3/ul MPV 6 L (7.4-10.4) um3 Neut % (Auto) 86.6 H (38-83) % Lymph % (Auto) 8.7 L (25-47) % [place] % (Auto) 4.4 (0-7) % Eos % (Auto) 0.1 (0-6) % Baso % (Auto) 0.2 (0-2) % Absolute Neuts (auto) 5.2 (1.5-7.7) 10^3/ul Absolute Lymphs (auto) 0.5 L (1.0-4.8) 10^3/ul Absolute Monos (auto) 0.3 (0-0.8) 10^3/ul Absolute Eos (auto) 0 (0-0.6) 10^3/ul Absolute Basos (auto) 0 (0-0.2) 10^3/ul Absolute Nucleated RBC 0 10^3/ul Nucleated RBC % 0.1 INR (Anticoag Therapy) 0.82 (0.77-1.02) Sodium 119 L* (133-145) mmol/L Potassium 3.4 L (3.5-5.0) mmol/L Chloride 78 L (101-111) mmol/L Carbon Dioxide 31 (22-32) mmol/L Anion Gap 10 (2-11) mmol/L BUN 18 (6-24) mg/dL Creatinine 0.52 (0.51-0.95) mg/dL Est GFR ( Amer) 147.1 (>60) Est GFR (Non-Af Amer) 114.3 (>60) BUN/Creatinine Ratio 34.6 H (8-20) Glucose 96 (70-100) mg/dL Lactic Acid (0.5-2.0) mmol/L Calcium 9.0 (8.6-10.3) mg/dL Magnesium 1.8 L (1.9-2.7) mg/dL Total Bilirubin 1.10 H (0.2-1.0) mg/dL AST 29 (13-39) U/L ALT 41 (7-52) U/L Alkaline Phosphatase 45 (34-104) U/L Ammonia (16-53) mol/L Total Creatine Kinase 198 (10-223) U/L Troponin I 0.03 (<0.04) ng/mL Total Protein 6.2 L (6.4-8.9) g/dL Albumin 3.7 (3.2-5.2) g/dL Globulin 2.5 (2-4) g/dL Albumin/Globulin Ratio 1.5 (1-3) TSH 0.36 (0.34-5.60) mcIU/mL Cortisol 34.38 mcg/dL Salicylates < 2.50 (<30) mg/dL Acetaminophen < 15 mcg/mL Serum Alcohol < 10 (<10) mg/dL 12/13/17 12/13/17 Range/Units 10:04 10:04 WBC (3.5-10.8) 10^3/ul RBC (4.0-5.4) 10^6/ul Hgb (12.0-16.0) g/dl Hct (35-47) % MCV (80-97) fL MCH (27-31) pg MCHC (31-36) g/dl RDW (10.5-15) % Plt Count (150-450) 10^3/ul MPV (7.4-10.4) um3 Neut % (Auto) (38-83) % Lymph % (Auto) (25-47) % [place] % (Auto) (0-7) % Eos % (Auto) (0-6) % Baso % (Auto) (0-2) % Absolute Neuts (auto) (1.5-7.7) 10^3/ul Absolute Lymphs (auto) (1.0-4.8) 10^3/ul Absolute Monos (auto) (0-0.8) 10^3/ul Absolute Eos (auto) (0-0.6) 10^3/ul Absolute Basos (auto) (0-0.2) 10^3/ul Absolute Nucleated RBC 10^3/ul Nucleated RBC % INR (Anticoag Therapy) (0.77-1.02) Sodium (133-145) mmol/L Potassium (3.5-5.0) mmol/L Chloride (101-111) mmol/L Carbon Dioxide (22-32) mmol/L Anion Gap (2-11) mmol/L BUN (6-24) mg/dL Creatinine (0.51-0.95) mg/dL Est GFR ( Amer) (>60) Est GFR (Non-Af Amer) (>60) BUN/Creatinine Ratio (8-20) Glucose (70-100) mg/dL Lactic Acid 2.4 H* (0.5-2.0) mmol/L Calcium (8.6-10.3) mg/dL Magnesium (1.9-2.7) mg/dL Total Bilirubin (0.2-1.0) mg/dL AST (13-39) U/L ALT (7-52) U/L Alkaline Phosphatase (34-104) U/L Ammonia 28 (16-53) mol/L Total Creatine Kinase (10-223) U/L Troponin I (<0.04) ng/mL Total Protein (6.4-8.9) g/dL Albumin (3.2-5.2) g/dL Globulin (2-4) g/dL Albumin/Globulin Ratio (1-3) TSH (0.34-5.60) mcIU/mL Cortisol mcg/dL Salicylates (<30) mg/dL Acetaminophen mcg/mL Serum Alcohol (<10) mg/dL Microbiology and Other Data: Microbiology 12/14/17 07:30 Legionella Urinary Antigen - Final Urine Negative Legionella Antigen Streptococcus pneumoniae Ag Screen - Final Negative S. pneumo Antigen 12/13/17 13:30 Nasal Screen MRSA (PCR)(ESTELITA) - Final Nasal Mrsa Not Detected 12/13/17 13:30 Influenza Types A,B Antigen (ESTELITA) - Final Nasal Specimen received for Influenza A/B Molecular testing Assess/Plan/Problems-Billing . 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 Found to have subclinical seizures, UTI, hyponatremia. - Patient Problems (1) Hyponatremia Current Visit: Yes Status: Acute Priority: High Code(s): E87.1 - HYPO- OSMOLALITY AND HYPONATREMIA SNOMED Code(s): 78577242 Comment: Improved. 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 she also has marked vasogenic edema which is likely contributing. Complete 10 days acyclovir, last 2 doses 12/24. (3) Seizure Current Visit: Yes Status: Acute Priority: High Code(s): R56.9 - UNSPECIFIED CONVULSIONS SNOMED Code(s): 10520195 Comment: - Repeat EEG on 12/17 did not show any seizure activity on keppra 250 mg q12 - At admission, she underwent video eeg which showed frequent subclinical seizures. - She was loaded with keppra 1000mg and ativan 2 mg, which was very sedating. - Currently, Keppra 250mg q12 seems to be controlling seizures without too much sedation (4) Breast cancer Current Visit: Yes Status: Acute Code(s): C50.919 - MALIGNANT NEOPLASM OF UNSP SITE OF UNSPECIFIED FEMALE BREAST SNOMED Code(s): 909994356 Comment: I spoke with Dr. Rodriguez ([phone]) on 12/21. He agreed with the present dose of DXM. He has no plans at present for further anti-tumor tx and would see her in fup when she is discharged from the hospital. - s/p herceptin on 12/12 Status and Disposition: OOB with PT INPATIENT CASE
--- NOTE | 2017-12-21 15:49 | PN ---
PROGRESS NOTE: DATE OF FOLLOWUP: 12/20/17 HISTORY: No acute overnight events. Yesterday, she underwent MRI of the spine and today nerve conduction and EMG. Today, she is fixated on someone that works in Dr. Bain's office. MEDICATIONS: Include 1. Acyclovir 500 mg q.8 hours planned for a 10-day course. 2. Arimidex 1 mg daily. 3. Cefepime 2 g q.12 hours. 4. Dexamethasone 4 mg 3 times daily. 5. Keppra 250 mg twice daily. PHYSICAL EXAMINATION: Vital Signs: Temperature 97.7, blood pressure 132/73, heart rate 95, oxygen saturation 100% on room air. On general examination, she is lying in no acute distress in her hospital bed. She is easily distracted with the multiple people in the room including nursing coming into the room to give her medications and dining and nutrition coming in to give her her dinner tray. As such, completing formal muscle testing was difficult. In terms of her mental status, she stated it was 12/22/17. She was able to name all objects on the stroke cards today including the hammock. She was able to describe the cookie theft picture without difficulties. Her versions are full without nystagmus. Facial sensation and musculature is full and symmetric. Upper extremities are full strength. As mentioned, it was difficult to accurately assess her lower extremities because of her inattention, but she is not able to lift either leg off the bed at the hip, but when her knee is flexed and foot is planted on the bed, she is able to give reasonably good resistance at least grade 4 and knee extension is full. Ankle dorsiflexion appears essentially full as well. Again, her knee jerks are 1+ in the left knee, absent in the right knee and absent at the ankles with downgoing toes. LABORATORY DATA: Her chemistry panel is notable for a slightly improved sodium today of 131. IMAGING: Her MRIs did not show any evidence of metastatic disease. 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 However, there is no evidence of epidural extension of this lesion. Her lumbar spine MRI showed enhancing 6 mm foci at the T11 nerve roots which were felt to not be characteristic of metastatic foci , but more likely nerve sheath lesions. Her EMG and nerve conduction studies were performed and the nerve conductions showed diminished amplitudes and some decreased conduction velocities in her motor responses. Dr. Turner performed the EMG and indicated that there were some chronic changes in one muscle, perhaps one of the medial gastrocs, but no acute changes and no evidence for a critical illness polyneuropathy or myopathy. IMPRESSION: A 77-year-old woman with history of breast cancer with metastatic lesions to the brain who presented last week with partial status epilepticus arising from the left posterior quadrant. She continues to improve on a daily basis. In terms of her lower extremity weakness, she does not appear to have any metastatic disease in her spine and overall her nerve conduction studies showed some motor neuropathy which is most likely consistent with a previous history of chemotherapy exposure but not significant enough to explain her apparent weakness given the normal EMG. Most likely at this point, her apparent lower extremity weakness is more related to deconditioning as well as attentional difficulties and her overall mental status which is not at her baseline. I would continue the Keppra dose that she is on now and continue to follow her clinically. The serum paraneoplastic panel is pending and that should be followed up when it is available which will probably be 1 to 2 weeks from when it was collected and sent. [id number] #: [id number] [facility]
[2017-12-22] MEDS: Acyclovir IV(*) 500 MG in NS 0.9% 100 ML* 100 ML IVPB SCH ×3 (01:41→17:00)
[2017-12-22 06:49] LABS: Hematocrit 27 % (35-47); Hemoglobin 9.9 g/dl (12.0-16.0); Mean Corpuscular HGB Conc 36 g/dl (31-36); Mean Corpuscular Hemoglobin 32 pg (27-31); Mean Corpuscular Volume 87 fL (80-97); Mean Platelet Volume 6.3 um3 (7.4-10.4); Platelet Count 116 10^3/ul (150-450); Red Blood Count 3.16 10^6/ul (4.0-5.4); Red Cell Distribution Width 13 % (10.5-15); White Blood Count 6.2 10^3/ul (3.5-10.8)
[2017-12-22 08:35] LABS: ABS Basophils 0 10^3/ul (0-0.2); ABS Eosinophils 0 10^3/ul (0-0.6); ABS Lymphocytes 0.6 10^3/ul (1.0-4.8); ABS Monocytes 0.2 10^3/ul (0-0.8); ABS Neutrophils 5.3 10^3/ul (1.5-7.7); ABS Nucleated RBC 0 10^3/ul; Eosinophil % 0 % (0-6); Lymphocyte % 10.4 % (25-47); Nucleated Red Blood Cells % 0.1
--- NOTE | 2017-12-22 09:26 | PN ---
Subjective Date of Service: 12/22/17 Interval History: Feeling herself. No c/o. Good appetite. Social History: Unchanged from Admission Past Medical History: Unchanged from Admission Objective Active Medications: Acetaminophen (Tylenol Tab*) 650 mg PO Q4H PRN PRN Reason: FEVER/PAIN Last Admin: 12/13/17 22:14 Dose: 650 mg Albuterol (Ventolin 2.5 Mg/3 Ml Neb.Yusra*) 1.25 mg INH TID PRN PRN Reason: SHORTNESS OF BREATH Anastrozole (Arimidex (Nf)) 1 mg PO DAILY [facility] Last Admin: 12/21/17 08:28 Dose: 1 mg Dexamethasone (Decadron Tab*) 4 mg PO TID [facility] Last Admin: 12/21/17 21:34 Dose: 4 mg Docusate Sodium (Colace Cap*) 100 mg PO BID PRN PRN Reason: CONSTIPATION Last Admin: 12/20/17 21:20 Dose: 100 mg Heparin Sodium (Porcine) (Heparin Flush Port (Ivad)) 5 ml FLUSH DAILY PRN; Protocol PRN Reason: NEEDED Last Admin: 12/20/17 02:11 Dose: 5 ml Acyclovir Sodium 500 mg/ (Sodium Chloride) 110 mls @ 110 mls/hr IVPB 0130,0930, 1730 [facility] Last Admin: 12/22/17 01:41 Dose: 110 mls/hr Levetiracetam (Keppra Liq*) 250 mg PO BID [facility] Last Admin: 12/21/17 21:34 Dose: 250 mg Omeprazole (Prilosec Cap*) 20 mg PO BID@0730,1630 [facility] Last Admin: 12/21/17 16:33 Dose: 20 mg Polyethylene Glycol/Electrolytes (Miralax*) 17 gm PO DAILY PRN PRN Reason: CONSTIPATION Last Admin: 12/20/17 21:18 Dose: 17 gm Potassium Chloride (Klor-Con Liquid*) 40 meq PO BID [facility] Last Admin: 12/21/17 22:28 Dose: 40 meq Senna (Senokot Tab*) 2 tab PO BEDTIME PRN PRN Reason: CONSTIPATION Last Admin: 12/20/17 21:20 Dose: 2 tab Sodium Chloride (Sodium Chloride Tab*) 1 gm PO TID [facility] Last Admin: 12/21/17 21:34 Dose: 1 gm Vital Signs - 8 hr 12/22/17 12/22/17 03:49 07:29 Temperature 97.5 F 97.9 F Pulse Rate 67 67 Respiratory 16 18 Rate Blood Pressure 127/71 132/62 (mmHg) O2 Sat by Pulse 100 99 Oximetry Oxygen Devices in Use Now: None Appearance: Alert, in a chair. Enjoying her breakfast. In good spirits. Looks comfortable. Eyes: No Scleral Icterus Respiratory: Symmetrical Chest Expansion and Respiratory Effort, Clear to Auscultation, Clear to Percussion Cardiovascular: NL Sounds; No Murmurs; No JVD, RRR, No Edema, - Extremities: No Edema, No Clubbing, Cyanosis, - Skin: No Rash or Ulcers, No Nodules or Sclerosis, - Neurological: Alert and Oriented x 3, NL Sensation - AQUINO. No tremor. Result Diagrams: 12/22/17 06:36 12/21/17 05:06 Additional Lab and Data: Lab Results 12/13/17 12/13/17 12/13/17 Range/Units 10:04 10:04 10:04 WBC 5.9 (3.5-10.8) 10^3/ul RBC 4.61 (4.0-5.4) 10^6/ul Hgb 14.3 (12.0-16.0) g/dl Hct 40 (35-47) % MCV 87 (80-97) fL MCH 31 (27-31) pg MCHC 36 (31-36) g/dl RDW 13 (10.5-15) % Plt Count 158 (150-450) 10^3/ul MPV 6 L (7.4-10.4) um3 Neut % (Auto) 86.6 H (38-83) % Lymph % (Auto) 8.7 L (25-47) % [place] % (Auto) 4.4 (0-7) % Eos % (Auto) 0.1 (0-6) % Baso % (Auto) 0.2 (0-2) % Absolute Neuts (auto) 5.2 (1.5-7.7) 10^3/ul Absolute Lymphs (auto) 0.5 L (1.0-4.8) 10^3/ul Absolute Monos (auto) 0.3 (0-0.8) 10^3/ul Absolute Eos (auto) 0 (0-0.6) 10^3/ul Absolute Basos (auto) 0 (0-0.2) 10^3/ul Absolute Nucleated RBC 0 10^3/ul Nucleated RBC % 0.1 INR (Anticoag Therapy) 0.82 (0.77-1.02) Sodium 119 L* (133-145) mmol/L Potassium 3.4 L (3.5-5.0) mmol/L Chloride 78 L (101-111) mmol/L Carbon Dioxide 31 (22-32) mmol/L Anion Gap 10 (2-11) mmol/L BUN 18 (6-24) mg/dL Creatinine 0.52 (0.51-0.95) mg/dL Est GFR ( Amer) 147.1 (>60) Est GFR (Non-Af Amer) 114.3 (>60) BUN/Creatinine Ratio 34.6 H (8-20) Glucose 96 (70-100) mg/dL Lactic Acid (0.5-2.0) mmol/L Calcium 9.0 (8.6-10.3) mg/dL Magnesium 1.8 L (1.9-2.7) mg/dL Total Bilirubin 1.10 H (0.2-1.0) mg/dL AST 29 (13-39) U/L ALT 41 (7-52) U/L Alkaline Phosphatase 45 (34-104) U/L Ammonia (16-53) mol/L Total Creatine Kinase 198 (10-223) U/L Troponin I 0.03 (<0.04) ng/mL Total Protein 6.2 L (6.4-8.9) g/dL Albumin 3.7 (3.2-5.2) g/dL Globulin 2.5 (2-4) g/dL Albumin/Globulin Ratio 1.5 (1-3) TSH 0.36 (0.34-5.60) mcIU/mL Cortisol 34.38 mcg/dL Salicylates < 2.50 (<30) mg/dL Acetaminophen < 15 mcg/mL Serum Alcohol < 10 (<10) mg/dL 12/13/17 12/13/17 Range/Units 10:04 10:04 WBC (3.5-10.8) 10^3/ul RBC (4.0-5.4) 10^6/ul Hgb (12.0-16.0) g/dl Hct (35-47) % MCV (80-97) fL MCH (27-31) pg MCHC (31-36) g/dl RDW (10.5-15) % Plt Count (150-450) 10^3/ul MPV (7.4-10.4) um3 Neut % (Auto) (38-83) % Lymph % (Auto) (25-47) % [place] % (Auto) (0-7) % Eos % (Auto) (0-6) % Baso % (Auto) (0-2) % Absolute Neuts (auto) (1.5-7.7) 10^3/ul Absolute Lymphs (auto) (1.0-4.8) 10^3/ul Absolute Monos (auto) (0-0.8) 10^3/ul Absolute Eos (auto) (0-0.6) 10^3/ul Absolute Basos (auto) (0-0.2) 10^3/ul Absolute Nucleated RBC 10^3/ul Nucleated RBC % INR (Anticoag Therapy) (0.77-1.02) Sodium (133-145) mmol/L Potassium (3.5-5.0) mmol/L Chloride (101-111) mmol/L Carbon Dioxide (22-32) mmol/L Anion Gap (2-11) mmol/L BUN (6-24) mg/dL Creatinine (0.51-0.95) mg/dL Est GFR ( Amer) (>60) Est GFR (Non-Af Amer) (>60) BUN/Creatinine Ratio (8-20) Glucose (70-100) mg/dL Lactic Acid 2.4 H* (0.5-2.0) mmol/L Calcium (8.6-10.3) mg/dL Magnesium (1.9-2.7) mg/dL Total Bilirubin (0.2-1.0) mg/dL AST (13-39) U/L ALT (7-52) U/L Alkaline Phosphatase (34-104) U/L Ammonia 28 (16-53) mol/L Total Creatine Kinase (10-223) U/L Troponin I (<0.04) ng/mL Total Protein (6.4-8.9) g/dL Albumin (3.2-5.2) g/dL Globulin (2-4) g/dL Albumin/Globulin Ratio (1-3) TSH (0.34-5.60) mcIU/mL Cortisol mcg/dL Salicylates (<30) mg/dL Acetaminophen mcg/mL Serum Alcohol (<10) mg/dL Microbiology and Other Data: Microbiology 12/14/17 07:30 Legionella Urinary Antigen - Final Urine Negative Legionella Antigen Streptococcus pneumoniae Ag Screen - Final Negative S. pneumo Antigen 12/13/17 13:30 Nasal Screen MRSA (PCR)(ESTELITA) - Final Nasal Mrsa Not Detected 12/13/17 13:30 Influenza Types A,B Antigen (ESTELITA) - Final Nasal Specimen received for Influenza A/B Molecular testing Assess/Plan/Problems-Billing . 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 Found to have subclinical seizures, UTI, hyponatremia. - Patient Problems (1) Hyponatremia Current Visit: Yes Status: Acute Priority: High Code(s): E87.1 - HYPO- OSMOLALITY AND HYPONATREMIA SNOMED Code(s): 74076758 Comment: Improved. 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 She doesn't take much po fluids. (2) Encephalopathy acute Current Visit: Yes Status: Acute Code(s): G93.40 - ENCEPHALOPATHY, UNSPECIFIED SNOMED Code(s): 44651968 Comment: Improvement each day with treatment of hyponatremia, uti, seizures, and possible encephalitis On 12/22 she seemed to be 100% at her baseline. Complete 10 days acyclovir, last 2 doses 12/24. (3) Seizure Current Visit: Yes Status: Acute Priority: High Code(s): R56.9 - UNSPECIFIED CONVULSIONS SNOMED Code(s): 71877784 Comment: - Repeat EEG on 12/17 did not show any seizure activity on keppra 250 mg q12 - At admission, she underwent video eeg which showed frequent subclinical seizures. - Currently, Keppra 250mg q12 seems to be controlling seizures without too much sedation (4) Breast cancer Current Visit: Yes Status: Acute Code(s): C50.919 - MALIGNANT NEOPLASM OF UNSP SITE OF UNSPECIFIED FEMALE BREAST SNOMED Code(s): 968538509 Comment: I spoke with Dr. Rodriguez ([phone]) on 12/21. He agreed with the present dose of DXM. He has no plans at present for further anti-tumor tx and would see her in fup when she is discharged from the hospital. - s/p herceptin on 12/12 Patient states she sees Dr. Rodriguez every Monday. I encouraged her to keep her appt on 12/25. Her son will be staying with her and could help with transportation. Status and Disposition: OOB with PT INPATIENT CASE
[2017-12-22] MEDS: Potassium Chloride LIQUID* 20 MEQ PACKET PO SCH ×2 (09:48→21:10)
[2017-12-22] MEDS: Omeprazole CAP* 20 MG PO SCH ×2 (09:49→16:59)
[2017-12-22] MEDS: CMCS:Anastrozole (NF) 1 MG TAB PO SCH (09:49)
[2017-12-22] MEDS: levETIRAcetam LIQ* 500 MG/5 ML UDC PO SCH ×2 (09:50→21:07)
[2017-12-22] MEDS: Dexamethasone TAB* 4 MG PO SCH ×3 (09:50→21:10)
[2017-12-22] MEDS: Sodium Chloride TAB* 1 GM PO SCH ×3 (09:50→21:10)
[2017-12-22] MEDS ORDERED: Dextrose 50% Syringe 50 ML* 25 GM/50 ML SYRINGE IV PUSH PRN (12:12)
[2017-12-22] MEDS: Insulin GLARGINE(*) 1 UNITS UNIT SUBCUT SCH (13:18)
[2017-12-22] MEDS: Insulin LISPRO* 1 UNITS UNIT SUBCUT SCH ×2 (16:59→21:10)
[2017-12-23] MEDS: Acyclovir IV(*) 500 MG in NS 0.9% 100 ML* 100 ML IVPB SCH ×3 (02:00→17:57)
[2017-12-23] MEDS: levETIRAcetam LIQ* 500 MG/5 ML UDC PO SCH ×2 (08:34→21:53)
[2017-12-23] MEDS: Potassium Chloride LIQUID* 20 MEQ PACKET PO SCH ×2 (08:34→21:52)
[2017-12-23] MEDS: Sodium Chloride TAB* 1 GM PO SCH ×3 (08:35→21:55)
[2017-12-23] MEDS: Omeprazole CAP* 20 MG PO SCH ×2 (08:35→17:57)
[2017-12-23] MEDS: Dexamethasone TAB* 4 MG PO SCH ×3 (08:35→21:55)
[2017-12-23] MEDS: CMCS:Anastrozole (NF) 1 MG TAB PO SCH (08:35)
[2017-12-23] MEDS: Insulin LISPRO* 1 UNITS UNIT SUBCUT SCH ×4 (08:35→21:55)
--- NOTE | 2017-12-23 08:41 | PN ---
Subjective Date of Service: 12/23/17 Interval History: She does not remember seeing me. She is distant in conversation. She thinks we are in a "[place]." Knows her name and the year. When asked why she is in the hospital, she says she "can't quite explain it." She denies any pain , sob, headaches, nausea, constipation. Social History: Unchanged from Admission Past Medical History: Unchanged from Admission Objective Active Medications: Acetaminophen (Tylenol Tab*) 650 mg PO Q4H PRN PRN Reason: FEVER/PAIN Last Admin: 12/13/17 22:14 Dose: 650 mg Albuterol (Ventolin 2.5 Mg/3 Ml Neb.Yusra*) 1.25 mg INH TID PRN PRN Reason: SHORTNESS OF BREATH Anastrozole (Arimidex (Nf)) 1 mg PO DAILY [facility] Last Admin: 12/22/17 09:49 Dose: 1 mg Dexamethasone (Decadron Tab*) 4 mg PO TID [facility] Last Admin: 12/22/17 21:10 Dose: 4 mg Dextrose (D50w Syringe 50 Ml*) 12.5 gm IV PUSH .FOR FS < 60 - SS PRN PRN Reason: FS < 60 Docusate Sodium (Colace Cap*) 100 mg PO BID PRN PRN Reason: CONSTIPATION Last Admin: 12/20/17 21:20 Dose: 100 mg Heparin Sodium (Porcine) (Heparin Flush Port (Ivad)) 5 ml FLUSH DAILY PRN; Protocol PRN Reason: NEEDED Last Admin: 12/20/17 02:11 Dose: 5 ml Acyclovir Sodium 500 mg/ (Sodium Chloride) 110 mls @ 110 mls/hr IVPB 0130,0930, 1730 [facility] Last Admin: 12/23/17 02:00 Dose: 110 mls/hr Insulin Glargine (Lantus(*)) 10 units SUBCUT Q24H [facility] Last Admin: 12/22/17 13:18 Dose: 10 unit Insulin Human Lispro (Humalog*) 0 units SUBCUT ACHS [facility] PRN Reason: Protocol Last Admin: 12/22/17 21:10 Dose: 2 units Levetiracetam (Keppra Liq*) 250 mg PO BID [facility] Last Admin: 12/22/17 21:07 Dose: 250 mg Omeprazole (Prilosec Cap*) 20 mg PO BID@0730,1630 [facility] Last Admin: 12/22/17 16:59 Dose: 20 mg Polyethylene Glycol/Electrolytes (Miralax*) 17 gm PO DAILY PRN PRN Reason: CONSTIPATION Last Admin: 12/20/17 21:18 Dose: 17 gm Potassium Chloride (Klor-Con Liquid*) 40 meq PO BID [facility] Last Admin: 12/22/17 21:10 Dose: 40 meq Senna (Senokot Tab*) 2 tab PO BEDTIME PRN PRN Reason: CONSTIPATION Last Admin: 12/20/17 21:20 Dose: 2 tab Sodium Chloride (Sodium Chloride Tab*) 1 gm PO TID [facility] Last Admin: 12/22/17 21:10 Dose: 1 gm Oxygen Devices in Use Now: None Appearance: alert, confused, nontoxic Eyes: No Scleral Icterus, PERRLA Ears/Nose/Mouth/Throat: NL Teeth, Lips, Gums Neck: NL Appearance and Movements; NL JVP Respiratory: Symmetrical Chest Expansion and Respiratory Effort, Clear to Auscultation Cardiovascular: NL Sounds; No Murmurs; No JVD, RRR Abdominal: NL Sounds; No Tenderness; No Distention Lymphatic: No Cervical Adenopathy Extremities: No Edema Skin: No Rash or Ulcers Neurological: - - moves feet and ankles with 5/5 strength, says she cannot lift her legs from the hips Result Diagrams: 12/22/17 06:36 12/21/17 05:06 Additional Lab and Data: Lab Results 12/13/17 12/13/17 12/13/17 Range/Units 10:04 10:04 10:04 WBC 5.9 (3.5-10.8) 10^3/ul RBC 4.61 (4.0-5.4) 10^6/ul Hgb 14.3 (12.0-16.0) g/dl Hct 40 (35-47) % MCV 87 (80-97) fL MCH 31 (27-31) pg MCHC 36 (31-36) g/dl RDW 13 (10.5-15) % Plt Count 158 (150-450) 10^3/ul MPV 6 L (7.4-10.4) um3 Neut % (Auto) 86.6 H (38-83) % Lymph % (Auto) 8.7 L (25-47) % [place] % (Auto) 4.4 (0-7) % Eos % (Auto) 0.1 (0-6) % Baso % (Auto) 0.2 (0-2) % Absolute Neuts (auto) 5.2 (1.5-7.7) 10^3/ul Absolute Lymphs (auto) 0.5 L (1.0-4.8) 10^3/ul Absolute Monos (auto) 0.3 (0-0.8) 10^3/ul Absolute Eos (auto) 0 (0-0.6) 10^3/ul Absolute Basos (auto) 0 (0-0.2) 10^3/ul Absolute Nucleated RBC 0 10^3/ul Nucleated RBC % 0.1 INR (Anticoag Therapy) 0.82 (0.77-1.02) Sodium 119 L* (133-145) mmol/L Potassium 3.4 L (3.5-5.0) mmol/L Chloride 78 L (101-111) mmol/L Carbon Dioxide 31 (22-32) mmol/L Anion Gap 10 (2-11) mmol/L BUN 18 (6-24) mg/dL Creatinine 0.52 (0.51-0.95) mg/dL Est GFR ( Amer) 147.1 (>60) Est GFR (Non-Af Amer) 114.3 (>60) BUN/Creatinine Ratio 34.6 H (8-20) Glucose 96 (70-100) mg/dL Lactic Acid (0.5-2.0) mmol/L Calcium 9.0 (8.6-10.3) mg/dL Magnesium 1.8 L (1.9-2.7) mg/dL Total Bilirubin 1.10 H (0.2-1.0) mg/dL AST 29 (13-39) U/L ALT 41 (7-52) U/L Alkaline Phosphatase 45 (34-104) U/L Ammonia (16-53) mol/L Total Creatine Kinase 198 (10-223) U/L Troponin I 0.03 (<0.04) ng/mL Total Protein 6.2 L (6.4-8.9) g/dL Albumin 3.7 (3.2-5.2) g/dL Globulin 2.5 (2-4) g/dL Albumin/Globulin Ratio 1.5 (1-3) TSH 0.36 (0.34-5.60) mcIU/mL Cortisol 34.38 mcg/dL Salicylates < 2.50 (<30) mg/dL Acetaminophen < 15 mcg/mL Serum Alcohol < 10 (<10) mg/dL 12/13/17 12/13/17 Range/Units 10:04 10:04 WBC (3.5-10.8) 10^3/ul RBC (4.0-5.4) 10^6/ul Hgb (12.0-16.0) g/dl Hct (35-47) % MCV (80-97) fL MCH (27-31) pg MCHC (31-36) g/dl RDW (10.5-15) % Plt Count (150-450) 10^3/ul MPV (7.4-10.4) um3 Neut % (Auto) (38-83) % Lymph % (Auto) (25-47) % [place] % (Auto) (0-7) % Eos % (Auto) (0-6) % Baso % (Auto) (0-2) % Absolute Neuts (auto) (1.5-7.7) 10^3/ul Absolute Lymphs (auto) (1.0-4.8) 10^3/ul Absolute Monos (auto) (0-0.8) 10^3/ul Absolute Eos (auto) (0-0.6) 10^3/ul Absolute Basos (auto) (0-0.2) 10^3/ul Absolute Nucleated RBC 10^3/ul Nucleated RBC % INR (Anticoag Therapy) (0.77-1.02) Sodium (133-145) mmol/L Potassium (3.5-5.0) mmol/L Chloride (101-111) mmol/L Carbon Dioxide (22-32) mmol/L Anion Gap (2-11) mmol/L BUN (6-24) mg/dL Creatinine (0.51-0.95) mg/dL Est GFR ( Amer) (>60) Est GFR (Non-Af Amer) (>60) BUN/Creatinine Ratio (8-20) Glucose (70-100) mg/dL Lactic Acid 2.4 H* (0.5-2.0) mmol/L Calcium (8.6-10.3) mg/dL Magnesium (1.9-2.7) mg/dL Total Bilirubin (0.2-1.0) mg/dL AST (13-39) U/L ALT (7-52) U/L Alkaline Phosphatase (34-104) U/L Ammonia 28 (16-53) mol/L Total Creatine Kinase (10-223) U/L Troponin I (<0.04) ng/mL Total Protein (6.4-8.9) g/dL Albumin (3.2-5.2) g/dL Globulin (2-4) g/dL Albumin/Globulin Ratio (1-3) TSH (0.34-5.60) mcIU/mL Cortisol mcg/dL Salicylates (<30) mg/dL Acetaminophen mcg/mL Serum Alcohol (<10) mg/dL Microbiology and Other Data: Microbiology 12/14/17 07:30 Legionella Urinary Antigen - Final Urine Negative Legionella Antigen Streptococcus pneumoniae Ag Screen - Final Negative S. pneumo Antigen 12/13/17 13:30 Nasal Screen MRSA (PCR)(ESTELITA) - Final Nasal Mrsa Not Detected 12/13/17 13:30 Influenza Types A,B Antigen (ESTELITA) - Final Nasal Specimen received for Influenza A/B Molecular testing Assess/Plan/Problems-Billing . 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 Found to have subclinical seizures on video EEG, UTI, and hyponatremia. - Patient Problems (1) Encephalopathy acute Current Visit: Yes Status: Acute Code(s): G93.40 - ENCEPHALOPATHY, UNSPECIFIED SNOMED Code(s): 95158488 Comment: Multifactorial and thought to be due to hyponatremia, seizures, uti , +/- encephalitis (treating empirically for hsv due to mri findings, but LP deferred for family preference). Still quite delirious Appreciate neuro input Complete 10 days acyclovir, last 2 doses 12/24. (2) Seizure Current Visit: Yes Status: Acute Priority: High Code(s): R56.9 - UNSPECIFIED CONVULSIONS SNOMED Code(s): 58832218 Comment: Currently, Keppra 250mg q12 seems to be controlling seizures without too much sedation Neuro completing "spot check" EEGs to check for control (3) Hyponatremia Current Visit: Yes Status: Acute Priority: High Code(s): E87.1 - HYPO- OSMOLALITY AND HYPONATREMIA SNOMED Code(s): 82528197 Comment: Paraneoplastic panel is negative Serum osm 247, urine osm 531, urine na 113--most likely SIADH Low AM cortisol is nondiagnostic in the setting of decadron treatment Continue fluid restriction and salt tablets and recheck na tomorrow (4) UTI (urinary tract infection) Current Visit: No Status: Acute Comment: s/p 7 days abx (5) Breast cancer Current Visit: Yes Status: Acute Code(s): C50.919 - MALIGNANT NEOPLASM OF UNSP SITE OF UNSPECIFIED FEMALE BREAST SNOMED Code(s): 354835758 Comment: Dr. Rodriguez ([phone]) has been updated throughout her course. Last herceptin was on 12/12 Patient states she sees Dr. Rodriguez every Monday. Next appt on 12/25. Her son will be staying with her. Status and Disposition: Still delirious and very deconditioned. Appreciate neuro input Repeat labs tomorrow May benefit from STR at discharge
[2017-12-23] MEDS: Insulin GLARGINE(*) 1 UNITS UNIT SUBCUT SCH (12:22)
--- NOTE | 2017-12-23 15:13 | PN ---
PROGRESS NOTE: DATE OF FOLLOWUP: 12/22/17 HISTORY: Ms. Garcias continues to deny any pain. She continues to confuse me with someone at Dr. Bain's office and becomes very distracted by trying to figure out if I work at the [facility] office, despite me telling her multiple times that I am not in the Cardiology office. Her friends, who are in the room , say that she again is much better earlier in the day and then begins to fade more towards the late afternoon. She has had no new acute issues. MEDICATIONS: Include: 1. Acyclovir 500 mg t.i.d. 2. Tylenol 650 q.4 p.r.n. 3. Arimidex 1 mg daily. 4. Decadron 4 mg t.i.d. 5. Docusate 100 mg twice daily p.r.n. 6. Lantus 10 units daily. 7. Sliding scale Lispro. 8. Keppra 250 mg twice daily. 9. Omeprazole 20 mg b.i.d. 10. MiraLAX. 11. Potassium chloride 40 mEq b.i.d. 12. Senna 2 tablets p.r.n. at bedtime. 13. Sodium chloride tablets 1 g t.i.d. PHYSICAL EXAMINATION: Vital Signs: Temperature 97.9, blood pressure 116/61, heart rate 136, oxygen saturation 100% on room air. On examination, she is in no acute distress. Her heart is in a regular rate and rhythm and on my exam is not tachycardic. Lungs are clear to auscultation. On neurologic exam, she was fully awake, alert and oriented. She was able to name objects on the stroke card, but initially had some difficulties with cactus, but was then able to come up with the word. She accurately describes the [employer] theft picture and reads the phrases without any difficulty. Pupils are 3 to 2 mm bilaterally. Versions are full without nystagmus. Facial sensation and musculature is full and symmetric. She continues to have a great deal of difficulty with the motor exam secondary to inattention. She appears unable to lift either leg up off the bed or keep it off the bed when it is passively flexed at the hip for her. When her knee is flexed and her foot is planted on the bed, with great encouragement, she is able to give reasonably good resistance and her knee extension is 5/5 bilaterally. She is hyporeflexic in the lower extremities with the exception of 1+ left knee jerk. LABORATORY DATA: Sodium 133 as of yesterday, not rechecked today. Her paraneoplastic panel is pending. IMPRESSION: A 77-year-old woman with breast cancer, with metastatic lesions to the brain, status post gamma-knife, who presented to the hospital last week with partial status epilepticus arising from the left posterior quadrant. She is now treated with low dose Keppra. Her mental status continues to be off her baseline, but she has shown some improvement on a daily basis. Her course has been complicated by hyponatremia, which appears consistent with SIADH, but has remained slightly low even with correction with fluids or fluid restriction. A paraneoplastic panel is pending. She has had great difficulty with ambulation as well and MRI of her spine as well as nerve conduction/EMG was overall reassuring. 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 It is felt that her mobility issues are more secondary to her mental status. Dr. Garcia will be taking over the neurology service this evening. [id number]/[facility] #: [id number] [facility]
[2017-12-24] MEDS: Acyclovir IV(*) 500 MG in NS 0.9% 100 ML* 100 ML IVPB SCH ×3 (02:30→17:59)
[2017-12-24 06:49] LABS: EGFR Non-African American 68.6 (>60)
[2017-12-24] MEDS: levETIRAcetam LIQ* 500 MG/5 ML UDC PO SCH ×2 (08:55→21:34)
[2017-12-24] MEDS: Insulin LISPRO* 1 UNITS UNIT SUBCUT SCH ×4 (08:55→21:35)
[2017-12-24] MEDS: CMCS:Anastrozole (NF) 1 MG TAB PO SCH (08:56)
[2017-12-24] MEDS: Omeprazole CAP* 20 MG PO SCH ×2 (08:57→17:28)
[2017-12-24] MEDS: Potassium Chloride LIQUID* 20 MEQ PACKET PO SCH ×2 (08:57→21:34)
[2017-12-24] MEDS: Sodium Chloride TAB* 1 GM PO SCH ×3 (08:57→21:33)
[2017-12-24] MEDS: Dexamethasone TAB* 4 MG PO SCH ×3 (08:57→21:33)
--- NOTE | 2017-12-24 10:13 | PN ---
Subjective Date of Service: 12/24/17 Interval History: Overnight RN reported that she went for a walk with her in a wheelchair because she was antsy, and that she got into the wheelchair on her own but when they got back to her room, she would not get back in to bed and they had to lift her. This morning she has three friends visiting as well as Valentino. She is irritable and asks why I'm there. She has no pain, but says things "aren't right here," and that she is supposed to be in a "specialized hospital." Social History: Unchanged from Admission Past Medical History: Unchanged from Admission Objective Active Medications: Acetaminophen (Tylenol Tab*) 650 mg PO Q4H PRN PRN Reason: FEVER/PAIN Last Admin: 12/13/17 22:14 Dose: 650 mg Albuterol (Ventolin 2.5 Mg/3 Ml Neb.Yusra*) 1.25 mg INH TID PRN PRN Reason: SHORTNESS OF BREATH Anastrozole (Arimidex (Nf)) 1 mg PO DAILY [facility] Last Admin: 12/24/17 08:56 Dose: 1 mg Dexamethasone (Decadron Tab*) 4 mg PO TID [facility] Last Admin: 12/24/17 08:57 Dose: 4 mg Dextrose (D50w Syringe 50 Ml*) 12.5 gm IV PUSH .FOR FS < 60 - SS PRN PRN Reason: FS < 60 Docusate Sodium (Colace Cap*) 100 mg PO BID PRN PRN Reason: CONSTIPATION Last Admin: 12/20/17 21:20 Dose: 100 mg Heparin Sodium (Porcine) (Heparin Flush Port (Ivad)) 5 ml FLUSH DAILY PRN; Protocol PRN Reason: NEEDED Last Admin: 12/20/17 02:11 Dose: 5 ml Acyclovir Sodium 500 mg/ (Sodium Chloride) 110 mls @ 110 mls/hr IVPB 0130,0930, 1730 [facility] Last Admin: 12/24/17 02:30 Dose: 110 mls/hr Insulin Glargine (Lantus(*)) 10 units SUBCUT Q24H [facility] Last Admin: 12/23/17 12:22 Dose: 10 unit Insulin Human Lispro (Humalog*) 0 units SUBCUT ACHS [facility] PRN Reason: Protocol Last Admin: 12/24/17 08:55 Dose: 2 units Levetiracetam (Keppra Liq*) 250 mg PO BID [facility] Last Admin: 12/24/17 08:55 Dose: 250 mg Omeprazole (Prilosec Cap*) 20 mg PO BID@0730,1630 [facility] Last Admin: 12/24/17 08:57 Dose: 20 mg Polyethylene Glycol/Electrolytes (Miralax*) 17 gm PO DAILY PRN PRN Reason: CONSTIPATION Last Admin: 12/20/17 21:18 Dose: 17 gm Potassium Chloride (Klor-Con Liquid*) 40 meq PO BID [facility] Last Admin: 12/24/17 08:57 Dose: 40 meq Senna (Senokot Tab*) 2 tab PO BEDTIME PRN PRN Reason: CONSTIPATION Last Admin: 12/20/17 21:20 Dose: 2 tab Sodium Chloride (Sodium Chloride Tab*) 1 gm PO TID [facility] Last Admin: 12/24/17 08:57 Dose: 1 gm Vital Signs - 8 hr 12/24/17 03:13 Temperature 97.7 F Pulse Rate 83 Respiratory 16 Rate Blood Pressure 147/77 (mmHg) O2 Sat by Pulse 99 Oximetry Oxygen Devices in Use Now: None Appearance: alert, distractable, nontoxic Eyes: No Scleral Icterus, PERRLA Ears/Nose/Mouth/Throat: NL Teeth, Lips, Gums Neck: NL Appearance and Movements; NL JVP Respiratory: Symmetrical Chest Expansion and Respiratory Effort, Clear to Auscultation Cardiovascular: NL Sounds; No Murmurs; No JVD, RRR, No Edema Abdominal: NL Sounds; No Tenderness; No Distention, No Hepatosplenomegaly, - - cisneros catheter in place Lymphatic: No Cervical Adenopathy Extremities: No Edema Neurological: - - poor short term recall, names objects correctly, able to abduct her hips but says she can't lift her legs off the bed, can move feet at ankles Result Diagrams: 12/22/17 06:36 12/24/17 06:16 Additional Lab and Data: Lab Results 12/13/17 12/13/17 12/13/17 Range/Units 10:04 10:04 10:04 WBC 5.9 (3.5-10.8) 10^3/ul RBC 4.61 (4.0-5.4) 10^6/ul Hgb 14.3 (12.0-16.0) g/dl Hct 40 (35-47) % MCV 87 (80-97) fL MCH 31 (27-31) pg MCHC 36 (31-36) g/dl RDW 13 (10.5-15) % Plt Count 158 (150-450) 10^3/ul MPV 6 L (7.4-10.4) um3 Neut % (Auto) 86.6 H (38-83) % Lymph % (Auto) 8.7 L (25-47) % [place] % (Auto) 4.4 (0-7) % Eos % (Auto) 0.1 (0-6) % Baso % (Auto) 0.2 (0-2) % Absolute Neuts (auto) 5.2 (1.5-7.7) 10^3/ul Absolute Lymphs (auto) 0.5 L (1.0-4.8) 10^3/ul Absolute Monos (auto) 0.3 (0-0.8) 10^3/ul Absolute Eos (auto) 0 (0-0.6) 10^3/ul Absolute Basos (auto) 0 (0-0.2) 10^3/ul Absolute Nucleated RBC 0 10^3/ul Nucleated RBC % 0.1 INR (Anticoag Therapy) 0.82 (0.77-1.02) Sodium 119 L* (133-145) mmol/L Potassium 3.4 L (3.5-5.0) mmol/L Chloride 78 L (101-111) mmol/L Carbon Dioxide 31 (22-32) mmol/L Anion Gap 10 (2-11) mmol/L BUN 18 (6-24) mg/dL Creatinine 0.52 (0.51-0.95) mg/dL Est GFR ( Amer) 147.1 (>60) Est GFR (Non-Af Amer) 114.3 (>60) BUN/Creatinine Ratio 34.6 H (8-20) Glucose 96 (70-100) mg/dL Lactic Acid (0.5-2.0) mmol/L Calcium 9.0 (8.6-10.3) mg/dL Magnesium 1.8 L (1.9-2.7) mg/dL Total Bilirubin 1.10 H (0.2-1.0) mg/dL AST 29 (13-39) U/L ALT 41 (7-52) U/L Alkaline Phosphatase 45 (34-104) U/L Ammonia (16-53) mol/L Total Creatine Kinase 198 (10-223) U/L Troponin I 0.03 (<0.04) ng/mL Total Protein 6.2 L (6.4-8.9) g/dL Albumin 3.7 (3.2-5.2) g/dL Globulin 2.5 (2-4) g/dL Albumin/Globulin Ratio 1.5 (1-3) TSH 0.36 (0.34-5.60) mcIU/mL Cortisol 34.38 mcg/dL Salicylates < 2.50 (<30) mg/dL Acetaminophen < 15 mcg/mL Serum Alcohol < 10 (<10) mg/dL 12/13/17 12/13/17 Range/Units 10:04 10:04 WBC (3.5-10.8) 10^3/ul RBC (4.0-5.4) 10^6/ul Hgb (12.0-16.0) g/dl Hct (35-47) % MCV (80-97) fL MCH (27-31) pg MCHC (31-36) g/dl RDW (10.5-15) % Plt Count (150-450) 10^3/ul MPV (7.4-10.4) um3 Neut % (Auto) (38-83) % Lymph % (Auto) (25-47) % [place] % (Auto) (0-7) % Eos % (Auto) (0-6) % Baso % (Auto) (0-2) % Absolute Neuts (auto) (1.5-7.7) 10^3/ul Absolute Lymphs (auto) (1.0-4.8) 10^3/ul Absolute Monos (auto) (0-0.8) 10^3/ul Absolute Eos (auto) (0-0.6) 10^3/ul Absolute Basos (auto) (0-0.2) 10^3/ul Absolute Nucleated RBC 10^3/ul Nucleated RBC % INR (Anticoag Therapy) (0.77-1.02) Sodium (133-145) mmol/L Potassium (3.5-5.0) mmol/L Chloride (101-111) mmol/L Carbon Dioxide (22-32) mmol/L Anion Gap (2-11) mmol/L BUN (6-24) mg/dL Creatinine (0.51-0.95) mg/dL Est GFR ( Amer) (>60) Est GFR (Non-Af Amer) (>60) BUN/Creatinine Ratio (8-20) Glucose (70-100) mg/dL Lactic Acid 2.4 H* (0.5-2.0) mmol/L Calcium (8.6-10.3) mg/dL Magnesium (1.9-2.7) mg/dL Total Bilirubin (0.2-1.0) mg/dL AST (13-39) U/L ALT (7-52) U/L Alkaline Phosphatase (34-104) U/L Ammonia 28 (16-53) mol/L Total Creatine Kinase (10-223) U/L Troponin I (<0.04) ng/mL Total Protein (6.4-8.9) g/dL Albumin (3.2-5.2) g/dL Globulin (2-4) g/dL Albumin/Globulin Ratio (1-3) TSH (0.34-5.60) mcIU/mL Cortisol mcg/dL Salicylates (<30) mg/dL Acetaminophen mcg/mL Serum Alcohol (<10) mg/dL Microbiology and Other Data: Microbiology 12/14/17 07:30 Legionella Urinary Antigen - Final Urine Negative Legionella Antigen Streptococcus pneumoniae Ag Screen - Final Negative S. pneumo Antigen 12/13/17 13:30 Nasal Screen MRSA (PCR)(ESTELITA) - Final Nasal Mrsa Not Detected 12/13/17 13:30 Influenza Types A,B Antigen (ESTELITA) - Final Nasal Specimen received for Influenza A/B Molecular testing Assess/Plan/Problems-Billing . 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 Found to have subclinical seizures on video EEG, UTI, and hyponatremia. - Patient Problems (1) Encephalopathy acute Current Visit: Yes Status: Acute Code(s): G93.40 - ENCEPHALOPATHY, UNSPECIFIED SNOMED Code(s): 93336098 Comment: Multifactorial and thought to be due to hyponatremia, seizures, uti , +/- encephalitis (treating empirically for hsv due to mri findings, but LP deferred for family preference). 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) Ammonia wnl (2) Seizure Current Visit: Yes Status: Acute Priority: High Code(s): R56.9 - UNSPECIFIED CONVULSIONS SNOMED Code(s): 89609644 Comment: Currently, Keppra 250mg q12 seems to be controlling seizures without too much sedation Neuro completing "spot check" EEGs to check for control (3) Hyponatremia Current Visit: Yes Status: Acute Priority: High Code(s): E87.1 - HYPO- OSMOLALITY AND HYPONATREMIA SNOMED Code(s): 87050873 Comment: Paraneoplastic panel is negative Serum osm 247, urine osm 531, urine na 113--most likely SIADH Low AM cortisol is nondiagnostic in the setting of decadron treatment Continue fluid restriction and salt tablets Sodium continues to rise (though it should be noted that the normal range has changed between last sodium and today's sodium) (4) UTI (urinary tract infection) Current Visit: No Status: Acute Comment: s/p 7 days abx (5) Breast cancer Current Visit: Yes Status: Acute Code(s): C50.919 - MALIGNANT NEOPLASM OF UNSP SITE OF UNSPECIFIED FEMALE BREAST SNOMED Code(s): 942297880 Comment: Dr. Rodriguez ([phone]) has been updated throughout her course. Last herceptin was on 12/[address] Rodriguez every Monday. Next appt scheduled for 12/25. Status and Disposition: Still delirious and very deconditioned. Appreciate neuro input May benefit from STR at discharge
[2017-12-24] MEDS: Insulin GLARGINE(*) 1 UNITS UNIT SUBCUT SCH (13:17)
[2017-12-25] MEDS: Acyclovir IV(*) 500 MG in NS 0.9% 100 ML* 100 ML IVPB SCH (02:00)
[2017-12-25 05:15] LABS: Hematocrit 26 % (35-47); Hemoglobin 9.2 g/dl (12.0-16.0); Mean Corpuscular HGB Conc 36 g/dl (31-36); Mean Corpuscular Hemoglobin 32 pg (27-31); Mean Corpuscular Volume 89 fL (80-97); Mean Platelet Volume 6.8 um3 (7.4-10.4); Platelet Count 117 10^3/ul (150-450); Red Blood Count 2.91 10^6/ul (4.0-5.4); Red Cell Distribution Width 13 % (10.5-15); White Blood Count 4.9 10^3/ul (3.5-10.8)
[2017-12-25 05:20] LABS: EGFR Non-African American 109.5 (>60)
[2017-12-25] MEDS: Insulin LISPRO* 1 UNITS UNIT SUBCUT SCH ×4 (08:16→21:08)
[2017-12-25] MEDS: Potassium Chloride LIQUID* 20 MEQ PACKET PO SCH ×2 (08:29→20:36)
[2017-12-25] MEDS: levETIRAcetam LIQ* 500 MG/5 ML UDC PO SCH (08:29)
[2017-12-25] MEDS: Dexamethasone TAB* 4 MG PO SCH (08:30)
[2017-12-25] MEDS: Sodium Chloride TAB* 1 GM PO SCH ×3 (08:30→20:36)
[2017-12-25] MEDS: CMCS:Anastrozole (NF) 1 MG TAB PO SCH (08:30)
[2017-12-25] MEDS: Omeprazole CAP* 20 MG PO SCH ×2 (08:30→17:22)
--- NOTE | 2017-12-25 13:15 | PN ---
Subjective Date of Service: 12/25/17 Interval History: Patient sleeping in bed. I spoke to her who was in her room. Social History: Unchanged from Admission Past Medical History: Unchanged from Admission Objective Active Medications: Acetaminophen (Tylenol Tab*) 650 mg PO Q4H PRN PRN Reason: FEVER/PAIN Last Admin: 12/13/17 22:14 Dose: 650 mg Albuterol (Ventolin 2.5 Mg/3 Ml Neb.Yusra*) 1.25 mg INH TID PRN PRN Reason: SHORTNESS OF BREATH Anastrozole (Arimidex (Nf)) 1 mg PO DAILY [facility] Last Admin: 12/25/17 08:30 Dose: 1 mg Dexamethasone (Decadron Tab*) 3 mg PO TID [facility] Dextrose (D50w Syringe 50 Ml*) 12.5 gm IV PUSH .FOR FS < 60 - SS PRN PRN Reason: FS < 60 Docusate Sodium (Colace Cap*) 100 mg PO BID PRN PRN Reason: CONSTIPATION Last Admin: 12/20/17 21:20 Dose: 100 mg Insulin Glargine (Lantus(*)) 10 units SUBCUT Q24H [facility] Last Admin: 12/24/17 13:17 Dose: 10 unit Insulin Human Lispro (Humalog*) 0 units SUBCUT ACHS [facility] PRN Reason: Protocol Last Admin: 12/25/17 12:06 Dose: Not Given Levetiracetam (Keppra Liq*) 250 mg PO BID [facility] Last Admin: 12/25/17 08:29 Dose: 250 mg Omeprazole (Prilosec Cap*) 20 mg PO BID@0730,1630 [facility] Last Admin: 12/25/17 08:30 Dose: 20 mg Polyethylene Glycol/Electrolytes (Miralax*) 17 gm PO DAILY PRN PRN Reason: CONSTIPATION Last Admin: 12/20/17 21:18 Dose: 17 gm Potassium Chloride (Klor-Con Liquid*) 40 meq PO BID [facility] Last Admin: 12/25/17 08:29 Dose: 40 meq Senna (Senokot Tab*) 2 tab PO BEDTIME PRN PRN Reason: CONSTIPATION Last Admin: 12/20/17 21:20 Dose: 2 tab Sodium Chloride (Sodium Chloride Tab*) 1 gm PO TID [facility] Last Admin: 12/25/17 08:30 Dose: 1 gm Vital Signs - 8 hr 12/25/17 12/25/17 12/25/17 07:23 09:20 11:25 Temperature 96.9 F 96.5 F Pulse Rate 67 61 Respiratory 15 18 16 Rate Blood Pressure 150/68 154/63 (mmHg) O2 Sat by Pulse 99 99 Oximetry Oxygen Devices in Use Now: None Appearance: Sleeping, looks comfortable. Result Diagrams: 12/25/17 04:50 12/25/17 04:50 Additional Lab and Data: Lab Results 12/13/17 12/13/17 12/13/17 Range/Units 10:04 10:04 10:04 WBC 5.9 (3.5-10.8) 10^3/ul RBC 4.61 (4.0-5.4) 10^6/ul Hgb 14.3 (12.0-16.0) g/dl Hct 40 (35-47) % MCV 87 (80-97) fL MCH 31 (27-31) pg MCHC 36 (31-36) g/dl RDW 13 (10.5-15) % Plt Count 158 (150-450) 10^3/ul MPV 6 L (7.4-10.4) um3 Neut % (Auto) 86.6 H (38-83) % Lymph % (Auto) 8.7 L (25-47) % Blair % (Auto) 4.4 (0-7) % Eos % (Auto) 0.1 (0-6) % Baso % (Auto) 0.2 (0-2) % Absolute Neuts (auto) 5.2 (1.5-7.7) 10^3/ul Absolute Lymphs (auto) 0.5 L (1.0-4.8) 10^3/ul Absolute Monos (auto) 0.3 (0-0.8) 10^3/ul Absolute Eos (auto) 0 (0-0.6) 10^3/ul Absolute Basos (auto) 0 (0-0.2) 10^3/ul Absolute Nucleated RBC 0 10^3/ul Nucleated RBC % 0.1 INR (Anticoag Therapy) 0.82 (0.77-1.02) Sodium 119 L* (133-145) mmol/L Potassium 3.4 L (3.5-5.0) mmol/L Chloride 78 L (101-111) mmol/L Carbon Dioxide 31 (22-32) mmol/L Anion Gap 10 (2-11) mmol/L BUN 18 (6-24) mg/dL Creatinine 0.52 (0.51-0.95) mg/dL Est GFR ( Amer) 147.1 (>60) Est GFR (Non-Af Amer) 114.3 (>60) BUN/Creatinine Ratio 34.6 H (8-20) Glucose 96 (70-100) mg/dL Lactic Acid (0.5-2.0) mmol/L Calcium 9.0 (8.6-10.3) mg/dL Magnesium 1.8 L (1.9-2.7) mg/dL Total Bilirubin 1.10 H (0.2-1.0) mg/dL AST 29 (13-39) U/L ALT 41 (7-52) U/L Alkaline Phosphatase 45 (34-104) U/L Ammonia (16-53) mol/L Total Creatine Kinase 198 (10-223) U/L Troponin I 0.03 (<0.04) ng/mL Total Protein 6.2 L (6.4-8.9) g/dL Albumin 3.7 (3.2-5.2) g/dL Globulin 2.5 (2-4) g/dL Albumin/Globulin Ratio 1.5 (1-3) TSH 0.36 (0.34-5.60) mcIU/mL Cortisol 34.38 mcg/dL Salicylates < 2.50 (<30) mg/dL Acetaminophen < 15 mcg/mL Serum Alcohol < 10 (<10) mg/dL 12/13/17 12/13/17 Range/Units 10:04 10:04 WBC (3.5-10.8) 10^3/ul RBC (4.0-5.4) 10^6/ul Hgb (12.0-16.0) g/dl Hct (35-47) % MCV (80-97) fL MCH (27-31) pg MCHC (31-36) g/dl RDW (10.5-15) % Plt Count (150-450) 10^3/ul MPV (7.4-10.4) um3 Neut % (Auto) (38-83) % Lymph % (Auto) (25-47) % Blair % (Auto) (0-7) % Eos % (Auto) (0-6) % Baso % (Auto) (0-2) % Absolute Neuts (auto) (1.5-7.7) 10^3/ul Absolute Lymphs (auto) (1.0-4.8) 10^3/ul Absolute Monos (auto) (0-0.8) 10^3/ul Absolute Eos (auto) (0-0.6) 10^3/ul Absolute Basos (auto) (0-0.2) 10^3/ul Absolute Nucleated RBC 10^3/ul Nucleated RBC % INR (Anticoag Therapy) (0.77-1.02) Sodium (133-145) mmol/L Potassium (3.5-5.0) mmol/L Chloride (101-111) mmol/L Carbon Dioxide (22-32) mmol/L Anion Gap (2-11) mmol/L BUN (6-24) mg/dL Creatinine (0.51-0.95) mg/dL Est GFR ( Amer) (>60) Est GFR (Non-Af Amer) (>60) BUN/Creatinine Ratio (8-20) Glucose (70-100) mg/dL Lactic Acid 2.4 H* (0.5-2.0) mmol/L Calcium (8.6-10.3) mg/dL Magnesium (1.9-2.7) mg/dL Total Bilirubin (0.2-1.0) mg/dL AST (13-39) U/L ALT (7-52) U/L Alkaline Phosphatase (34-104) U/L Ammonia 28 (16-53) mol/L Total Creatine Kinase (10-223) U/L Troponin I (<0.04) ng/mL Total Protein (6.4-8.9) g/dL Albumin (3.2-5.2) g/dL Globulin (2-4) g/dL Albumin/Globulin Ratio (1-3) TSH (0.34-5.60) mcIU/mL Cortisol mcg/dL Salicylates (<30) mg/dL Acetaminophen mcg/mL Serum Alcohol (<10) mg/dL Microbiology and Other Data: Microbiology 12/14/17 07:30 Legionella Urinary Antigen - Final Urine Negative Legionella Antigen Streptococcus pneumoniae Ag Screen - Final Negative S. pneumo Antigen 12/13/17 13:30 Nasal Screen MRSA (PCR)(ESTELITA) - Final Nasal Mrsa Not Detected 12/13/17 13:30 Influenza Types A,B Antigen (ESTELITA) - Final Nasal Specimen received for Influenza A/B Molecular testing Assess/Plan/Problems-Billing . 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 Found to have subclinical seizures on video EEG, UTI, and hyponatremia. - Patient Problems (1) Hyponatremia Current Visit: Yes Status: Acute Priority: High Code(s): E87.1 - HYPO- OSMOLALITY AND HYPONATREMIA SNOMED Code(s): 54170031 Comment: Paraneoplastic panel is negative Serum osm 247, urine osm 531, urine na 113--most likely SIADH Low AM cortisol is nondiagnostic in the setting of decadron treatment Continue fluid restriction and salt tablets Sodium continues to rise (though it should be noted that the normal range has changed between last sodium and today's sodium) (2) Encephalopathy acute Current Visit: Yes Status: Acute Code(s): G93.40 - ENCEPHALOPATHY, UNSPECIFIED SNOMED Code(s): 80329124 Comment: Multifactorial and thought to be due to hyponatremia, seizures, uti , +/- encephalitis (treating empirically for hsv due to mri findings, but LP deferred for family preference). 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 Garcia. The levetiracetam may be causing adverse [employer]ER effects and he will change her AED. (4) Breast cancer Current Visit: Yes Status: Acute Code(s): C50.919 - MALIGNANT NEOPLASM OF UNSP SITE OF UNSPECIFIED FEMALE BREAST SNOMED Code(s): 601025173 Comment: Dr. Rodriguez ([phone]) has been updated throughout her course. Last herceptin was on 12/[address] Rodriguez every Monday. Next appt scheduled for 12/25. Status and Disposition: Still delirious and very deconditioned. Appreciate neuro input May benefit from STR at discharge
[2017-12-25] MEDS: Insulin GLARGINE(*) 1 UNITS UNIT SUBCUT SCH (13:25)
[2017-12-25] MEDS: DEXAMETHASONE 1.5 MG PO SCH ×2 (14:43→20:36)
[2017-12-25] MEDS: Valproic Acid IV(*) 500 MG in NS 0.9% 100 ML* 100 ML IVPB SCH ×2 (14:44→21:40)
--- NOTE | 2017-12-25 17:31 | CONS ---
NEUROLOGY FOLLOWUP: DATE OF FOLLOWUP: 12/25/17 LOCATION: She is in room 404. HOSPITALIST: Dr. Mery Medley. CHIEF COMPLAINT: Mental status changes, metastatic breast cancer. INTERVAL HISTORY: Since yesterday, I have taken over for the neurology service with Dr. Chinchilla. I reviewed the records and spoke with her son briefly this morning and her neighbor and friend of 30 years, who is in the room today. She has apparently had fluctuating mental status and was initially improving after she came in somewhat obtunded and severely hyponatremic. She was known to have multiple brain metastases for which she had received Gamma Knife therapy and recently Herceptin. Her friend states that after the Herceptin, she seemed to change. She became weak and ultimately was found on the floor in her home by her neighbor. She was brought into the hospital and admitted on 12/13/17. She had been diagnosed with brain metastases apparently about a month or more before. When she was hospitalized last April, there was no history of brain metastases. Her oncological care is in [facility], but she saw Dr. Garrett here in [place] at one point. She does not have an oncologist in [place]. Other than Herceptin, her only current chemotherapy is Arimidex. She was seen by Dr. Mueller in consultation the day after she came here and EEG revealed occipital epileptiform discharges. She underwent continuous monitoring and was treated with Keppra. An MRI of the brain revealed at least 5 metastatic lesions and there is one enhancing area in the posterior left temporal lobe, thought to either be postictal edema or possibly an infection. Apparently, the family decided against lumbar puncture particularly with the intracranial metastases. She was treated with acyclovir, which was just finished yesterday after 10 days of therapy. She has continued to wax and wane in her behaviors since she has been here. There was initial considerable improvement and then she got worse again in the last few days. I saw her briefly this morning when she was getting her EEG done. At that point, she seemed quite agitated and somewhat paranoid saying that she was going to and that things were "backwards." MEDICATIONS: Were reviewed and she is on: 1. Arimidex 1 mg p.o. q. day. 2. Dexamethasone 4 mg p.o. t.i.d. 3. Sliding scale insulin. 4. Keppra 250 mg p.o. b.i.d. 5. Omeprazole 20 mg p.o. q. day. 6. MiraLAX. 7. Senokot. ALLERGIES: She was listed as having allergies to SULFA, GENTAMICIN, CLAVULANIC ACID, AMOXICILLIN. REVIEW OF SYSTEMS: From the patient is pretty nonproductive. She nods her head or shakes her head to questions, but does speak at times quite clearly. She denies headaches, change in vision, numbness in her limbs, pain in her limbs , or neck pain. PHYSICAL EXAM: General: She is pale, but appears well hydrated. She looks a little bit under nourished, but not terribly. Vital Signs: She has been afebrile for several days. Blood pressure most recently about 150/70, heart rate in the 60s and regular, and respiratory rate 16. Oxygen saturations 99% on room air. Neck is supple. There were no cervical bruits. Heart is in a regular rhythm without murmurs. Oral mucosa is moist. Neurological Exam: She opens her eyes to voice when I asked to pretty readily. Pupils react equally from 4.5 to 2.5 mm. Funduscopic exam reveals sharp discs bilaterally. Visual fair are full to double simultaneous stimulation. Eye movements are little bit choppy, but full. She tends to squint and sometimes grimace. When she opens her eyes, she frequently opens just the left eye and squints the right side. However, facial musculature is symmetric when formally tested. She reports light touch is present and symmetric on both sides of her face and nods her head. She does protrude her tongue in the midline. Motor Exam: Reveals normal tone in the limbs. She has antigravity strength in the upper extremities. With frequent encouragement, she is able to push down strongly with plantar flexion in both feet and raise her legs up a little bit briefly. She performs finger taps slowly, but symmetrically in the hands. Reflexes are trace in upper extremities and knees and absent at ankles. She has left Babinski sign and right plantar response is flexor. She nods her head usually appropriately. When asked to answer questions, she looks at me somewhat sternly and often does not answer. She then states says "you have it all backwards." Near the end of the visit, I asked her if she was afraid people were trying to hurt her. She opened her eyes widely and said " you are trying to kill me." When I told her that in fact the people here were trying to help her, she said "I will tell you when I am ready." Her friend tried to encourage her to tell what was on her mind, but she kept saying "I will tell you when I am ready." DIAGNOSTIC STUDIES/LAB DATA: MRI imaging was reviewed as was all laboratory testing to date. IMPRESSION AND PLAN: Impression is that of neuropsychiatric complications of metastatic brain cancer and treatment. In particular, steroids could cause paranoia and psychosis and Keppra could also cause similar problems. Acyclovir has been rarely reported to cause psychosis. She does not appear to have a depression level of consciousness at this point in time, but rather unwillingness to cooperative and suspicion that people here wish her harm. I would recommend tapering the prednisone down to 3 mg 3 times per day. I would recommend switching Keppra to a different anticonvulsant, specifically Depakote given its mood stabilizing properties. I will check some thyroid hormone levels as her TSH is very low normal. I will send her for anti-NMDA antibodies. Routine paraneoplastic antibody profile came back negative. I will consider a trial of low- dose Seroquel, but I would like to discuss it with her son first including the potential risks and benefits. I will continue to follow her with you. [id number]/[facility] #: [id number] ELSY
--- NOTE | 2017-12-26 00:01 | CONS ---
CONSULTATION REPORT: DATE OF CONSULT: 12/25/17 REASON FOR CONSULT: Metastatic breast cancer. HISTORY OF PRESENT ILLNESS: A 77-year-old female, who is initially diagnosed with breast cancer on 02/02/17. She presented with clinically T2N1M0 disease with a positive sentinel lymph node biopsy. She is ER negative, MD positive and HER2/della positive. She had neoadjuvant chemotherapy with Dr. Rodriguez in [place]. I am not aware currently what agents were used. She had 4 cycles of treatment. It was poorly tolerated and the last 2 cycles were skipped. She went to surgery and was found to have a complete pathologic response. She was subsequently referred to Dr. Garrett, who proceeded with adjuvant radiation therapy. She received therapy to the left breast from regional lymph nodes of 5000 [place] followed by boost 1000 [place] completing radiation on 09/20/17. She presented on 11/07/17 with changes in balance and had an MRI of the brain. The MRI showed 5 enhancing lesions with a 23 mm x 15 mm left cerebellar mass, an 8 mm right temporal lesion, 3 left cerebellar lesions, the largest 25 mm. She was referred to [facility] and had Gamma knife done in October. Subsequently , started on Arimidex and Herceptin. She had a second treatment on 11/14/17. She started to develop some mental status changes after the Herceptin. Her friend and partner of 30 years noticed fluctuation in her temper and some forgetfulness. She deteriorated remarkably on 12/13/17 when she was found on the floor by her neighbors. She was brought to the emergency room and on presentation was noted to have a UTI. She was hyponatremic with a sodium of 119 and had an EEG that showed seizure activity arising from the left posterior quadrant and was in partial status epilepticus. She was initially in the ICU and given Keppra. She was also treated empirically with acyclovir for possible [employer]ESSER HSV. Decision was made not to have a lumbar puncture. She seemed to be slowly improving. Dr. Chinchilla's notes from 12/22/17 noted delirium, but improvement and Dr. Medley's notes indicated some improvement as well. She had subsequent change in mental status on 12/24/17 where she went from walking in the halls to being quite disoriented and belligerent as well as increasingly irritable. This is still different than the obtunded affect she had on presentation, further more deterioration. She had followup today with Dr. Garcia. The differential diagnosis could be paranoia and psychosis from Keppra , possibly acyclovir, as well as possible effects from her steroids. She did have a repeat EEG done today and reading is pending. Son is healthcare proxy and requested local Oncology consultation. History is from the son and from Dr. Garrett's notes in the chart as well as Hospitalist records. She is not able to answer questions. PAST MEDICAL HISTORY: 1. Breast cancer, as noted above. 2. UTI, on admission. 3. Hypertension. 4. Hyponatremia with studies consistent with SIADH. 5. History of diverticulitis with admission in October 2016. 6. Overactive bladder. 7. Atrophic vaginitis. 8. History of asthma. PAST SURGICAL HISTORY: None. CURRENT MEDICATIONS: 1. Dexamethasone 3 mg p.o. t.i.d. 2. Arimidex 1 mg a day. 3. Ventolin. 4. Tylenol. 5. Colace. 6. Lantus and Humalog insulin. 7. Prilosec 20 mg daily. 8. MiraLAX as needed. 9. Potassium 40 mEq b.i.d. 10. Senna 2 tablets at bedtime. 11. Valproic acid start today at 500 mg. She just stopped the Keppra 250 mg b.i.d. ALLERGIES: AMOXICILLIN, CLAVULANIC ACID, GENTAMICIN, SULFA ANTIBIOTICS. FAMILY HISTORY: Mother at age 86. Father had Parkinson's. No clear family history of cancer according to the son. SOCIAL HISTORY: She lives alone, but her significant other lives across the street. Son is the healthcare proxy. He is from [place], but is staying at [place] as long as needed. REVIEW OF SYSTEMS: Unobtainable with the patient's current condition. She denies specifically being in pain. PHYSICAL EXAM: BP 150/64, pulse 67, respirations 16, temperature 98.2, sat 98% . HEENT: Oral mucosa moist. No lesions. Pupils are reactive. She seems to be symmetric in facial expressions. Neck: No cervical or supraclavicular lymphadenopathy. Lungs: Clear to auscultation. Heart: Regular rhythm, S1, S2. No murmurs or gallops. Abdomen: Nontender, nondistended. No hepatosplenomegaly. Extremities: +1 edema. Neurologic: She is moving all 4 extremities. Not responding to questions. She is stating to leave her alone. She is not oriented to my exam. DIAGNOSTIC STUDIES/LAB DATA: Hemoglobin slightly low at 9.2, has been decreased during the admission. Platelet count of 117, white count 4.9, normal differential. She has a sodium of 137, potassium of 4.5. She has essentially normal range glucose, slightly decreased magnesium at 1.8 and albumin of 2.8. Perineoplastic antibodies are negative. She had a UTI on 12/13/17. MRI was reviewed personally with the son. She had a clear response from her MRI of 11/15/17 with decrease in all 5 lesions. No clear leptomeningeal disease. She has modest amount of cerebellar WARP DRESSER edema on the current study. ASSESSMENT AND PLAN: A 77-year-old female, with HER2/della positive breast cancer metastatic to the brain. Status post Gamma knife with radiologic response, but now in the hospital for 10 days with mental status changes. Initially attributed to being postictal and with hyponatremia. Differential for these seizures is structural from a metastatic breast cancer, hyponatremia. She seemed to be improving, but then subsequently deteriorated again. Differential diagnoses at this time includes medication effect from the Keppra, possible contribution from dexamethasone, could be late effect of Gamma knife, perineoplastic syndrome, continued seizures, recurrent UTI, CVA. 1. Agree with medications made today by Dr. Garcia and discussed with the son that we should follow for the next day or two to see if those medication changes have an effect. 3. Agree with tapering of dexamethasone. Repeat MRI if question of increased edema or headaches. 4. If she does not improve in the next 24 to 48 hours, lumbar puncture for leptomeningeal disease. I discussed with the son that if she has leptomeningeal disease, will be a very poor prognosis. 5. No contraindication to continued Arimidex. We will continue to follow while in the hospital. [id number]/[facility] #: [id number] ELSY
[2017-12-26 03:24] LABS: Urine Appearance Cloudy; Urine Blood 1+ (Negative); Urine Color Yellow; Urine Ketones Negative (Negative); Urine Protein Negative (Negative); Urine Urobilinogen Negative (Negative)
[2017-12-26] MEDS: Valproic Acid IV(*) 500 MG in NS 0.9% 100 ML* 100 ML IVPB SCH (05:19)
[2017-12-26] MEDS: Insulin LISPRO* 1 UNITS UNIT SUBCUT SCH (07:28)
[2017-12-26] MEDS: Potassium Chloride LIQUID* 20 MEQ PACKET PO SCH ×2 (08:07→20:52)
[2017-12-26] MEDS: DEXAMETHASONE 1.5 MG PO SCH ×3 (08:07→20:52)
[2017-12-26] MEDS: Omeprazole CAP* 20 MG PO SCH ×2 (08:08→16:40)
[2017-12-26] MEDS: Sodium Chloride TAB* 1 GM PO SCH ×3 (08:08→20:52)
[2017-12-26] MEDS: CMCS:Anastrozole (NF) 1 MG TAB PO SCH (08:08)
--- NOTE | 2017-12-26 10:47 | EEG ---
ELECTROENCEPHALOGRAPHY: DATE OF STUDY: 12/25/17 HOSPITALIST: Dr. Mery Medley. LOCATION: She is an inpatient in room 404. CLINICAL PROBLEM: Brain metastases, prior seizures, change in mental status. MEDICATIONS: Include: 1. Keppra 250 mg p.o. b.i.d. 2. Dexamethasone 4 mg q.8 hours. 3. Arimidex. 4. Heparin. 5. Acyclovir. REPORT: This 16-channel EEG is remarkable for background rhythms consisting of fair amount of muscle artifact at various portions of the tracing. Background rhythms consist of occipital slowing more p rominently from the left occipital derivations in the right. Rhythms are approximately 4 to 5 cycles per second on left and 7 to 8 on the right. There is central slowing seen not infrequently. Rarely left occipital sharp waves are seen without phase reversals. The patient talks several occasions dur ing the recording and makes facial grimacing and other facial movements. The patient may very briefl y enter stage II sleep with parasagittal sleep spindles noted as well as higher voltage central delta activity. Activation procedures are not attempted. CLINICAL IMPRESSION: Abnormal EEG due to slowing and disorganization of background rhythms particula rly from the left occipital region where there are occasional sharp wave discharges. This tracing is compatible with focal pathology in the left occipital region as well as diffuse cerebral dysfunction . There may be an epileptic focus in the left occipital region as well but sharp wave discharges are very infrequent. [id number]/[facility] #: [id number]
--- NOTE | 2017-12-26 12:13 | PN ---
Subjective Date of Service: 12/26/17 Interval History: No c/o. Social History: Unchanged from Admission Past Medical History: Unchanged from Admission Objective Active Medications: Acetaminophen (Tylenol Tab*) 650 mg PO Q4H PRN PRN Reason: FEVER/PAIN Last Admin: 12/13/17 22:14 Dose: 650 mg Albuterol (Ventolin 2.5 Mg/3 Ml Neb.Yusra*) 1.25 mg INH TID PRN PRN Reason: SHORTNESS OF BREATH Anastrozole (Arimidex (Nf)) 1 mg PO DAILY [facility] Last Admin: 12/26/17 08:08 Dose: 1 mg Dexamethasone (Decadron Tab*) 3 mg PO TID [facility] Last Admin: 12/26/17 08:07 Dose: 3 mg Dextrose (D50w Syringe 50 Ml*) 12.5 gm IV PUSH .FOR FS < 60 - SS PRN PRN Reason: FS < 60 Docusate Sodium (Colace Cap*) 100 mg PO BID PRN PRN Reason: CONSTIPATION Last Admin: 12/20/17 21:20 Dose: 100 mg Heparin Sodium (Porcine) (Heparin Flush Port (Ivad)) 5 ml FLUSH DAILY [facility] PRN Reason: Protocol Last Admin: 12/26/17 07:54 Dose: Not Given Valproic Acid 500 mg/ Sodium (Chloride) 105 mls @ 210 mls/hr IVPB Q8H [facility] Last Admin: 12/26/17 05:19 Dose: 210 mls/hr Insulin Glargine (Lantus(*)) 10 units SUBCUT Q24H [facility] Last Admin: 12/25/17 13:25 Dose: 10 unit Omeprazole (Prilosec Cap*) 20 mg PO BID@0730,1630 [facility] Last Admin: 12/26/17 08:08 Dose: 20 mg Polyethylene Glycol/Electrolytes (Miralax*) 17 gm PO DAILY PRN PRN Reason: CONSTIPATION Last Admin: 12/20/17 21:18 Dose: 17 gm Potassium Chloride (Klor-Con Liquid*) 40 meq PO BID [facility] Last Admin: 12/26/17 08:07 Dose: 40 meq Senna (Senokot Tab*) 2 tab PO BEDTIME PRN PRN Reason: CONSTIPATION Last Admin: 12/20/17 21:20 Dose: 2 tab Sodium Chloride (Sodium Chloride Tab*) 1 gm PO TID [facility] Last Admin: 12/26/17 08:08 Dose: 1 gm Vital Signs - 8 hr 12/26/17 12/26/17 08:00 08:21 Pulse Rate 61 Respiratory 16 18 Rate Blood Pressure 150/65 (mmHg) O2 Sat by Pulse 100 Oximetry Oxygen Devices in Use Now: None Appearance: Alert, partly up in bed. Neutral affect. Looks comfortable. Eyes: No Scleral Icterus Skin: No Rash or Ulcers, No Nodules or Sclerosis, - Neurological: NL Sensation, - - Avoids speaking, did say one complete appropriate sentence and one other word, answered many other questions by gestures. 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 Result Diagrams: 12/25/17 04:50 12/25/17 04:50 Additional Lab and Data: Lab Results 12/13/17 12/13/17 12/13/17 Range/Units 10:04 10:04 10:04 WBC 5.9 (3.5-10.8) 10^3/ul RBC 4.61 (4.0-5.4) 10^6/ul Hgb 14.3 (12.0-16.0) g/dl Hct 40 (35-47) % MCV 87 (80-97) fL MCH 31 (27-31) pg MCHC 36 (31-36) g/dl RDW 13 (10.5-15) % Plt Count 158 (150-450) 10^3/ul MPV 6 L (7.4-10.4) um3 Neut % (Auto) 86.6 H (38-83) % Lymph % (Auto) 8.7 L (25-47) % Bryan % (Auto) 4.4 (0-7) % Eos % (Auto) 0.1 (0-6) % Baso % (Auto) 0.2 (0-2) % Absolute Neuts (auto) 5.2 (1.5-7.7) 10^3/ul Absolute Lymphs (auto) 0.5 L (1.0-4.8) 10^3/ul Absolute Monos (auto) 0.3 (0-0.8) 10^3/ul Absolute Eos (auto) 0 (0-0.6) 10^3/ul Absolute Basos (auto) 0 (0-0.2) 10^3/ul Absolute Nucleated RBC 0 10^3/ul Nucleated RBC % 0.1 INR (Anticoag Therapy) 0.82 (0.77-1.02) Sodium 119 L* (133-145) mmol/L Potassium 3.4 L (3.5-5.0) mmol/L Chloride 78 L (101-111) mmol/L Carbon Dioxide 31 (22-32) mmol/L Anion Gap 10 (2-11) mmol/L BUN 18 (6-24) mg/dL Creatinine 0.52 (0.51-0.95) mg/dL Est GFR ( Amer) 147.1 (>60) Est GFR (Non-Af Amer) 114.3 (>60) BUN/Creatinine Ratio 34.6 H (8-20) Glucose 96 (70-100) mg/dL Lactic Acid (0.5-2.0) mmol/L Calcium 9.0 (8.6-10.3) mg/dL Magnesium 1.8 L (1.9-2.7) mg/dL Total Bilirubin 1.10 H (0.2-1.0) mg/dL AST 29 (13-39) U/L ALT 41 (7-52) U/L Alkaline Phosphatase 45 (34-104) U/L Ammonia (16-53) mol/L Total Creatine Kinase 198 (10-223) U/L Troponin I 0.03 (<0.04) ng/mL Total Protein 6.2 L (6.4-8.9) g/dL Albumin 3.7 (3.2-5.2) g/dL Globulin 2.5 (2-4) g/dL Albumin/Globulin Ratio 1.5 (1-3) TSH 0.36 (0.34-5.60) mcIU/mL Cortisol 34.38 mcg/dL Salicylates < 2.50 (<30) mg/dL Acetaminophen < 15 mcg/mL Serum Alcohol < 10 (<10) mg/dL 12/13/17 12/13/17 Range/Units 10:04 10:04 WBC (3.5-10.8) 10^3/ul RBC (4.0-5.4) 10^6/ul Hgb (12.0-16.0) g/dl Hct (35-47) % MCV (80-97) fL MCH (27-31) pg MCHC (31-36) g/dl RDW (10.5-15) % Plt Count (150-450) 10^3/ul MPV (7.4-10.4) um3 Neut % (Auto) (38-83) % Lymph % (Auto) (25-47) % Bryan % (Auto) (0-7) % Eos % (Auto) (0-6) % Baso % (Auto) (0-2) % Absolute Neuts (auto) (1.5-7.7) 10^3/ul Absolute Lymphs (auto) (1.0-4.8) 10^3/ul Absolute Monos (auto) (0-0.8) 10^3/ul Absolute Eos (auto) (0-0.6) 10^3/ul Absolute Basos (auto) (0-0.2) 10^3/ul Absolute Nucleated RBC 10^3/ul Nucleated RBC % INR (Anticoag Therapy) (0.77-1.02) Sodium (133-145) mmol/L Potassium (3.5-5.0) mmol/L Chloride (101-111) mmol/L Carbon Dioxide (22-32) mmol/L Anion Gap (2-11) mmol/L BUN (6-24) mg/dL Creatinine (0.51-0.95) mg/dL Est GFR ( Amer) (>60) Est GFR (Non-Af Amer) (>60) BUN/Creatinine Ratio (8-20) Glucose (70-100) mg/dL Lactic Acid 2.4 H* (0.5-2.0) mmol/L Calcium (8.6-10.3) mg/dL Magnesium (1.9-2.7) mg/dL Total Bilirubin (0.2-1.0) mg/dL AST (13-39) U/L ALT (7-52) U/L Alkaline Phosphatase (34-104) U/L Ammonia 28 (16-53) mol/L Total Creatine Kinase (10-223) U/L Troponin I (<0.04) ng/mL Total Protein (6.4-8.9) g/dL Albumin (3.2-5.2) g/dL Globulin (2-4) g/dL Albumin/Globulin Ratio (1-3) TSH (0.34-5.60) mcIU/mL Cortisol mcg/dL Salicylates (<30) mg/dL Acetaminophen mcg/mL Serum Alcohol (<10) mg/dL Microbiology and Other Data: Microbiology 12/14/17 07:30 Legionella Urinary Antigen - Final Urine Negative Legionella Antigen Streptococcus pneumoniae Ag Screen - Final Negative S. pneumo Antigen 12/13/17 13:30 Nasal Screen MRSA (PCR)(ESTELITA) - Final Nasal Mrsa Not Detected 12/13/17 13:30 Influenza Types A,B Antigen (ESTELITA) - Final Nasal Specimen received for Influenza A/B Molecular testing Assess/Plan/Problems-Billing . 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 Found to have subclinical seizures on video EEG, UTI, and hyponatremia. - Patient Problems (1) Hyponatremia Current Visit: Yes Status: Acute Priority: High Code(s): E87.1 - HYPO- OSMOLALITY AND HYPONATREMIA SNOMED Code(s): 67821227 Comment: Serum osm 247, urine osm 531, urine na 113--most likely SIADH Low AM cortisol is nondiagnostic in the setting of decadron treatment Continue fluid restriction, salt tablets. Sodium 137 on 12/25/17. (2) Encephalopathy acute Current Visit: Yes Status: Acute Code(s): G93.40 - ENCEPHALOPATHY, UNSPECIFIED SNOMED Code(s): 96540401 Comment: Multifactorial and thought to be due to hyponatremia, seizures, uti , +/- encephalitis (treating empirically for hsv due to mri findings, but LP deferred for family preference). 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 Paraneoplastic panel is negative. As of 12/26 MS has been fluctuating. LP requested from Dr. Mcdowell. Discussed with Drs. Kirk and Jose. (3) Seizure Current Visit: Yes Status: Acute Priority: High Code(s): R56.9 - UNSPECIFIED CONVULSIONS SNOMED Code(s): 27719302 Comment: I discussed her AED use with Dr. Garcia. The levetiracetam may be causing adverse APPLICATION CHEMIST effects and she was changed to IV valproic acid. (4) Breast cancer Current Visit: Yes Status: Acute Code(s): C50.919 - MALIGNANT NEOPLASM OF UNSP SITE OF UNSPECIFIED FEMALE BREAST SNOMED Code(s): 193382945 Comment: Dr. Montana's consult appreciated. Status and Disposition: Still delirious and very deconditioned. Appreciate neuro input May benefit from STR at discharge
[2017-12-26] MEDS: Insulin GLARGINE(*) 1 UNITS UNIT SUBCUT SCH (13:32)
[2017-12-26] MEDS ORDERED: Divalproex DR TAB(*) 500 MG PO SCH (20:00)
[2017-12-26] MEDS: Divalproex DR TAB(*) 500 MG PO SCH (20:52)
--- NOTE | 2017-12-26 21:49 | PN ---
CC: Dr. Kirk.* NEUROLOGY FOLLOWUP NOTE: DATE OF FOLLOWUP: 12/26/17 HOSPITALIST: Dr. Dumont. LOCATION: She is an inpatient in room 404. CHIEF COMPLAINT: Mental status changes. INTERVAL HISTORY: Since yesterday, Ms. Garcias is doing about the same or perhaps a little bit better. She seems to be a little bit more interactive and was eating some breakfast and lunch. She was able to sit up and get into a recliner with assistance. She continues not to participate, however, much of what is requested including very often not responding verbally, but she is nodding her head. I reviewed consultation from Dr. Lucio Montana as well Dr. Kirk's followup note today. Recommendation for lumbar puncture to look for carcinomatous meningitis was recommended. Dr. Montana went over the radiation that she had received, which did not include any brain radiation other than gamma knife therapy. MEDICATIONS: Reviewed and she remains on: 1. Arimidex 1 mg p.o. q. day. 2. Dexamethasone down to 3 mg p.o. t.i.d. 3. Sliding scale insulin. 4. Omeprazole 20 mg p.o. b.i.d. 5. Potassium 40 mEq p.o. b.i.d. 6. Valproic acid 500 mg IV q. 8 hours. PHYSICAL EXAMINATION: On exam, she has been afebrile, most recent temperature 98.1 orally, blood pressure running 140 to 150/60 to 70 throughout the day. Heart rate is in 70s, respirations 21, and oxygen saturation 98% on room air. General: She is pale, but well hydrated. Heart is in regular rhythm without murmurs. Neurologically, she opens her eyes periodically, but often keeps them close and nods her head yes or no fairly appropriately. She does not appear to have depression of consciousness. She responds quickly suggesting that she is not drowsy or lethargic. Pupils react equally. Eye movements are full. The patient's musculature is symmetric. Strength in the upper extremities seems reasonably good with symmetrical naturalist strength and at least antigravity strength in her arms, although I cannot get her to cooperate to do [id number]. She just shakes her head "no." She moves her legs when she is getting in and out of the bed with help from the nurses. She otherwise does not follow many commands. I asked if she has any questions and her friend asks her the same questions and she says "let me think." She then says she does not have any questions. She looks up at the television and her friend has been watching the stock market. He said that she had been interested in stocks too. She nodded affirmatively. LABORATORY DATA: From today, no new CBC. Last point of service glucose 69. Urinalysis today notable for 1+ blood, 3+ leukocyte esterase, 3+ white blood cells, 2+ red blood cells. Free T4 from yesterday low normal at 0.72 and total T3 low at 0.3. Her albumin was low on December 24 at 2.8. IMPRESSION: Continued neuropsychiatric symptoms in the setting of brain metastases, chemotherapy and other drug therapy including her anti-convulsion and steroids likely culprits. I agree with lumbar puncture to look for carcinomatous meningitis or infection. I discussed that with her son and her friend of 30 years and answered questions regarding risk of herniation and that I felt there was fairly low risk with her relatively small tumors with steroids reducing edema. The 4th ventricle is not deformed on her MRI scan and so I think it is pretty safe to perform and advised them accordingly. She is currently on Depakote, which I will switch to p.o. I think we need to give another day or two before we try decreasing her steroids any further, but we will recommend do so gradually. We agree with Dr. Montana to repeat her MRI scan if she clinically worsens to make sure she has not developed recurrent cerebral edema. I will continue to follow her with you. [id number]/[facility] #: [id number] ELSY
[2017-12-27] MEDS: Omeprazole CAP* 20 MG PO SCH ×2 (07:44→16:33)
[2017-12-27] MEDS: CMCS:Anastrozole (NF) 1 MG TAB PO SCH (09:15)
[2017-12-27] MEDS: Divalproex DR TAB(*) 500 MG PO SCH ×2 (09:16→20:26)
[2017-12-27] MEDS: DEXAMETHASONE 1.5 MG PO SCH (09:16)
[2017-12-27] MEDS: Potassium Chloride LIQUID* 20 MEQ PACKET PO SCH ×2 (09:16→20:26)
[2017-12-27] MEDS: Sodium Chloride TAB* 1 GM PO SCH ×3 (09:17→20:26)
--- NOTE | 2017-12-27 10:10 | EEG ---
ELECTROENCEPHALOGRAPHY: DATE OF STUDY: 12/26/17 LOCATION: She is an inpatient in [facility]. REFERRING PHYSICIAN: Dr. Dumont. CLINICAL PROBLEM: Brain metastasis, prior seizures. Continued mental status changes. MEDICATIONS: Include: 1. Valproic acid. 2. Ventolin. 3. Decadron. 4. Arimidex. 5. Insulin. REPORT: This 16-channel EEG is remarkable for background rhythms consisting of generally diffuse slo wing, but particularly slowing occipitally. There is delta to theta rhythms in the 5 to 6 cycles per second range seen in the left occipital derivations and closer to 6 to 7 cycles per second in the ri ght. Amplitudes are also higher in the left occipital region. Muscle artifact is seen frequently as the patient makes facial grimacing and moves her mouth and tongue about. There is one episode of ri ght leg shaking without a change in background activity. The patient does not appear drowsy or sleep during the recording. There are occasional sharp discharges seen from the left occipital derivation s, but no clear epileptiform discharges. There are no phase reversals or sharp and slow discharges. CLINICAL IMPRESSION: Abnormal EEG due to diffuse slowing of background rhythms more prominently from the left occipital region than the right. This tracing is compatible with diffuse cerebral dysfunct ion as well as more focal pathology in the left posterior hemisphere. There are some sharp waves in that distribution suggestive of a possible epileptiform focus, but there are no clear epileptiform di scharges during the recording. [id number]/[facility] #: [id number]
--- NOTE | 2017-12-27 13:33 | PM ---
PROCEDURE NOTE: DATE OF PROCEDURE: 12/26/17 - ROOM #404 HISTORY: Called by the medicine service, Dr. Lefty Dumont to perform lumbar puncture on Ms. Garcias who has a history of metastatic breast cancer to the brain with several days of altered mental status and confusion. It was decided that a lumbar puncture should be performed to rule out infectious meningitis along with possible spread of cancer to the spinal canal. The patient has had MRI of the brain showing multiple lesions with no sign of herniation or mass effect. She is currently not on anticoagulation and has not received subcutaneous heparin today. She has no history of previous coagulopathies. Her INR and PTT were reviewed and are all within normal limits along with her platelets. She otherwise has no contraindications for lumbar puncture. She denies any recent fever, chills, or infectious processes as well. The risks and benefits of lumbar puncture were discussed with the patient along with her family present, who all verbalized understanding and elected to proceed with the procedure. PROCEDURE: Lumbar puncture. DESCRIPTION OF PROCEDURE: The patient was brought to the procedure room suite. A time-out was performed. Informed consent was obtained. The patient was then placed in a sitting position on the bed. 3 cc of 1% lidocaine plain was used to anesthetize the skin after the usual sterile prep was performed with chlorhexidine. Subsequently, a 20-gauge introducer and a 25-gauge Pencan needle was used to access the intrathecal space. Two needle passes were performed. Crystal clear free flowing CSF was seen from the Pencan needle. A total of 13 mL of CSF was aspirated from the intrathecal space over the course of several minutes with ease. This was then sent to the lab for further testing. The CSF appeared unremarkable and clear. The patient's back was subsequently dressed with a Band-Aid and the patient was returned to her room on with no focal neurological deficits or paraesthesias. She tolerated the procedure very well. Her vital signs remained stable and were measured: blood pressure 137/63, pulse 69, oxygen saturation 97% postprocedure. She was then observed for an additional 5 to 10 minutes in the procedure room by a PACU nurse and subsequently returned to her room with no additional complications. No anxiolysis was given. She was advised to maintain proper hydration today to avoid possibility of headache and for activity as tolerated. [id number]/[facility] #: [id number] [facility] [place]
[2017-12-27] MEDS: Insulin GLARGINE(*) 1 UNITS UNIT SUBCUT SCH (14:12)
--- NOTE | 2017-12-27 14:57 | PN ---
Subjective Date of Service: 12/27/17 Interval History: No C/O. Pt states she ate most of her lunch. Social History: Unchanged from Admission Past Medical History: Unchanged from Admission Objective Active Medications: Acetaminophen (Tylenol Tab*) 650 mg PO Q4H PRN PRN Reason: FEVER/PAIN Last Admin: 12/13/17 22:14 Dose: 650 mg Albuterol (Ventolin 2.5 Mg/3 Ml Neb.Yusra*) 1.25 mg INH TID PRN PRN Reason: SHORTNESS OF BREATH Anastrozole (Arimidex (Nf)) 1 mg PO DAILY [facility] Last Admin: 12/27/17 09:15 Dose: 1 mg Dexamethasone (Decadron Tab*) 2 mg PO TID [facility] Dextrose (D50w Syringe 50 Ml*) 12.5 gm IV PUSH .FOR FS < 60 - SS PRN PRN Reason: FS < 60 Divalproex Sodium (Depakote Dr Tab(*)) 500 mg PO BID [facility] Last Admin: 12/27/17 09:16 Dose: 500 mg Docusate Sodium (Colace Cap*) 100 mg PO BID PRN PRN Reason: CONSTIPATION Last Admin: 12/20/17 21:20 Dose: 100 mg Insulin Glargine (Lantus(*)) 10 units SUBCUT Q24H [facility] Last Admin: 12/27/17 14:12 Dose: 10 unit Omeprazole (Prilosec Cap*) 20 mg PO BID@0730,1630 [facility] Last Admin: 12/27/17 07:44 Dose: 20 mg Polyethylene Glycol/Electrolytes (Miralax*) 17 gm PO DAILY PRN PRN Reason: CONSTIPATION Last Admin: 12/20/17 21:18 Dose: 17 gm Potassium Chloride (Klor-Con Liquid*) 40 meq PO BID [facility] Last Admin: 12/27/17 09:16 Dose: 40 meq Senna (Senokot Tab*) 2 tab PO BEDTIME PRN PRN Reason: CONSTIPATION Last Admin: 12/20/17 21:20 Dose: 2 tab Sodium Chloride (Sodium Chloride Tab*) 1 gm PO TID [facility] Last Admin: 12/27/17 14:13 Dose: 1 gm Vital Signs - 8 hr 12/27/17 12/27/17 12/27/17 07:42 07:46 07:47 Temperature 97.5 F 97.5 F Pulse Rate 71 68 Respiratory 16 16 14 Rate Blood Pressure 137/76 137/76 (mmHg) O2 Sat by Pulse 100 100 Oximetry 12/27/17 11:22 Temperature 97.8 F Pulse Rate Respiratory 17 Rate Blood Pressure 109/45 (mmHg) O2 Sat by Pulse 100 Oximetry Oxygen Devices in Use Now: None Appearance: Supine in bed. Passive but cooperative. Opens her eyes when I speak. Looks comfortable. Result Diagrams: 12/25/17 04:50 12/25/17 04:50 Additional Lab and Data: Lab Results 12/13/17 12/13/17 12/13/17 Range/Units 10:04 10:04 10:04 WBC 5.9 (3.5-10.8) 10^3/ul RBC 4.61 (4.0-5.4) 10^6/ul Hgb 14.3 (12.0-16.0) g/dl Hct 40 (35-47) % MCV 87 (80-97) fL MCH 31 (27-31) pg MCHC 36 (31-36) g/dl RDW 13 (10.5-15) % Plt Count 158 (150-450) 10^3/ul MPV 6 L (7.4-10.4) um3 Neut % (Auto) 86.6 H (38-83) % Lymph % (Auto) 8.7 L (25-47) % Grant % (Auto) 4.4 (0-7) % Eos % (Auto) 0.1 (0-6) % Baso % (Auto) 0.2 (0-2) % Absolute Neuts (auto) 5.2 (1.5-7.7) 10^3/ul Absolute Lymphs (auto) 0.5 L (1.0-4.8) 10^3/ul Absolute Monos (auto) 0.3 (0-0.8) 10^3/ul Absolute Eos (auto) 0 (0-0.6) 10^3/ul Absolute Basos (auto) 0 (0-0.2) 10^3/ul Absolute Nucleated RBC 0 10^3/ul Nucleated RBC % 0.1 INR (Anticoag Therapy) 0.82 (0.77-1.02) Sodium 119 L* (133-145) mmol/L Potassium 3.4 L (3.5-5.0) mmol/L Chloride 78 L (101-111) mmol/L Carbon Dioxide 31 (22-32) mmol/L Anion Gap 10 (2-11) mmol/L BUN 18 (6-24) mg/dL Creatinine 0.52 (0.51-0.95) mg/dL Est GFR ( Amer) 147.1 (>60) Est GFR (Non-Af Amer) 114.3 (>60) BUN/Creatinine Ratio 34.6 H (8-20) Glucose 96 (70-100) mg/dL Lactic Acid (0.5-2.0) mmol/L Calcium 9.0 (8.6-10.3) mg/dL Magnesium 1.8 L (1.9-2.7) mg/dL Total Bilirubin 1.10 H (0.2-1.0) mg/dL AST 29 (13-39) U/L ALT 41 (7-52) U/L Alkaline Phosphatase 45 (34-104) U/L Ammonia (16-53) mol/L Total Creatine Kinase 198 (10-223) U/L Troponin I 0.03 (<0.04) ng/mL Total Protein 6.2 L (6.4-8.9) g/dL Albumin 3.7 (3.2-5.2) g/dL Globulin 2.5 (2-4) g/dL Albumin/Globulin Ratio 1.5 (1-3) TSH 0.36 (0.34-5.60) mcIU/mL Cortisol 34.38 mcg/dL Salicylates < 2.50 (<30) mg/dL Acetaminophen < 15 mcg/mL Serum Alcohol < 10 (<10) mg/dL 12/13/17 12/13/17 Range/Units 10:04 10:04 WBC (3.5-10.8) 10^3/ul RBC (4.0-5.4) 10^6/ul Hgb (12.0-16.0) g/dl Hct (35-47) % MCV (80-97) fL MCH (27-31) pg MCHC (31-36) g/dl RDW (10.5-15) % Plt Count (150-450) 10^3/ul MPV (7.4-10.4) um3 Neut % (Auto) (38-83) % Lymph % (Auto) (25-47) % Grant % (Auto) (0-7) % Eos % (Auto) (0-6) % Baso % (Auto) (0-2) % Absolute Neuts (auto) (1.5-7.7) 10^3/ul Absolute Lymphs (auto) (1.0-4.8) 10^3/ul Absolute Monos (auto) (0-0.8) 10^3/ul Absolute Eos (auto) (0-0.6) 10^3/ul Absolute Basos (auto) (0-0.2) 10^3/ul Absolute Nucleated RBC 10^3/ul Nucleated RBC % INR (Anticoag Therapy) (0.77-1.02) Sodium (133-145) mmol/L Potassium (3.5-5.0) mmol/L Chloride (101-111) mmol/L Carbon Dioxide (22-32) mmol/L Anion Gap (2-11) mmol/L BUN (6-24) mg/dL Creatinine (0.51-0.95) mg/dL Est GFR ( Amer) (>60) Est GFR (Non-Af Amer) (>60) BUN/Creatinine Ratio (8-20) Glucose (70-100) mg/dL Lactic Acid 2.4 H* (0.5-2.0) mmol/L Calcium (8.6-10.3) mg/dL Magnesium (1.9-2.7) mg/dL Total Bilirubin (0.2-1.0) mg/dL AST (13-39) U/L ALT (7-52) U/L Alkaline Phosphatase (34-104) U/L Ammonia 28 (16-53) mol/L Total Creatine Kinase (10-223) U/L Troponin I (<0.04) ng/mL Total Protein (6.4-8.9) g/dL Albumin (3.2-5.2) g/dL Globulin (2-4) g/dL Albumin/Globulin Ratio (1-3) TSH (0.34-5.60) mcIU/mL Cortisol mcg/dL Salicylates (<30) mg/dL Acetaminophen mcg/mL Serum Alcohol (<10) mg/dL Microbiology and Other Data: Microbiology 12/14/17 07:30 Legionella Urinary Antigen - Final Urine Negative Legionella Antigen Streptococcus pneumoniae Ag Screen - Final Negative S. pneumo Antigen 12/13/17 13:30 Nasal Screen MRSA (PCR)(ESTELITA) - Final Nasal Mrsa Not Detected 12/13/17 13:30 Influenza Types A,B Antigen (ESTELITA) - Final Nasal Specimen received for Influenza A/B Molecular testing Assess/Plan/Problems-Billing . 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 Found to have subclinical seizures on video EEG, UTI, and hyponatremia. - Patient Problems (1) Hyponatremia Current Visit: Yes Status: Acute Priority: High Code(s): E87.1 - HYPO- OSMOLALITY AND HYPONATREMIA SNOMED Code(s): 53805101 Comment: Serum osm 247, urine osm 531, urine na 113--most likely SIADH Low AM cortisol is nondiagnostic in the setting of decadron treatment Continue fluid restriction, salt tablets. Sodium 137 on 12/25/17. (2) Encephalopathy acute Current Visit: Yes Status: Acute Code(s): G93.40 - ENCEPHALOPATHY, UNSPECIFIED SNOMED Code(s): 19172870 Comment: Multifactorial and thought to be due to hyponatremia, seizures, uti , +/- encephalitis (treating empirically for hsv due to mri findings, but LP deferred for family preference). 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 Paraneoplastic panel is negative. As of 12/26 MS has been fluctuating. LP requested from Dr. Mcdowell. Discussed with Drs. Kirk and Jose. (3) Seizure Current Visit: Yes Status: Acute Priority: High Code(s): R56.9 - UNSPECIFIED CONVULSIONS SNOMED Code(s): 05386848 Comment: I discussed her AED use with Dr. Garcia. The levetiracetam may be causing adverse HEMATOLOGY ONCOLOGY CONSULTANT effects and she was changed to IV valproic acid. (4) Breast cancer Current Visit: Yes Status: Acute Code(s): C50.919 - MALIGNANT NEOPLASM OF UNSP SITE OF UNSPECIFIED FEMALE BREAST SNOMED Code(s): 296881125 Comment: Dr. Montana's consult appreciated. Status and Disposition: Still delirious and very deconditioned. Appreciate neuro input May benefit from STR at discharge
[2017-12-27] MEDS: Dexamethasone TAB* 1 MG PO SCH ×2 (15:05→20:26)
--- NOTE | 2017-12-27 16:29 | CONS ---
NEUROLOGY FOLLOWUP NOTE: DATE OF FOLLOWUP: 12/27/17 LOCATION: She is room 44. HOSPITALIST: Dr. Dumont. ONCOLOGIST: Dr. Kirk. CHIEF COMPLAINT: Delirium. INTERVAL HISTORY: Since yesterday, Nicky Gomes has no complaints, but continues to have minimal verbal output. She does, however, reliably shake her head yes or no. She is not particularly sleepy today according to her friend, Valentino, who has been here or from reading the nursing notes. She was minimally cooperative with physical therapy, but did some in-chair exercises. She is still requiring the assist of two to lift her into the recliner. She just finished eating her lunch. MEDICATIONS: Reviewed, and she remains on: 1. Dexamethasone 3 mg p.o. t.i.d. 2. Arimidex 1 mg p.o. q. day. 3. Depakote 500 mg p.o. b.i.d. 4. Colace 100 mg p.o. b.i.d. 5. Omeprazole 20 mg p.o. b.i.d. 6. Potassium 40 mEq p.o. b.i.d. 7. Senna. 8. Sodium chloride tablets 1 g p.o. t.i.d. REVIEW OF SYSTEMS: She denies leg pain, back pain, or headaches. She denies nausea or abdominal pain. PHYSICAL EXAM: She looks still a little pale, but well hydrated. Temperature 97.7 orally, blood pressure 154/67, heart rate in the 70s, respiratory rate 12, and oxygen saturation 98% on room air. Neurological Exam: She is awake and opens her eyes more than she did yesterday , but often keeps them closed. She shakes her head appropriately, yes or no. She does answer a few questions verbally such as "let me think" and "I don't think so." She exhibits antigravity strength symmetrically in the upper hands, which are a bit tremulous. She has normal muscle tone in upper and lower extremities. I cannot get her to raise her legs volitionally, but she does so spontaneously when just being observed and talking with her friend in the room. She closed her eyes forcefully to my request. She smiles to Valentino at his request. LABORATORY DATA: Includes a spinal fluid from yesterday notable for clear colorless fluid, 1 white blood cell and 2 red blood cells, glucose normal at 56 , protein mildly elevated at 50. Cytology is still pending. There are no other new laboratory studies pending. 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 She seems a little bit better in terms of responsiveness. She may have some paranoia from the steroids as well as delirium and so I recommend continuing to taper and we will decrease it to 2 mg 3 times per day today. If she deteriorates, we may need to get some brain imaging. I will await the results of her cytology. I will continue to follow her along. [id number]/[facility] #: [id number] [facility]
[2017-12-27] MEDS: Acyclovir IV(*) 500 MG in NS 0.9% 100 ML* 100 ML IVPB SCH (16:37)
[2017-12-27] MEDS ORDERED: Dextrose 50% Syringe 50 ML* 25 GM/50 ML SYRINGE IV PUSH PRN ×2 (21:01→21:02)
[2017-12-27] MEDS ORDERED: Insulin LISPRO* 1 UNITS UNIT SUBCUT ONE (21:01)
[2017-12-28] MEDS: Acyclovir IV(*) 500 MG in NS 0.9% 100 ML* 100 ML IVPB SCH ×2 (00:20→09:07)
--- NOTE | 2017-12-28 03:54 | CONS ---
CC: Dr. Ansari * NEUROLOGY FOLLOWUP NOTE: DATE OF FOLLOWUP: 12/27/17 HOSPITALIST: Dr. Dumont. CHIEF COMPLAINT: Delirium, brain metastasis. INTERVAL HISTORY: This is a followup note to my earlier note today, she recently had reported back from the lab positive herpes simplex virus type 2 PCR. HSV type 1 was negative, however. In addition, the comments to the result was that it yielded a low-positive result which may not be reproducible and should be interpreted in the context of the patient's clinical presentation. There has been no changes clinically since earlier. She ate lunch. She still interacts usually by nodding, but does vocalize at times. Her son is present, I updated him on the results of the laboratory studies and her clinical state. I explained that I cut back her dexamethasone from 3 mg to 2 mg 3 times per day. I explained that I restarted acyclovir, although I have a low-index of suspicion that she actually has a herpes simplex virus type 2 infection causing her presentation. I explained the difference between viral meningitis, which is the typical clinical presentation for HSV-2 and encephalitis, which would be more likely an HSV-1 infection. Followup tomorrow and see how she is doing. Hopefully, the spinal fluid cytology will be back by then. Hopefully, she is farther out from her severe hyponatremia and we tapered the steroids and keep her off Keppra. She will continue to show some improvement. [id number]/[facility] #: [id number] [facility]
[2017-12-28 05:33] LABS: Hematocrit 31 % (35-47); Hemoglobin 11.1 g/dl (12.0-16.0); Mean Corpuscular HGB Conc 36 g/dl (31-36); Mean Corpuscular Hemoglobin 32 pg (27-31); Mean Corpuscular Volume 89 fL (80-97); Mean Platelet Volume 6.8 um3 (7.4-10.4); Platelet Count 139 10^3/ul (150-450); Red Cell Distribution Width 13 % (10.5-15)
[2017-12-28 05:47] LABS: EGFR Non-African American 114.3 (>60)
[2017-12-28] MEDS ORDERED: Insulin LISPRO* 1 UNITS UNIT SUBCUT SCH (07:30)
[2017-12-28] MEDS: Omeprazole CAP* 20 MG PO SCH ×2 (08:36→17:48)
[2017-12-28] MEDS: Potassium Chloride LIQUID* 20 MEQ PACKET PO SCH ×2 (08:36→20:20)
[2017-12-28] MEDS: Dexamethasone TAB* 1 MG PO SCH ×3 (08:36→20:20)
[2017-12-28] MEDS: Sodium Chloride TAB* 1 GM PO SCH ×3 (08:36→20:20)
[2017-12-28] MEDS: CMCS:Anastrozole (NF) 1 MG TAB PO SCH (08:37)
[2017-12-28] MEDS: Divalproex DR TAB(*) 500 MG PO SCH ×2 (08:37→20:20)
[2017-12-28] MEDS: Cefepime 1 GM in Dextrose(*) 1 GM/50 ML BAG IV SCH ×2 (09:52→22:17)
--- NOTE | 2017-12-28 10:24 | PN ---
Progress Note - Progress Note Date of Service: 12/28/17 SOAP: Subjective: appears to be clinically improving. able to answer some questions today. 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 Assessment: 77 yo F w cT2N1 Her2+, ER+ BCA sp neoadjuvant chemotherapy with a pathCR followed by 5 brain lesions, which to my knowledge, were never biopsied but treated with gamma knife, now with encephalitis of unclear etiology. With a pathologic complete response to therapy, I am surprised to see such fast MACHINE SPECIALIST relapse and do question if these lesions were in fact cancer and not an underlying infection or inflammatory process. I did not discuss this with her son today as I did not realize that the lesions were not biopsied until after my conversation with him. Dr. Montana and I have discussed, and he will address this with him tomorrow. It may be worth while pursuing a diagnostic biopsy as this could be a different process all together.
--- NOTE | 2017-12-28 12:07 | CONS ---
CONSULTATION REPORT: DATE OF CONSULT: 12/28/17 REQUESTING PHYSICIAN: Dr. Dumont. REASON FOR CONSULT: Encephalopathy, abnormal spinal fluid study. IMPRESSION: 1. Admitted to the hospital on 12/13/17 with encephalopathy. The differential diagnosis at that time looks like it was hyponatremia (sodium was 119), seizures documented here in the setting of known breast cancer metastasis to the brain. She had a new finding of increased T2/FLAIR signal in the left mesiotemporal lobe without enhancement. 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 She had some slight increase in her mental status while she was here and then it was felt that she worsened recently after stopping acyclovir. As a result, she had a lumbar puncture, it showed 2 white cells, slight elevation in protein, and 50 slightly positive HSV- 2 PCR. The differential diagnosis for recurrent issues that could be attributed to infection include HSV-2 meningitis, which I think is unlikely, it does not cause encephalitis and the spinal fluid result is reported as low positive and probably false positive. Otherwise, she has pyuria, leukocyte esterase, blood in her urine, pseudomonas present. At the time of her admission , she could have cystitis. 2. Breast cancer with metastasis to the brain. 3. Hypertension. 4. Diverticulitis. RECOMMENDATIONS: 1. Stop acyclovir. 2. Start cefepime 1 g IV every 12 hours. HISTORY OF PRESENT ILLNESS: This is a 77-year-old woman with brain metastasis from breast cancer, admitted with encephalopathy. She cannot provide any history, which was obtained instead from review of the medical record, discussion with Dr. Dumont. 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 She may have made some subtle improvement over a couple of weeks. Acyclovir was stopped. She had some slight worsening that seemed to be worse in the afternoon according to the nursing staff with being better during the morning. The same I feel was true today that she is more alert this morning. She had a lumbar puncture on 12/26/17 that showed 2 white cells. HSV PCR slightly positive for HSV-2, HSV-1 negative. Protein is 50, glucose 56. She had a fever one time on 12/13/17, detected in the ICU and no fever since then. This morning, she denies pain and cannot provide any further history. PAST MEDICAL HISTORY: 1. Breast cancer with metastatic disease to the brain. 2. History of UTI. 3. Hypertension. 4. Diverticulitis. 5. Overactive bladder. 6. Atrophic vaginitis. 7. Asthma. 8. History of brain radiation from her breast cancer, currently on Herceptin. MEDICATIONS: 1. Tylenol. 2. Albuterol. 3. Anastrazole. 4. Dexamethasone. 5. Depakote. 6. Insulin. 7. Omeprazole. 8. Senna. 9. Acyclovir 500 mg every 8 hours. ALLERGIES: AUGMENTIN, GENTAMICIN, and SULFA, she cannot explain what they are. FAMILY HISTORY: Unobtainable. SOCIAL HISTORY: She lives in [place], apparently by herself. Nonsmoker. REVIEW OF SYSTEMS: Unobtainable. PHYSICAL EXAM: Vital Signs: Temperature is 37, heart rate 80, respiratory rate 16, blood pressure 140/80, oxygen saturation 100% on room air. In general , she is not in distress. Neurologic: She is awake, answers questions, some- what appropriate. She is oriented x1. She follows some commands. HEENT: There is no conjunctival hemorrhage. Oropharynx without lesions. Neck is supple without mass. Lymph Nodes: There is no inguinal, axillary, or epitrochlear lymphadenopathy. Heart has regular rate and rhythm without murmurs , rubs, or gallops. Lungs are clear to auscultation bilaterally. Abdomen: Soft, nontender, nondistended. There are bowel sounds present. Skin: There is no rash or splinter hemorrhages. Musculoskeletal: There is no spine tenderness to palpation or joint synovitis. Genitourinary: There is a Jones catheter present. LABORATORY DATA: White blood cell count 7, hemoglobin 11, platelets 139. Creatinine 0.5. Influenza PCR negative. Please see impressions and recommendations as outlined above. Thanks for asking me to see Ms. Garcias in consultation. [id number]/[facility] #: [id number] ELSY
[2017-12-28] MEDS: Insulin GLARGINE(*) 1 UNITS UNIT SUBCUT SCH (12:33)
[2017-12-28] MEDS: Insulin LISPRO* 1 UNITS UNIT SUBCUT SCH ×2 (12:34→17:48)
--- NOTE | 2017-12-28 16:24 | PN ---
Subjective Date of Service: 12/28/17 Interval History: Patient seen and examined at bedside. Denies fever, chills, shortness of breath , chest discomfort, N/V/D. Social History: Unchanged from Admission Past Medical History: Unchanged from Admission Objective Active Medications: Acetaminophen (Tylenol Tab*) 650 mg PO Q4H PRN Reason: FEVER/PAIN Albuterol (Ventolin 2.5 Mg/3 Ml Neb.Yusra*) 1.25 mg INH TID PRN Reason: SHORTNESS OF BREATH Anastrozole (Arimidex (Nf)) 1 mg PO DAILY [facility] Dexamethasone (Decadron Tab*) 2 mg PO TID [facility] Dextrose (D50w Syringe 50 Ml*) 12.5 gm IV PUSH .FOR FS < 60 - SS PRN Reason: FS < 60 Divalproex Sodium (Depakote Dr Tab(*)) 500 mg PO BID [facility] Docusate Sodium (Colace Cap*) 100 mg PO BID PRN Reason: CONSTIPATION Cefepime HCl (Maxipime 1 Gm In Dextrose Duplex (*)) 1 gm in 50 mls @ 100 mls/ hr IV Q12H [facility] Insulin Glargine (Lantus(*)) 10 units SUBCUT Q24H [facility] Insulin Human Lispro (Humalog*) 0 - 10 units SUBCUT AC [facility] Omeprazole (Prilosec Cap*) 20 mg PO BID@0730,1630 [facility] Polyethylene Glycol/Electrolytes (Miralax*) 17 gm PO DAILY PRN Reason: CONSTIPATION Potassium Chloride (Klor-Con Liquid*) 40 meq PO BID [facility] Senna (Senokot Tab*) 2 tab PO BEDTIME PRN Reason: CONSTIPATION Sodium Chloride (Sodium Chloride Tab*) 1 gm PO TID COUNT INCLUDES THE [facility] Vital Signs - 8 hr 12/28/17 14:45 Temperature 98.2 F Pulse Rate 84 Respiratory 16 Rate Blood Pressure 139/65 (mmHg) O2 Sat by Pulse 99 Oximetry Oxygen Devices in Use Now: None Appearance: NAD, sitting up in a chair Ears/Nose/Mouth/Throat: Mucous Membranes Moist Respiratory: Symmetrical Chest Expansion and Respiratory Effort, Clear to Auscultation Cardiovascular: NL Sounds; No Murmurs; No JVD, RRR Abdominal: NL Sounds; No Tenderness; No Distention Extremities: No Edema Skin: - - Multiple small open areas to buttocks, appears to be moisture related breakdown. Ecchymosis to right upper arm Neurological: - - Alert and Oriented to Person, confused Lines/Tubes/Other Access: Clean, Dry and Intact Peripheral IV - site benign Nutrition: Taking PO's Result Diagrams: 12/28/17 05:12 12/28/17 05:12 Additional Lab and Data: Microbiology and Other Data: Microbiology 12/14/17 07:30 Legionella Urinary Antigen - Final Urine Negative Legionella Antigen Streptococcus pneumoniae Ag Screen - Final Negative S. pneumo Antigen 12/13/17 13:30 Nasal Screen MRSA (PCR)([facility]) - Final Nasal Mrsa Not Detected 12/13/17 13:30 Influenza Types A,B Antigen ([facility]) - Final Nasal Specimen received for Influenza A/B Molecular testing Assess/Plan/Problems-Billing . Assessment: Ms. 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 Found to have subclinical seizures on video EEG, UTI, and hyponatremia. - Patient Problems (1) Hyponatremia Code(s): E87.1 - HYPO-OSMOLALITY AND HYPONATREMIA SNOMED Code(s): 95534463 Comment: - Serum osm 247, urine osm 531, urine na 113 -- most likely SIADH - Low AM cortisol is nondiagnostic in the setting of decadron treatment - Continue fluid restriction and salt tablets. Sodium 136 today. (2) Encephalopathy acute Code(s): G93.40 - ENCEPHALOPATHY, UNSPECIFIED SNOMED Code(s): 89393186 Comment: - Multifactorial and thought to be due to hyponatremia, seizures, uti, +/- encephalitis (treating empirically for hsv due to mri findings, but LP deferred for family preference). 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 Paraneoplastic panel is negative. - Mental status continues to fluctuate. - S/P LP, suspect false positive LP (3) Skin abnormality Code(s): L98.9 - DISORDER OF THE SKIN AND SUBCUTANEOUS TISSUE, UNSPECIFIED SNOMED Code(s): 37444028 Comment: - Pt with several open areas to charmaine cleft and bilateral buttocks. - Suspect secondary to moisture - Continue barrier cream with zinc (4) Seizure Code(s): R56.9 - UNSPECIFIED CONVULSIONS SNOMED Code(s): 18044027 Comment: - Neurology consult, inpir appreciated. - The levetiracetam may be causing adverse NOTE TELLER effects and she was changed to IV valproic acid. (5) Breast cancer Code(s): C50.919 - MALIGNANT NEOPLASM OF UNSP SITE OF UNSPECIFIED FEMALE BREAST SNOMED Code(s): 277747728 Comment: - Oncology consult appreciated. (6) HTN (hypertension) Code(s): I10 - ESSENTIAL (PRIMARY) HYPERTENSION SNOMED Code(s): 06559272 Comment: - SBP 130-160's (7) DVT prophylaxis Code(s): UEJ9103 - SNOMED Code(s): 095100386 Comment: - SCDs secondary hx brain mets (8) Full code status Code(s): Z78.9 - OTHER SPECIFIED HEALTH STATUS SNOMED Code(s): 882632747 Status and Disposition: Inpatient. Discharge once medically stable, may benefit from STR at discharge.
--- NOTE | 2017-12-28 20:51 | PN ---
NEUROLOGY FOLLOWUP REPORT: DATE OF FOLLOWUP: 12/28/17 ATTENDING PHYSICIAN: Nadeen Ansari MD LOCATION: She is in room 404. CHIEF COMPLAINT: Delirium, seizures. INTERVAL HISTORY: Since yesterday, Nicky Gomes is doing better. She seems brighter and answered questions more readily for me today. She was able to follow commands better as well and does not appear too sleepy. I spoke with her son Theodore and her partner Valentino today and answered questions at some length. MEDICATIONS: Medications are reviewed and she remains on: 1. Dexamethasone 2 mg p.o. t.i.d. 2. Depakote 500 mg p.o. b.i.d. 3. Colace 100 mg p.o. b.i.d. 4. Sliding scale insulin. 5. Omeprazole 20 mg p.o. b.i.d. 6. Senna 2 p.o. q.h.s. 7. Sodium chloride tablets 1 g p.o. t.i.d. 8. Arimidex 1 mg p.o. daily. 9. Cefepime 1 g IV q.12 hours. PHYSICAL EXAM: She is afebrile, temperature 98.2, blood pressure 139/65, heart rate in the 80s and regular, respiratory rate is 16, and oxygen saturation is 99 % on room air. Neck is supple. Eye movements are normal. Heart is in a regular rhythm without murmurs. Pupils are equal. Speech is soft, but clear. Muscle tone is normal in the limbs. She is able to raise both legs up and exhibit resistive strength proximally and distally in the grade 4- range. She has a grade 4+ upper extremity proximal weakness and pretty good strength distally. There is a mild sustention tremor in the hands. There is no myoclonus or asterixes. She is able to answer questions and denies having problems with headaches, her vision, intestinal problems, chest pain or shortness of breath. She remains alert throughout the visit. LABORATORY DATA: Today notable for hemoglobin up to 11.1, white blood cell count normal at 7.0, platelet count up to 139,000. Chemistries today notable only for [id number] glucose of 233. Spinal fluid results are new today, include negative cytology. IMPRESSION: Resolving delirium. She probably has weakness from prolonged time in bed and steroids. I would continue Depakote at the current dose. I will write for a level for tomorrow morning. I would not decrease dexamethasone further at this juncture, but in the future certainly if that can be done that might be beneficial. We had a long talk about disposition and prognosis. She might benefit from a rehab stay if her prognosis would support it which I would have to defer to Oncology on. Recommend continuing Depakote at 500 mg twice per day indefinitely depending on her level. Dr. Dolan will be coming on service tomorrow and I will sign her case off to him. [id number]/[facility] #: [id number] MTDD
[2017-12-29] MEDS: Insulin LISPRO* 1 UNITS UNIT SUBCUT SCH ×3 (08:48→17:15)
[2017-12-29] MEDS: Potassium Chloride LIQUID* 20 MEQ PACKET PO SCH ×2 (09:06→20:55)
[2017-12-29] MEDS: Cefepime 1 GM in Dextrose(*) 1 GM/50 ML BAG IV SCH ×2 (09:08→21:00)
[2017-12-29] MEDS: Divalproex DR TAB(*) 500 MG PO SCH ×2 (09:08→20:56)
[2017-12-29] MEDS: Dexamethasone TAB* 1 MG PO SCH ×3 (09:08→20:55)
[2017-12-29] MEDS: CMCS:Anastrozole (NF) 1 MG TAB PO SCH (09:08)
[2017-12-29] MEDS: Omeprazole CAP* 20 MG PO SCH ×2 (09:08→17:44)
[2017-12-29] MEDS: Sodium Chloride TAB* 1 GM PO SCH ×3 (09:08→20:56)
--- NOTE | 2017-12-29 10:17 | PN ---
Progress Note - Progress Note Date of Service: 12/29/17 SOAP: Subjective: []Modest change from early in week. She is responding to some questions but still not coherent. Not oriented to place, time or overall situation. Acetaminophen (Tylenol Tab*) 650 mg PO Q4H PRN PRN Reason: FEVER/PAIN Last Admin: 12/13/17 22:14 Dose: 650 mg Albuterol (Ventolin 2.5 Mg/3 Ml Neb.Yusra*) 1.25 mg INH TID PRN PRN Reason: SHORTNESS OF BREATH Anastrozole (Arimidex (Nf)) 1 mg PO DAILY [facility] Last Admin: 12/29/17 09:08 Dose: 1 mg Dexamethasone (Decadron Tab*) 2 mg PO TID [facility] Last Admin: 12/29/17 09:08 Dose: 2 mg Dextrose (D50w Syringe 50 Ml*) 12.5 gm IV PUSH .FOR FS < 60 - SS PRN PRN Reason: FS < 60 Divalproex Sodium (Depakote Dr Tab(*)) 500 mg PO BID [facility] Last Admin: 12/29/17 09:08 Dose: 500 mg Docusate Sodium (Colace Cap*) 100 mg PO BID PRN PRN Reason: CONSTIPATION Last Admin: 12/20/17 21:20 Dose: 100 mg Cefepime HCl (Maxipime 1 Gm In Dextrose Duplex (*)) 1 gm in 50 mls @ 100 mls/ hr IV Q12H [facility] Last Admin: 12/29/17 09:08 Dose: 100 mls/hr Insulin Glargine (Lantus(*)) 10 units SUBCUT Q24H [facility] Last Admin: 12/28/17 12:33 Dose: 10 unit Insulin Human Lispro (Humalog*) 0 - 10 units SUBCUT AC [facility] PRN Reason: Protocol Last Admin: 12/29/17 08:48 Dose: Not Given Omeprazole (Prilosec Cap*) 20 mg PO BID@0730,1630 [facility] Last Admin: 12/29/17 09:08 Dose: 20 mg Polyethylene Glycol/Electrolytes (Miralax*) 17 gm PO DAILY PRN PRN Reason: CONSTIPATION Last Admin: 12/20/17 21:18 Dose: 17 gm Potassium Chloride (Klor-Con Liquid*) 40 meq PO BID [facility] Last Admin: 12/29/17 09:06 Dose: 40 meq Senna (Senokot Tab*) 2 tab PO BEDTIME PRN PRN Reason: CONSTIPATION Last Admin: 12/20/17 21:20 Dose: 2 tab Sodium Chloride (Sodium Chloride Tab*) 1 gm PO TID [facility] Last Admin: 12/29/17 09:08 Dose: 1 gm Objective: [] Vital Signs Temp Pulse Resp BP Pulse Ox 98.1 F 63 16 132/54 99 12/29/17 07:21 12/29/17 07:21 12/29/17 07:21 12/29/17 07:21 12/29/17 07:21 HEENT: no thrush, no oral lesions Neuro: She answered simple questions but not coherent. Does follow simple commands. Grossly non focal. MK: very weak, 3/5 strength, needs assistance to sit forward. 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 Assessment: 77 yo F w cT2N1 Her2+, ER+ BCA sp neoadjuvant chemotherapy with a pathCR followed by 5 brain lesions, treated with gamma knife, now with encephalitis of unclear etiology. On presentation with UTI, hyponatremia and seizure activity on EEG. Now on antibiotics for recurrent UTI, has had change in seizure medications and with stable sodium. Moderate improvement in mental status. Several issues today: 1. Discussed with son biopsy of TELECOMMUNICATIONS PROFESSIONAL lesion. Given atypical clinical course I agree that confirming breast cancer metastatic to TELECOMMUNICATIONS PROFESSIONAL is needed. It is very unlikely she has a TELECOMMUNICATIONS PROFESSIONAL process other then breast cancer but implications for therapy would be significant. Discussed with patient and son at length and Dr. Wolf will consult today. Possible biopsy on Monday. 2. Not sure if minor improvement today is fluctuation or change in course, will continue to follow. 3. Skin ulcers addressed. 4. Agree with continued taper of Dex 5. Repeat MRI brain.
[2017-12-29] MEDS: Insulin GLARGINE(*) 1 UNITS UNIT SUBCUT SCH (12:56)
--- NOTE | 2017-12-29 13:02 | PN ---
Subjective Date of Service: 12/29/17 Interval History: Patient seen and examined at bedside. Denies fever, chills, shortness of breath , chest discomfort, N/V/D. Pt will answer some questions and others she will not. Family History: Unchanged from Admission Social History: Unchanged from Admission Past Medical History: Unchanged from Admission Objective Active Medications: Acetaminophen (Tylenol Tab*) 650 mg PO Q4H PRN Reason: FEVER/PAIN Albuterol (Ventolin 2.5 Mg/3 Ml Neb.Yusra*) 1.25 mg INH TID PRN Reason: SHORTNESS OF BREATH Anastrozole (Arimidex (Nf)) 1 mg PO DAILY [facility] Dexamethasone (Decadron Tab*) 2 mg PO TID [facility] Dextrose (D50w Syringe 50 Ml*) 12.5 gm IV PUSH .FOR FS < 60 - SS PRN Reason: FS < 60 Divalproex Sodium (Depakote Dr Tab(*)) 500 mg PO BID [facility] Docusate Sodium (Colace Cap*) 100 mg PO BID PRN Reason: CONSTIPATION Cefepime HCl (Maxipime 1 Gm In Dextrose Duplex (*)) 1 gm in 50 mls @ 100 mls/ hr IV Q12H [facility] Insulin Glargine (Lantus(*)) 10 units SUBCUT Q24H [facility]ACY Insulin Human Lispro (Humalog*) 0 - 10 units SUBCUT AC [facility] Omeprazole (Prilosec Cap*) 20 mg PO BID@0730,1630 [facility] Polyethylene Glycol/Electrolytes (Miralax*) 17 gm PO DAILY PRN Reason: CONSTIPATION Potassium Chloride (Klor-Con Liquid*) 40 meq PO BID [facility] Senna (Senokot Tab*) 2 tab PO BEDTIME PRN Reason: CONSTIPATION Sodium Chloride (Sodium Chloride Tab*) 1 gm PO TID [facility] Vital Signs - 8 hr 12/29/17 12/29/17 12/29/17 07:21 08:00 12:06 Temperature 98.1 F 98.3 F Pulse Rate 63 82 Respiratory 16 18 16 Rate Blood Pressure 132/54 138/56 (mmHg) O2 Sat by Pulse 99 99 Oximetry Oxygen Devices in Use Now: None Appearance: NAD, sitting up in a chair Ears/Nose/Mouth/Throat: Mucous Membranes Moist Respiratory: Symmetrical Chest Expansion and Respiratory Effort, Clear to Auscultation Cardiovascular: NL Sounds; No Murmurs; No JVD, RRR Abdominal: NL Sounds; No Tenderness; No Distention Extremities: - - 1+ bilateral LE edema Skin: - - Multiple open area to buttocks and cleft Neurological: NL Muscle Strength and Tone, - - Alert and Oriented to Person, confusion Nutrition: Taking PO's Result Diagrams: 12/28/17 05:12 12/28/17 05:12 Additional Lab and Data: Microbiology and Other Data: Microbiology 12/14/17 07:30 Legionella Urinary Antigen - Final Urine Negative Legionella Antigen Streptococcus pneumoniae Ag Screen - Final Negative S. pneumo Antigen 12/13/17 13:30 Nasal Screen MRSA (PCR)(ESTELITA) - Final Nasal Mrsa Not Detected 12/13/17 13:30 Influenza Types A,B Antigen (ESTELITA) - Final Nasal Specimen received for Influenza A/B Molecular testing Microbiology 12/26/17 16:30 Urine Urine Culture - Final Pseudomonas Aeruginosa Enterococcus Faecalis Assess/Plan/Problems-Billing . Assessment: Ms. 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 Found to have subclinical seizures on video EEG, UTI, and hyponatremia. - Patient Problems (1) Hyponatremia Code(s): E87.1 - HYPO-OSMOLALITY AND HYPONATREMIA SNOMED Code(s): 40804542 Comment: - Serum osm 247, urine osm 531, urine na 113 -- most likely SIADH - Low AM cortisol is nondiagnostic in the setting of decadron treatment - Continue fluid restriction and salt tablets. Sodium 136 yesterday (2) Encephalopathy acute Code(s): G93.40 - ENCEPHALOPATHY, UNSPECIFIED SNOMED Code(s): 68898675 Comment: - Multifactorial and thought to be due to hyponatremia, seizures, uti, +/- encephalitis (treating empirically for hsv due to mri findings, but LP deferred for family preference). 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 Paraneoplastic panel is negative. - Mental status continues to fluctuate. 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 - Plan for neurosurgery consult for possible brain lesion bx next week (3) Skin abnormality Code(s): L98.9 - DISORDER OF THE SKIN AND SUBCUTANEOUS TISSUE, UNSPECIFIED SNOMED Code(s): 55634264 Comment: - Moisture related skin breakdown - Pt with several open areas to charmaine cleft and bilateral buttocks - Suspect secondary to moisture and exposure to stool - Will ask wound clinic to eval - Continue barrier cream with zinc (4) UTI (urinary tract infection) Comment: - Afebrile and no leukocytosis - Urine culture with Pseudomonas Aeruginosa and Enterococcus Faecalis - Continue cefepime (5) Seizure Code(s): R56.9 - UNSPECIFIED CONVULSIONS SNOMED Code(s): 67730294 Comment: - Neurology consult, input appreciated. - The levetiracetam may be causing adverse ADMINISTRATION VICE PRESIDENT effects and she was changed to valproic acid. - Continue Depakote (6) Breast cancer Code(s): C50.919 - MALIGNANT NEOPLASM OF UNSP SITE OF UNSPECIFIED FEMALE BREAST SNOMED Code(s): 448618597 Comment: - Oncology consult appreciated. (7) HTN (hypertension) Code(s): I10 - ESSENTIAL (PRIMARY) HYPERTENSION SNOMED Code(s): 64907827 Comment: - SBP 120-130's (8) DVT prophylaxis Code(s): CLA2863 - SNOMED Code(s): 407484823 Comment: - SCDs secondary hx brain mets (9) Full code status Code(s): Z78.9 - OTHER SPECIFIED HEALTH STATUS SNOMED Code(s): 839923865 Status and Disposition: Inpatient. Discharge once medically stable, may benefit from STR at discharge.
--- NOTE | 2017-12-29 17:29 | PN ---
Progress Note - Progress Note Date of Service: 12/29/17 SOAP: Subjective: []Asked to see patient for biopsy of intracranial enhancing lesion. Patient with history of metastatic breast CA with current encephalopathy. Patient with multiple small enhacing lesions.Currently somewhat lethargic. Situation discussed with patients son. Objective: []Responds to name but follows requests poorly Motor grossly intact MRI shows multiple small enhancing lesions with most accesible lesion being superficially located in left parietal lobe Assessment: []Probable metastatic carcinoma Plan: [] Discussed potential role of biopsy with son. He feels at this point he would not want to do that unless she shows significant clinical improvement this weekend Will follow with you Full C/S to follow
[2017-12-30 06:30] LABS: Hematocrit 27 % (35-47); Hemoglobin 9.8 g/dl (12.0-16.0); Mean Corpuscular HGB Conc 36 g/dl (31-36); Mean Corpuscular Hemoglobin 32 pg (27-31); Mean Corpuscular Volume 89 fL (80-97); Platelet Count 116 10^3/ul (150-450); Red Blood Count 3.07 10^6/ul (4.0-5.4); Red Cell Distribution Width 13 % (10.5-15); White Blood Count 7.2 10^3/ul (3.5-10.8)
[2017-12-30 06:51] LABS: EGFR Non-African American 102.8 (>60)
[2017-12-30 06:56] LABS: ABS Neutrophils 5.9 10^3/ul (1.5-7.7)
[2017-12-30 06:57] LABS: Monocytes % 2 % (0-7)
[2017-12-30] MEDS: Cefepime 1 GM in Dextrose(*) 1 GM/50 ML BAG IV SCH ×2 (08:24→21:10)
[2017-12-30] MEDS: CMCS:Anastrozole (NF) 1 MG TAB PO SCH (08:26)
[2017-12-30] MEDS: Divalproex DR TAB(*) 500 MG PO SCH ×2 (08:27→21:10)
[2017-12-30] MEDS: Omeprazole CAP* 20 MG PO SCH ×2 (08:27→16:57)
[2017-12-30] MEDS: Insulin LISPRO* 1 UNITS UNIT SUBCUT SCH ×3 (08:27→16:51)
[2017-12-30] MEDS: Potassium Chloride LIQUID* 20 MEQ PACKET PO SCH ×2 (08:27→21:11)
[2017-12-30] MEDS: Dexamethasone TAB* 1 MG PO SCH ×3 (08:27→21:10)
[2017-12-30] MEDS: Sodium Chloride TAB* 1 GM PO SCH ×3 (08:27→21:11)
--- NOTE | 2017-12-30 10:29 | PN ---
Progress Note - Progress Note Date of Service: 12/30/17 SOAP: Subjective: []No change today, MS similar. Did stand with PT yesterday, not walking. Remains disoriented. Acetaminophen (Tylenol Tab*) 650 mg PO Q4H PRN PRN Reason: FEVER/PAIN Last Admin: 12/13/17 22:14 Dose: 650 mg Albuterol (Ventolin 2.5 Mg/3 Ml Neb.Yusra*) 1.25 mg INH TID PRN PRN Reason: SHORTNESS OF BREATH Anastrozole (Arimidex (Nf)) 1 mg PO DAILY [facility] Last Admin: 12/30/17 08:26 Dose: 1 mg Dexamethasone (Decadron Tab*) 2 mg PO TID [facility] Last Admin: 12/30/17 08:27 Dose: 2 mg Dextrose (D50w Syringe 50 Ml*) 12.5 gm IV PUSH .FOR FS < 60 - SS PRN PRN Reason: FS < 60 Divalproex Sodium (Depakote Dr Tab(*)) 500 mg PO BID [facility] Last Admin: 12/30/17 08:27 Dose: 500 mg Docusate Sodium (Colace Cap*) 100 mg PO BID PRN PRN Reason: CONSTIPATION Last Admin: 12/20/17 21:20 Dose: 100 mg Cefepime HCl (Maxipime 1 Gm In Dextrose Duplex (*)) 1 gm in 50 mls @ 100 mls/ hr IV Q12H [facility] Last Admin: 12/30/17 08:24 Dose: 100 mls/hr Insulin Glargine (Lantus(*)) 10 units SUBCUT Q24H [facility] Last Admin: 12/29/17 12:56 Dose: 10 unit Insulin Human Lispro (Humalog*) 0 - 10 units SUBCUT AC [facility] PRN Reason: Protocol Last Admin: 12/30/17 08:27 Dose: Not Given Omeprazole (Prilosec Cap*) 20 mg PO BID@0730,1630 [facility] Last Admin: 12/30/17 08:27 Dose: 20 mg Polyethylene Glycol/Electrolytes (Miralax*) 17 gm PO DAILY PRN PRN Reason: CONSTIPATION Last Admin: 12/20/17 21:18 Dose: 17 gm Potassium Chloride (Klor-Con Liquid*) 40 meq PO BID [facility] Last Admin: 12/30/17 08:27 Dose: 40 meq Senna (Senokot Tab*) 2 tab PO BEDTIME PRN PRN Reason: CONSTIPATION Last Admin: 12/20/17 21:20 Dose: 2 tab Sodium Chloride (Sodium Chloride Tab*) 1 gm PO TID [facility] Last Admin: 12/30/17 08:27 Dose: 1 gm Objective: [] Vital Signs Temp Pulse Resp BP Pulse Ox 97.2 F 62 16 128/55 99 12/30/17 07:21 12/30/17 07:21 12/30/17 08:13 12/30/17 07:21 12/30/17 07:21 HEENT: no thrush, no oral lesions Neuro: She answered simple questions but not coherent. Does follow simple commands. Grossly non focal. MK: very weak, 3/5 strength, needs assistance to sit forward. 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 On presentation with UTI, hyponatremia and seizure activity on EEG. Now on antibiotics for recurrent UTI, has had change in seizure medications and with stable sodium. Stable today and etiology of delirium remains unclear. 1. Discussed again with son biopsy of OPHTHALMIC LENS INSPECTOR lesion. Will see how she does over weekend and decided on Monday 2. Given continued confusion, consider repeat MRI brain, r/o stroke, other structural change. Will discuss with hospitalist. 3. Taper Dex slowly
--- NOTE | 2017-12-30 11:34 | PN ---
Subjective Date of Service: 12/30/17 Interval History: Patient seen and examined at bedside. Denies fever, chills, shortness of breath , chest discomfort, N/V/D. Pt will answer a few questions, but mostly shakes her head no today. Pt will not state her name and is able to follow a few commands. Family History: Unchanged from Admission Social History: Unchanged from Admission Past Medical History: Unchanged from Admission Objective Active Medications: Acetaminophen (Tylenol Tab*) 650 mg PO Q4H PRN Reason: FEVER/PAIN Albuterol (Ventolin 2.5 Mg/3 Ml Neb.Yusra*) 1.25 mg INH TID PRN Reason: SHORTNESS OF BREATH Anastrozole (Arimidex (Nf)) 1 mg PO DAILY [facility] Dexamethasone (Decadron Tab*) 2 mg PO TID [facility] Dextrose (D50w Syringe 50 Ml*) 12.5 gm IV PUSH .FOR FS < 60 - SS PRN Reason: FS < 60 Divalproex Sodium (Depakote Dr Tab(*)) 500 mg PO BID [facility] Docusate Sodium (Colace Cap*) 100 mg PO BID PRN Reason: CONSTIPATION Cefepime HCl (Maxipime 1 Gm In Dextrose Duplex (*)) 1 gm in 50 mls @ 100 mls/ hr IV Q12H [facility] Insulin Glargine (Lantus(*)) 10 units SUBCUT Q24H [facility] Insulin Human Lispro (Humalog*) 0 - 10 units SUBCUT AC [facility] Omeprazole (Prilosec Cap*) 20 mg PO BID@0730,1630 [facility] Polyethylene Glycol/Electrolytes (Miralax*) 17 gm PO DAILY PRN Reason: CONSTIPATION Potassium Chloride (Klor-Con Liquid*) 40 meq PO BID [facility] Senna (Senokot Tab*) 2 tab PO BEDTIME PRN Reason: CONSTIPATION Sodium Chloride (Sodium Chloride Tab*) 1 gm PO TID [facility] Vital Signs - 8 hr 12/30/17 12/30/17 12/30/17 03:52 07:21 08:13 Temperature 97.6 F 97.2 F Pulse Rate 57 62 Respiratory 16 16 16 Rate Blood Pressure 151/69 128/55 (mmHg) O2 Sat by Pulse 100 99 Oximetry Oxygen Devices in Use Now: None Appearance: NAD, sitting up in bed Respiratory: Symmetrical Chest Expansion and Respiratory Effort, Clear to Auscultation Cardiovascular: NL Sounds; No Murmurs; No JVD, RRR Abdominal: NL Sounds; No Tenderness; No Distention Extremities: No Edema Skin: - - Moisture related areas of skin injury to buttocks Neurological: - - Alert and confused. Smile symmetric, tongue midline, hand farm field manager equal, dorsi and plantar flex equal, unable to lift legs off bed or hold them up. Lines/Tubes/Other Access: Clean, Dry and Intact Peripheral IV - site benign Nutrition: Taking PO's Result Diagrams: 12/30/17 06:22 12/30/17 06:22 Additional Lab and Data: Microbiology and Other Data: Microbiology 12/14/17 07:30 Legionella Urinary Antigen - Final Urine Negative Legionella Antigen Streptococcus pneumoniae Ag Screen - Final Negative S. pneumo Antigen 12/13/17 13:30 Nasal Screen MRSA (PCR)(ESTELITA) - Final Nasal Mrsa Not Detected 12/13/17 13:30 Influenza Types A,B Antigen (ESTELITA) - Final Nasal Specimen received for Influenza A/B Molecular testing Microbiology 12/26/17 16:30 Urine Urine Culture - Final Pseudomonas Aeruginosa Enterococcus Faecalis Assess/Plan/Problems-Billing . Assessment: Ms. 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 Found to have subclinical seizures on video EEG, UTI, and hyponatremia. - Patient Problems (1) Hyponatremia Code(s): E87.1 - HYPO-OSMOLALITY AND HYPONATREMIA SNOMED Code(s): 38150926 Comment: - Serum osm 247, urine osm 531, urine na 113 -- most likely SIADH - Low AM cortisol is nondiagnostic in the setting of decadron treatment - Sodium stable, 138 today - Continue fluid restriction and salt tablets. (2) Encephalopathy acute Code(s): G93.40 - ENCEPHALOPATHY, UNSPECIFIED SNOMED Code(s): 99055310 Comment: - Multifactorial and thought to be due to hyponatremia, seizures, uti, +/- encephalitis (treating empirically for hsv due to mri findings, but LP deferred for family preference). 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 Paraneoplastic panel is negative. - Mental status continues to fluctuate. 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 - ID consult, input appreciated - Plan for neurosurgery consult for possible brain lesion bx next week - Will get a repeat MRI to rule out CVA (3) Skin abnormality Code(s): L98.9 - DISORDER OF THE SKIN AND SUBCUTANEOUS TISSUE, UNSPECIFIED SNOMED Code(s): 94305100 Comment: - Moisture related skin breakdown - Pt with several open areas to charmaine cleft and bilateral buttocks - Suspect secondary to moisture and exposure to stool - Wound clinic consult, input appreciated - Continue barrier cream with zinc (4) UTI (urinary tract infection) Comment: - Afebrile and no leukocytosis - Urine culture with Pseudomonas Aeruginosa and Enterococcus Faecalis - Continue cefepime (5) Seizure Code(s): R56.9 - UNSPECIFIED CONVULSIONS SNOMED Code(s): 21664613 Comment: - Neurology consult, input appreciated. - The levetiracetam may be causing adverse MACHINE WEDGER effects and she was changed to valproic acid. - Continue Depakote (6) Breast cancer Code(s): C50.919 - MALIGNANT NEOPLASM OF UNSP SITE OF UNSPECIFIED FEMALE BREAST SNOMED Code(s): 667172960 Comment: - Oncology consult appreciated. (7) HTN (hypertension) Code(s): I10 - ESSENTIAL (PRIMARY) HYPERTENSION SNOMED Code(s): 21551737 Comment: - SBP 120-140's - Continue to monitor (8) DVT prophylaxis Code(s): [id number] - SNOMED Code(s): 161481993 Comment: - SCDs only secondary hx brain mets (9) Full code status Code(s): Z78.9 - OTHER SPECIFIED HEALTH STATUS SNOMED Code(s): 575259228 Status and Disposition: Inpatient. Discharge once medically stable, may benefit from STR at discharge.
[2017-12-30] MEDS: Insulin GLARGINE(*) 1 UNITS UNIT SUBCUT SCH (12:41)
[2017-12-31] MEDS: Insulin LISPRO* 1 UNITS UNIT SUBCUT SCH ×3 (08:28→17:17)
[2017-12-31] MEDS: Divalproex DR TAB(*) 500 MG PO SCH ×2 (09:05→21:26)
[2017-12-31] MEDS: Cefepime 1 GM in Dextrose(*) 1 GM/50 ML BAG IV SCH ×2 (09:05→21:26)
[2017-12-31] MEDS: Dexamethasone TAB* 1 MG PO SCH ×3 (09:05→21:26)
[2017-12-31] MEDS: Sodium Chloride TAB* 1 GM PO SCH ×3 (09:05→21:26)
[2017-12-31] MEDS: Omeprazole CAP* 20 MG PO SCH ×2 (09:05→17:17)
[2017-12-31] MEDS: Potassium Chloride LIQUID* 20 MEQ PACKET PO SCH (09:06)
[2017-12-31] MEDS: CMCS:Anastrozole (NF) 1 MG TAB PO SCH (09:06)
--- NOTE | 2017-12-31 09:28 | PN ---
Subjective Date of Service: 12/31/17 Interval History: Patient seen and examined at bedside. Denies fever, chills, shortness of breath , chest discomfort, N/V/D. Pt continues to be confused, but is more alert and interactive today. Tele: Sinus toshia to sinus rhythm, rate 50-70's. Pt noted to be toshia when sleeping and occasional PVCs Family History: Unchanged from Admission Social History: Unchanged from Admission Past Medical History: Unchanged from Admission Objective Active Medications: Acetaminophen (Tylenol Tab*) 650 mg PO Q4H PRN Reason: FEVER/PAIN Albuterol (Ventolin 2.5 Mg/3 Ml Neb.Yusra*) 1.25 mg INH TID PRN Reason: SHORTNESS OF BREATH Anastrozole (Arimidex (Nf)) 1 mg PO DAILY [facility] Dexamethasone (Decadron Tab*) 2 mg PO TID [facility] Dextrose (D50w Syringe 50 Ml*) 12.5 gm IV PUSH .FOR FS < 60 - SS PRN Reason: FS < 60 Divalproex Sodium (Depakote Dr Tab(*)) 500 mg PO BID [facility] Docusate Sodium (Colace Cap*) 100 mg PO BID PRN Reason: CONSTIPATION Cefepime HCl (Maxipime 1 Gm In Dextrose Duplex (*)) 1 gm in 50 mls @ 100 mls/ hr IV Q12H [facility] Insulin Glargine (Lantus(*)) 10 units SUBCUT Q24H [facility] Insulin Human Lispro (Humalog*) 0 - 10 units SUBCUT AC [facility] Omeprazole (Prilosec Cap*) 20 mg PO BID@0730,1630 [facility] Polyethylene Glycol/Electrolytes (Miralax*) 17 gm PO DAILY PRN Reason: CONSTIPATION Senna (Senokot Tab*) 2 tab PO BEDTIME PRN Reason: CONSTIPATION Sodium Chloride (Sodium Chloride Tab*) 1 gm PO TID [facility] Vital Signs - 8 hr 12/31/17 12/31/17 12/31/17 04:52 07:34 09:04 Temperature 98.5 F Pulse Rate 60 73 Respiratory 20 16 16 Rate Blood Pressure 137/68 141/59 (mmHg) O2 Sat by Pulse 98 99 Oximetry Oxygen Devices in Use Now: None Appearance: NAD, sitting up in bed Ears/Nose/Mouth/Throat: Mucous Membranes Moist Respiratory: Symmetrical Chest Expansion and Respiratory Effort, Clear to Auscultation Cardiovascular: NL Sounds; No Murmurs; No JVD, RRR Abdominal: NL Sounds; No Tenderness; No Distention Extremities: No Edema Skin: - - Moisture related breakdown to buttocks (no visualized today) Neurological: NL Muscle Strength and Tone, - - Alert and Oriented to Person, confused. Equal hand outcomes analyst, smile symmetric, tongue midline, strong dorsi and plantar flex, unable to pick legs up or hold them up Lines/Tubes/Other Access: Clean, Dry and Intact Jones - patent, Clean, Dry and Intact Other Access - Power port to right upper chest, site benign Nutrition: Taking PO's Result Diagrams: 12/30/17 06:22 12/30/17 06:22 Additional Lab and Data: Microbiology and Other Data: Microbiology 12/14/17 07:30 Legionella Urinary Antigen - Final Urine Negative Legionella Antigen Streptococcus pneumoniae Ag Screen - Final Negative S. pneumo Antigen 12/13/17 13:30 Nasal Screen MRSA (PCR)(ESTELITA) - Final Nasal Mrsa Not Detected 12/13/17 13:30 Influenza Types A,B Antigen (ESTELITA) - Final Nasal Specimen received for Influenza A/B Molecular testing Microbiology 12/26/17 16:30 Urine Urine Culture - Final Pseudomonas Aeruginosa Enterococcus Faecalis Assess/Plan/Problems-Billing . Assessment: Ms. 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 Found to have subclinical seizures on video EEG, UTI, and hyponatremia. - Patient Problems (1) Encephalopathy acute Code(s): G93.40 - ENCEPHALOPATHY, UNSPECIFIED SNOMED Code(s): 94075215 Comment: - Multifactorial and thought to be due to hyponatremia, seizures, uti, +/- encephalitis (treating empirically for hsv due to mri findings, but LP deferred for family preference). 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 Paraneoplastic panel is negative. - Mental status continues to fluctuate. 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 - ID consult, input appreciated - Plan for neurosurgery consult for possible brain lesion bx next week - Will get a repeat MRI to rule out CVA - Continue neuro checks and monitor on tele (2) Skin abnormality Code(s): L98.9 - DISORDER OF THE SKIN AND SUBCUTANEOUS TISSUE, UNSPECIFIED SNOMED Code(s): 73728954 Comment: - Moisture related skin breakdown - Pt with several open areas to cleft and bilateral buttocks - Suspect secondary to moisture and exposure to stool - Wound clinic consult, input appreciated - Continue barrier cream with zinc (3) UTI (urinary tract infection) Comment: - Afebrile and no leukocytosis - Urine culture with Pseudomonas Aeruginosa and Enterococcus Faecalis - Continue cefepime (4) Seizure Code(s): R56.9 - UNSPECIFIED CONVULSIONS SNOMED Code(s): 48328571 Comment: - Neurology consult, input appreciated. - The levetiracetam may be causing adverse SPEECH AND LANGUAGE CLINICIAN effects and she was changed to valproic acid. - Continue Depakote (5) Hyponatremia Code(s): E87.1 - HYPO-OSMOLALITY AND HYPONATREMIA SNOMED Code(s): 51133654 Comment: - Resolved, sodium stable - Serum osm 247, urine osm 531, urine na 113 -- most likely SIADH - Low AM cortisol is nondiagnostic in the setting of decadron treatment - Continue fluid restriction and salt tablets. (6) Hyperglycemia Code(s): R73.9 - HYPERGLYCEMIA, UNSPECIFIED SNOMED Code(s): 45087871 Comment: - Glucose 80-200's - Suspect secondary to steriods - Will discontinue lantus and continue Lispro SS for now (7) Hypokalemia Code(s): E87.6 - HYPOKALEMIA SNOMED Code(s): 81260783 Comment: - Resolved - K+ 4.7 yesterday - Will discontinue supplement (8) Breast cancer Code(s): C50.919 - MALIGNANT NEOPLASM OF UNSP SITE OF UNSPECIFIED FEMALE BREAST SNOMED Code(s): 087250647 Comment: - Oncology consult appreciated. (9) HTN (hypertension) Code(s): I10 - ESSENTIAL (PRIMARY) HYPERTENSION SNOMED Code(s): 28791198 Comment: - SBP 120-140's - Continue to monitor (10) DVT prophylaxis Code(s): FFR6333 - SNOMED Code(s): 635185919 Comment: - SCDs only secondary hx brain mets (11) Full code status Code(s): Z78.9 - OTHER SPECIFIED HEALTH STATUS SNOMED Code(s): 244754278 Status and Disposition: Inpatient. Discharge once medically stable, may benefit from STR at discharge. Attending: Leda Andrews
[2018-01-01 06:18] LABS: ABS Basophils 0.1 10^3/ul (0-0.2); ABS Eosinophils 0 10^3/ul (0-0.6); ABS Lymphocytes 0.6 10^3/ul (1.0-4.8); ABS Monocytes 0.4 10^3/ul (0-0.8); ABS Neutrophils 6.2 10^3/ul (1.5-7.7); Hematocrit 27 % (35-47); Hemoglobin 9.5 g/dl (12.0-16.0); Mean Corpuscular HGB Conc 36 g/dl (31-36); Mean Corpuscular Hemoglobin 32 pg (27-31); Mean Corpuscular Volume 89 fL (80-97); Mean Platelet Volume 6.9 um3 (7.4-10.4); Platelet Count 96 10^3/ul (150-450); Red Cell Distribution Width 13 % (10.5-15); White Blood Count 7.3 10^3/ul (3.5-10.8)
[2018-01-01 06:50] LABS: EGFR Non-African American 154.8 (>60)
[2018-01-01] MEDS: Insulin LISPRO* 1 UNITS UNIT SUBCUT SCH ×3 (07:17→16:59)
[2018-01-01 07:23] LABS: Monocytes % 7 % (0-7)
--- NOTE | 2018-01-01 07:46 | PN ---
Progress Note - Progress Note Date of Service: 01/01/18 SOAP: Subjective: []Easily arousable No complaints of headache F?U MRI sched today Biopsy tentatively scheduled tommorow Objective: []Moves all extremities well Follows simple commands Assessment: []Stable Plan: [] Excisional Biopsy of Left Parietal lesion in AM Will discuss with son after MRI studies done today
--- NOTE | 2018-01-01 08:25 | PN ---
Subjective Date of Service: 01/01/18 Interval History: Patient seen and examined at bedside. Denies fever, chills, shortness of breath , chest discomfort, N/V/D. Pt continues to have improvement in her orientation, she is speaking more today then she has been. Pt continues to require a urinary catheter to allow for wound healing on her buttocks. Tele: Sinus rhythm, rate 60-90's. Pt noted to be toshia in the 50's when sleeping. Family History: Unchanged from Admission Social History: Unchanged from Admission Past Medical History: Unchanged from Admission Objective Active Medications: Acetaminophen (Tylenol Tab*) 650 mg PO Q4H PRN Reason: FEVER/PAIN Albuterol (Ventolin 2.5 Mg/3 Ml Neb.Yusra*) 1.25 mg INH TID PRN Reason: SHORTNESS OF BREATH Anastrozole (Arimidex (Nf)) 1 mg PO DAILY [facility] Dexamethasone (Decadron Tab*) 2 mg PO TID LACY Dextrose (D50w Syringe 50 Ml*) 12.5 gm IV PUSH .FOR FS < 60 - SS PRN Reason: FS < 60 Divalproex Sodium (Depakote Dr Tab(*)) 500 mg PO BID [facility]AC[facility] Docusate Sodium (Colace Cap*) 100 mg PO BID PRN Reason: CONSTIPATION Cefepime HCl (Maxipime 1 Gm In Dextrose Duplex (*)) 1 gm in 50 mls @ 100 mls/ hr IV Q12H [facility] Insulin Human Lispro (Humalog*) 0 - 10 units SUBCUT AC LACY Omeprazole (Prilosec Cap*) 20 mg PO BID@0730,1630 [facility] Polyethylene Glycol/Electrolytes (Miralax*) 17 gm PO DAILY PRN Reason: CONSTIPATION Senna (Senokot Tab*) 2 tab PO BEDTIME PRN Reason: CONSTIPATION Sodium Chloride (Sodium Chloride Tab*) 1 gm PO TID [facility] Vital Signs - 8 hr 01/01/18 07:35 Temperature 97.3 F Pulse Rate 57 Respiratory 20 Rate Blood Pressure 121/51 (mmHg) O2 Sat by Pulse 99 Oximetry Oxygen Devices in Use Now: None Appearance: NAD, laying in bed Ears/Nose/Mouth/Throat: - - Dry mucous membranes Respiratory: Symmetrical Chest Expansion and Respiratory Effort, Clear to Auscultation Cardiovascular: NL Sounds; No Murmurs; No JVD, RRR Abdominal: NL Sounds; No Tenderness; No Distention Extremities: No Edema Skin: - - Moisture related skin injury to buttocks Neurological: - - Alert and Oriented to Person, confused Lines/Tubes/Other Access: Clean, Dry and Intact Peripheral IV - site benign Nutrition: Taking PO's Result Diagrams: 01/01/18 05:56 01/01/18 05:56 Additional Lab and Data: Microbiology and Other Data: Microbiology 12/14/17 07:30 Legionella Urinary Antigen - Final Urine Negative Legionella Antigen Streptococcus pneumoniae Ag Screen - Final Negative S. pneumo Antigen 12/13/17 13:30 Nasal Screen MRSA (PCR)(ESTELITA) - Final Nasal Mrsa Not Detected 12/13/17 13:30 Influenza Types A,B Antigen (ESTELITA) - Final Nasal Specimen received for Influenza A/B Molecular testing Microbiology 12/26/17 16:30 Urine Urine Culture - Final Pseudomonas Aeruginosa Enterococcus Faecalis Assess/Plan/Problems-Billing . Assessment: Ms. 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 Found to have subclinical seizures on video EEG, UTI, and hyponatremia. - Patient Problems (1) Encephalopathy acute Code(s): G93.40 - ENCEPHALOPATHY, UNSPECIFIED SNOMED Code(s): 77442497 Comment: - Multifactorial and thought to be due to hyponatremia, seizures, uti, +/- encephalitis (treating empirically for hsv due to mri findings, but LP deferred for family preference). 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 Paraneoplastic panel is negative. - Mental status continues to fluctuate. 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 - ID consult, input appreciated - Plan for neurosurgery consult for possible brain lesion bx next week - Will get a repeat MRI to rule out CVA - Continue neuro checks and monitor on tele (2) Skin abnormality Code(s): L98.9 - DISORDER OF THE SKIN AND SUBCUTANEOUS TISSUE, UNSPECIFIED SNOMED Code(s): 93572085 Comment: - Moisture related skin breakdown - Pt with several open areas to cleft and bilateral buttocks - Suspect secondary to moisture and exposure to stool - Wound clinic consult, input appreciated - Continue barrier cream with zinc (3) UTI (urinary tract infection) Comment: - Afebrile and no leukocytosis - Urine culture with Pseudomonas Aeruginosa and Enterococcus Faecalis - Continue cefepime, day 5/5 (4) Seizure Code(s): R56.9 - UNSPECIFIED CONVULSIONS SNOMED Code(s): 91481808 Comment: - Neurology consult, input appreciated. - The levetiracetam may be causing adverse [employer] effects and she was changed to valproic acid. - Continue Depakote (5) Hyponatremia Code(s): E87.1 - HYPO-OSMOLALITY AND HYPONATREMIA SNOMED Code(s): 53874549 Comment: - Resolved, sodium stable - Serum osm 247, urine osm 531, urine na 113 -- most likely SIADH - Low AM cortisol is nondiagnostic in the setting of decadron treatment - Continue fluid restriction and salt tablets. (6) Hyperglycemia Code(s): R73.9 - HYPERGLYCEMIA, UNSPECIFIED SNOMED Code(s): 49379275 Comment: - Glucose 100's - Suspect secondary to steriods - Continue Lispro SS (7) Hypokalemia Code(s): E87.6 - HYPOKALEMIA SNOMED Code(s): 80860808 Comment: - Resolved - Will discontinue supplement (8) Breast cancer Code(s): C50.919 - MALIGNANT NEOPLASM OF UNSP SITE OF UNSPECIFIED FEMALE BREAST SNOMED Code(s): 225361308 Comment: - Oncology consult appreciated. (9) HTN (hypertension) Code(s): I10 - ESSENTIAL (PRIMARY) HYPERTENSION SNOMED Code(s): 97519424 Comment: - SBP 120-140's - Continue to monitor (10) DVT prophylaxis Code(s): HMJ0876 - SNOMED Code(s): 524581672 Comment: - SCDs only secondary hx brain mets (11) Full code status Code(s): Z78.9 - OTHER SPECIFIED HEALTH STATUS SNOMED Code(s): 016054377 Status and Disposition: Inpatient. Discharge once medically stable, may benefit from STR at discharge.
[2018-01-01] MEDS: Sodium Chloride TAB* 1 GM PO SCH ×3 (10:36→21:11)
[2018-01-01] MEDS: CMCS:Anastrozole (NF) 1 MG TAB PO SCH (10:36)
[2018-01-01] MEDS: Omeprazole CAP* 20 MG PO SCH ×2 (10:36→17:07)
[2018-01-01] MEDS: Dexamethasone TAB* 1 MG PO SCH ×3 (10:36→21:11)
[2018-01-01] MEDS: Divalproex DR TAB(*) 500 MG PO SCH ×2 (10:36→21:11)
[2018-01-01] MEDS: Cefepime 1 GM in Dextrose(*) 1 GM/50 ML BAG IV SCH (11:01)
[2018-01-01] MEDS ORDERED: Gadoteridol* (CONTRAST) 279.3 MG/ML 10 ML IV ONE (11:43)
--- NOTE | 2018-01-01 12:45 | RAD ---
HISTORY: Preop, breast cancer, brain mass COMPARISONS: December 14, 2017 TECHNIQUE: The following sequences were obtained of the head: Sagittal T1-weighted images, axial T2-weighted images, axial FLAIR images, axial susceptibility weighted images, axial T1-weighted images. Additionally, axial diffusion-weighted images were obtained with calculated apparent diffusion coefficients. Additionally, thin section axial T1-weighted images were obtained after contrast enhancement with a healing based intravenous protocol as part of the [employer] protocol for intraoperative navigation. FINDINGS: The postcontrast images are limited by patient motion artifact. HEMORRHAGE/INFARCT: There is no hemorrhage or acute infarct. MASSES/SHIFT: There are multiple parenchymal masses further described below. There is no shift. EXTRA-AXIAL SPACES/MENINGES: There is an enhancing extra axial mass along the posterior falx on the left. This is decreased in size compared to the previous examination. There is left meningeal enhancement along the left temporal lobe that is not clearly appreciated on the previous examination. SULCI AND VENTRICLES: The sulci and ventricles are normal in size and position for the patient's stated age. CEREBRUM: There is vasogenic edema of the left anterior parietal lobe, similar to the previous examination, likely reactive to the parafalcine mass. There is persistent elevated T2/FLAIR signal in the left mesial temporal lobe. 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 BRAINSTEM: There is elevated T2/FLAIR signal within the pontine white matter. CEREBELLUM: Again noted is an enhancing mass of the left inferior cerebellum with associated vasogenic edema. This is decreased in size compared to the previous examination. The cerebellar tonsils are normal in size and position. SELLA: The sella is normal. PINEAL: The pineal region is clear. CP ANGLE/TEMPORAL BONES: The labyrinthine structures are grossly normal. VESSELS: Normal flow-voids are noted within the visualized vertebral vasculature. DIFFUSION ABNORMALITIES: There are no diffusion abnormalities. PARANASAL SINUSES/MASTOIDS: The paranasal sinuses are clear. ORBITS: The orbits are unremarkable. BONES AND SOFT TISSUE: No bone or soft tissue abnormalities are noted. OTHER: None IMPRESSION: 1. EVALUATION IS LIMITED BY PATIENT MOTION ARTIFACT. 2. AGAIN NOTED IS EDEMA WITHIN THE LEFT MESIAL TEMPORAL LOBE. THIS PERSISTENT WHEN COMPARED TO THE PREVIOUS EXAMINATION. ADDITIONALLY, THERE HAS BEEN INTERVAL DEVELOPMENT OF LEFT MENINGEAL ENHANCEMENT ALONG THE LEFT TEMPORAL LOBE SUGGESTIVE OF REACTIVE EDEMA SECONDARY TO LEFT MENINGEAL SPREAD OF TUMOR. 3. AGAIN NOTED ARE MULTIPLE ENHANCING LESIONS OF THE CEREBRAL HEMISPHERES AND LEFT CEREBELLUM WITH ASSOCIATED VASOGENIC EDEMA. THESE HAVE DECREASED IN SIZE COMPARED TO THE PREVIOUS EXAMINATION. 4. AGAIN NOTED IS A LEFT POSTERIOR FALCINE EXTRA-AXIAL MASS, ALSO DECREASED IN SIZE FROM THE PREVIOUS EXAMINATION.
--- NOTE | 2018-01-01 17:02 | CONSULT ---
Palliative / Hospice Consult Ordering Provider: Sari Jacobo - Subjective Code Status: Full Code-Needs Follow Up Advance Directives Location: No Advance Directives MOLST Part A Completed: Yes - DNR Date: 01/01/18 MOLST Part E Completed:: Yes - DNI, no BRYAN, deras.med.interv.,antibiotics [place] HCP Completed: Yes - Son Theodore Garcias - History or Present Illness History or Present Illness: This 77 year old woman was admitted 19 days ago from home where she had experienced LOC the day after Herceptin infusion in [place]. She was found on admission to have hyponatremia with NA 119, UTI subsequently cultured pseudomonas and enterococcus, and enhancing brain lesions consistent with metastatic disease. 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 In October 2017 she c/o balance problems to Dr. Garrett and MRI then revealed 5 brain lesions for which she underwent gamma knife excision of 2 of the 5 lesions , and was subsequently started on Herceptin and Arimidex. Coincident with the Herceptin initiation, her partner noted mental status and behavior changes. She was irritable and had altered personality. 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 On December 13 the patient was brought to the ER and found to have AMS, hyponatremia and UTI. An EEG revealed subclinical seizure activity. She was started on Keppra, later switched to Depakote due to possible psychotropic effect of Keppra. Her UTI has been treated with Cefepime. 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 Her mental status initially improved but then deteriorated again. She esparza not been fully oriented during the entire hospitalization. An LP showed no malignant cells, but subsequent MRI this morning showed new meningeal enhancement on the left. She is scheduled for biopsy of one of the brain metastases, left parietal, tomorrow, per Dr. Wolf' s note. The patient is not taking adequate nutritionand hydration. Her albumin, 3.7 on admission, is now 2.8. Lab Values: Abnormal Lab Results 12/31/17 01/01/18 01/01/18 16:44 05:56 05:56 WBC 7.3 RBC 3.00 L Hgb 9.5 L Hct 27 L MCV 89 MCH 32 H MCHC 36 RDW 13 Plt Count 96 L MPV 6.9 L Neut % (Auto) Not Reportable Lymph % (Auto) Not Reportable [place] % (Auto) Not Reportable Eos % (Auto) Not Reportable Baso % (Auto) Not Reportable Absolute Neuts (auto) 6.2 Absolute Lymphs (auto) 0.6 L Absolute Monos (auto) 0.4 Absolute Eos (auto) 0 Absolute Basos (auto) 0.1 Absolute Nucleated RBC Not Reportable Immature Gran % 30 H Neutrophils % 50 Band Neutrophils % 10 H Lymphocytes % 13 L Monocytes % 7 Eosinophils % 0 Basophils % 0 Metamyelocytes % 5 H Myelocytes % 15 H Nucleated RBC % Not Reportable Abs Neuts (Manual) 3.7 Abs Lymphs (Manual) 0.9 L Abs Monocytes (Manual) 0.5 Absolute Eos (Manual) 0 Abs Basophils (Manual) 0 Normal RBC Morphology Normal Hem Pathologist Commnt Sodium 139 Potassium 4.2 Chloride 103 Carbon Dioxide 32 Anion Gap 4 BUN 21 Creatinine 0.40 L Est GFR ( Amer) 199.1 Est GFR (Non-Af Amer) 154.8 BUN/Creatinine Ratio 52.5 H Glucose 114 H POC Glucose (mg/dL) 189 H Calcium 8.3 L 01/01/18 01/01/18 07:11 12:19 WBC RBC Hgb Hct MCV MCH MCHC RDW Plt Count MPV Neut % (Auto) Lymph % (Auto) [place] % (Auto) Eos % (Auto) Baso % (Auto) Absolute Neuts (auto) Absolute Lymphs (auto) Absolute Monos (auto) Absolute Eos (auto) Absolute Basos (auto) Absolute Nucleated RBC Immature Gran % Neutrophils % Band Neutrophils % Lymphocytes % Monocytes % Eosinophils % Basophils % Metamyelocytes % Myelocytes % Nucleated RBC % Abs Neuts (Manual) Abs Lymphs (Manual) Abs Monocytes (Manual) Absolute Eos (Manual) Abs Basophils (Manual) Normal RBC Morphology Hem Pathologist Commnt Sodium Potassium Chloride Carbon Dioxide Anion Gap BUN Creatinine Est GFR ( Amer) Est GFR (Non-Af Amer) BUN/Creatinine Ratio Glucose POC Glucose (mg/dL) 109 H 101 H Calcium Laboratory Last Values WBC 7.3 10^3/ul (3.5-10.8) 01/01/18 05:56 RBC 3.00 10^6/ul (4.0-5.4) L 01/01/18 05:56 Hgb 9.5 g/dl (12.0-16.0) L 01/01/18 05:56 Hct 27 % (35-47) L 01/01/18 05:56 MCV 89 fL (80-97) 01/01/18 05:56 MCH 32 pg (27-31) H 01/01/18 05:56 MCHC 36 g/dl (31-36) 01/01/18 05:56 RDW 13 % (10.5-15) 01/01/18 05:56 Plt Count 96 10^3/ul (150-450) L 01/01/18 05:56 MPV 6.9 um3 (7.4-10.4) L 01/01/18 05:56 Neut % (Auto) Not Reportable 01/01/18 05:56 Lymph % (Auto) Not Reportable 01/01/18 05:56 [place] % (Auto) Not Reportable 01/01/18 05:56 Eos % (Auto) Not Reportable 01/01/18 05:56 Baso % (Auto) Not Reportable 01/01/18 05:56 Absolute Neuts (auto) 6.2 10^3/ul (1.5-7.7) 01/01/18 05:56 Absolute Lymphs (auto) 0.6 10^3/ul (1.0-4.8) L 01/01/18 05:56 Absolute Monos (auto) 0.4 10^3/ul (0-0.8) 01/01/18 05:56 Absolute Eos (auto) 0 10^3/ul (0-0.6) 01/01/18 05:56 Absolute Basos (auto) 0.1 10^3/ul (0-0.2) 01/01/18 05:56 Absolute Nucleated RBC Not Reportable 01/01/18 05:56 Immature Gran % 30 % (0-9) H 01/01/18 05:56 Neutrophils % 50 % (38-83) 01/01/18 05:56 Band Neutrophils % 10 % (0-8) H 01/01/18 05:56 Lymphocytes % 13 % (25-47) L 01/01/18 05:56 Reactive Lymphs % 1 % (0-6) 12/30/17 06:22 Monocytes % 7 % (0-7) 01/01/18 05:56 Eosinophils % 0 % (0-6) 01/01/18 05:56 Basophils % 0 % (0-2) 01/01/18 05:56 Metamyelocytes % 5 % (0-2) H 01/01/18 05:56 Myelocytes % 15 % (0-1) H 01/01/18 05:56 Nucleated RBC % Not Reportable 01/01/18 05:56 Abs Neuts (Manual) 3.7 10^3/ul (1.5-7.7) 01/01/18 05:56 Abs Lymphs (Manual) 0.9 10^3/ul (1.0-4.8) L 01/01/18 05:56 Abs Monocytes (Manual) 0.5 10^3/ul (0-0.8) 01/01/18 05:56 Absolute Eos (Manual) 0 10^3/ul (0-0.6) 01/01/18 05:56 Abs Basophils (Manual) 0 10^3/ul (0-0.2) 01/01/18 05:56 Normal RBC Morphology Normal (Normal) 01/01/18 05:56 Acanthocytes (Spur) 1+ 12/30/17 06:22 Hem Pathologist Commnt 01/01/18 05:56 INR (Anticoag Therapy) 0.91 (0.77-1.02) 12/14/17 05:35 Sodium 139 mmol/L (139-145) 01/01/18 05:56 Potassium 4.2 mmol/L (3.5-5.0) 01/01/18 05:56 Chloride 103 mmol/L (101-111) 01/01/18 05:56 Carbon Dioxide 32 mmol/L (22-32) 01/01/18 05:56 Anion Gap 4 mmol/L (2-11) 01/01/18 05:56 BUN 21 mg/dL (6-24) 01/01/18 05:56 Creatinine 0.40 mg/dL (0.51-0.95) L 01/01/18 05:56 Est GFR ( Amer) 199.1 (>60) 01/01/18 05:56 Est GFR (Non-Af Amer) 154.8 (>60) 01/01/18 05:56 BUN/Creatinine Ratio 52.5 (8-20) H 01/01/18 05:56 Glucose 114 mg/dL (70-100) H 01/01/18 05:56 POC Glucose (mg/dL) 101 mg/dL (70-100) H 01/01/18 12:19 Osmolality 247 mOsm/kg (275 - 295) L 12/13/17 10:04 Lactic Acid 0.7 mmol/L (0.5-2.0) 12/13/17 16:30 Calcium 8.3 mg/dL (8.6-10.3) L 01/01/18 05:56 Ionized Calcium 4.49 mg/dL (4.65-5.28) L 12/18/17 05:30 Phosphorus 3.6 mg/dL (2.5-5.0) 12/24/17 06:16 Magnesium 1.8 mg/dL (1.9-2.7) L 12/25/17 04:50 Total Bilirubin 0.40 mg/dL (0.2-1.0) 12/24/17 06:16 AST 18 U/L (13-39) 12/24/17 06:16 ALT 30 U/L (7-52) 12/24/17 06:16 Alkaline Phosphatase 49 U/L (34-104) 12/24/17 06:16 Ammonia 30 mol/L (16-53) 12/24/17 06:16 Total Creatine Kinase 198 U/L (10-223) 12/13/17 10:04 Troponin I 0.03 ng/mL (<0.04) 12/13/17 10:04 Total Protein 4.8 g/dL (6.4-8.9) L 12/24/17 06:16 Albumin 2.8 g/dL (3.2-5.2) L 12/24/17 06:16 Globulin 2.0 g/dL (2-4) 12/24/17 06:16 Albumin/Globulin Ratio 1.4 (1-3) 12/24/17 06:16 Vitamin B12 463 pg/mL (180-914) 12/24/17 06:16 TSH 0.36 mcIU/mL (0.34-5.60) 12/13/17 10:04 Free T4 0.72 ng/dL (0.61-1.12) 12/25/17 14:15 Total T3 0.30 ng/mL (0.87-1.78) L 12/25/17 14:15 Cortisol 1.32 mcg/dL 12/18/17 05:30 Urine Color Yellow 12/26/17 03:00 Urine Appearance Cloudy 12/26/17 03:00 Urine pH 7.0 (5-9) 12/26/17 03:00 Ur Specific [place] 1.010 (1.010-1.030) 12/26/17 03:00 Urine Protein Negative (Negative) 12/26/17 03:00 Urine Ketones Negative (Negative) 12/26/17 03:00 Urine Blood 1+ (Negative) A 12/26/17 03:00 Urine Nitrate Negative (Negative) 12/26/17 03:00 Urine Bilirubin Negative (Negative) 12/26/17 03:00 Urine Urobilinogen Negative (Negative) 12/26/17 03:00 Ur Leukocyte Esterase 3+ (Negative) A 12/26/17 03:00 Urine WBC (Auto) 3+(>20/hpf) (Absent) A 12/26/17 03:00 Urine RBC (Auto) 2+(6-10/hpf) (Absent) A 12/26/17 03:00 Ur Squamous Epith Cells Present (Absent) A 12/13/17 13:20 Urine Bacteria Absent (Absent) 12/26/17 03:00 Urine Osmolality 531 mOsm/kg (150 - 1150) 12/13/17 13:20 Ur Random Creatinine 44.15 mg/dL 12/13/17 13:20 Ur Random Sodium 113 mmol/L 12/13/17 13:20 Urine Glucose Negative (Negative) 12/26/17 03:00 Fluid Source Cerebral spinal 12/26/17 14:00 Fluid Volume 10 mL 12/26/17 14:00 Fluid Color Colorless 12/26/17 14:00 Fluid Appearance Clear 12/26/17 14:00 Fluid WBC 2 /mcL 12/26/17 14:00 Fluid RBC 1 /mcL 12/26/17 14:00 Fluid Tot Cell Count 26 12/26/17 14:00 Fluid Neutrophils Not Reportable 12/26/17 14:00 Fluid Lymphocytes 100 % 12/26/17 14:00 Fluid Cell Count Rvw By 12/26/17 14:00 CSF Cell Count Tube # 4 12/26/17 14:00 CSF Glucose 56 mg/dL (40-70) 12/26/17 14:00 CSF Total Protein 50 mg/dL (15-45) H 12/26/17 14:00 CSF HSV I (PCR) Negative (Negative) 12/26/17 14:00 CSF 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) A* 12/26/17 14:00 Salicylates < 2.50 mg/dL (<30) 12/13/17 10:04 Urine Opiates Screen None detected (None Detect) 12/13/17 13:20 Acetaminophen < 15 mcg/mL 12/13/17 10:04 Ur Barbiturates Screen None detected (None Detect) 12/13/17 13:20 Valproic Acid 110.0 mcg/mL (50-100) H 12/29/17 06:30 Ur Phencyclidine Scrn None detected (None Detect) 12/13/17 13:20 Ur Amphetamines Screen None detected (None Detect) 12/13/17 13:20 U Benzodiazepines Scrn None detected (None Detect) 12/13/17 13:20 Urine Cocaine Screen None detected (None Detect) 12/13/17 13:20 U Cannabinoids Screen None detected (None Detect) 12/13/17 13:20 Serum Alcohol < 10 mg/dL (<10) 12/13/17 10:04 Paraneoplastic Ab Intrp See comment 12/17/17 06:56 Neuronal Nuc Ab Type 1 Negative titer (<1:240) 12/17/17 06:56 Neuronal Nuc Ab Type 2 Negative titer (<1:240) 12/17/17 06:56 Neuronal Nuc Ab Type 3 Negative titer (<1:240) 12/17/17 06:56 AGNA-1 Negative titer (<1:240) 12/17/17 06:56 AChR Muscle Binding Ab 0.00 nmol/L (<=0.02) 12/17/17 06:56 AChR Ganglion Neuronal 0.00 nmol/L (<=0.02) 12/17/17 06:56 [place] Cell (CONTRACTS ANALYST-1) Negative titer (<1:240) 12/17/17 06:56 [place]je Cell (CONTRACTS ANALYST-2) Negative titer (<1:240) 12/17/17 06:56 [place] Cytoplas Typ Tr Negative titer (<1:240) 12/17/17 06:56 CRMP-5 IgG Antibody Negative titer (<1:240) 12/17/17 06:56 Amphiphysin Antibody Negative titer (<1:240) 12/17/17 06:56 Ca Channel Bind Ab - N 0.00 nmol/L (<=0.03) 12/17/17 06:56 Ca Channel Bind Ab P/Q 0.00 nmol/L (<=0.02) 12/17/17 06:56 Vol[place] K Channel Ab 0.00 nmol/L (<=0.02) 12/17/17 06:56 Striated Muscle Ab Negative titer (<1:120) 12/17/17 06:56 Influenza A (Rapid) Negative (Negative) 12/13/17 19:37 Influenza B (Rapid) Negative (Negative) 12/13/17 19:37 - Objective Active Medications: Acetaminophen (Tylenol Tab*) 650 mg PO Q4H PRN PRN Reason: FEVER/PAIN Last Admin: 12/13/17 22:14 Dose: 650 mg Albuterol (Ventolin 2.5 Mg/3 Ml Neb.Yusra*) 1.25 mg INH TID PRN PRN Reason: SHORTNESS OF BREATH Anastrozole (Arimidex (Nf)) 1 mg PO DAILY [facility] Last Admin: 01/01/18 10:36 Dose: 1 mg Dexamethasone (Decadron Tab*) 2 mg PO TID [facility] Last Admin: 01/01/18 13:54 Dose: 2 mg Dextrose (D50w Syringe 50 Ml*) 12.5 gm IV PUSH .FOR FS < 60 - SS PRN PRN Reason: FS < 60 Divalproex Sodium (Depakote Dr Tab(*)) 500 mg PO BID [facility] Last Admin: 01/01/18 10:36 Dose: 500 mg Docusate Sodium (Colace Cap*) 100 mg PO BID PRN PRN Reason: CONSTIPATION Last Admin: 12/20/17 21:20 Dose: 100 mg Insulin Human Lispro (Humalog*) 0 - 10 units SUBCUT AC LACY PRN Reason: Protocol Last Admin: 01/01/18 13:40 Dose: Not Given Omeprazole (Prilosec Cap*) 20 mg PO BID@0730,1630 [facility] Last Admin: 01/01/18 10:36 Dose: 20 mg Polyethylene Glycol/Electrolytes (Miralax*) 17 gm PO DAILY PRN PRN Reason: CONSTIPATION Last Admin: 12/20/17 21:18 Dose: 17 gm Senna (Senokot Tab*) 2 tab PO BEDTIME PRN PRN Reason: CONSTIPATION Last Admin: 12/20/17 21:20 Dose: 2 tab Sodium Chloride (Sodium Chloride Tab*) 1 gm PO TID [facility] Last Admin: 01/01/18 13:53 Dose: 1 gm Vital Signs: Vital Signs: Temp Pulse Resp BP Pulse Ox 98.4 F 67 20 110/49 97 01/01/18 15:49 01/01/18 15:49 01/01/18 15:49 01/01/18 15:49 01/01/18 15:49 Patient Weight: Weight 140 lb 3.424 oz Intake and Output: Intake & Output 12/30/17 12/31/17 01/01/18 01/02/18 06:59 06:59 06:59 06:59 Intake Total 840 380 745 340 Output Total 800 1150 1150 375 Balance 40 -770 -405 -35 Intake: IV Fluids 15 cefepime 15 IVPB 50 cefepime 50 Oral 840 380 680 340 Output: Jones 800 1150 1150 375 Other: Date of Last Bowel 0 0 Movement # Bowel Movements 0 0 ADLs: Meal Record Start: 12/13/17 14: 13 Freq: ,,18 Status: Complete Protocol: Created 12/13/17 14:13 System (Rec: 12/13/17 14:13 System ICU-C10) Document 12/13/17 18:00 [id number] (Rec: 12/13/17 19:09 VTS1695 ICU-C16) Document 12/14/17 09:00 PDP8253 (Rec: 12/14/17 09:45 LZX0992 ICU-C10) Document 12/14/17 13:00 MGN7116 (Rec: 12/14/17 18:10 WDO7109 ICU-C10) Document 12/14/17 18:00 VBF8988 (Rec: 12/14/17 18:18 CCX1856 ICU-C10) Document 12/15/17 09:00 PFK5127 (Rec: 12/15/17 10:32 HFE5988 ICU-C15) Document 12/15/17 13:00 WOX4005 (Rec: 12/15/17 15:48 XCK9305 ICU-C15) Document 12/15/17 18:00 DMR8452 (Rec: 12/15/17 18:11 KCI0388 ICU-C15) Document 12/15/17 18:13 ASP1231 (Rec: 12/15/17 18:14 SKE8584 ICU-C20) Document 12/16/17 09:00 RYS8626 (Rec: 12/16/17 09:49 QUC1784 ICU-C15) Document 12/16/17 13:00 XSH0585 (Rec: 12/16/17 13:06 SWA5115 ICU-C20) Document 12/16/17 18:00 YHX2901 (Rec: 12/16/17 20:03 NQQ9155 ICU-C07) Document 12/17/17 08:57 KJL5794 (Rec: 12/17/17 08:58 FCR3911 ICU-C20) Document 12/17/17 13:00 VAN4969 (Rec: 12/17/17 13:49 EPM6521 ICU-C20) Document 12/17/17 18:00 CAO8957 (Rec: 12/17/17 18:28 MIA5422 [facility] Document 12/18/17 09:00 TUU7508 (Rec: 12/18/17 09:23 CIC6926 ICU-C15) Document 12/18/17 13:00 ZEM7207 (Rec: 12/18/17 13:35 COY6842 ICU-C15) ADLs: Meal Record Start: 12/18/17 15: 59 Freq: 09,13,18 Status: Inactive Protocol: Created 12/18/17 15:59 AMN8404 (Rec: 12/18/17 15:59 RSL7955 ICU-C15) Document 12/18/17 18:00 MBZ7115 (Rec: 12/18/17 20:10 TYD8078 ICU-C12) Document 12/19/17 13:00 WLL1926 (Rec: 12/19/17 14:37 ALM8253 TELE-C09) Document 12/19/17 18:00 ULK8072 (Rec: 12/19/17 22:22 QIL0353 TELE-C13) ADLs: Meal Record Start: 12/20/17 14: 19 Freq: 0900,1300,1800 Status: Active Protocol: Created 12/20/17 14:19 MVY7223 (Rec: 12/20/17 14:19 HNS3475 TELE-C01) Document 12/20/17 14:20 YNH5637 (Rec: 12/20/17 14:20 NZX1203 TELE-C01) Document 12/20/17 18:21 UUS8040 (Rec: 12/20/17 18:22 EFS4285 TELE-C01) Document 12/21/17 09:06 LRX9627 (Rec: 12/21/17 09:08 ILF4485 TELE-C11) Document 12/21/17 14:10 KBW9715 (Rec: 12/21/17 14:11 PPX1353 TELE-C09) Document 12/22/17 09:00 JZA9016 (Rec: 12/22/17 10:15 AUZ4702 MED-C09) Document 12/22/17 18:00 UBL5119 (Rec: 12/22/17 20:06 XHB4606 MED-C11) Document 12/23/17 09:00 ABJ7293 (Rec: 12/23/17 13:22 FZN1882 MED-C11) Document 12/23/17 17:30 DUU6399 (Rec: 12/23/17 20:21 OOR9531 MED-C09) Document 12/24/17 08:30 AYD2484 (Rec: 12/24/17 12:44 WAS0919 MED-C11) Document 12/24/17 12:30 DBZ2146 (Rec: 12/24/17 15:04 TZO9604 MED-C11) Document 12/24/17 17:30 RND3630 (Rec: 12/24/17 18:46 SZH1619 MED-C11) Document 12/25/17 08:30 FGU1674 (Rec: 12/25/17 14:54 AYU7972 MED-C09) Document 12/25/17 12:30 ALT0342 (Rec: 12/25/17 14:55 USI0165 MED-C09) Document 12/25/17 17:30 JHP7321 (Rec: 12/25/17 17:52 JCC0454 MED-C11) Document 12/26/17 08:30 SKL8998 (Rec: 12/26/17 14:29 BQM0743 MED-C09) Document 12/26/17 12:30 BTY2176 (Rec: 12/26/17 14:57 AJK2665 MED-C09) Document 12/26/17 17:30 HSM5722 (Rec: 12/26/17 17:53 FVR0872 MED-C11) Document 12/27/17 09:00 FAC0809 (Rec: 12/27/17 09:51 TLM1456 MED-C09) Document 12/27/17 13:00 EHF2724 (Rec: 12/27/17 13:54 CJR2075 MED-C09) Document 12/27/17 18:00 WCY1738 (Rec: 12/27/17 18:03 TNR9076 MED-C11) Document 12/28/17 09:00 QXE1392 (Rec: 12/28/17 09:22 DCR5978 MED-C09) Document 12/28/17 13:00 GZV7596 (Rec: 12/28/17 13:44 IJE0393 MED-C11) Document 12/28/17 18:00 EMU8206 (Rec: 12/28/17 18:42 UCL8875 MED-C11) Document 12/29/17 09:00 KWQ2530 (Rec: 12/29/17 09:35 WVL3152 MED-C09) Document 12/29/17 13:00 QZZ1156 (Rec: 12/29/17 13:29 NPM8414 MED-C05) Document 12/29/17 18:00 CRW1079 (Rec: 12/29/17 18:25 JFK5624 MED-C11) Document 12/30/17 09:00 QJQ5379 (Rec: 12/30/17 09:58 ZPP4552 MED-C05) Document 12/30/17 18:00 GWD9832 (Rec: 12/30/17 21:45 RHM8156 TELE-C01) Document 12/31/17 09:00 LNK1166 (Rec: 12/31/17 13:43 DZF3746 TELE-C03) Document 12/31/17 13:00 VND6495 (Rec: 12/31/17 13:43 EGC2849 TELE-C03) Document 12/31/17 18:00 KXF3249 (Rec: 12/31/17 19:59 PAJ9822 TELE-C01) Document 01/01/18 08:57 LYX8270 (Rec: 01/01/18 08:58 OLD8253 TELE-C13) Document 01/01/18 13:25 LYP5413 (Rec: 01/01/18 13:25 SKI2904 TELE-C03) Intake and Output Start: 12/13/17 09: 16 Freq: Status: Active Protocol: Created 12/13/17 09:16 System (Rec: 12/13/17 09:16 System ED-C31) Intake and Output Start: 12/13/17 14: 13 Freq: 06,14,22 Status: Active Protocol: Created 12/13/17 14:13 System (Rec: 12/13/17 14:13 System ICU-C10) Document 12/13/17 18:12 UFS7132 (Rec: 12/13/17 18:13 PVQ6351 ICU-C16) Document 12/13/17 21:27 JBH8540 (Rec: 12/13/17 21:27 ONI4837 ICU-C15) Document 12/14/17 04:24 EAX8093 (Rec: 12/14/17 04:24 IUY2329 ICU-C15) Document 12/14/17 14:00 UKY4143 (Rec: 12/14/17 18:11 AHE7897 ICU-C10) Document 12/14/17 22:00 CDT7944 (Rec: 12/15/17 00:54 PDC3561 ICU-C15) Document 12/15/17 06:00 GON2537 (Rec: 12/15/17 07:24 TZQ4719 ICU-C15) Document 12/15/17 09:52 VAW6159 (Rec: 12/15/17 09:52 PYQ0105 ICU-C20) Document 12/15/17 12:07 ZQC0493 (Rec: 12/15/17 12:07 HXI5806 ICU-C15) Document 12/15/17 14:00 NKP6984 (Rec: 12/15/17 14:05 GDD3330 ICU-C20) Document 12/15/17 21:52 TPO8963 (Rec: 12/15/17 21:53 GTY1045 ICU-C20) Document 12/16/17 02:03 TWY5327 (Rec: 12/16/17 02:03 VRM4772 ICU-C15) Document 12/16/17 05:50 JJF3645 (Rec: 12/16/17 05:50 CUT1030 ICU-C14) Document 12/16/17 06:00 ZCH1163 (Rec: 12/16/17 06:13 SMH9800 ICU-C15) Document 12/16/17 14:00 HMQ2519 (Rec: 12/16/17 14:20 IFD9153 ICU-C20) Document 12/16/17 18:06 JGI8692 (Rec: 12/16/17 18:07 KKV8610 ICU-C15) Document 12/16/17 22:00 OUD5425 (Rec: 12/16/17 22:10 PAL7596 ICU-C07) Document 12/17/17 06:00 MVD9655 (Rec: 12/17/17 06:09 SUQ9333 ICU-C15) Document 12/17/17 13:48 RBZ6612 (Rec: 12/17/17 13:48 YJC3673 ICU-C20) Document 12/17/17 15:16 RPB5901 (Rec: 12/17/17 15:16 HZJ3422 [facility] ) Document 12/17/17 22:00 BXB4031 (Rec: 12/17/17 22:03 DYK3800 ICU-C15) Document 12/18/17 00:36 ZQZ3116 (Rec: 12/18/17 00:36 PCS8677 ICU-C15) Document 12/18/17 02:00 KAQ0113 (Rec: 12/18/17 02:15 PXZ6051 ICU-C15) Document 12/18/17 06:00 QYE5557 (Rec: 12/18/17 06:10 DCS4743 ICU-C15) Document 12/18/17 14:00 MRL8456 (Rec: 12/18/17 14:04 KLR8275 ICU-C15) Document 12/20/17 16:00 FGF5246 (Rec: 12/20/17 17:21 RSH1125 TELE-M06) Document 12/20/17 22:00 LGA4783 (Rec: 12/20/17 22:06 JLN9258 TELE-C13) Document 12/21/17 04:43 MBM5671 (Rec: 12/21/17 04:43 IUJ6097 TELE-C34) Document 12/21/17 14:00 CFL7515 (Rec: 12/21/17 14:27 KLO1656 TELE-C09) Document 12/21/17 21:31 ZYX0533 (Rec: 12/21/17 21:31 GTV3354 MED-C11) Document 12/22/17 05:26 OWZ5271 (Rec: 12/22/17 05:26 QYI6107 MED-C11) Document 12/22/17 21:46 YKX9491 (Rec: 12/22/17 21:46 MMQ0147 MED-C09) Document 12/23/17 06:00 LDT0462 (Rec: 12/23/17 06:20 WUG4149 MED-C11) Document 12/23/17 14:00 CWX8374 (Rec: 12/23/17 14:40 NBG7768 MED-C11) Document 12/23/17 22:00 BYE2636 (Rec: 12/23/17 22:58 SOF0507 MED-C09) Document 12/24/17 05:54 AJG5603 (Rec: 12/24/17 05:54 EUV2270 MED-C11) Document 12/24/17 14:00 TJQ4979 (Rec: 12/24/17 15:03 [id number] MED-C11) Document 12/24/17 20:00 [id number] (Rec: 12/24/17 20:02 [id number] MED-C11) Document 12/25/17 05:16 UCS0650 (Rec: 12/25/17 05:17 [id number] MED-C11) Document 12/25/17 14:00 [id number] (Rec: 12/25/17 14:53 [id number] MED-C09) Document 12/25/17 21:01 UDX0573 (Rec: 12/25/17 21:02 [id number] MED-C11) Document 12/26/17 06:00 [id number] (Rec: 12/26/17 06:06 UIA5585 MED-C11) Document 12/26/17 14:00 VJP5045 (Rec: 12/26/17 14:59 [id number] MED-C09) Document 12/26/17 21:34 [id number] (Rec: 12/26/17 21:34 [id number] MED-C11) Document 12/27/17 04:11 [id number] (Rec: 12/27/17 04:11 [id number] MED-C11) Document 12/27/17 13:54 BQN4435 (Rec: 12/27/17 13:54 OSD3222 MED-C09) Document 12/27/17 21:39 [id number] (Rec: 12/27/17 21:41 [id number] MED-C11) Document 12/28/17 05:08 BLS9113 (Rec: 12/28/17 05:08 IRZ7934 MED-C11) Document 12/28/17 13:43 NTI0465 (Rec: 12/28/17 13:44 KEK1713 MED-C11) Document 12/28/17 22:00 LSO0394 (Rec: 12/28/17 22:25 [id number] MED-C11) Document 12/29/17 06:00 CEH1945 (Rec: 12/29/17 06:16 [id number] MED-C11) Document 12/29/17 13:27 LXD7425 (Rec: 12/29/17 13:29 TBD6650 MED-C05) Document 12/29/17 21:40 [id number] (Rec: 12/29/17 21:42 [id number] MED-C11) Document 12/30/17 04:34 ATI0394 (Rec: 12/30/17 04:37 COF6018 MED-C09) Document 12/30/17 22:00 [id number] (Rec: 12/30/17 22:44 JIB3681 TELE-C01) Document 12/31/17 06:00 CFO9636 (Rec: 12/31/17 06:29 HDW8149 TELE-C32) Document 12/31/17 14:00 DSY7774 (Rec: 12/31/17 15:28 OSB6567 TELE-C05) Document 12/31/17 22:00 CMN7574 (Rec: 12/31/17 22:04 JZF3059 TELE-C01) Document 01/01/18 05:55 [id number] (Rec: 01/01/18 06:00 FBL2371 TELE-C32) Document 01/01/18 13:25 CRP5307 (Rec: 01/01/18 13:25 DKE0310 TELE-C03) Intake and Output Start: 12/18/17 15: 59 Freq: DAILY@0600,1400,2200 Status: Inactive Protocol: Created 12/18/17 15:59 [id number] (Rec: 12/18/17 15:59 NRJ2226 ICU-C15) Document 12/18/17 21:34 IKR0457 (Rec: 12/18/17 21:34 CSD3966 ICU-C12) Document 12/19/17 22:00 YBU9672 (Rec: 12/19/17 22:25 VAB5071 TELE-C13) General Impression: Pleasant, confused woman lying in bed in no apparent distress, unable to answer questions appropriately, e.g. answers "Do you know why you are in the hospital? " with "It's stronger." Head: Symmetrical Eyes: No Scleral Icterus Ears/Nose/Mouth/Throat: Mucous Membranes Moist, - Neck: NL Appearance and Movements; NL JVP Cardiovascular: NL Sounds; No Murmurs; No JVD, RRR Respiratory: Symmetrical Chest Expansion and Respiratory Effort Abdominal: NL Sounds; No Tenderness; No Distention Extremities: No Edema Neurological: - - Alert and Oriented to Person, Not oriented to date or place. 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 Her son is hoping that treatment of her UTI will clear her sensorium, or that brain biopsy may reveal a reversible cause of her AMS. Both of these are vanishingly small in probability. Every manifestation of illness can be attributed to her brain metastases. Furthermore, she has a directive she completed less than 2 months ago specifying no interventions in the case of incurable illness. The patient was a full code when I arrived to see her today. Her son and I completed a MOLST form in accordance with her pre-stated wishes. He is quite receptive to the idea of comfort measures only but has opted for limited medical interventions until he is sure there is no reversible cause of her AMS. I described the hospice home benefit to him and offered to meet with him again if he wants to explore options further. He is currently thinking she may go to [facility], but would eventually like her to have hospice services at home. Thanks for asking for palliative input on this very pleasant unfortunate patient. - Plan Consult Plan (MU): Hospice - Time On Unit Date of Evaluation: 01/01/18 Hospice Consult Time in: 16:00 Hospice Consult Time Out: 17:35 Hospice Consult Time Total: 95
--- NOTE | 2018-01-01 20:25 | PN ---
Progress Note - Progress Note Date of Service: 01/01/18 SOAP: Subjective: []No change. Pleasant and responding but continued MS changes. Denies pain, is eating some. Needs to be fed. Acetaminophen (Tylenol Tab*) 650 mg PO Q4H PRN PRN Reason: FEVER/PAIN Last Admin: 12/13/17 22:14 Dose: 650 mg Albuterol (Ventolin 2.5 Mg/3 Ml Neb.Yusra*) 1.25 mg INH TID PRN PRN Reason: SHORTNESS OF BREATH Anastrozole (Arimidex (Nf)) 1 mg PO DAILY [facility] Last Admin: 01/01/18 10:36 Dose: 1 mg Dexamethasone (Decadron Tab*) 2 mg PO TID [facility] Last Admin: 01/01/18 13:54 Dose: 2 mg Dextrose (D50w Syringe 50 Ml*) 12.5 gm IV PUSH .FOR FS < 60 - SS PRN PRN Reason: FS < 60 Divalproex Sodium (Depakote Dr Tab(*)) 500 mg PO BID [facility] Last Admin: 01/01/18 10:36 Dose: 500 mg Docusate Sodium (Colace Cap*) 100 mg PO BID PRN PRN Reason: CONSTIPATION Last Admin: 12/20/17 21:20 Dose: 100 mg Insulin Human Lispro (Humalog*) 0 - 10 units SUBCUT AC [facility] PRN Reason: Protocol Last Admin: 01/01/18 16:59 Dose: Not Given Omeprazole (Prilosec Cap*) 20 mg PO BID@0730,1630 [facility] Last Admin: 01/01/18 17:07 Dose: 20 mg Polyethylene Glycol/Electrolytes (Miralax*) 17 gm PO DAILY PRN PRN Reason: CONSTIPATION Last Admin: 12/20/17 21:18 Dose: 17 gm Senna (Senokot Tab*) 2 tab PO BEDTIME PRN PRN Reason: CONSTIPATION Last Admin: 12/20/17 21:20 Dose: 2 tab Sodium Chloride (Sodium Chloride Tab*) 1 gm PO TID [facility] Last Admin: 01/01/18 13:53 Dose: 1 gm Objective: [] Vital Signs Temp Pulse Resp BP Pulse Ox 98.4 F 67 20 110/49 97 01/01/18 15:49 01/01/18 15:49 01/01/18 15:49 01/01/18 15:49 01/01/18 15:49 HEENT: no thrush, no oral lesions Neuro: She answered simple questions but not coherent. Does follow simple commands. Grossly non focal. MK: very weak, 3/5 strength, needs assistance to sit forward. 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 Case reviewed with Dr. Rodriguez and discussed with Dr. Wolf. MRI imaging does not require confirmatory bx. Discussed with son that prognosis is poor, measured in weeks. I do not recommend any treatment for the cancer. Discussed hospice and he feels she cannot go home. Hospice residence would be ideal, [facility] with hospice may be an options. If she is deteriorating quickly [facility] may be an option. Son will take a leave from work and take care of her. 1. Comfort care and discuss hospice placement in am. 2. Can stop Arimidex 3. Consider stopping labs
[2018-01-02] MEDS: Insulin LISPRO* 1 UNITS UNIT SUBCUT SCH ×2 (08:19→12:10)
[2018-01-02] MEDS: Sodium Chloride TAB* 1 GM PO SCH ×3 (10:06→21:17)
[2018-01-02] MEDS: Divalproex DR TAB(*) 500 MG PO SCH ×2 (10:06→21:18)
[2018-01-02] MEDS: Omeprazole CAP* 20 MG PO SCH (10:07)
[2018-01-02] MEDS: Dexamethasone TAB* 1 MG PO SCH ×2 (10:07→21:17)
[2018-01-02] MEDS: CMCS:Anastrozole (NF) 1 MG TAB PO SCH (10:08)
--- NOTE | 2018-01-02 14:26 | PN ---
Progress Note - Progress Note Date of Service: 01/02/18 SOAP: Subjective: [No changes in mental status overnight. Patient reports she is comfortable and offers no acute complaints.] Objective: [ Acetaminophen (Tylenol Tab*) 650 mg PO Q4H PRN PRN Reason: FEVER/PAIN Last Admin: 12/13/17 22:14 Dose: 650 mg Albuterol (Ventolin 2.5 Mg/3 Ml Neb.Yusra*) 1.25 mg INH TID PRN PRN Reason: SHORTNESS OF BREATH Dexamethasone (Decadron Tab*) 2 mg PO BID [facility] Dextrose (D50w Syringe 50 Ml*) 12.5 gm IV PUSH .FOR FS < 60 - SS PRN PRN Reason: FS < 60 Divalproex Sodium (Depakote Dr Tab(*)) 500 mg PO BID [facility] Last Admin: 01/02/18 10:06 Dose: 500 mg Docusate Sodium (Colace Cap*) 100 mg PO BID PRN PRN Reason: CONSTIPATION Last Admin: 12/20/17 21:20 Dose: 100 mg Polyethylene Glycol/Electrolytes (Miralax*) 17 gm PO DAILY PRN PRN Reason: CONSTIPATION Last Admin: 12/20/17 21:18 Dose: 17 gm Senna (Senokot Tab*) 2 tab PO BEDTIME PRN PRN Reason: CONSTIPATION Last Admin: 12/20/17 21:20 Dose: 2 tab Sodium Chloride (Sodium Chloride Tab*) 1 gm PO TID [facility] Last Admin: 01/02/18 13:15 Dose: 1 gm Laboratory Results - last 24 hr 01/01/18 01/01/18 01/02/18 05:56 16:58 08:04 Hem Pathologist Commnt POC Glucose (mg/dL) 108 H 120 H 01/02/18 11:36 Hem Pathologist Commnt POC Glucose (mg/dL) 143 H Vital Signs: Temp Pulse Resp BP Pulse Ox 97.9 F 75 15 144/65 100 01/02/18 12:05 01/02/18 12:05 01/02/18 12:05 01/02/18 12:05 01/02/18 12:05 Exam: Gen: Pleasant, elderly female accompanied by her son Psych: Alert, answers basic questions yes/no ] Assessment: [77 yo F w cT2N1 Her2+, ER+ BCA sp neoadjuvant chemotherapy with a pathCR followed by 5 brain lesions, treated with gamma knife, now with consistent mental status changes and 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
--- NOTE | 2018-01-02 15:19 | PN ---
Subjective Date of Service: 01/02/18 Interval History: Patient seen and examined. Answers some questions, exhibits some facial tics, yawning, etc. States no pain and no headache. Son at bedside. Family History: Unchanged from Admission Social History: Unchanged from Admission Past Medical History: Unchanged from Admission Objective Active Medications: Acetaminophen (Tylenol Tab*) 650 mg PO Q4H PRN PRN Reason: FEVER/PAIN Last Admin: 12/13/17 22:14 Dose: 650 mg Albuterol (Ventolin 2.5 Mg/3 Ml Neb.Yusra*) 1.25 mg INH TID PRN PRN Reason: SHORTNESS OF BREATH Dexamethasone (Decadron Tab*) 2 mg PO BID [facility] Dextrose (D50w Syringe 50 Ml*) 12.5 gm IV PUSH .FOR FS < 60 - SS PRN PRN Reason: FS < 60 Divalproex Sodium (Depakote Dr Tab(*)) 500 mg PO BID [facility] Last Admin: 01/02/18 10:06 Dose: 500 mg Docusate Sodium (Colace Cap*) 100 mg PO BID PRN PRN Reason: CONSTIPATION Last Admin: 12/20/17 21:20 Dose: 100 mg Polyethylene Glycol/Electrolytes (Miralax*) 17 gm PO DAILY PRN PRN Reason: CONSTIPATION Last Admin: 12/20/17 21:18 Dose: 17 gm Senna (Senokot Tab*) 2 tab PO BEDTIME PRN PRN Reason: CONSTIPATION Last Admin: 12/20/17 21:20 Dose: 2 tab Sodium Chloride (Sodium Chloride Tab*) 1 gm PO TID [facility] Last Admin: 01/02/18 13:15 Dose: 1 gm Vital Signs - 8 hr 01/02/18 01/02/18 01/02/18 08:00 08:03 08:05 Temperature 98.1 F Pulse Rate 61 70 Respiratory 14 14 Rate Blood Pressure 124/52 (mmHg) O2 Sat by Pulse 94 98 Oximetry 01/02/18 12:05 Temperature 97.9 F Pulse Rate 75 Respiratory 15 Rate Blood Pressure 144/65 (mmHg) O2 Sat by Pulse 100 Oximetry Oxygen Devices in Use Now: None Appearance: Sleepy, eyes closed, easily arousable Eyes: PERRLA Ears/Nose/Mouth/Throat: Mucous Membranes Moist Neck: Trachea Midline Respiratory: Symmetrical Chest Expansion and Respiratory Effort, Clear to Auscultation Cardiovascular: NL Sounds; No Murmurs; No JVD, RRR Neurological: - - sleepy, general weakness Nutrition: Taking PO's Result Diagrams: 01/01/18 05:56 01/01/18 05:56 Additional Lab and Data: Microbiology and Other Data: Microbiology 12/14/17 07:30 Legionella Urinary Antigen - Final Urine Negative Legionella Antigen Streptococcus pneumoniae Ag Screen - Final Negative S. pneumo Antigen 12/13/17 13:30 Nasal Screen MRSA (PCR)(ESTELITA) - Final Nasal Mrsa Not Detected 12/13/17 13:30 Influenza Types A,B Antigen (ESTELITA) - Final Nasal Specimen received for Influenza A/B Molecular testing Microbiology 12/26/17 16:30 Urine Urine Culture - Final Pseudomonas Aeruginosa Enterococcus Faecalis Diagnostic Imaging: Patient Name: KAREEN GARCIAS Medical Record#: [id number] Ordering Physician: Colby Wolf MD Acct.#: [id number] : 1940 Age: 77 Sex: F Location: [address] [place] [address] MEDICAL/TELEMETRY Exam Date: 01/01/18633 ADM Status: ADM IN Order Information: MRI BRAIN W/O Accession Number: [id number] CPT: 25446 HISTORY: Preop, breast cancer, brain mass COMPARISONS: December 14, 2017 TECHNIQUE: The following sequences were obtained of the head: Sagittal T1- weighted images, axial T2-weighted images, axial FLAIR images, axial susceptibility weighted images, axial T1-weighted images. Additionally, axial diffusion-weighted images were obtained with calculated apparent diffusion coefficients. Additionally, thin section axial T1- weighted images were obtained after contrast enhancement with a healing based intravenous protocol as part of the Stealth protocol for intraoperative navigation. FINDINGS: The postcontrast images are limited by patient motion artifact. HEMORRHAGE/INFARCT: There is no hemorrhage or acute infarct. MASSES/SHIFT: There are multiple parenchymal masses further described below. There is no shift. EXTRA-AXIAL SPACES/MENINGES: There is an enhancing extra axial mass along the posterior falx on the left. This is decreased in size compared to the previous examination. There is left meningeal enhancement along the left temporal lobe that is not clearly appreciated on the previous examination. SULCI AND VENTRICLES: The sulci and ventricles are normal in size and position for the patient's stated age. CEREBRUM: There is vasogenic edema of the left anterior parietal lobe, similar to the previous examination, likely reactive to the parafalcine mass. There is persistent elevated T2/FLAIR signal in the left mesial temporal lobe. 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 BRAINSTEM: There is elevated T2/FLAIR signal within the pontine white matter. CEREBELLUM: Again noted is an enhancing mass of the left inferior cerebellum with associated vasogenic edema. This is decreased in size compared to the previous examination. The cerebellar tonsils are normal in size and position. SELLA: The sella is normal. PINEAL: The pineal region is clear. CP ANGLE/TEMPORAL BONES: The labyrinthine structures are grossly normal. VESSELS: Normal flow-voids are noted within the visualized vertebral vasculature. DIFFUSION ABNORMALITIES: There are no diffusion abnormalities. PARANASAL SINUSES/MASTOIDS: The paranasal sinuses are clear. ORBITS: The orbits are unremarkable. BONES AND SOFT TISSUE: No bone or soft tissue abnormalities are noted. OTHER: None IMPRESSION: 1. EVALUATION IS LIMITED BY PATIENT MOTION ARTIFACT. 2. AGAIN NOTED IS EDEMA WITHIN THE LEFT MESIAL TEMPORAL LOBE. THIS PERSISTENT WHEN COMPARED TO THE PREVIOUS EXAMINATION. ADDITIONALLY, THERE HAS BEEN INTERVAL DEVELOPMENT OF LEFT MENINGEAL ENHANCEMENT ALONG THE LEFT TEMPORAL LOBE SUGGESTIVE OF REACTIVE EDEMA SECONDARY TO LEFT MENINGEAL SPREAD OF TUMOR. 3. AGAIN NOTED ARE MULTIPLE ENHANCING LESIONS OF THE CEREBRAL HEMISPHERES AND LEFT CEREBELLUM WITH ASSOCIATED VASOGENIC EDEMA. THESE HAVE DECREASED IN SIZE COMPARED TO THE PREVIOUS EXAMINATION. 4. AGAIN NOTED IS A LEFT POSTERIOR FALCINE EXTRA-AXIAL MASS, ALSO DECREASED IN SIZE FROM THE PREVIOUS EXAMINATION. 1 of 2 Assess/Plan/Problems-Billing . Assessment: Ms. 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 Found to have subclinical seizures on video EEG, UTI, and hyponatremia. MRI with new pathology in the brain. - Patient Problems (1) Brain metastases Code(s): C79.31 - SECONDARY MALIGNANT NEOPLASM OF BRAIN SNOMED Code(s): 56271709 Comment: - MRI as above - Hospice benefit elected per son/POA (2) Breast cancer Code(s): C50.919 - MALIGNANT NEOPLASM OF UNSP SITE OF UNSPECIFIED FEMALE BREAST SNOMED Code(s): 822112123 Comment: - Oncology consult appreciated - Agreed that hospice would be most appropriate at this time - Continue supportive care and comfort measures (3) Encephalopathy acute Code(s): G93.40 - ENCEPHALOPATHY, UNSPECIFIED SNOMED Code(s): 76422588 Comment: - Continues to worsen, likely culprit cause is advancing metastases rather than multifactorial - MRI as above - Extensive discussion with onco given enhancement on MRI - Hospice appropriate - Continue decadron per onco and supportive care - No apparent pain at this time (4) Seizure Code(s): R56.9 - UNSPECIFIED CONVULSIONS SNOMED Code(s): 28106046 Comment: - Continue divalproex BID for prophylaxis - Neuro consult appreciated (5) UTI (urinary tract infection) Comment: - Afebrile with no leukocytosis - Urine culture with Pseudomonas Aeruginosa and Enterococcus Faecalis - Completed cefepime, day 5/5 on 01/01/18 (6) DNR (do not resuscitate) Status and Disposition: Inpatient until hospice residence bed obtained, likely Counseling and/or Coordination of Care Minutes: coord with onco and case mgmt
[2018-01-03] MEDS: Alteplase (CATHFLO)* 2 MG VIAL IV ONE ×2 (00:33→00:51)
[2018-01-03] MEDS: Sodium Chloride TAB* 1 GM PO SCH ×3 (09:42→21:37)
[2018-01-03] MEDS: Dexamethasone TAB* 1 MG PO SCH ×2 (09:43→21:37)
[2018-01-03] MEDS: Divalproex DR TAB(*) 500 MG PO SCH ×2 (09:44→21:37)
[2018-01-03] MEDS ORDERED: Morphine ORAL.SOLN 10 mg* 2 MG/ML UDC 5 ml PO PRN (11:50)
--- NOTE | 2018-01-03 12:05 | PN ---
Subjective Date of Service: 01/03/18 Interval History: Patient seen and examined. Per RN, patient had agitation overnight with some confusion, appears to be improved today. No complaints of pain, no headache and no SOB. Family History: Unchanged from Admission Social History: Unchanged from Admission Past Medical History: Unchanged from Admission Objective Active Medications: Acetaminophen (Tylenol Tab*) 650 mg PO Q4H PRN PRN Reason: FEVER/PAIN Last Admin: 12/13/17 22:14 Dose: 650 mg Albuterol (Ventolin 2.5 Mg/3 Ml Neb.Yusra*) 1.25 mg INH TID PRN PRN Reason: SHORTNESS OF BREATH Dexamethasone (Decadron Tab*) 2 mg PO BID [facility] Last Admin: 01/03/18 09:43 Dose: 2 mg Dextrose (D50w Syringe 50 Ml*) 12.5 gm IV PUSH .FOR FS < 60 - SS PRN PRN Reason: FS < 60 Divalproex Sodium (Depakote Dr Tab(*)) 500 mg PO BID [facility] Last Admin: 01/03/18 09:44 Dose: 500 mg Docusate Sodium (Colace Cap*) 100 mg PO BID PRN PRN Reason: CONSTIPATION Last Admin: 12/20/17 21:20 Dose: 100 mg Heparin Sodium (Porcine) (Heparin Flush Port (Ivad)) 5 ml FLUSH DAILY [facility] PRN Reason: Protocol Last Admin: 01/03/18 10:13 Dose: 5 ml Lorazepam (Ativan Tab(*)) 0.5 mg PO Q6H PRN PRN Reason: AGITATION Morphine Sulfate (Morphine Oral.Soln 10 Mg*) 5 mg PO Q4H PRN PRN Reason: tachypnea Polyethylene Glycol/Electrolytes (Miralax*) 17 gm PO DAILY PRN PRN Reason: CONSTIPATION Last Admin: 12/20/17 21:18 Dose: 17 gm Senna (Senokot Tab*) 2 tab PO BEDTIME PRN PRN Reason: CONSTIPATION Last Admin: 12/20/17 21:20 Dose: 2 tab Sodium Chloride (Sodium Chloride Tab*) 1 gm PO TID [facility] Last Admin: 01/03/18 09:42 Dose: 1 gm Vital Signs - 8 hr 01/03/18 07:28 Respiratory 14 Rate Oxygen Devices in Use Now: None Appearance: Alert, NAD Ears/Nose/Mouth/Throat: Mucous Membranes Moist Neck: Trachea Midline Respiratory: Symmetrical Chest Expansion and Respiratory Effort, Clear to Auscultation Cardiovascular: NL Sounds; No Murmurs; No JVD, RRR - A&O x2 Nutrition: Taking PO's Result Diagrams: 01/01/18 05:56 01/01/18 05:56 Additional Lab and Data: Microbiology and Other Data: Microbiology 12/14/17 07:30 Legionella Urinary Antigen - Final Urine Negative Legionella Antigen Streptococcus pneumoniae Ag Screen - Final Negative S. pneumo Antigen 12/13/17 13:30 Nasal Screen MRSA (PCR)(ESTELITA) - Final Nasal Mrsa Not Detected 12/13/17 13:30 Influenza Types A,B Antigen (ESTELITA) - Final Nasal Specimen received for Influenza A/B Molecular testing Microbiology 12/26/17 16:30 Urine Urine Culture - Final Pseudomonas Aeruginosa Enterococcus Faecalis Diagnostic Imaging: Patient Name: KAREEN GARCIAS Medical Record#: [id number] Ordering Physician: Colby Wolf MD Acct.#: [id number] : 1940 Age: 77 Sex: F Location: [address] [place] [address]/TELEMETRY Exam Date: 01/01/18633 ADM Status: ADM IN Order Information: MRI BRAIN W/O Accession Number: [id number] CPT: 58709 HISTORY: Preop, breast cancer, brain mass COMPARISONS: December 14, 2017 TECHNIQUE: The following sequences were obtained of the head: Sagittal T1- weighted images, axial T2-weighted images, axial FLAIR images, axial susceptibility weighted images, axial T1-weighted images. Additionally, axial diffusion-weighted images were obtained with calculated apparent diffusion coefficients. Additionally, thin section axial T1- weighted images were obtained after contrast enhancement with a healing based intravenous protocol as part of the Stealth protocol for intraoperative navigation. FINDINGS: The postcontrast images are limited by patient motion artifact. HEMORRHAGE/INFARCT: There is no hemorrhage or acute infarct. MASSES/SHIFT: There are multiple parenchymal masses further described below. There is no shift. EXTRA-AXIAL SPACES/MENINGES: There is an enhancing extra axial mass along the posterior falx on the left. This is decreased in size compared to the previous examination. There is left meningeal enhancement along the left temporal lobe that is not clearly appreciated on the previous examination. SULCI AND VENTRICLES: The sulci and ventricles are normal in size and position for the patient's stated age. CEREBRUM: There is vasogenic edema of the left anterior parietal lobe, similar to the previous examination, likely reactive to the parafalcine mass. There is persistent elevated T2/FLAIR signal in the left mesial temporal lobe. 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 BRAINSTEM: There is elevated T2/FLAIR signal within the pontine white matter. CEREBELLUM: Again noted is an enhancing mass of the left inferior cerebellum with associated vasogenic edema. This is decreased in size compared to the previous examination. The cerebellar tonsils are normal in size and position. SELLA: The sella is normal. PINEAL: The pineal region is clear. CP ANGLE/TEMPORAL BONES: The labyrinthine structures are grossly normal. VESSELS: Normal flow-voids are noted within the visualized vertebral vasculature. DIFFUSION ABNORMALITIES: There are no diffusion abnormalities. PARANASAL SINUSES/MASTOIDS: The paranasal sinuses are clear. ORBITS: The orbits are unremarkable. BONES AND SOFT TISSUE: No bone or soft tissue abnormalities are noted. OTHER: None IMPRESSION: 1. EVALUATION IS LIMITED BY PATIENT MOTION ARTIFACT. 2. AGAIN NOTED IS EDEMA WITHIN THE LEFT MESIAL TEMPORAL LOBE. THIS PERSISTENT WHEN COMPARED TO THE PREVIOUS EXAMINATION. ADDITIONALLY, THERE HAS BEEN INTERVAL DEVELOPMENT OF LEFT MENINGEAL ENHANCEMENT ALONG THE LEFT TEMPORAL LOBE SUGGESTIVE OF REACTIVE EDEMA SECONDARY TO LEFT MENINGEAL SPREAD OF TUMOR. 3. AGAIN NOTED ARE MULTIPLE ENHANCING LESIONS OF THE CEREBRAL HEMISPHERES AND LEFT CEREBELLUM WITH ASSOCIATED VASOGENIC EDEMA. THESE HAVE DECREASED IN SIZE COMPARED TO THE PREVIOUS EXAMINATION. 4. AGAIN NOTED IS A LEFT POSTERIOR FALCINE EXTRA-AXIAL MASS, ALSO DECREASED IN SIZE FROM THE PREVIOUS EXAMINATION. 1 of 2 Assess/Plan/Problems-Billing . Assessment: Ms. 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 Found to have subclinical seizures on video EEG, UTI, and hyponatremia. MRI with new pathology in the brain. - Patient Problems (1) Brain metastases Code(s): C79.31 - SECONDARY MALIGNANT NEOPLASM OF BRAIN SNOMED Code(s): 45877070 Comment: - MRI as above - Hospice benefit elected per son/POA - Added ativan PRN and morphine for comfort as needed (2) Breast cancer Code(s): C50.919 - MALIGNANT NEOPLASM OF UNSP SITE OF UNSPECIFIED FEMALE BREAST SNOMED Code(s): 833399185 Comment: - Oncology consult appreciated - Agreed that hospice would be most appropriate at this time - Continue supportive care and comfort measures (3) Encephalopathy acute Code(s): G93.40 - ENCEPHALOPATHY, UNSPECIFIED SNOMED Code(s): 33797318 Comment: - Continues to worsen, likely culprit cause is advancing metastases rather than multifactorial - MRI as above - Extensive discussion with onco given enhancement on MRI - Hospice appropriate - Continue decadron per onco and supportive care (4) Seizure Code(s): R56.9 - UNSPECIFIED CONVULSIONS SNOMED Code(s): 81151358 Comment: - Continue divalproex BID for prophylaxis - Neuro consult appreciated (5) UTI (urinary tract infection) Comment: - Resolved - Urine culture with Pseudomonas Aeruginosa and Enterococcus Faecalis - Completed cefepime, day 5/5 on 01/01/18 (6) DNR (do not resuscitate) Status and Disposition: Inpatient until hospice residence bed obtained, likely
[2018-01-04] MEDS: Sodium Chloride TAB* 1 GM PO SCH ×3 (08:26→22:24)
[2018-01-04] MEDS: Dexamethasone TAB* 1 MG PO SCH ×2 (08:26→22:24)
[2018-01-04] MEDS: Divalproex DR TAB(*) 500 MG PO SCH ×2 (08:26→22:25)
--- NOTE | 2018-01-04 10:48 | PN ---
Subjective Date of Service: 01/04/18 Interval History: Patient seen and examined. Slept well, no complaints today. Denies pain, no fever or chills. Family and friends and bedside. Family History: Unchanged from Admission Social History: Unchanged from Admission Past Medical History: Unchanged from Admission Objective Active Medications: Acetaminophen (Tylenol Tab*) 650 mg PO Q4H PRN PRN Reason: FEVER/PAIN Last Admin: 12/13/17 22:14 Dose: 650 mg Albuterol (Ventolin 2.5 Mg/3 Ml Neb.Yusra*) 1.25 mg INH TID PRN PRN Reason: SHORTNESS OF BREATH Dexamethasone (Decadron Tab*) 2 mg PO BID [facility] Last Admin: 01/04/18 08:26 Dose: 2 mg Dextrose (D50w Syringe 50 Ml*) 12.5 gm IV PUSH .FOR FS < 60 - SS PRN PRN Reason: FS < 60 Divalproex Sodium (Depakote Dr Tab(*)) 500 mg PO BID [facility] Last Admin: 01/04/18 08:26 Dose: 500 mg Docusate Sodium (Colace Cap*) 100 mg PO BID PRN PRN Reason: CONSTIPATION Last Admin: 12/20/17 21:20 Dose: 100 mg Lorazepam (Ativan Tab(*)) 0.5 mg PO Q6H PRN PRN Reason: AGITATION Morphine Sulfate (Morphine Oral.Soln 10 Mg*) 5 mg PO Q4H PRN PRN Reason: tachypnea Polyethylene Glycol/Electrolytes (Miralax*) 17 gm PO DAILY PRN PRN Reason: CONSTIPATION Last Admin: 12/20/17 21:18 Dose: 17 gm Senna (Senokot Tab*) 2 tab PO BEDTIME PRN PRN Reason: CONSTIPATION Last Admin: 12/20/17 21:20 Dose: 2 tab Sodium Chloride (Sodium Chloride Tab*) 1 gm PO TID [facility] Last Admin: 01/04/18 08:26 Dose: 1 gm Vital Signs - 8 hr 01/04/18 08:40 Respiratory 18 Rate Oxygen Devices in Use Now: None Appearance: Sleepy, easily aroused and appropriate Ears/Nose/Mouth/Throat: NL Teeth, Lips, Gums Neck: Trachea Midline Respiratory: Symmetrical Chest Expansion and Respiratory Effort, Clear to Auscultation Cardiovascular: NL Sounds; No Murmurs; No JVD, RRR Abdominal: NL Sounds; No Tenderness; No Distention - A&O x2 Extremities: No Edema Neurological: NL Sensation, - - general weakness Nutrition: Taking PO's Result Diagrams: 01/01/18 05:56 01/01/18 05:56 Additional Lab and Data: Microbiology and Other Data: Microbiology 12/14/17 07:30 Legionella Urinary Antigen - Final Urine Negative Legionella Antigen Streptococcus pneumoniae Ag Screen - Final Negative S. pneumo Antigen 12/13/17 13:30 Nasal Screen MRSA (PCR)(ESTELITA) - Final Nasal Mrsa Not Detected 12/13/17 13:30 Influenza Types A,B Antigen (ESTELITA) - Final Nasal Specimen received for Influenza A/B Molecular testing Microbiology 12/26/17 16:30 Urine Urine Culture - Final Pseudomonas Aeruginosa Enterococcus Faecalis Diagnostic Imaging: Patient Name: KAREEN GARCIAS Medical Record#: [id number] Ordering Physician: Colby Wolf MD Acct.#: [id number] : 1940 Age: 77 Sex: F Location: [address] [place] [address] MEDICAL/TELEMETRY Exam Date: 01/01/18633 ADM Status: ADM IN Order Information: MRI BRAIN W/O Accession Number: [id number] CPT: 44735 HISTORY: Preop, breast cancer, brain mass COMPARISONS: December 14, 2017 TECHNIQUE: The following sequences were obtained of the head: Sagittal T1- weighted images, axial T2-weighted images, axial FLAIR images, axial susceptibility weighted images, axial T1-weighted images. Additionally, axial diffusion-weighted images were obtained with calculated apparent diffusion coefficients. Additionally, thin section axial T1- weighted images were obtained after contrast enhancement with a healing based intravenous protocol as part of the Stealth protocol for intraoperative navigation. FINDINGS: The postcontrast images are limited by patient motion artifact. HEMORRHAGE/INFARCT: There is no hemorrhage or acute infarct. MASSES/SHIFT: There are multiple parenchymal masses further described below. There is no shift. EXTRA-AXIAL SPACES/MENINGES: There is an enhancing extra axial mass along the posterior falx on the left. This is decreased in size compared to the previous examination. There is left meningeal enhancement along the left temporal lobe that is not clearly appreciated on the previous examination. SULCI AND VENTRICLES: The sulci and ventricles are normal in size and position for the patient's stated age. CEREBRUM: There is vasogenic edema of the left anterior parietal lobe, similar to the previous examination, likely reactive to the parafalcine mass. There is persistent elevated T2/FLAIR signal in the left mesial temporal lobe. 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 BRAINSTEM: There is elevated T2/FLAIR signal within the pontine white matter. CEREBELLUM: Again noted is an enhancing mass of the left inferior cerebellum with associated vasogenic edema. This is decreased in size compared to the previous examination. The cerebellar tonsils are normal in size and position. SELLA: The sella is normal. PINEAL: The pineal region is clear. CP ANGLE/TEMPORAL BONES: The labyrinthine structures are grossly normal. VESSELS: Normal flow-voids are noted within the visualized vertebral vasculature. DIFFUSION ABNORMALITIES: There are no diffusion abnormalities. PARANASAL SINUSES/MASTOIDS: The paranasal sinuses are clear. ORBITS: The orbits are unremarkable. BONES AND SOFT TISSUE: No bone or soft tissue abnormalities are noted. OTHER: None IMPRESSION: 1. EVALUATION IS LIMITED BY PATIENT MOTION ARTIFACT. 2. AGAIN NOTED IS EDEMA WITHIN THE LEFT MESIAL TEMPORAL LOBE. THIS PERSISTENT WHEN COMPARED TO THE PREVIOUS EXAMINATION. ADDITIONALLY, THERE HAS BEEN INTERVAL DEVELOPMENT OF LEFT MENINGEAL ENHANCEMENT ALONG THE LEFT TEMPORAL LOBE SUGGESTIVE OF REACTIVE EDEMA SECONDARY TO LEFT MENINGEAL SPREAD OF TUMOR. 3. AGAIN NOTED ARE MULTIPLE ENHANCING LESIONS OF THE CEREBRAL HEMISPHERES AND LEFT CEREBELLUM WITH ASSOCIATED VASOGENIC EDEMA. THESE HAVE DECREASED IN SIZE COMPARED TO THE PREVIOUS EXAMINATION. 4. AGAIN NOTED IS A LEFT POSTERIOR FALCINE EXTRA-AXIAL MASS, ALSO DECREASED IN SIZE FROM THE PREVIOUS EXAMINATION. 1 of 2 Assess/Plan/Problems-Billing . Assessment: Ms. 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 Found to have subclinical seizures on video EEG, UTI, and hyponatremia. MRI with new pathology in the brain. - Patient Problems (1) Brain metastases Code(s): C79.31 - SECONDARY MALIGNANT NEOPLASM OF BRAIN SNOMED Code(s): 20840195 Comment: - MRI as above - Hospice benefit elected per son/POA - Added ativan PRN and morphine for comfort as needed (2) Breast cancer Code(s): C50.919 - MALIGNANT NEOPLASM OF UNSP SITE OF UNSPECIFIED FEMALE BREAST SNOMED Code(s): 152579576 Comment: - Oncology consult appreciated - Agreed that hospice would be most appropriate at this time - Continue supportive care and comfort measures (3) Encephalopathy acute Code(s): G93.40 - ENCEPHALOPATHY, UNSPECIFIED SNOMED Code(s): 50881055 Comment: - Continues to worsen, likely culprit cause is advancing metastases rather than multifactorial - MRI as above - Extensive discussion with onco given enhancement on MRI - Hospice appropriate - Continue decadron per onco and supportive care, can switch to PO at discharge (4) Seizure Code(s): R56.9 - UNSPECIFIED CONVULSIONS SNOMED Code(s): 82793089 Comment: - Continue divalproex BID for prophylaxis - Neuro consult appreciated and signed off (5) UTI (urinary tract infection) Comment: - Resolved - Urine culture with Pseudomonas Aeruginosa and Enterococcus Faecalis - Completed cefepime, day 5/5 on 01/01/18 (6) DNR (do not resuscitate) Status and Disposition: Change in plan, patient will be DC to home hospice instead of the Residence. Son and daughter will arrange home care in conjunction with CM and hospice. Will DC when plan and equipment in place. [facility] paperwork for son completed and signed.
[2018-01-04] MEDS: LORazepam TAB(*) 0.5 MG PO PRN (22:25)
[2018-01-05] MEDS: Sodium Chloride TAB* 1 GM PO SCH ×3 (08:38→20:22)
[2018-01-05] MEDS: Divalproex DR TAB(*) 500 MG PO SCH ×2 (08:38→20:22)
[2018-01-05] MEDS: Dexamethasone TAB* 1 MG PO SCH ×2 (08:38→20:22)
--- NOTE | 2018-01-05 13:55 | PN ---
Subjective Date of Service: 01/05/18 Interval History: Patient seen and examined. Resting comfortably, family at bedside. No acute overnight events. No pain or complaints. Family History: Unchanged from Admission Social History: Unchanged from Admission Past Medical History: Unchanged from Admission Objective Active Medications: Acetaminophen (Tylenol Tab*) 650 mg PO Q4H PRN PRN Reason: FEVER/PAIN Last Admin: 12/13/17 22:14 Dose: 650 mg Albuterol (Ventolin 2.5 Mg/3 Ml Neb.Yusra*) 1.25 mg INH TID PRN PRN Reason: SHORTNESS OF BREATH Dexamethasone (Decadron Tab*) 2 mg PO BID [facility] Last Admin: 01/05/18 08:38 Dose: 2 mg Dextrose (D50w Syringe 50 Ml*) 12.5 gm IV PUSH .FOR FS < 60 - SS PRN PRN Reason: FS < 60 Divalproex Sodium (Depakote Dr Tab(*)) 500 mg PO BID [facility] Last Admin: 01/05/18 08:38 Dose: 500 mg Docusate Sodium (Colace Cap*) 100 mg PO BID PRN PRN Reason: CONSTIPATION Last Admin: 12/20/17 21:20 Dose: 100 mg Lorazepam (Ativan Tab(*)) 0.5 mg PO Q6H PRN PRN Reason: AGITATION Last Admin: 01/04/18 22:25 Dose: 0.5 mg Morphine Sulfate (Morphine Oral.Soln 10 Mg*) 5 mg PO Q4H PRN PRN Reason: tachypnea Polyethylene Glycol/Electrolytes (Miralax*) 17 gm PO DAILY PRN PRN Reason: CONSTIPATION Last Admin: 12/20/17 21:18 Dose: 17 gm Senna (Senokot Tab*) 2 tab PO BEDTIME PRN PRN Reason: CONSTIPATION Last Admin: 12/20/17 21:20 Dose: 2 tab Sodium Chloride (Sodium Chloride Tab*) 1 gm PO TID [facility] Last Admin: 01/05/18 13:26 Dose: 1 gm Vital Signs - 8 hr 01/05/18 08:00 Respiratory 18 Rate Oxygen Devices in Use Now: None Appearance: NAD Eyes: No Scleral Icterus, PERRLA Ears/Nose/Mouth/Throat: Mucous Membranes Moist Neck: Trachea Midline Respiratory: Symmetrical Chest Expansion and Respiratory Effort, Clear to Auscultation Cardiovascular: NL Sounds; No Murmurs; No JVD, RRR, No Edema Neurological: - - Alert and oriented x2 Nutrition: Taking PO's Result Diagrams: 01/01/18 05:56 01/01/18 05:56 Additional Lab and Data: Microbiology and Other Data: Microbiology 12/14/17 07:30 Legionella Urinary Antigen - Final Urine Negative Legionella Antigen Streptococcus pneumoniae Ag Screen - Final Negative S. pneumo Antigen 12/13/17 13:30 Nasal Screen MRSA (PCR)(ESTELITA) - Final Nasal Mrsa Not Detected 12/13/17 13:30 Influenza Types A,B Antigen (ESTELITA) - Final Nasal Specimen received for Influenza A/B Molecular testing Microbiology 12/26/17 16:30 Urine Urine Culture - Final Pseudomonas Aeruginosa Enterococcus Faecalis Diagnostic Imaging: Patient Name: KAREEN GARCIAS Medical Record#: [id number] Ordering Physician: Colby Wolf MD Acct.#: [id number] : 1940 Age: 77 Sex: F Location: [address] [place] [address] MEDICAL/TELEMETRY Exam Date: 01/01/18633 ADM Status: ADM IN Order Information: MRI BRAIN W/O Accession Number: [id number] CPT: 93191 HISTORY: Preop, breast cancer, brain mass COMPARISONS: December 14, 2017 TECHNIQUE: The following sequences were obtained of the head: Sagittal T1- weighted images, axial T2-weighted images, axial FLAIR images, axial susceptibility weighted images, axial T1-weighted images. Additionally, axial diffusion-weighted images were obtained with calculated apparent diffusion coefficients. Additionally, thin section axial T1- weighted images were obtained after contrast enhancement with a healing based intravenous protocol as part of the Stealth protocol for intraoperative navigation. FINDINGS: The postcontrast images are limited by patient motion artifact. HEMORRHAGE/INFARCT: There is no hemorrhage or acute infarct. MASSES/SHIFT: There are multiple parenchymal masses further described below. There is no shift. EXTRA-AXIAL SPACES/MENINGES: There is an enhancing extra axial mass along the posterior falx on the left. This is decreased in size compared to the previous examination. There is left meningeal enhancement along the left temporal lobe that is not clearly appreciated on the previous examination. SULCI AND VENTRICLES: The sulci and ventricles are normal in size and position for the patient's stated age. CEREBRUM: There is vasogenic edema of the left anterior parietal lobe, similar to the previous examination, likely reactive to the parafalcine mass. There is persistent elevated T2/FLAIR signal in the left mesial temporal lobe. 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 BRAINSTEM: There is elevated T2/FLAIR signal within the pontine white matter. CEREBELLUM: Again noted is an enhancing mass of the left inferior cerebellum with associated vasogenic edema. This is decreased in size compared to the previous examination. The cerebellar tonsils are normal in size and position. SELLA: The sella is normal. PINEAL: The pineal region is clear. CP ANGLE/TEMPORAL BONES: The labyrinthine structures are grossly normal. VESSELS: Normal flow-voids are noted within the visualized vertebral vasculature. DIFFUSION ABNORMALITIES: There are no diffusion abnormalities. PARANASAL SINUSES/MASTOIDS: The paranasal sinuses are clear. ORBITS: The orbits are unremarkable. BONES AND SOFT TISSUE: No bone or soft tissue abnormalities are noted. OTHER: None IMPRESSION: 1. EVALUATION IS LIMITED BY PATIENT MOTION ARTIFACT. 2. AGAIN NOTED IS EDEMA WITHIN THE LEFT MESIAL TEMPORAL LOBE. THIS PERSISTENT WHEN COMPARED TO THE PREVIOUS EXAMINATION. ADDITIONALLY, THERE HAS BEEN INTERVAL DEVELOPMENT OF LEFT MENINGEAL ENHANCEMENT ALONG THE LEFT TEMPORAL LOBE SUGGESTIVE OF REACTIVE EDEMA SECONDARY TO LEFT MENINGEAL SPREAD OF TUMOR. 3. AGAIN NOTED ARE MULTIPLE ENHANCING LESIONS OF THE CEREBRAL HEMISPHERES AND LEFT CEREBELLUM WITH ASSOCIATED VASOGENIC EDEMA. THESE HAVE DECREASED IN SIZE COMPARED TO THE PREVIOUS EXAMINATION. 4. AGAIN NOTED IS A LEFT POSTERIOR FALCINE EXTRA-AXIAL MASS, ALSO DECREASED IN SIZE FROM THE PREVIOUS EXAMINATION. 1 of 2 Assess/Plan/Problems-Billing . Assessment: Ms. 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 Found to have subclinical seizures on video EEG, UTI, and hyponatremia. MRI with new pathology in the brain. - Patient Problems (1) Brain metastases Code(s): C79.31 - SECONDARY MALIGNANT NEOPLASM OF BRAIN SNOMED Code(s): 48791228 Comment: - MRI as above - Hospice benefit elected per son/POA - Added ativan PRN and morphine for comfort as needed - Medically stable (2) Breast cancer Code(s): C50.919 - MALIGNANT NEOPLASM OF UNSP SITE OF UNSPECIFIED FEMALE BREAST SNOMED Code(s): 622856577 Comment: - Oncology consult appreciated, agreed for hospice - Continue supportive care and comfort measures (3) Encephalopathy acute Code(s): G93.40 - ENCEPHALOPATHY, UNSPECIFIED SNOMED Code(s): 39615608 Comment: - Stabilized last 24 hours, likely culprit cause is advancing metastases - MRI as above - Continue decadron per onco and supportive care, can switch to PO at discharge - Supportive care (4) Seizure Code(s): R56.9 - UNSPECIFIED CONVULSIONS SNOMED Code(s): 89718465 Comment: - Continue divalproex BID for prophylaxis - Neuro consult appreciated and signed off (5) UTI (urinary tract infection) Comment: - Resolved - Urine culture with Pseudomonas Aeruginosa and Enterococcus Faecalis - Completed cefepime, day 5/ on 01/01/18 (6) DNR (do not resuscitate) Status and Disposition: Patient medically stable for discharge today. CM to coordinated home vs facility.
[2018-01-05] MEDS: Acetaminophen TAB* 325 MG PO PRN (20:32)
[2018-01-05] MEDS: LORazepam TAB(*) 0.5 MG PO PRN (20:34)
[2018-01-06] MEDS: Sodium Chloride TAB* 1 GM PO SCH ×3 (08:32→19:52)
[2018-01-06] MEDS: Divalproex DR TAB(*) 500 MG PO SCH (08:32)
[2018-01-06] MEDS: Dexamethasone TAB* 1 MG PO SCH ×2 (08:32→19:52)
--- NOTE | 2018-01-06 13:32 | PN ---
Subjective Date of Service: 01/06/18 Interval History: Resting in bed no pain or complaints, alert to name, denies chest pain or shortness of breath with head nodding. denies abd pain n/v/d Family History: Unchanged from Admission Social History: Unchanged from Admission Past Medical History: Unchanged from Admission Objective Active Medications: Acetaminophen (Tylenol Tab*) 650 mg PO Q4H PRN PRN Reason: FEVER/PAIN Last Admin: 01/05/18 20:32 Dose: 650 mg Albuterol (Ventolin 2.5 Mg/3 Ml Neb.Yusra*) 1.25 mg INH TID PRN PRN Reason: SHORTNESS OF BREATH Dexamethasone (Decadron Tab*) 2 mg PO BID [facility] Last Admin: 01/06/18 08:32 Dose: 2 mg Dextrose (D50w Syringe 50 Ml*) 12.5 gm IV PUSH .FOR FS < 60 - SS PRN PRN Reason: FS < 60 Divalproex Sodium (Depakote Dr Tab(*)) 500 mg PO BID [facility] Last Admin: 01/06/18 08:32 Dose: 500 mg Docusate Sodium (Colace Cap*) 100 mg PO BID PRN PRN Reason: CONSTIPATION Last Admin: 12/20/17 21:20 Dose: 100 mg Lorazepam (Ativan Tab(*)) 0.5 mg PO Q6H PRN PRN Reason: AGITATION Last Admin: 01/05/18 20:34 Dose: 0.5 mg Morphine Sulfate (Morphine Oral.Soln 10 Mg*) 5 mg PO Q4H PRN PRN Reason: tachypnea Polyethylene Glycol/Electrolytes (Miralax*) 17 gm PO DAILY PRN PRN Reason: CONSTIPATION Last Admin: 12/20/17 21:18 Dose: 17 gm Senna (Senokot Tab*) 2 tab PO BEDTIME PRN PRN Reason: CONSTIPATION Last Admin: 12/20/17 21:20 Dose: 2 tab Sodium Chloride (Sodium Chloride Tab*) 1 gm PO TID [facility] Last Admin: 01/06/18 08:32 Dose: 1 gm Oxygen Devices in Use Now: None Appearance: appears fatigued, NAD Eyes: PERRLA Ears/Nose/Mouth/Throat: NL Teeth, Lips, Gums, - - mucous membranes dry Neck: NL Appearance and Movements; NL JVP, Trachea Midline Respiratory: Symmetrical Chest Expansion and Respiratory Effort, Clear to Auscultation Cardiovascular: NL Sounds; No Murmurs; No JVD, No Edema Abdominal: NL Sounds; No Tenderness; No Distention Extremities: No Edema, No Clubbing, Cyanosis Skin: No Rash or Ulcers Neurological: - - opens eyes to name, does reposnd to some questions, minimal response Nutrition: Taking PO's Result Diagrams: 01/01/18 05:56 01/01/18 05:56 Additional Lab and Data: Microbiology and Other Data: Microbiology 12/14/17 07:30 Legionella Urinary Antigen - Final Urine Negative Legionella Antigen Streptococcus pneumoniae Ag Screen - Final Negative S. pneumo Antigen 12/13/17 13:30 Nasal Screen MRSA (PCR)(ESTELITA) - Final Nasal Mrsa Not Detected 12/13/17 13:30 Influenza Types A,B Antigen (ESTELITA) - Final Nasal Specimen received for Influenza A/B Molecular testing Microbiology 12/26/17 16:30 Urine Urine Culture - Final Pseudomonas Aeruginosa Enterococcus Faecalis Diagnostic Imaging: Patient Name: KAREEN GARCIAS Medical Record#: [id number] Ordering Physician: Colby Wolf MD Acct.#: [id number] : 1940 Age: 77 Sex: F Location: [address] [place] [address]/TELEMETRY Exam Date: 01/01/18633 ADM Status: ADM IN Order Information: MRI BRAIN W/O Accession Number: [id number] CPT: 58258 HISTORY: Preop, breast cancer, brain mass COMPARISONS: December 14, 2017 TECHNIQUE: The following sequences were obtained of the head: Sagittal T1- weighted images, axial T2-weighted images, axial FLAIR images, axial susceptibility weighted images, axial T1-weighted images. Additionally, axial diffusion-weighted images were obtained with calculated apparent diffusion coefficients. Additionally, thin section axial T1- weighted images were obtained after contrast enhancement with a healing based intravenous protocol as part of the Stealth protocol for intraoperative navigation. FINDINGS: The postcontrast images are limited by patient motion artifact. HEMORRHAGE/INFARCT: There is no hemorrhage or acute infarct. MASSES/SHIFT: There are multiple parenchymal masses further described below. There is no shift. EXTRA-AXIAL SPACES/MENINGES: There is an enhancing extra axial mass along the posterior falx on the left. This is decreased in size compared to the previous examination. There is left meningeal enhancement along the left temporal lobe that is not clearly appreciated on the previous examination. SULCI AND VENTRICLES: The sulci and ventricles are normal in size and position for the patient's stated age. CEREBRUM: There is vasogenic edema of the left anterior parietal lobe, similar to the previous examination, likely reactive to the parafalcine mass. There is persistent elevated T2/FLAIR signal in the left mesial temporal lobe. 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 BRAINSTEM: There is elevated T2/FLAIR signal within the pontine white matter. CEREBELLUM: Again noted is an enhancing mass of the left inferior cerebellum with associated vasogenic edema. This is decreased in size compared to the previous examination. The cerebellar tonsils are normal in size and position. SELLA: The sella is normal. PINEAL: The pineal region is clear. CP ANGLE/TEMPORAL BONES: The labyrinthine structures are grossly normal. VESSELS: Normal flow-voids are noted within the visualized vertebral vasculature. DIFFUSION ABNORMALITIES: There are no diffusion abnormalities. PARANASAL SINUSES/MASTOIDS: The paranasal sinuses are clear. ORBITS: The orbits are unremarkable. BONES AND SOFT TISSUE: No bone or soft tissue abnormalities are noted. OTHER: None IMPRESSION: 1. EVALUATION IS LIMITED BY PATIENT MOTION ARTIFACT. 2. AGAIN NOTED IS EDEMA WITHIN THE LEFT MESIAL TEMPORAL LOBE. THIS PERSISTENT WHEN COMPARED TO THE PREVIOUS EXAMINATION. ADDITIONALLY, THERE HAS BEEN INTERVAL DEVELOPMENT OF LEFT MENINGEAL ENHANCEMENT ALONG THE LEFT TEMPORAL LOBE SUGGESTIVE OF REACTIVE EDEMA SECONDARY TO LEFT MENINGEAL SPREAD OF TUMOR. 3. AGAIN NOTED ARE MULTIPLE ENHANCING LESIONS OF THE CEREBRAL HEMISPHERES AND LEFT CEREBELLUM WITH ASSOCIATED VASOGENIC EDEMA. THESE HAVE DECREASED IN SIZE COMPARED TO THE PREVIOUS EXAMINATION. 4. AGAIN NOTED IS A LEFT POSTERIOR FALCINE EXTRA-AXIAL MASS, ALSO DECREASED IN SIZE FROM THE PREVIOUS EXAMINATION. 1 of 2 Assess/Plan/Problems-Billing . Assessment: Ms. 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 Found to have subclinical seizures on video EEG, UTI, and hyponatremia. MRI with new pathology in the brain. - Patient Problems (1) Brain metastases Current Visit: Yes Status: Acute Code(s): C79.31 - SECONDARY MALIGNANT NEOPLASM OF BRAIN SNOMED Code(s): 08989200 Comment: - MRI as above - Hospice benefit elected per son/POA - Added ativan PRN and morphine for comfort as needed - Medically stable- waiting (2) Delirium Current Visit: Yes Status: Acute Priority: High Code(s): R41.0 - DISORIENTATION, UNSPECIFIED SNOMED Code(s): 3488977 Comment: hypo-active since receiving ativan/keppra to suppress seizures yesterday, but the presenting altered mental status may have been multifactorial , and it is difficult to say what contributed most strongly to her decompensation prior to admission. we are treating her for hyponatremia, uti, encephalitis (empirically), and subclinical seizures at this time. she is drowsey this morning, and inappropriate. (3) Encephalopathy acute Current Visit: Yes Status: Acute Code(s): G93.40 - ENCEPHALOPATHY, UNSPECIFIED SNOMED Code(s): 34051648 Comment: - Stabilized last 24 hours, likely culprit cause is advancing metastases - MRI as above - Continue decadron per onco and supportive care, can switch to PO at discharge - Supportive care (4) Hyponatremia Current Visit: Yes Status: Acute Priority: High Code(s): E87.1 - HYPO- OSMOLALITY AND HYPONATREMIA SNOMED Code(s): 46613790 Comment: - Resolved, sodium stable - Serum osm 247, urine osm 531, urine na 113 -- most likely SIADH - Low AM cortisol is nondiagnostic in the setting of decadron treatment - Continue fluid restriction and salt tablets. (5) Seizure Current Visit: Yes Status: Acute Priority: High Code(s): R56.9 - UNSPECIFIED CONVULSIONS SNOMED Code(s): 76017186 Comment: - Continue divalproex BID for prophylaxis - Neuro consult appreciated and signed off (6) Breast cancer Current Visit: No Status: Chronic Code(s): C50.919 - MALIGNANT NEOPLASM OF [facility] SITE OF UNSPECIFIED FEMALE BREAST SNOMED Code(s): 439433457 Comment: - Oncology consult appreciated, agreed for hospice - Continue supportive care and comfort measures Status and Disposition: Patient medically stable for discharge today. CM to coordinated will go to [facility] on Monday
[2018-01-06 14:04] VITALS: BP 147/52
[2018-01-06] MEDS: Divalproex DR TAB(*) 250 MG PO SCH (19:52)
[2018-01-07] MEDS: Divalproex DR TAB(*) 250 MG PO SCH ×2 (08:43→21:09)
[2018-01-07] MEDS: Sodium Chloride TAB* 1 GM PO SCH ×3 (08:43→21:09)
[2018-01-07] MEDS: Dexamethasone TAB* 1 MG PO SCH ×2 (08:44→21:09)
--- NOTE | 2018-01-07 12:48 | PN ---
Subjective Date of Service: 01/07/18 Interval History: no complaints, denies pain, headache , chest pain or shortness of breath. Family History: Unchanged from Admission Social History: Unchanged from Admission Past Medical History: Unchanged from Admission Objective Active Medications: Acetaminophen (Tylenol Tab*) 650 mg PO Q4H PRN PRN Reason: FEVER/PAIN Last Admin: 01/05/18 20:32 Dose: 650 mg Albuterol (Ventolin 2.5 Mg/3 Ml Neb.Yusra*) 1.25 mg INH TID PRN PRN Reason: SHORTNESS OF BREATH Dexamethasone (Decadron Tab*) 2 mg PO BID [facility] Last Admin: 01/07/18 08:44 Dose: 2 mg Dextrose (D50w Syringe 50 Ml*) 12.5 gm IV PUSH .FOR FS < 60 - SS PRN PRN Reason: FS < 60 Divalproex Sodium (Depakote Dr Tab(*)) 500 mg PO BID [facility] Last Admin: 01/07/18 08:43 Dose: 500 mg Docusate Sodium (Colace Cap*) 100 mg PO BID PRN PRN Reason: CONSTIPATION Last Admin: 12/20/17 21:20 Dose: 100 mg Lorazepam (Ativan Tab(*)) 0.5 mg PO Q6H PRN PRN Reason: AGITATION Last Admin: 01/05/18 20:34 Dose: 0.5 mg Morphine Sulfate (Morphine Oral.Soln 10 Mg*) 5 mg PO Q4H PRN PRN Reason: tachypnea Polyethylene Glycol/Electrolytes (Miralax*) 17 gm PO DAILY PRN PRN Reason: CONSTIPATION Last Admin: 12/20/17 21:18 Dose: 17 gm Senna (Senokot Tab*) 2 tab PO BEDTIME PRN PRN Reason: CONSTIPATION Last Admin: 12/20/17 21:20 Dose: 2 tab Sodium Chloride (Sodium Chloride Tab*) 1 gm PO TID [facility] Last Admin: 01/07/18 08:43 Dose: 1 gm Vital Signs - 8 hr 01/07/18 08:40 Respiratory 15 Rate Oxygen Devices in Use Now: None Appearance: appears comfortable sitting in the chair Eyes: No Scleral Icterus Ears/Nose/Mouth/Throat: Clear Oropharnyx, Mucous Membranes Moist Neck: NL Appearance and Movements; NL JVP, Trachea Midline Respiratory: Symmetrical Chest Expansion and Respiratory Effort, Clear to Auscultation Cardiovascular: NL Sounds; No Murmurs; No JVD Extremities: No Edema, No Clubbing, Cyanosis Skin: No Rash or Ulcers Neurological: Alert and Oriented x 3 Nutrition: Taking PO's Result Diagrams: 01/01/18 05:56 01/01/18 05:56 Additional Lab and Data: Microbiology and Other Data: Microbiology 12/14/17 07:30 Legionella Urinary Antigen - Final Urine Negative Legionella Antigen Streptococcus pneumoniae Ag Screen - Final Negative S. pneumo Antigen 12/13/17 13:30 Nasal Screen MRSA (PCR)(ESTELITA) - Final Nasal Mrsa Not Detected 12/13/17 13:30 Influenza Types A,B Antigen (ESTELITA) - Final Nasal Specimen received for Influenza A/B Molecular testing Microbiology 12/26/17 16:30 Urine Urine Culture - Final Pseudomonas Aeruginosa Enterococcus Faecalis Diagnostic Imaging: Patient Name: KAREEN GARCIAS Medical Record#: [id number] Ordering Physician: Colby Wolf MD Acct.#: [id number] : 1940 Age: 77 Sex: F Location: [address] [place] [address]/TELEMETRY Exam Date: 01/01/18633 ADM Status: ADM IN Order Information: MRI BRAIN W/O Accession Number: [id number] CPT: 40698 HISTORY: Preop, breast cancer, brain mass COMPARISONS: December 14, 2017 TECHNIQUE: The following sequences were obtained of the head: Sagittal T1- weighted images, axial T2-weighted images, axial FLAIR images, axial susceptibility weighted images, axial T1-weighted images. Additionally, axial diffusion-weighted images were obtained with calculated apparent diffusion coefficients. Additionally, thin section axial T1- weighted images were obtained after contrast enhancement with a healing based intravenous protocol as part of the Stealth protocol for intraoperative navigation. FINDINGS: The postcontrast images are limited by patient motion artifact. HEMORRHAGE/INFARCT: There is no hemorrhage or acute infarct. MASSES/SHIFT: There are multiple parenchymal masses further described below. There is no shift. EXTRA-AXIAL SPACES/MENINGES: There is an enhancing extra axial mass along the posterior falx on the left. This is decreased in size compared to the previous examination. There is left meningeal enhancement along the left temporal lobe that is not clearly appreciated on the previous examination. SULCI AND VENTRICLES: The sulci and ventricles are normal in size and position for the patient's stated age. CEREBRUM: There is vasogenic edema of the left anterior parietal lobe, similar to the previous examination, likely reactive to the parafalcine mass. There is persistent elevated T2/FLAIR signal in the left mesial temporal lobe. 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 BRAINSTEM: There is elevated T2/FLAIR signal within the pontine white matter. CEREBELLUM: Again noted is an enhancing mass of the left inferior cerebellum with associated vasogenic edema. This is decreased in size compared to the previous examination. The cerebellar tonsils are normal in size and position. SELLA: The sella is normal. PINEAL: The pineal region is clear. CP ANGLE/TEMPORAL BONES: The labyrinthine structures are grossly normal. VESSELS: Normal flow-voids are noted within the visualized vertebral vasculature. DIFFUSION ABNORMALITIES: There are no diffusion abnormalities. PARANASAL SINUSES/MASTOIDS: The paranasal sinuses are clear. ORBITS: The orbits are unremarkable. BONES AND SOFT TISSUE: No bone or soft tissue abnormalities are noted. OTHER: None IMPRESSION: 1. EVALUATION IS LIMITED BY PATIENT MOTION ARTIFACT. 2. AGAIN NOTED IS EDEMA WITHIN THE LEFT MESIAL TEMPORAL LOBE. THIS PERSISTENT WHEN COMPARED TO THE PREVIOUS EXAMINATION. ADDITIONALLY, THERE HAS BEEN INTERVAL DEVELOPMENT OF LEFT MENINGEAL ENHANCEMENT ALONG THE LEFT TEMPORAL LOBE SUGGESTIVE OF REACTIVE EDEMA SECONDARY TO LEFT MENINGEAL SPREAD OF TUMOR. 3. AGAIN NOTED ARE MULTIPLE ENHANCING LESIONS OF THE CEREBRAL HEMISPHERES AND LEFT CEREBELLUM WITH ASSOCIATED VASOGENIC EDEMA. THESE HAVE DECREASED IN SIZE COMPARED TO THE PREVIOUS EXAMINATION. 4. AGAIN NOTED IS A LEFT POSTERIOR FALCINE EXTRA-AXIAL MASS, ALSO DECREASED IN SIZE FROM THE PREVIOUS EXAMINATION. 1 of 2 Assess/Plan/Problems-Billing . Assessment: Ms. 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 Found to have subclinical seizures on video EEG, UTI, and hyponatremia. MRI with new pathology in the brain. - Patient Problems (1) Brain metastases Current Visit: Yes Status: Acute Code(s): C79.31 - SECONDARY MALIGNANT NEOPLASM OF BRAIN SNOMED Code(s): 14922204 Comment: - MRI as above - Hospice benefit elected per son/POA - Added ativan PRN and morphine for comfort as needed - Medically stable- waiting (2) Delirium Current Visit: Yes Status: Acute Priority: High Code(s): R41.0 - DISORIENTATION, UNSPECIFIED SNOMED Code(s): 0893274 Comment: we are treating her for hyponatremia, uti, encephalitis (empirically), and subclinical seizures at this time. remains drowsey this morning- does follow commands and answer questions with short sentences (3) Encephalopathy acute Current Visit: Yes Status: Acute Code(s): G93.40 - ENCEPHALOPATHY, UNSPECIFIED SNOMED Code(s): 27870642 Comment: - Stabilized last 24 hours, likely culprit cause is advancing metastases - MRI as above - Continue decadron per onco - Supportive care (4) Hyponatremia Current Visit: Yes Status: Acute Priority: High Code(s): E87.1 - HYPO- OSMOLALITY AND HYPONATREMIA SNOMED Code(s): 60519219 Comment: - Resolved, sodium stable - salt tablets. (5) Seizure Current Visit: Yes Status: Acute Priority: High Code(s): R56.9 - UNSPECIFIED CONVULSIONS SNOMED Code(s): 91085210 Comment: - Continue divalproex BID for prophylaxis- switched tablet size to 250mg as patient was having difficulty swallowing the larger tablets - Neuro consult appreciated and signed off (6) Breast cancer Current Visit: No Status: Chronic Code(s): C50.919 - MALIGNANT NEOPLASM OF [facility] SITE OF UNSPECIFIED FEMALE BREAST SNOMED Code(s): 954007073 Comment: - Oncology consult appreciated, agreed for hospice - Continue supportive care and comfort measures Status and Disposition: Patient medically stable for discharge today. CM to cheikh will go to [facility] on Monday
[2018-01-08] MEDS: Dexamethasone TAB* 1 MG PO SCH ×2 (09:56→20:27)
[2018-01-08] MEDS: Divalproex DR TAB(*) 250 MG PO SCH ×2 (09:56→20:28)
[2018-01-08] MEDS: Sodium Chloride TAB* 1 GM PO SCH ×3 (09:57→20:27)
--- NOTE | 2018-01-08 23:24 | PN ---
Subjective Date of Service: 01/08/18 Interval History: Continue to have no complaints, states that she is ready to go home. Patient denies chest pain or shortness of breath, Denies abd pain or n/v/d. Family History: Unchanged from Admission Social History: Unchanged from Admission Past Medical History: Unchanged from Admission Objective Active Medications: Acetaminophen (Tylenol Tab*) 650 mg PO Q4H PRN PRN Reason: FEVER/PAIN Last Admin: 01/05/18 20:32 Dose: 650 mg Albuterol (Ventolin 2.5 Mg/3 Ml Neb.Yusra*) 1.25 mg INH TID PRN PRN Reason: SHORTNESS OF BREATH Dexamethasone (Decadron Tab*) 2 mg PO BID [facility] Last Admin: 01/08/18 20:27 Dose: 2 mg Dextrose (D50w Syringe 50 Ml*) 12.5 gm IV PUSH .FOR FS < 60 - SS PRN PRN Reason: FS < 60 Divalproex Sodium (Depakote Dr Tab(*)) 500 mg PO BID [facility] Last Admin: 01/08/18 20:28 Dose: 500 mg Docusate Sodium (Colace Cap*) 100 mg PO BID PRN PRN Reason: CONSTIPATION Last Admin: 12/20/17 21:20 Dose: 100 mg Lorazepam (Ativan Tab(*)) 0.5 mg PO Q6H PRN PRN Reason: AGITATION Last Admin: 01/05/18 20:34 Dose: 0.5 mg Morphine Sulfate (Morphine Oral.Soln 10 Mg*) 5 mg PO Q4H PRN PRN Reason: tachypnea Polyethylene Glycol/Electrolytes (Miralax*) 17 gm PO DAILY PRN PRN Reason: CONSTIPATION Last Admin: 12/20/17 21:18 Dose: 17 gm Senna (Senokot Tab*) 2 tab PO BEDTIME PRN PRN Reason: CONSTIPATION Last Admin: 12/20/17 21:20 Dose: 2 tab Sodium Chloride (Sodium Chloride Tab*) 1 gm PO TID [facility] Last Admin: 01/08/18 20:27 Dose: 1 gm Vital Signs - 8 hr 01/08/18 19:23 Respiratory 16 Rate Oxygen Devices in Use Now: None Appearance: calm, appears comfortable resting in bed Eyes: No Scleral Icterus Ears/Nose/Mouth/Throat: Clear Oropharnyx, Mucous Membranes Moist Neck: NL Appearance and Movements; NL JVP, Trachea Midline Respiratory: Symmetrical Chest Expansion and Respiratory Effort, Clear to Auscultation, - - occassional moist cough Cardiovascular: NL Sounds; No Murmurs; No JVD Abdominal: NL Sounds; No Tenderness; No Distention Extremities: No Edema, No Clubbing, Cyanosis Neurological: Alert and Oriented x 3 Nutrition: Taking PO's Result Diagrams: 01/01/18 05:56 01/01/18 05:56 Additional Lab and Data: Microbiology and Other Data: Microbiology 12/14/17 07:30 Legionella Urinary Antigen - Final Urine Negative Legionella Antigen Streptococcus pneumoniae Ag Screen - Final Negative S. pneumo Antigen 12/13/17 13:30 Nasal Screen MRSA (PCR)(ESTELITA) - Final Nasal Mrsa Not Detected 12/13/17 13:30 Influenza Types A,B Antigen (ESTELITA) - Final Nasal Specimen received for Influenza A/B Molecular testing Microbiology 12/26/17 16:30 Urine Urine Culture - Final Pseudomonas Aeruginosa Enterococcus Faecalis Diagnostic Imaging: Patient Name: KAREEN GARCIAS Medical Record#: [id number] Ordering Physician: Colby Wolf MD Acct.#: [id number] : 1940 Age: 77 Sex: F Location: [address] [place] [address]/TELEMETRY Exam Date: 01/01/18633 ADM Status: ADM IN Order Information: MRI BRAIN W/O Accession Number: [id number] CPT: 81938 HISTORY: Preop, breast cancer, brain mass COMPARISONS: December 14, 2017 TECHNIQUE: The following sequences were obtained of the head: Sagittal T1- weighted images, axial T2-weighted images, axial FLAIR images, axial susceptibility weighted images, axial T1-weighted images. Additionally, axial diffusion-weighted images were obtained with calculated apparent diffusion coefficients. Additionally, thin section axial T1- weighted images were obtained after contrast enhancement with a healing based intravenous protocol as part of the Stealth protocol for intraoperative navigation. FINDINGS: The postcontrast images are limited by patient motion artifact. HEMORRHAGE/INFARCT: There is no hemorrhage or acute infarct. MASSES/SHIFT: There are multiple parenchymal masses further described below. There is no shift. EXTRA-AXIAL SPACES/MENINGES: There is an enhancing extra axial mass along the posterior falx on the left. This is decreased in size compared to the previous examination. There is left meningeal enhancement along the left temporal lobe that is not clearly appreciated on the previous examination. SULCI AND VENTRICLES: The sulci and ventricles are normal in size and position for the patient's stated age. CEREBRUM: There is vasogenic edema of the left anterior parietal lobe, similar to the previous examination, likely reactive to the parafalcine mass. There is persistent elevated T2/FLAIR signal in the left mesial temporal lobe. 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 BRAINSTEM: There is elevated T2/FLAIR signal within the pontine white matter. CEREBELLUM: Again noted is an enhancing mass of the left inferior cerebellum with associated vasogenic edema. This is decreased in size compared to the previous examination. The cerebellar tonsils are normal in size and position. SELLA: The sella is normal. PINEAL: The pineal region is clear. CP ANGLE/TEMPORAL BONES: The labyrinthine structures are grossly normal. VESSELS: Normal flow-voids are noted within the visualized vertebral vasculature. DIFFUSION ABNORMALITIES: There are no diffusion abnormalities. PARANASAL SINUSES/MASTOIDS: The paranasal sinuses are clear. ORBITS: The orbits are unremarkable. BONES AND SOFT TISSUE: No bone or soft tissue abnormalities are noted. OTHER: None IMPRESSION: 1. EVALUATION IS LIMITED BY PATIENT MOTION ARTIFACT. 2. AGAIN NOTED IS EDEMA WITHIN THE LEFT MESIAL TEMPORAL LOBE. THIS PERSISTENT WHEN COMPARED TO THE PREVIOUS EXAMINATION. ADDITIONALLY, THERE HAS BEEN INTERVAL DEVELOPMENT OF LEFT MENINGEAL ENHANCEMENT ALONG THE LEFT TEMPORAL LOBE SUGGESTIVE OF REACTIVE EDEMA SECONDARY TO LEFT MENINGEAL SPREAD OF TUMOR. 3. AGAIN NOTED ARE MULTIPLE ENHANCING LESIONS OF THE CEREBRAL HEMISPHERES AND LEFT CEREBELLUM WITH ASSOCIATED VASOGENIC EDEMA. THESE HAVE DECREASED IN SIZE COMPARED TO THE PREVIOUS EXAMINATION. 4. AGAIN NOTED IS A LEFT POSTERIOR FALCINE EXTRA-AXIAL MASS, ALSO DECREASED IN SIZE FROM THE PREVIOUS EXAMINATION. 1 of 2 Assess/Plan/Problems-Billing . Assessment: Ms. 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 Found to have subclinical seizures on video EEG, UTI, and hyponatremia. MRI with new pathology in the brain. - Patient Problems (1) Brain metastases Current Visit: Yes Status: Acute Code(s): C79.31 - SECONDARY MALIGNANT NEOPLASM OF BRAIN SNOMED Code(s): 42122776 Comment: - MRI as above - Hospice benefit elected per son/POA - Added ativan PRN and morphine for comfort as needed - Medically stable- will tranfer to [facility] in the AM (2) Delirium Current Visit: Yes Status: Acute Priority: High Code(s): R41.0 - DISORIENTATION, UNSPECIFIED SNOMED Code(s): 5812494 Comment: Hyponatremia resolved subclinical seizures - placed on depakote She was treated for UTI - completed treatement. more alert this morning- does follow commands and answer questions with short sentences (3) Encephalopathy acute Current Visit: Yes Status: Acute Code(s): G93.40 - ENCEPHALOPATHY, UNSPECIFIED SNOMED Code(s): 75611271 Comment: - Stabilized last 24 hours, likely culprit cause is advancing metastases - MRI as above - Continue decadron per onco - Supportive care (4) Hyponatremia Current Visit: Yes Status: Acute Priority: High Code(s): E87.1 - HYPO- OSMOLALITY AND HYPONATREMIA SNOMED Code(s): 16768559 Comment: - Resolved, sodium stable - salt tablets. (5) Seizure Current Visit: Yes Status: Acute Priority: High Code(s): R56.9 - UNSPECIFIED CONVULSIONS SNOMED Code(s): 06683869 Comment: - Continue divalproex BID for prophylaxis- switched tablet size to 250mg as patient was having difficulty swallowing the larger tablets - Neuro consult appreciated and signed off (6) Breast cancer Current Visit: No Status: Chronic Code(s): C50.919 - MALIGNANT NEOPLASM OF UNSP SITE OF UNSPECIFIED FEMALE BREAST SNOMED Code(s): 939605249 Comment: - Oncology consult appreciated, agreed for hospice - Continue supportive care and comfort measures Status and Disposition: Patient medically stable for discharge [place]. will go to [facility] on Monday
[2018-01-09] MEDS: Sodium Chloride TAB* 1 GM PO SCH (08:47)
[2018-01-09] MEDS: Divalproex DR TAB(*) 250 MG PO SCH (08:47)
[2018-01-09] MEDS: Dexamethasone TAB* 1 MG PO SCH (08:47)
--- NOTE | 2018-01-09 09:00 | DS ---
DISCHARGE SUMMARY: DATE OF ADMISSION: 12/13/17 DATE OF DISCHARGE: 01/09/18 ATTENDING PHYSICIAN: Dr. Simon Simmons * (dictated by Isaura Krer NP). PRIMARY CARE PROVIDER: Dr. Chaney PRIMARY DIAGNOSES: 1. Altered mental status. 2. Hyponatremia. 3. History of breast cancer with metastatic disease to the brain. 4. Urinary tract infection. 5. Hypokalemia. 6. Hypomagnesium. SECONDARY DIAGNOSES: 1. Hypertension. 2. Asthma. STUDIES COMPLETED WHILE IN THE HOSPITAL: 1. She had several MRIs, MRI of the cervical, and thoracic spine. 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 There is no significant central canal stenosis. There is probable atypical hemangioma of T1, although given the history of malignancy recommend consideration of correlation with bone scan to exclude metastatic pattern of the skeletal uptake. There is no evidence of epidural extension of tumor. MRI of the lumbar spine: There is no significant intervertebral disk disease resulting in significant central canal or neuroforaminal stenosis. 2. Enhancing 6 mm foci are noted at the T11 nerve roots exhibiting a small amount of enhancement. They are not characteristic of metastatic foci. Nerve sheath lesions could be considered. She had an MRI of the brain last one being on 01/01/18. Radiologist's impression: 1. Evaluation was limited by patient motion artifact. 2. Again noted is edema within left mesial temporal lobe that is persistent when compared to the previous examinations. Additionally, there has been interval development of left meningeal enhancement along the left temporal lobe suggestive of reactive edema secondary to the left meningeal spread of tumor again noted are multiple enhancing lesions of the cerebral hemisphere and left cerebral with associated vasogenic edema. These have decreased in size compared to the previous examination. 3. Again noted is a left posterior falcine extraaxial mass also decreased in size from the previous examination. She had an LP done. Cerebrospinal fluid showed benign/moderate lymphocytosis only, no malignant cells were seen. DISCHARGE MEDICATIONS: 1. Morphine sulfate 5 mg p.o. q.4 hours as needed. 2. Ativan 0.5 mg p.o. q.6 hours as needed. 3. Depakote 500 mg p.o. b.i.d. 4. Dexamethasone 2 mg p.o. b.i.d. 5. She can continue albuterol HFA inhaler 1 puff q.6 hours as needed for shortness of breath. HISTORY OF PRESENT ILLNESS AND HOSPITAL COURSE: Ms. Garcias had a lengthy hospitalization. She was seen and consulted by Neurology and Oncology and Neurosurgery during her hospitalization and gave recommendations on further treatment options. In brief, Ms. Garcias is a 77-year-old female who presented to the emergency room on 12/13/17 as she was recently over at [facility] for treatment that day . The patient received her treatment at Hematology/Oncology and then presented to the room with some puffiness under her eyes. It is assumed this was secondary to Decadron as she had no other symptoms. The patient was sent home. She was dropped off at home around noon time and the next morning a friend came over to see how she was doing and she was found on the floor, it was unclear when she went on the floor , the patient remembers going to the floor, she does not remember how it happened. She did not know how long she had been there. At the time of admission to the emergency room, she was not making sense. She was confused to year and has severe altered mental status. She was found to be hyponatremic on admission in the emergency room with a sodium level of 119 as well as multiple electrolyte abnormalities. Throughout her hospitalization, these abnormalities were corrected. She was seen in consultation by Hematology and Oncology. On , she was seen by Dr. Montana from Hematology/Oncology given her history of breast cancer that was diagnosed on 02/02/17. She had completed chemotherapy 4 cycles of treatment. She also did complete radiation on 09/20/17. She presented on 11/07/17 with changes in balance and had an MRI of her brain. The MRI showed 5 enhancing lesions with a 23 mm x 15 mm left cerebral mass and an 8 mm right temporal lesion, 3 left cerebellar lesions, the largest 25 mm. She was referred to [facility] and had gamma knife done in October, subsequently started on Arimidex and Herceptin treatment. Her second treatment was . She started to develop some mental status changes after the Herceptin. Her friend and partner of 30 years noticed fluctuations in her temper and some forgetfulness. She deteriorated remarkably and on 12/13/17 she was found on the floor by her neighbors. Initially when she was hyponatremic with a sodium of 119, she had an EEG that showed some seizure activity arising from the posterior quadrant and in partial status epilepticus. She was initially in the ICU and was given Keppra. She was also treated empirically with acyclovir for possible [employer] HSV. Dr. Montana continued to follow her care during the hospitalization. 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 The case was reviewed with Dr. Rodriguez and discussed with Dr. Wolf. The MRI imaging did not require confirmatory biopsy. The results were discussed with her son, that the prognosis is poor, measured in weeks. Dr. Kumar recommended no further treatment for cancer. Dr. Kumar discussed hospice and the son felt the patient was not a candidate for home. hospice residence would be ideal. half-way placement with hospice would be an option for her. Given the grim prognosis and the spread of her metastatic brain lesions, the family opted for comfort and hospice care. Ms. Garcias will be transferred to the [facility] for comfort and hospice care. DISCHARGE PLAN: Ms. Garcias will be discharged to [facility]. ACTIVITIES: She can have activity as tolerated. DIET: Regular as tolerated. Her care and treatment should be as per hospice and family wishes. There will be no followup as her prognosis is very poor and according to Hematology and Oncology it is measured in weeks at this point. This is summarization of a complex and long hospitalization, for further details please see her entire medical record. TIME SPENT: Time spent on this discharge was approximately 60 minutes, greater than half the time was spent with the patient and her son and family discussing discharge plans and instructions. CONDITION ON DISCHARGE: Guarded. I have discussed this discharge plan with my attending Dr. Simmons and he is in agreement with my plan of care. ISAURA KERR, LIZETH [id number]/[facility] #: [id number] ELSY
== END 2018-01-09 11:58 | DRG 70 ==
LOC: ED 09:04 → ICU 12:45 → MEDTELE 12-19 11:28 → MED 12-21 19:49 → MEDTELE 12-30 13:39
PROVIDERS: ADMIT Internal Medicine; ATTEND Internal Medicine
PROC: 4A10X4Z Monitoring of Central Nervous Electrical Activity, External Approach (ICD-10-PCS; 2017-12-13)
PROC: 02HV33Z Insertion of Infusion Device into Superior Vena Cava, Percutaneous Approach (ICD-10-PCS; principal; 2017-12-15)
PROC: 4A0F33Z Measurement of Musculoskeletal Contractility, Percutaneous Approach (ICD-10-PCS; 2017-12-20)
PROC: 4A0 Measurement and Monitoring, Physiological Systems, Measurement (ICD-10-PCS; 2017-12-20)
PROC: 009U3ZX Drainage of Spinal Canal, Percutaneous Approach, Diagnostic (ICD-10-PCS; 2017-12-26)
DX: G93.40 Encephalopathy, unspecified (principal); G93.6 Cerebral edema; B00.4 Herpesviral encephalitis; C79.31 Secondary malignant neoplasm of brain; F05 Delirium due to known physiological condition; E87.1 Hypo-osmolality and hyponatremia; N39.0 Urinary tract infection, site not specified; R47.01 Aphasia; C79.32 Secondary malignant neoplasm of cerebral meninges; G40.901 Epilepsy, unspecified, not intractable, with status epilepticus; I10 Essential (primary) hypertension; J44.9 Chronic obstructive pulmonary disease, unspecified; K58.9 Irritable bowel syndrome, unspecified; K57.90 Diverticulosis of intestine, part unspecified, without perforation or abscess without bleeding; M19.90 Unspecified osteoarthritis, unspecified site; G43.909 Migraine, unspecified, not intractable, without status migrainosus; N28.1 Cyst of kidney, acquired; N32.81 Overactive bladder; F94.0 Selective mutism; B96.5 Pseudomonas (aeruginosa) (mallei) (pseudomallei) as the cause of diseases classified elsewhere; Z66 Do not resuscitate; B95.2 Enterococcus as the cause of diseases classified elsewhere; S80.02XA Contusion of left knee, initial encounter; S80.01XA Contusion of right knee, initial encounter; S80.12XA Contusion of left lower leg, initial encounter; S80.11XA Contusion of right lower leg, initial encounter; W19.XXXA Unspecified fall, initial encounter; G62.9 Polyneuropathy, unspecified; L98.9 Disorder of the skin and subcutaneous tissue, unspecified; M47.893 Other spondylosis, cervicothoracic region; R73.9 Hyperglycemia, unspecified; E87.6 Hypokalemia; E83.42 Hypomagnesemia; Z98.42 Cataract extraction status, left eye; Z88.1 Allergy status to other antibiotic agents; Z88.2 Allergy status to sulfonamides; Z98.41 Cataract extraction status, right eye; Z85.3 Personal history of malignant neoplasm of breast; Z98.51 Tubal ligation status; Z82.49 Family history of ischemic heart disease and other diseases of the circulatory system; Z83.3 Family history of diabetes mellitus; Z72.89 Other problems related to lifestyle; Z87.891 Personal history of nicotine dependence; Z87.440 Personal history of urinary (tract) infections; Y92.009 Unspecified place in unspecified non-institutional (private) residence as the place of occurrence of the external cause
CPT/HCPCS: 36415; 62270; 70450; 70551; 70552; 70553; 71045; 72156; 72157; 72158; 80048; 80053; 80164; 80307; 80320; 80329; 81003; 81015; 82140; 82330; 82533; 82550; 82570; 82607; 82945; 83519; 83520; 83605; 83735; 83930; 83935; 84100; 84157; 84300; 84439; 84443; 84479; 84484; 85025; 85027; 85060; 85610; 86255; 86256; 87040; 87070; 87077; 87086; 87186; 87205; 87502; 87529; 87641; 87899; 88112; 88305; 88342; 89051; 93005; 95816; 95886; 95909; 95951; 99223; 99232; 99233; 99284; A9270-GY; A9579; G0480; G8978-GP-CK; G8978-GP-CM; G8978-GP-CN; G8979-GP-CH; G8979-GP-CI; J0133; J0692; J1100; J1642; J1940; J2060; J2997; J3475; J3480; J3490; J8540